=== PATIENT | male | born 1975 | race Caucasian/White ===

== ENCOUNTER → 2018-10-27 13:30 | Outpatient (CLI) | payer MEDICAID, SELFPAY ==
--- NOTE | 2018-10-27 13:32 | MR_ITS ---
PROCEDURE: MR KNEE LT WO CON CLINICAL INDICATION: Knee pain Fall with injury and pain, medial knee pain weakness and knee COMPARISON: XR KNEE LT 3V from 10/07/2018 TECHNIQUE: Routine multiplanar multi echo sequences are performed without gadolinium enhancement. FINDINGS: The cruciate ligaments, collateral ligaments, patellar tendon, and quadriceps tendon have an unremarkable appearance no meniscal tear. The patellar cartilage is well preserved. There is no evidence of patellar subluxation. There is slight increased T2 signal involving the medial patellofemoral ligament which may be due to sprain. A full-thickness tear is not felt to be present. There is bone marrow edema along the medial aspect of the medial femoral condyle and of the proximal tibia anteriorly and posteriorly. There is a nondisplaced fracture involving the posterior aspect of the medial tibial plateau which extends into the articular surface of the medial tibial plateau. The fracture is at the posterior margin of the medial tibial plateau. There is a questionable new microfracture of the anterior aspect of the proximal tibia medially more toward the central aspect of the proximal tibia. There is some edema also along the inferior aspect of the patella. There is a small knee joint effusion IMPRESSION: 1. Nondisplaced medial tibial plateau fracture involving the posterior aspect of the medial tibial plateau 2. Possible microfracture of the anterior aspect of the proximal tibia more central. There is bone bruise of the posterior aspect of the proximal tibia medially and laterally and of the anterior aspect of the proximal tibia. Bone bruise also involves the medial femoral condyle and the inferior aspect of the patella. 3. Sprain of the medial patellofemoral ligament versus partial tear. A complete tear is not felt to be present. Dictated by: Dominic Cardoso MD 10/29/2018 10:48 Electronically signed by Dominic Cardoso MD in [place] 10/29/2018 10:48
== END ==
PROVIDERS: Visit Provider Orthopaedic Surgery
DX: M25.562 Pain in left knee (principal)
CPT/HCPCS: 73721

== ENCOUNTER → 2020-10-22 13:29 | Outpatient (CLI) | payer MEDICAID, SELFPAY ==
[2020-10-22 13:43] LABS: Basophils # 0.1 K/mm3 (0-0.2); Basophils % 0.9 % (0.1-2.0); Eosinophils # 0.2 K/mm3 (0.0-0.4); Eosinophils % 3.1 % (0.1-12.0); Hematocrit 46.1 % (42.0-52.0); Hemoglobin 15.2 g/dL (14.1-18.0); Lymphocytes # 1.3 K/mm3 (0.7-4.5); Lymphocytes % 20.6 % (10-50); Mean Corpuscular Hemoglobin 34.4 pg (27.0-31.2); Mean Corpuscular Volume 104.3 fl (80-94); Mean Platelet Volume 7.7 fl (7.4-10.4); Monocytes # 0.4 K/mm3 (0.1-1.0); Monocytes % 6.1 % (1.7-9.3); Neutrophils # 4.4 K/mm3 (1.8-7.8); Neutrophils % 69.2 % (37.0-80.0); Platelet Count 319 K/mm3 (142-424); Red Blood Count 4.42 M/mm3 (4.60-6.20); Red Cell Distribution Width 12.2 % (11.5-17.5); White Blood Count 6.3 K/mm3 (4.8-10.8)
[2020-10-22 14:12] LABS: Hemoglobin A1C 5.9 % (4.0-6.0)
[2020-10-22 14:26] LABS: Alanine Aminotransferase 61 U/L (12-78); Albumin Level 4.2 g/dl (3.5-5.0); Albumin/Globulin Ratio 1.2 (1.1-1.8); Alkaline Phosphatase 109 U/L (38-126); Anion Gap 19.9 mEq/L (5-15); Aspartate Amino Transferase 65 U/L (17-59); Bilirubin,Total 0.6 mg/dl (0.2-1.3); Blood Urea Nitrogen 9 mg/dl (9-20); Calcium 9.6 mg/dl (8.4-10.2); Carbon Dioxide 23 mmol/L (22.0-30.0); Chloride 99 mmol/L (98-107); Cholesterol 180 mg/dl (140-200); Estimated Glomerular Filt Rate 72 ml/min (>60); GFR (African American) 87 ML/MIN (>60); Globulin 3.5 g/dL (1.3-3.2); Glucose 168 mg/dl (74-100); Potassium 4.9 mmoL/L (3.5-5.1); Sodium 137 mmol/L (136-145); Total Protein,Serum 7.7 g/dl (6.3-8.2); Triglycerides 58 mg/dl (30-150); VLDL Cholesterol 12 mg/dL (0-40)
[2020-10-22 14:36] LABS: Chol/HDL Ratio 1.6 (1-3.5); HDL Cholesterol 114 mg/dl (40-60)
[2020-10-22 14:37] LABS: Direct LDL Cholesterol 57.68 mg/dL (100-129)
[2020-10-22 14:57] LABS: Thyroid Stimulating Hormone 2.25 uIU/mL (0.465-4.68)
== END ==
PROVIDERS: Visit Provider Family Medicine
DX: E11.69 Type 2 diabetes mellitus with other specified complication (principal); E78.5 Hyperlipidemia, unspecified; E07.9 Disorder of thyroid, unspecified; E10.43 Type 1 diabetes mellitus with diabetic autonomic (poly)neuropathy; Z79.4 Long term (current) use of insulin
CPT/HCPCS: 80053; 80061; 83036; 84443; 85025

== ENCOUNTER → 2020-11-27 09:01 | Outpatient (CLI) | payer MEDICAID, SELFPAY | PROVIDERS: Visit Provider Surgery | DX: Z01.812 Encounter for preprocedural laboratory examination (principal); Z11.52 Encounter for screening for COVID-19; Z13.810 Encounter for screening for upper gastrointestinal disorder; R10.9 Unspecified abdominal pain | CPT/HCPCS: C9803; U0003; U0005 ==

== ENCOUNTER 2020-11-29 09:42 | Day surgery (SDC) | payer MEDICAID, SELFPAY ==
[2020-11-26 12:22] VITALS: BMI 35.4
[2020-11-29 10:03] VITALS: BP 111/94; PULSE 75; RESP 18; TEMP 36.6; O2SAT 99
--- NOTE | 2020-11-29 10:25 | HMH.ANESCL ---
[facility] Anesthesia Checklist - Patient Identification Patient Identification: Arm Band - Structural Data Admitted From: Home Planned Operative Procedure/s: EGD Consent for Planned Operative Procedure(s) Verified: Yes - NPO Status Verified Time NPO: 00:00 - Airway Assessment C-Spine Mobility Assessed: Yes TMJ Mobility Assessed: Yes Dentition: Good Dentition - Neurological Assessment Level of Consciousness: Awake Hx Seizures: No Numbness or tingling in extremities: No - Anesthesia Plan Anesthesia Risk discussed: Yes Anesthesia Plan: Verified ASA Class: III Anesthesia Type: MAC [facility] History I have reviewed the patient's past medical history: Yes Medical History: Reports:: Diabetes Mellitus Type 1, Diabetes Mellitus Type 2, Hypertension, Nephritis, Renal Disease (STage 2) Denies:: Cancer, Internal Pacemaker, MRSA, Seizures *Have you ever received a pneumonia vaccine?: No *Have you received a flu vaccine this season?: Yes Other Medical History: Reports: Thyroid Disease Anesthesia experience/problems:: None Other Surgeries: Yes: Bariatric Surgery, Other. No: Pacemaker Amputation: No Fractures: Yes (ANKLE) - *Social History Last grade of school completed: High school graduate Smoking Status: Never smoker Tobacco Type: smokeless tobacco # Packs/Day (cigarettes): 0 Alcohol Intake: current Alcohol Intake Frequency:: 0-2 drinks per day Substance Use Type: denies use *Occupational Status:: employed *Travel in the last 8 weeks: None Family Hx:: Diabetes, Coronary Artery Disease, Cancer
[2020-11-29 10:33] LABS: POC Glucose,Bedside 102 (70-110)
[2020-11-29 10:35] VITALS: O2SAT 100
--- NOTE | 2020-11-29 11:02 | HMH.SCOPE ---
- Procedure: Date: 11/29/20 Patient Date of :: 1975 Procedure Performed:: Esophagogastroduodenoscopy with biopsy Indications:: Melena Epigastric pain Performing Provider:: Christiano Cuevas MD Referring Provider:: . Sedation:: Monitored anesthesia care Procedure:: After informed consent was obtained the patient was taken to the endoscopy suite. Sedation ensued after the patient was transferred to the left lateral decubitus position. Pulse, blood pressure, and oxygen saturation were monitored throughout the procedure. The endoscope was advanced beyond the anastomosis (history of bariatric surgery). The gastroscope was carefully removed and the patient was transferred to recovery in stable condition. Please see findings and specimens below for detail. Findings:: Exceptionally small gastric remnant Inflammation at anastomosis Specimens:: Anastomotic biopsy Recommendations:: Follow-up pathology Consider UGI/SBFT if symptoms persist Continue current medical therapy May require reevaluation by bariatric surgeon if symptoms persist Complications:: No immediate Estimated blood obtained (mL): 1
[2020-11-29 11:05] VITALS: BP 117/75; PULSE 84; RESP 18; TEMP 36.7; O2SAT 96
[2020-11-29 11:15] VITALS: BP 113/70; PULSE 70; RESP 18; O2SAT 98
--- NOTE | 2020-11-29 11:30 | SUR.PHASEII ---
PT'S CONTINUOUS GLUCOSE MONITOR READING 77 UPON ARRIVAL TO POST OP. PT ABLE TO DRINK ORANGE JUICE AND BS WENT UP TO 105 AT TIME OF DISCHARGE. PT EXPERIENCED NO S/S HYPOGLYCEMIA.
[2020-11-29 11:35] VITALS: BP 114/68; PULSE 72; RESP 18; O2SAT 99
== END 2020-11-29 11:37 | disposition home or self-care (01) ==
LOC: OUTP 09:43
PROVIDERS: PCP Family Medicine; Visit Provider Surgery
PROC: 0DJ08ZZ Inspection of Upper Intestinal Tract, Via Natural or Artificial Opening Endoscopic (ICD-10-PCS; CPT 43235; principal; 2020-11-29 11:00)
DX: Z98.84 Bariatric surgery status; K29.60 Other gastritis without bleeding; I10 Essential (primary) hypertension; E11.22 Type 2 diabetes mellitus with diabetic chronic kidney disease; I12.9 Hypertensive chronic kidney disease with stage 1 through stage 4 chronic kidney disease, or unspecified chronic kidney disease; N18.2 Chronic kidney disease, stage 2 (mild); E07.9 Disorder of thyroid, unspecified; E66.9 Obesity, unspecified; Z68.35 Body mass index [BMI] 35.0-35.9, adult; E10.43 Type 1 diabetes mellitus with diabetic autonomic (poly)neuropathy; Z79.899 Other long term (current) drug therapy; Z79.4 Long term (current) use of insulin
CPT/HCPCS: 43239; 82962

== ENCOUNTER → 2021-03-29 12:12 | Outpatient (CLI) | payer MEDICAID, SELFPAY ==
[2021-03-29 12:19] LABS: Microscopic, Urine URINE MICROSCOPIC (MICROSCOPIC)
[2021-03-29 13:11] LABS: Hematocrit 40.5 % (42.0-52.0); Hemoglobin 13.3 g/dL (14.1-18.0); Mean Corpuscular HGB Conc 32.9 g/dL (31.8-35.4); Mean Corpuscular Hemoglobin 33.8 pg (27.0-31.2); Mean Corpuscular Volume 102.6 fl (80-94); Platelet Count 243 K/mm3 (142-424); Red Blood Count 3.95 M/mm3 (4.60-6.20); Red Cell Distribution Width 14.3 % (11.5-17.5); White Blood Count 5.9 K/mm3 (4.8-10.8)
[2021-03-29 13:18] LABS: Appearance,Urine CLEAR (Clear); Bilirubin,Urine Negative (Negative); Blood, Urine Negative (Negative); Color,Urine YELLOW (Yellow); Glucose,Urine (UA) Negative (Negative); Ketones,Urine Negative (Negative); Leukocyte Esterase,Urine Negative (Negative); Nitrate,Urine Negative (Negative); Protein,Urine Negative (Negative); Specific Gravity, Urine 1.015 (1.005-1.030)
[2021-03-29 13:23] LABS: Chloride 105 mmol/L (98-107); Sodium 135 mmol/L (136-145)
[2021-03-29 13:24] LABS: Potassium 5.5 mmoL/L (3.5-5.1)
[2021-03-29 13:26] LABS: Blood Urea Nitrogen 7 mg/dl (9-20); Estimated Glomerular Filt Rate 65 ml/min (>60); GFR (African American) 79 ML/MIN (>60)
[2021-03-29 13:27] LABS: Anion Gap 8.5 mEq/L (5-15); Calcium 8.2 mg/dl (8.4-10.2); Carbon Dioxide 27 mmol/L (22.0-30.0); Glucose 104 mg/dl (74-100)
[2021-03-29 14:02] LABS: Bacteria,Urine Trace /lpf; RBC,Urine Occasional #/hpf (0-3); WBC,Urine Occasional #/hpf (0-3)
[2021-03-29 14:05] LABS: Microalbumin/Creatinine Ratio 11.5
[2021-03-29 14:10] LABS: Creatinine,Urine Random 76 mg/dL (Not Estab.)
== END ==
PROVIDERS: PCP Family Medicine; Visit Provider Physician Assistant Medical
DX: N18.31 Chronic kidney disease, stage 3a (principal)
CPT/HCPCS: 36415; 80069; 81001; 82043; 82570; 84155; 85014; 85018; 85048; 85049

== ENCOUNTER 2022-01-20 10:09 | Observation (INO) | payer MEDICAID, SELFPAY ==
[2022-01-20] VITALS (7 sets, daily range): BP systolic 133–157; BP diastolic 80–87; PULSE 60–74; RESP 17–18; TEMP 36.7–37.1; O2SAT 97–99; BMI 35.4; BMI 35.3
--- NOTE | 2022-01-20 10:31 | PC.NURSE ---
DR. REYNOLDS AT BEDSIDE FOR EVALUATION
--- NOTE | 2022-01-20 10:36 | XR_ITS ---
FINAL REPORT TECHNIQUE: Single view chest CLINICAL HISTORY: concern for pneumonia FINDINGS: A single view of the chest was obtained. The heart and mediastinum are within normal limits. The lungs are clear. There is no pneumothorax. Osseous structures are unremarkable. IMPRESSION: No acute cardiopulmonary process. Reviewed, Interpreted and Dictated by Roge Cooper III, MD Transcribed by Yumiko Arroyo Authenticated and . [facility]
--- NOTE | 2022-01-20 10:38 | HMH.EDGENADL ---
Discharge Plan Disposition Chief Complaint: Weakness Discharge ED Provider: Jeison Ackerman General Adult HPI General Chief complaint: Weakness Stated complaint: weakness, trouble walking,dizzzy Time Seen by Provider: 01/20/22 10:20 Mode of Arrival: Ambulatory Source of Information: Patient Limitations: No Limitations Description of Symptoms (Recalled from ER Triage Doc. by RN): PT REPORTS WEAKNESS OF BILATERAL LEGS THAT STARTED THIS AM, LOW BLOOD PRESSURE AND NO ENERGY History of Present Illness HPI narrative: Patient is a 46-year-old male with a past medical history of hyperlipidemia, diabetes who presents with concern for weakness. He says that he has been having some issues with leg cramping the last few nights but today he woke up and he was feeling weak all over. He said he felt like his legs were heavy. He said he took his blood pressure and it was little bit lower than it normally was. He tried to go to breakfast to eat and drink to see if this would help him but he felt so weak he was not able to get there. He denies any new numbness or tingling into extremities. Denies any fever or chills. Denies any cough or congestion. Denies any abdominal pain. He says that he also has some back pain but says that this is chronic. Related Data Home Medications Medication Instructions Recorded Confirmed insulin glargine 100 unit/mL (3 20 unit SQ HS Diabetes 10/22/20 01/20/22 mL) subcutaneous pen (Basaglar KwikPen U-100 Insulin) insulin lispro 100 unit/mL 2 sliding scale dose SQ 10/22/20 01/20/22 subcutaneous pen (Iman DAVALOSASDIRECTD Diabetes U-100 Insulin lispro) chlorthalidone 25 mg tablet 25 mg PO DAILY High blood pressure 01/14/22 01/20/22 Previous Rx's Medication Instructions Recorded sildenafil 100 mg tablet 100 mg PO DAILY PRN sexual 03/29/21 activity #10 tabs fluticasone propionate 50 1 spray intranasal Q12H PRN nasal 05/10/21 mcg/actuation nasal congestion #16 grams spray,suspension trazodone 50 mg tablet 50 mg PO HS PRN Sleep #90 tabs 09/17/21 pravastatin 20 mg tablet 20 mg PO DAILY Cholesterol #30 tabs 10/30/21 furosemide 20 mg tablet (Lasix) 20 mg PO DAILY PRN edema #30 tabs 01/14/22 gabapentin 600 mg tablet 600 mg PO Q8H NERVE PAIN #90 tabs 01/14/22 Allergies Allergy/AdvReac Type Severity Reaction Status Date / Time No Known Allergies Allergy Verified 01/14/22 10:10 [facility] Disclaimer: The information contained in this section may have been updated after the patient was seen, as this information can be updated by other users. Medical History (Updated 01/20/22 @ 10:29 by Lee Ann Gordon RN) Diabetes Neuropathy Surgical History (Updated 01/20/22 @ 10:29 by Lee Ann Gordon RN) H/O gastric bypass History of ankle surgery Family History (Updated 01/20/22 @ 10:29 by Lee Ann Gordon RN) Other No significant family history Social History (Updated 01/20/22 @ 10:29 by Lee Ann Gordon RN) Smoking Status: Never smoker alcohol intake: current substance use type: denies use current occupational status: employed Travel in the last 8 weeks: None caffeine: No ROS Obtained: Yes All systems reviewed & no additional complaints except as documented A 14 point review of system was obtained and otherwise negative except per HPI Physical Exam General General appearance: alert and in no apparent distress Head Head exam: atraumatic, normocephalic and normal inspection Eye Eye exam: Present normal appearance, PERRL and EOMI ENT ENT exam: Present normal exam, normal oropharynx, mucous membranes moist, TM's normal bilaterally and normal external ear exam Neck Neck exam: Present normal inspection, full ROM and trachea midline; Absent meningismus or lymphadenopathy Chest Chest inspection: Present normal inspection and symmetric chest wall rise; Absent tenderness Respiratory Respiratory exam: Present normal lung sounds bilaterally; Absent respiratory
--- NOTE | 2022-01-20 10:48 | PC.NURSE ---
XR AT BEDSIDE
[2022-01-20 10:55] LABS: Coronavirus 19, PCR Not Detected (NotDetected); Influenza A, PCR Not Detected (NotDetected); Influenza B, PCR Not Detected (NotDetected)
[2022-01-20 11:01] LABS: Basophils % 0.7 % (0.1-2.0); Eosinophils # 0.1 K/mm3 (0.0-0.4); Eosinophils % 2.1 % (0.1-12.0); Hematocrit 39.4 % (42.0-52.0); Hemoglobin 13.9 g/dL (14.1-18.0); Lymphocytes # 0.9 K/mm3 (0.7-4.5); Mean Corpuscular HGB Conc 35.2 g/dL (31.8-35.4); Mean Corpuscular Hemoglobin 34.2 pg (27.0-31.2); Mean Corpuscular Volume 97.2 fl (80-94); Mean Platelet Volume 7.5 fl (7.4-10.4); Monocytes # 0.4 K/mm3 (0.1-1.0); Monocytes % 7.1 % (1.7-9.3); Neutrophils # 4.7 K/mm3 (1.8-7.8); Neutrophils % 76.2 % (37.0-80.0); Platelet Count 253 K/mm3 (142-424); Red Blood Count 4.06 M/mm3 (4.60-6.20); Red Cell Distribution Width 13.5 % (11.5-17.5); White Blood Count 6.2 K/mm3 (4.8-10.8)
[2022-01-20 11:03] LABS: Sodium 118 mmol/L (136-145)
[2022-01-20 11:04] LABS: Potassium 3.9 mmoL/L (3.5-5.1)
[2022-01-20 11:05] LABS: Microscopic, Urine URINE MICROSCOPIC (MICROSCOPIC)
[2022-01-20 11:06] LABS: Alanine Aminotransferase 63 U/L (12-78); Albumin Level 4.7 g/dl (3.5-5.0); Albumin/Globulin Ratio 1.3 (1.1-1.8); Alkaline Phosphatase 94 U/L (38-126); Anion Gap 13.9 mEq/L (5-15); Aspartate Amino Transferase 152 U/L (17-59); Bilirubin,Total 0.6 mg/dl (0.2-1.3); Blood Urea Nitrogen 15 mg/dl (9-20); Calcium 9.3 mg/dl (8.4-10.2); Carbon Dioxide 33 mmol/L (22.0-30.0); Creatinine Clearance Estimated 99 mL/min (50-200); Estimated Glomerular Filt Rate 54 ml/min (>60); GFR (African American) 65 ML/MIN (>60); Globulin 3.7 g/dL (1.3-3.2); Glucose 103 mg/dl (74-100); Total Protein,Serum 8.4 g/dl (6.3-8.2)
[2022-01-20 11:06] LABS: Appearance,Urine CLEAR (Clear); Bilirubin,Urine Negative (Negative); Blood, Urine Negative (Negative); Color,Urine YELLOW (Yellow); Glucose,Urine (UA) Negative (Negative); Ketones,Urine Negative (Negative); Leukocyte Esterase,Urine Negative (Negative); Nitrate,Urine Negative (Negative); PH,Urine 6.5 (5.0-8.5); Protein,Urine Negative (Negative)
[2022-01-20 11:07] LABS: Magnesium 1.6 mg/dl (1.6-2.3)
[2022-01-20 11:12] LABS: C-Reactive Protein 3.2 mg/L (0-4)
[2022-01-20 11:13] LABS: Chloride 75 mmol/L (98-107)
[2022-01-20 11:15] LABS: NT Pro Brain Natriuretic Pep. 79.7 pg/mL (0-125)
[2022-01-20 11:23] LABS: Bacteria,Urine Trace /lpf; Squamous Epithelial Cell,Urine Occasional #/hpf (0-5); WBC,Urine Occasional #/hpf (0-3)
--- NOTE | 2022-01-20 11:25 | PC.NURSE ---
Family at BS
[2022-01-20 11:56] LABS: Creatinine,Urine Random 23 mg/dL (Not Estab.)
--- NOTE | 2022-01-20 12:00 | PC.NURSE ---
DR. REYNOLDS SPEAKING WITH HOSPITALIST
--- NOTE | 2022-01-20 12:07 | PC.NURSE ---
CARE MANAGEMENT NOTIFIED OF ADMISSION
[2022-01-20 12:20] LABS: Ethyl Alcohol < 10 mg/dl (0-10)
--- NOTE | 2022-01-20 13:02 | PC.NURSE ---
Dr. Sahu (hospitalist) at
--- NOTE | 2022-01-20 13:44 | HMH.PHAINT1 ---
Pharmacy Intervention Comments: Medication reconciliation completed via chart review and external fill history. -Ava Keyes, PharmD Candidate 2022
--- NOTE | 2022-01-20 13:54 | EXP.HP ---
History of Present Illness *Admission Date: 01/20/22 *Reason for visit:: Chief complaint: Weakness *History of present illness: This is a 46-year-old male that presents to [facility] emergency department with concerns of weakness over the last 48 hours worse this morning. He is accompanied by his mother. His past medical history is significant for type 1 diabetes, hypertension, hyperlipidemia and BMI 35. He reports that he is chronically prescribed chlorthalidone for high blood pressure and went to see his family doctor approximately 1 week ago for increasing lower extremity edema. He was prescribed furosemide to use as needed. He started using his recently prescribed loop diuretic therapy and identified improvement in his lower extremity edema but also identified increasing weakness. He denies any recent nausea, vomiting or diarrhea. This morning with attempting to go to the bathroom he felt like I could not move. He denies acute loss of motor or sensory function, I just feel real weak. He denied associated dysarthria, facial asymmetry or confusion. He has identified decreased calculating ability. He reported no associated falls, acute dyspnea, retrosternal chest pain or palpitations. He denies unusual headaches, visual disturbances or trouble swallowing. In the ED and electrolyte panel identified a sodium 118 with chloride 75 and creatinine 1.4. He reported to the ED physician that he drinks a sixpack of beer daily with no associated liquor or wine consumption. [facility] Disclaimer: The information contained in this section may have been updated after the patient was seen, as this information can be updated by other users. Medical History (Updated 01/20/22 @ 14:15 by Vicente Callejas MD) BMI 35.0-35.9,adult Diabetic neuropathy Hyperlipidemia associated with type 2 diabetes mellitus Hypertension Type 1 diabetes mellitus Surgical History (Updated 01/20/22 @ 10:29 by Lee Ann Gordon RN) H/O gastric bypass History of ankle surgery Family History (Updated 01/20/22 @ 14:04 by Vicente Callejas MD) Mother Osteoarthritis Father Heart attack Social History (Updated 01/20/22 @ 14:07 by Vicente Callejas MD) Smoking Status: Never smoker alcohol intake: current counseling given: Yes counseling provided: provider counseling and reduce to 2 or less/day substance use type: denies use current occupational status: employed Travel in the last 8 weeks: None marital status: single number of children: 0 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 caffeine: No brenda/mormon: [employer] Review of Systems Review of Systems Review of systems:: pertinent systems reviewed and negative unless documented below ENT Ears, Nose, Mouth, and Throat: Denies dysphagia *Gastrointestinal Gastrointestinal: Denies diarrhea, Denies dysphagia, Denies nausea and Denies vomiting Meds Home Medications and Allergies Home Medications Medication Instructions Recorded Confirmed Type insulin glargine 100 unit/mL (3 20 unit SQ HS Diabetes 10/22/20 01/20/22 History mL) subcutaneous pen (Basaglar KwikPen U-100 Insulin) insulin lispro 100 unit/mL 2 sliding scale dose SQ 10/22/20 01/20/22 History subcutaneous pen (elkarel SoloSthuma USEASDIRECTD Diabetes U-100 Insulin lispro) sildenafil 100 mg tablet 100 mg PO DAILY PRN sexual 03/29/21 01/20/22 Rx activity #10 tabs fluticasone propionate 50 1 spray intranasal Q12H PRN nasal 05/10/21 01/20/22 Rx mcg/actuation nasal congestion #16 grams spray,suspension trazodone 50 mg tablet 50 mg PO HS PRN Sleep #90 tabs 09/17/21 01/20/22 Rx pravastatin 20 mg tablet 20 mg PO DAILY Cholesterol #30 tabs 10/30/21 01/20/22 Rx chlorthalidone 25 mg tablet 25 mg PO DAILY CKD 01/14/22 01/20/22 History furosemide 20 mg tablet (Lasix) 20 mg PO DAILY PRN edema #30 tabs 01/14/22 01/20/22 Rx gabapentin 600 mg tablet 600 mg PO Q8H NERVE PAIN #90 tabs 01/14/2201/09
--- NOTE | 2022-01-20 14:08 | PC.NURSE ---
REPORT GIVEN TO Lex YUN RN
--- NOTE | 2022-01-20 14:32 | PC.NURSE ---
patient to 2nd floor via wc with 2 techs.
--- NOTE | 2022-01-20 14:33 | PC.NURSE ---
came from ED by wheelchair
--- NOTE | 2022-01-20 15:27 | PC.NURSE ---
spoke with Dr. Callejas, gave ok to use dexcom for FSBS
[2022-01-20 15:39] LABS: Chloride 78 mmol/L (98-107); Sodium 118 mmol/L (136-145)
[2022-01-20 15:40] LABS: Potassium 3.7 mmoL/L (3.5-5.1)
[2022-01-20 15:42] LABS: Blood Urea Nitrogen 15 mg/dl (9-20); Creatinine Clearance Estimated 92 mL/min (50-200); Estimated Glomerular Filt Rate 50 ml/min (>60); GFR (African American) 60 ML/MIN (>60)
[2022-01-20 15:43] LABS: Anion Gap 11.7 mEq/L (5-15); Carbon Dioxide 32 mmol/L (22.0-30.0); Glucose 77 mg/dl (74-100)
[2022-01-20 16:13] LABS: Thyroid Stimulating Hormone 3.54 uIU/mL (0.465-4.68)
--- NOTE | 2022-01-20 17:36 | PC.NURSE ---
no acute changes since admission, remains on room air, NSR on telemetry, has been up to chair
[2022-01-20 22:46] LABS: Chloride 81 mmol/L (98-107); Potassium 3.7 mmoL/L (3.5-5.1); Sodium 120 mmol/L (136-145)
[2022-01-20 22:49] LABS: Blood Urea Nitrogen 15 mg/dl (9-20); Creatinine Clearance Estimated 92 mL/min (50-200); Estimated Glomerular Filt Rate 50 ml/min (>60); GFR (African American) 60 ML/MIN (>60)
[2022-01-20 22:50] LABS: Anion Gap 10.7 mEq/L (5-15); Calcium 8.5 mg/dl (8.4-10.2); Carbon Dioxide 32 mmol/L (22.0-30.0); Glucose 136 mg/dl (74-100)
[2022-01-21] VITALS (8 sets, daily range): BP systolic 136–163; BP diastolic 66–99; PULSE 60–72; RESP 14–18; TEMP 36.5–36.9; O2SAT 97–100
[2022-01-21 00:03] LABS: POC Glucose,Bedside 139 (70-110)
--- NOTE | 2022-01-21 04:36 | PC.NURSE ---
pt has had no complaints this shift he is a&OX4. edema noted to BLE. no changes since previous assessment.
[2022-01-21 06:41] LABS: Basophils % 1.1 % (0.1-2.0); Eosinophils # 0.1 K/mm3 (0.0-0.4); Eosinophils % 3.4 % (0.1-12.0); Hematocrit 35.9 % (42.0-52.0); Lymphocytes % 23.7 % (10-50); Mean Corpuscular HGB Conc 34.7 g/dL (31.8-35.4); Mean Corpuscular Hemoglobin 34.5 pg (27.0-31.2); Mean Corpuscular Volume 99.3 fl (80-94); Mean Platelet Volume 7.8 fl (7.4-10.4); Monocytes # 0.5 K/mm3 (0.1-1.0); Monocytes % 12.8 % (1.7-9.3); Neutrophils # 2.4 K/mm3 (1.8-7.8); Neutrophils % 59.1 % (37.0-80.0); Platelet Count 211 K/mm3 (142-424); Red Blood Count 3.62 M/mm3 (4.60-6.20); Red Cell Distribution Width 13.5 % (11.5-17.5); White Blood Count 4.1 K/mm3 (4.8-10.8)
[2022-01-21 06:52] LABS: Hemoglobin 12.5 g/dL (14.1-18.0)
--- NOTE | 2022-01-21 12:44 | EXP.ACUTE.PN ---
Subjective *Date: 01/21/22 *Time: 19:37 Interval history: Patient mentating normally this morning. Tolerating IV fluids. Labs show slow improvement in sodium. Having adequate urine output, tolerating p.o. fluids. No withdrawal symptoms from alcohol at this time. Denies chest pain, shortness of breath, nausea or vomiting. Would like to have his gabapentin and trazodone resumed for his neuropathy and sleeping. No contraindications at this time. Medical Exam Vital signs and Labs for Last 24 Hours: Vital Signs Temp Pulse Pulse Resp BP BP Pulse Ox 01/21/22 08:00 98.0 F 72 16 153/99 H 100 01/21/22 06:39 61 01/21/22 04:00 97.7 F 60 18 136/66 99 01/21/22 00:42 60 01/20/22 20:00 60 01/21/22 00:00 98.5 F 67 18 151/87 H 97 01/20/22 20:00 98.2 F 67 18 145/82 H 97 01/20/22 16:00 70 01/20/22 15:48 73 97 01/20/22 14:45 98.3 F 73 18 157/87 H 97 01/20/22 14:30 98.0 F 73 17 133/80 Intake and Output 01/20/22 01/21/22 01/21/22 23:59 07:59 15:59 Intake Total 838 / 838 1081 / 1441 360 / 1441 Output Total 900 / 900 800 / 800 Balance -62 / -62 281 / 641 360 / 641 Intake: Intake, Oral Amount 480 / 480 360 / 360 Intake, Total IV Amount 358 / 358 1081 / 1081 0.9 % Sodium Chloride 1,000 ml 308 / 308 1081 / 1081 @ 100 mls/hr IV .Q10H [facility] Rx#: [id number] Magnesium Sulfate in Water 2 gm 50 / 50 In 50 ml @ 50 mls/hr IV ONCE ONE Rx#:[id number] Output: Output, Urine Amount 900 / 900 800 / 800 Laboratory Results - last 24 hr 01/20/22 15:12: Sodium 118 L, Potassium 3.7, Chloride 78 L, Carbon Dioxide 32 H, Anion Gap 11.7, BUN 15, Creatinine 1.50 H, Estimated Creat Clear 92, Estimated GFR 50 L, Est GFR ( Amer) 60, Glucose 77 D, Calcium 9.0 01/20/22 15:12: TSH 3.54 01/20/22 21:33: POC Glucose 139 H 01/20/22 22:21: Sodium 120 L, Potassium 3.7, Chloride 81 L, Carbon Dioxide 32 H, Anion Gap 10.7, BUN 15, Creatinine 1.50 H, Estimated Creat Clear 92, Estimated GFR 50 L, Est GFR ( Amer) 60, Glucose 136 H D, Calcium 8.5 01/21/22 05:53: WBC 4.1 L D, RBC 3.62 L, Hgb 12.5 L D, Hct 35.9 L, MCV 99.3 H, MCH 34.5 H, MCHC 34.7, RDW 13.5, Plt Count 211, MPV 7.8, Neut % (Auto) 59.1, Lymph % (Auto) 23.7, [place] % (Auto) 12.8 H, Eos % (Auto) 3.4, Baso % (Auto) 1.1, Neut # (Auto) 2.4, Lymph # (Auto) 1.0, [place] # (Auto) 0.5, Eos # (Auto) 0.1, Baso # (Auto) 0.0 01/21/22 05:53: Magnesium 2.0 D I & O for Labs for Last 24 Hours: Intake & Output 01/18/22 01/19/22 01/20/22 01/21/22 23:59 23:59 23:59 23:59 Intake Total 838 / 838 1441 / 1441 Output Total 900 / 900 800 / 800 Balance -62 / -62 641 / 641 Weight 108.437 kg Constitutional: Present no acute distress and obese Head: Present atraumatic and normocephalic ENT: Present normal exam Neck: Present normal inspection Respiratory: Present CTA bilaterally and normal respiratory effort; Absent accessory muscle use, rhonchi, wheezes or crackles Cardiac: Present Reg Rate and Rhythm GI: Present normal bowel sounds; Absent tenderness Extremities: Present normal inspection and full ROM; Absent edema Skin: Present intact; Absent erythema Neuro: Present Cranial Nerve 2-12 Intact, Grossly Intact, alert, awake, oriented x 3 and moves all extremities Assessment and Plan *Assessment and plan (1) Acute hyponatremia: Status: Acute Category: Medical Code(s): E87.1 - Hypo-osmolality and hyponatremia (2) BRI (acute kidney injury): Status: Acute Category: Medical Code(s): N17.9 - Acute kidney failure, unspecified (3) Alcohol use disorder, mild, abuse: Status: Acute Category: Medical Code(s): F10.10 - Alcohol abuse, uncomplicated (4) Type 1 diabetes mellitus: Status: Acute Category: Medical Code(s): E10.9 - Type 1 diabetes mellitus without complications (5) Hypertension: Status: Acute [place]
[2022-01-21 12:58] LABS: Sodium, Urine 52 mmol/L (Not Estab.)
[2022-01-21 13:23] LABS: Chloride 89 mmol/L (98-107); Potassium 3.9 mmoL/L (3.5-5.1); Sodium 125 mmol/L (136-145)
[2022-01-21 13:26] LABS: Anion Gap 11.9 mEq/L (5-15); Blood Urea Nitrogen 13 mg/dl (9-20); Calcium 8.8 mg/dl (8.4-10.2); Carbon Dioxide 28 mmol/L (22.0-30.0); Creatinine Clearance Estimated 99 mL/min (50-200); Estimated Glomerular Filt Rate 54 ml/min (>60); GFR (African American) 65 ML/MIN (>60); Glucose 168 mg/dl (74-100)
--- NOTE | 2022-01-21 18:12 | PC.NURSE ---
pt has been up to chair t/o shift, has not complained of pain, has ambulated in room independently, remains on room air, HR 60-72
[2022-01-21 20:16] LABS: Chloride 89 mmol/L (98-107); Potassium 3.9 mmoL/L (3.5-5.1); Sodium 125 mmol/L (136-145)
[2022-01-21 20:19] LABS: Anion Gap 10.9 mEq/L (5-15); Blood Urea Nitrogen 12 mg/dl (9-20); Carbon Dioxide 29 mmol/L (22.0-30.0); Creatinine Clearance Estimated 92 mL/min (50-200); Estimated Glomerular Filt Rate 50 ml/min (>60); GFR (African American) 60 ML/MIN (>60); Glucose 189 mg/dl (74-100)
[2022-01-21 20:20] LABS: Calcium 8.8 mg/dl (8.4-10.2)
[2022-01-22 04:00] VITALS: BP 150/89; PULSE 61; RESP 16; TEMP 36.6; O2SAT 100
--- NOTE | 2022-01-22 04:27 | PC.NURSE ---
Pt has been A/O X 4, has been up in chair all shift. States it is more comfortable for him sleeping in the chair. Pt lungs are clear, resp even and non labored. IV 20G in Right AC is patent, NS running at 100ml / hr. last sodium level was 125, another lab draw this morning at 0600. Pt has been educated on medications and Plan of care. Encouraged pt to report any needs.
[2022-01-22 05:16] VITALS: BMI 34.2
[2022-01-22 05:45] LABS: Osmolality, Urine 181 mOsmol/kg (.)
[2022-01-22 07:02] LABS: Basophils # 0.1 K/mm3 (0-0.2); Basophils % 1.4 % (0.1-2.0); Eosinophils # 0.3 K/mm3 (0.0-0.4); Eosinophils % 7.5 % (0.1-12.0); Hematocrit 34.7 % (42.0-52.0); Hemoglobin 12.3 g/dL (14.1-18.0); Lymphocytes # 1.1 K/mm3 (0.7-4.5); Lymphocytes % 27.7 % (10-50); Mean Corpuscular HGB Conc 35.5 g/dL (31.8-35.4); Mean Corpuscular Hemoglobin 35.5 pg (27.0-31.2); Mean Corpuscular Volume 99.9 fl (80-94); Mean Platelet Volume 7.9 fl (7.4-10.4); Monocytes # 0.4 K/mm3 (0.1-1.0); Monocytes % 10.7 % (1.7-9.3); Neutrophils # 2.1 K/mm3 (1.8-7.8); Neutrophils % 52.8 % (37.0-80.0); Platelet Count 206 K/mm3 (142-424); Red Blood Count 3.48 M/mm3 (4.60-6.20); Red Cell Distribution Width 13.3 % (11.5-17.5)
[2022-01-22 07:06] LABS: Chloride 97 mmol/L (98-107); Potassium 4.3 mmoL/L (3.5-5.1); Sodium 131 mmol/L (136-145)
[2022-01-22 07:09] LABS: Alanine Aminotransferase 52 U/L (12-78); Albumin/Globulin Ratio 1.3 (1.1-1.8); Alkaline Phosphatase 85 U/L (38-126); Anion Gap 9.3 mEq/L (5-15); Aspartate Amino Transferase 95 U/L (17-59); Bilirubin,Total 0.5 mg/dl (0.2-1.3); Blood Urea Nitrogen 10 mg/dl (9-20); Carbon Dioxide 29 mmol/L (22.0-30.0); Creatinine Clearance Estimated 103 mL/min (50-200); Estimated Glomerular Filt Rate 59 ml/min (>60); GFR (African American) 71 ML/MIN (>60)
[2022-01-22 07:10] LABS: Calcium 9.3 mg/dl (8.4-10.2); Glucose 98 mg/dl (74-100)
[2022-01-22 08:00] VITALS: BP 138/85; PULSE 70; RESP 14; TEMP 36.9; O2SAT 100
--- NOTE | 2022-01-22 11:43 | EXP.DC.SUM ---
General Admission date:: 01/20/22 Discharge date: 01/22/22 HPI HPI HPI: This is a 46-year-old male that presents to [facility] emergency department with concerns of weakness over the last 48 hours worse this morning. He is accompanied by his mother. His past medical history is significant for type 1 diabetes, hypertension, hyperlipidemia and BMI 35. He reports that he is chronically prescribed chlorthalidone for high blood pressure and went to see his family doctor approximately 1 week ago for increasing lower extremity edema. He was prescribed furosemide to use as needed. He started using his recently prescribed loop diuretic therapy and identified improvement in his lower extremity edema but also identified increasing weakness. He denies any recent nausea, vomiting or diarrhea. This morning with attempting to go to the bathroom he felt like I could not move. He denies acute loss of motor or sensory function, I just feel real weak. He denied associated dysarthria, facial asymmetry or confusion. He has identified decreased calculating ability. He reported no associated falls, acute dyspnea, retrosternal chest pain or palpitations. He denies unusual headaches, visual disturbances or trouble swallowing. In the ED and electrolyte panel identified a sodium 118 with chloride 75 and creatinine 1.4. He reported to the ED physician that he drinks a sixpack of beer daily with no associated liquor or wine consumption. Hospital Course Hospital Course Hospital Course: 46-year-old male admitted for severe hyponatremia. Monitored with gradual repletion during admission. Showed good response to IV fluid repletion. Sodium corrected within appropriate range of less than 10 mEq a day. Sodium improved to greater than 130 by day of discharge. Counseled on ways to decrease risk for hyponatremia in the future including decreasing alcohol consumption or stopping beer consumption along with holding his diuretic. Discouraged sodium restricted diet at this time. Patient back to baseline function. Stable for discharge home. Problems addressed as follows: Acute severe hyponatremia ? Sodium of 118 on admission. Most likely related to his thiazide and loop diuretic combo in the setting of alcohol use disorder mild severity. Started on normal saline infusion with gradual repletion. Monitored for repletion at goal rate of 8 to 12 mEq daily (24-hour).?Labs every 8-12 hours to monitor for improvement during admission. Sodium 131 on day of discharge. No seizure activity during admission. TSH evaluated, normal thyroid function. Recommend alcohol cessation. However if continues to drink, would recommend not restricting his salt intake. Also would recommend avoiding diuretic at this time. Further evaluation in the outpatient setting. Needs repeat labs with BMP in 1 to 2 weeks. Aute kidney injury - Baseline creatinine 1.0, creatinine has remained between 1.3 and 1.5 during admission. Suspect this may be a new baseline for him. Electrolytes repleted as needed. Avoid diuretic on discharge. Alcohol use disorder mild severity ? Discussed cessation or decrease consumption. Patient considering decreasing how much he drinks. Does not want referral to outpatient resources at this time. Diabetes mellitus type 1 -hemoglobin A1c identifies excellent control at 5.9%, routine blood sugar monitoring, basal insulin therapy, sliding scale insulin therapy, carbohydrate controlled diet. Required no sliding scale insulin. Continue basal insulin as ordered per home regimen. Hypertension ? Blood pressure controlled during admission. Holding thiazide diuretic. Stable for discharge home. Resume regular diet without sodium restriction. Follow-up with PCP in the coming weeks Exam Data for Last 24 hours Vital signs and Labs for Last 24 Hours: Temp Pulse Resp BP Pulse Ox 98.4 F 70 14 138/85 100 01/22/22 08:00 01/22/22 08:00 01/22/22 08
--- NOTE | 2022-01-23 13:21 | CARE MANAGER ---
Attempted post-discharge phone interview, no answer.
--- NOTE | 2022-01-24 13:55 | CARE MANAGER ---
Contacted patient related to hospital discharge. He states he feels better and denies any questions or concerns. He is aware of follow up appointments. JUANITA Nielsen
== END 2022-01-22 12:05 | disposition home or self-care (01) | DRG 641 ==
LOC: ER 10:25 → 2ND 13:40
PROVIDERS: Nurse Practitioner Acute Care; Admitting Provider Family Medicine; Emergency Provider Student in an Organized Health Care Education/Training Program; PCP Family Medicine; Visit Provider Internal Medicine Adolescent Medicine
DX: E87.1 Hypo-osmolality and hyponatremia (principal); N17.9 Acute kidney failure, unspecified; F10.10 Alcohol abuse, uncomplicated; E78.5 Hyperlipidemia, unspecified; Z79.4 Long term (current) use of insulin; E10.40 Type 1 diabetes mellitus with diabetic neuropathy, unspecified; Y90.0 Blood alcohol level of less than 20 mg/100 ml; Z20.822 Contact with and (suspected) exposure to COVID-19
CPT/HCPCS: 36415; 71045; 80048; 80053; 81001; 82570; 82962; 83735; 83880; 83930; 83935; 84300; 84443; 85025; 86140; 99285; C9803; G0378; J2405; J3475; U0003; U0005

== ENCOUNTER → 2022-01-30 14:52 | Outpatient (CLI) | payer MEDICAID, SELFPAY ==
[2022-01-30 14:48] LABS: Chloride 97 mmol/L (98-107); Potassium 5.3 mmoL/L (3.5-5.1); Sodium 132 mmol/L (136-145)
[2022-01-30 14:51] LABS: Anion Gap 14.3 mEq/L (5-15); Blood Urea Nitrogen 7 mg/dl (9-20); Calcium 9.6 mg/dl (8.4-10.2); Carbon Dioxide 26 mmol/L (22.0-30.0); Estimated Glomerular Filt Rate 65 ml/min (>60); GFR (African American) 78 ML/MIN (>60); Glucose 96 mg/dl (74-100)
== END ==
PROVIDERS: PCP Family Medicine; Visit Provider Family Medicine
DX: E87.1 Hypo-osmolality and hyponatremia (principal)
CPT/HCPCS: 80048

== ENCOUNTER → 2022-02-17 11:40 | Outpatient (CLI) | payer MEDICAID, SELFPAY | PROVIDERS: PCP Family Medicine; Visit Provider Otolaryngology | DX: J33.9 Nasal polyp, unspecified (principal) | CPT/HCPCS: 87070 ==

== ENCOUNTER 2022-04-08 13:10 | Emergency (ER) | payer MEDICAID, SELFPAY ==
[2022-04-08 13:21] VITALS: BP 170/96; PULSE 73; RESP 15; TEMP 36.5; O2SAT 100
--- NOTE | 2022-04-08 13:22 | XR_ITS ---
FINAL REPORT CLINICAL HISTORY: trauma. left foot pain COMPARISON: 06/23/2018 FINDINGS: AP, oblique and lateral views of the left foot were obtained. There is deformity of the head of the 5th metatarsal consistent with old fracture. There is no acute fracture or dislocation. There is degenerative disease. Metallic hardware is seen in the distal tibia. There is nonspecific soft tissue edema. IMPRESSION: Old fracture without acute bony abnormality. Degenerative disease. Reviewed, Interpreted and Dictated by Sarah Gregory MD Transcribed by Chelsi Le Authenticated and [facility]
--- NOTE | 2022-04-08 13:23 | HMH.EDGENADL ---
Discharge Plan Disposition Patient Disposition: Home, Self-Care Condition: Good Prescriptions Prescriptions: New hydrocodone-acetaminophen 5-325 mg tablet 1 tab PO Q8H PRN (Reason: pain) Qty: 7 0RF No Action gabapentin 600 mg tablet 600 mg PO Q8H Qty: 90 5RF trazodone 50 mg tablet 50 mg PO HS aspirin [Adult Aspirin Regimen] 81 mg tablet,delayed release (DR/EC) 81 mg PO DAILY insulin lispro [Admelog SoloStar U-100 Insulin] 100 unit/mL insulin pen 2 sliding scale dose SQ USEASDIRECTD Label Comments: 1 unit every 5 grams of carbs Basaglar KwikPen U-100 Insulin 100 unit/mL (3 mL) insulin pen 20 unit SQ DAILY Label Comments: BASAGALAR sildenafil 100 mg tablet 100 mg PO DAILY PRN (Reason: sexual activity) Qty: 10 10RF Rx Instructions: te Glucagon Emergency Kit (human) 1 mg recon soln 1 mg IM ONCE Label Comments: INJECT 1 MG INTO THE MUSCLE ONCE IF NEEDED FOR LOW BLOOD SUGAR azelastine 205.5 mcg (0.15 %) spray,non-aerosol 1 spray intranasal BID Qty: 30 2RF Rx Instructions: administer into each nostril pravastatin 20 mg tablet 20 mg PO DAILY Qty: 30 2RF Referrals Follow up/Referrals: Micah Willoughby MD [Primary Care Provider] - See instructions Rola Herrera DPM [Staff Physician] - See instructions Activity Restrictions/Add. Instructions Additional Instructions/Restrictions: Rest ice elevate as needed for discomfort. Use your walking boot when ambulating and keep the weight towards the heel of the foot. Clinical Impressions Clinical Impression: Sprain of foot, left Discharge ED Provider: Oliver Latif General Adult HPI General Chief complaint: Extremity Injury, Lower Stated complaint: AO 04/06 @home LT ankle pain Time Seen by Provider: 04/08/22 13:19 History of Present Illness HPI narrative: Patient presents complaint left foot pain after he stepped into a [place] and felt a pop in the midfoot area. He states is painful to walk he denies additional injuries he denies ankle pain. Pain is described as moderate to severe Related Data Home Medications Medication Instructions Recorded Confirmed insulin lispro 100 unit/mL 2 sliding scale dose SQ 10/22/20 03/11/22 subcutaneous pen (Admelog SoloStar USEASDIRECTD Diabetes U-100 Insulin lispro) aspirin 81 mg tablet,delayed 81 mg PO DAILY 01/30/22 03/11/22 release (Adult Aspirin Regimen) glucagon 1 mg solution for 1 mg IM ONCE 02/17/22 03/11/22 injection (Glucagon Emergency Kit) insulin glargine 100 unit/mL (3 20 unit SQ DAILY Diabetes 03/11/22 03/11/22 mL) subcutaneous pen (Basaglar KwikPen U-100 Insulin) trazodone 50 mg tablet 50 mg PO HS Sleep 03/11/22 Previous Rx's Medication Instructions Recorded sildenafil 100 mg tablet 100 mg PO DAILY PRN sexual 03/29/21 activity #10 tabs gabapentin 600 mg tablet 600 mg PO Q8H NERVE PAIN #90 tabs 01/14/22 azelastine 205.5 mcg (0.15 %) 1 spray intranasal BID #30 mL 02/17/22 nasal spray pravastatin 20 mg tablet 20 mg PO DAILY Cholesterol #30 tabs 02/18/22 hydrocodone 5 mg-acetaminophen 325 1 tab PO Q8H PRN pain #7 tabs 04/08/22 mg tablet Allergies Allergy/AdvReac Type Severity Reaction Status Date / Time No Known Allergies Allergy Verified 03/11/22 08:53 [facility] Disclaimer: The information contained in this section may have been updated after the patient was seen, as this information can be updated by other users. Medical History BMI 35.0-35.9,adult Diabetic neuropathy Hyperlipidemia associated with type 2 diabetes mellitus Hypertension Type 1 diabetes mellitus Surgical History H/O gastric bypass History of ankle surgery Family History Mother Osteoarthritis Father Heart attack Social History (Reviewed 04/08/22 @ 13:24 by Cira
--- NOTE | 2022-04-08 13:50 | PC.NURSE ---
pt given juice
[2022-04-08 14:13] VITALS: BP 170/89; PULSE 79; O2SAT 99
[2022-04-08 14:36] VITALS: BP 154/71; PULSE 76; RESP 17; TEMP 36.8; O2SAT 97
== END 2022-04-08 14:37 | disposition home or self-care (01) ==
PROVIDERS: Emergency Provider Emergency Medicine; PCP Family Medicine
DX: S93.602A Unspecified sprain of left foot, initial encounter (principal); E10.40 Type 1 diabetes mellitus with diabetic neuropathy, unspecified; I10 Essential (primary) hypertension; E78.5 Hyperlipidemia, unspecified; X50.0XXA Overexertion from strenuous movement or load, initial encounter; Z98.84 Bariatric surgery status; Z87.891 Personal history of nicotine dependence; Z82.49 Family history of ischemic heart disease and other diseases of the circulatory system; Z82.61 Family history of arthritis
CPT/HCPCS: 73630; 99283; 99284

== ENCOUNTER → 2022-05-14 09:27 | Outpatient (CLI) | payer MEDICAID, SELFPAY ==
[2022-05-14 10:20] LABS: Basophils % 0.8 % (0.1-2.0); Eosinophils # 0.2 K/mm3 (0.0-0.4); Eosinophils % 3.4 % (0.1-12.0); Hematocrit 39.5 % (42.0-52.0); Hemoglobin 13.1 g/dL (14.1-18.0); Lymphocytes # 1.2 K/mm3 (0.7-4.5); Lymphocytes % 23.2 % (10-50); Mean Corpuscular HGB Conc 33.1 g/dL (31.8-35.4); Mean Corpuscular Hemoglobin 32.3 pg (27.0-31.2); Mean Corpuscular Volume 97.4 fl (80-94); Monocytes # 0.4 K/mm3 (0.1-1.0); Monocytes % 6.7 % (1.7-9.3); Neutrophils # 3.5 K/mm3 (1.8-7.8); Neutrophils % 65.8 % (37.0-80.0); Platelet Count 283 K/mm3 (142-424); Red Blood Count 4.06 M/mm3 (4.60-6.20); Red Cell Distribution Width 13.7 % (11.5-17.5); White Blood Count 5.3 K/mm3 (4.8-10.8)
[2022-05-14 10:34] LABS: Chloride 90 mmol/L (98-107); Potassium 5.4 mmoL/L (3.5-5.1); Sodium 124 mmol/L (136-145)
[2022-05-14 10:37] LABS: Alanine Aminotransferase 40 U/L (12-78); Albumin Level 4.4 g/dl (3.5-5.0); Albumin/Globulin Ratio 1.4 (1.1-1.8); Alkaline Phosphatase 79 U/L (38-126); Anion Gap 13.4 mEq/L (5-15); Aspartate Amino Transferase 83 U/L (17-59); Bilirubin,Total 0.5 mg/dl (0.2-1.3); Blood Urea Nitrogen 9 mg/dl (9-20); Calcium 9.2 mg/dl (8.4-10.2); Carbon Dioxide 26 mmol/L (22.0-30.0); Estimated Glomerular Filt Rate 71 ml/min (>60); GFR (African American) 86 ML/MIN (>60); Globulin 3.1 g/dL (1.3-3.2); Glucose 133 mg/dl (74-100); Total Protein,Serum 7.5 g/dl (6.3-8.2)
[2022-05-14 11:09] LABS: Thyroid Stimulating Hormone 3.97 uIU/mL (0.465-4.68)
[2022-05-14 19:34] LABS: Vitamin B12 242 pg/mL (239-931)
[2022-05-14 21:47] LABS: Hemoglobin A1C 6.8 % (4.0-6.0)
[2022-05-15 16:50] LABS: Alpha-1-Globulin 0.3 g/dL (0.0-0.4); Alpha-2-Globulin 0.7 g/dL (0.4-1.0); Gamma Globulin 1.6 g/dL (0.4-1.8); Protein, Total 7.5 g/dL (6.0-8.5)
== END ==
PROVIDERS: PCP Family Medicine; Visit Provider Nurse Practitioner Family
DX: E10.9 Type 1 diabetes mellitus without complications (principal); F10.10 Alcohol abuse, uncomplicated; I10 Essential (primary) hypertension; M79.601 Pain in right arm; M79.602 Pain in left arm; R20.0 Anesthesia of skin; R20.2 Paresthesia of skin; Z79.4 Long term (current) use of insulin
CPT/HCPCS: 36415; 80053; 82607; 82746; 83036; 84155; 84165; 84425; 84443; 85025; 86334

== ENCOUNTER 2022-05-23 19:17 | Emergency (ER) | payer MEDICAID, SELFPAY ==
[2022-05-23 19:27] VITALS: BP 146/81; PULSE 85; RESP 18; TEMP 36.6; O2SAT 98; BMI 35.4
--- NOTE | 2022-05-23 19:38 | PC.NURSE ---
Dr. Ware and Luz Kwan, RN at to perform eye exam
--- NOTE | 2022-05-23 19:46 | HMH.EDGENADL ---
Discharge Plan Disposition Patient Disposition: Home, Self-Care Condition: Fair Prescriptions Prescriptions: New erythromycin 5 mg/gram (0.5 %) ointment 1 applic ophthalmic (eye) TID Qty: 3.5 0RF No Action gabapentin 600 mg tablet 600 mg PO Q8H Qty: 90 5RF trazodone 50 mg tablet 50 mg PO HS aspirin [Adult Aspirin Regimen] 81 mg tablet,delayed release (DR/EC) 81 mg PO DAILY nifedipine 60 mg tablet extended release 24hr PO cholecalciferol (vitamin D3) 1,250 mcg (50,000 unit) capsule 1,250 mcg PO WEEKLY Label Comments: TAKE 1 CAPSULE BY MOUTH 1 TIME EVERY WEEK (DME) Dexcom G6 Sensor Device See Rx Instructions .ROUTE .MEDSUPPLY Qty: 1 Rx Instructions: As directed insulin lispro [Admelog SoloStar U-100 Insulin] 100 unit/mL insulin pen 2 sliding scale dose SQ USEASDIRECTD Label Comments: 1 unit every 5 grams of carbs Basaglar KwikPen U-100 Insulin 100 unit/mL (3 mL) insulin pen 20 unit SQ DAILY Label Comments: BASAGALAR sildenafil 100 mg tablet 100 mg PO DAILY PRN (Reason: sexual activity) Qty: 10 10RF Rx Instructions: te Glucagon Emergency Kit (human) 1 mg recon soln 1 mg IM ONCE Label Comments: INJECT 1 MG INTO THE MUSCLE ONCE IF NEEDED FOR LOW BLOOD SUGAR azelastine 205.5 mcg (0.15 %) spray,non-aerosol 1 spray intranasal BID Qty: 30 2RF Rx Instructions: administer into each nostril pravastatin 20 mg tablet 20 mg PO DAILY Qty: 30 2RF Referrals Follow up/Referrals: Micah Willoughby MD [Primary Care Provider] - See instructions Activity Restrictions/Add. Instructions Additional Instructions/Restrictions: At this time was felt you are safe to be discharged home. New or worsening symptoms please do not hesitate to return the emergency department. Please apply your erythromycin ointment as prescribed. Please call [facility] on Thursday at [phone] to schedule an appointment for continued evaluation. Clinical Impressions Clinical Impression: Abrasion, corneal Discharge ED Provider: Burke Ware General Adult HPI General Chief complaint: Eye Problems Stated complaint: AO 05/23@1600 FB in R Eye Time Seen by Provider: 05/23/22 19:40 Mode of Arrival: Ambulatory Source of Information: Patient Limitations: No Limitations Description of Symptoms (Recalled from ER Triage Doc. by RN): Pt arrives via private vehicle with c/o right eye pain. 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 States that since then his right eye has gotten more painful and he is having difficulty opening it. does report that he flushed his eye when it happened. History of Present Illness HPI narrative: Patient is a 46-year-old male with no pertinent past medical history who presents emergency department for evaluation of traumatic eye injury. Onset was acute, just prior to arrival when patient was trimming bushes and something flew up into his eye. Patient had immediate severe pain and visual blurriness and has been unable to open his eye since. No other acute complaints at this time. Patient does not have contacts or corrective vision. Related Data Home Medications Medication Instructions Recorded Confirmed insulin lispro 100 unit/mL 2 sliding scale dose SQ 10/22/20 05/19/22 subcutaneous pen (Admelog SolFemi USEASDIRECTD Diabetes U-100 Insulin lispro) aspirin 81 mg tablet,delayed 81 mg PO DAILY 01/30/22 05/19/22 release (Adult Aspirin Regimen) glucagon 1 mg solution for 1 mg IM ONCE 02/17/22 05/19/22 injection (Glucagon Emergency Kit) insulin glargine 100 unit/mL (3 20 unit SQ DAILY Diabetes 03/11/22 05/19/22 mL) subcutaneous pen (Basaglar KwikPen U-100 Insulin) trazodone 50 mg tablet 50 mg PO HS Sleep 03/11/22 05/19/22 blood-glucose sensor (Dexcom G6 #1 ea 05/19/22 05/19/22 Sensor device) cholecalciferol (vitamin
--- NOTE | 2022-05-23 19:53 | PC.NURSE ---
Dr. Ware speaking with Dr. Mercer at [facility]
[2022-05-23 19:59] VITALS: BP 140/80; PULSE 82; RESP 18; TEMP 36.6; O2SAT 99
== END 2022-05-23 20:07 | disposition home or self-care (01) ==
PROVIDERS: Emergency Provider Emergency Medicine; PCP Family Medicine
DX: S05.01XA Injury of conjunctiva and corneal abrasion without foreign body, right eye, initial encounter (principal); W22.8XXA Striking against or struck by other objects, initial encounter
CPT/HCPCS: 90715; 96372; 99283; 99284

== ENCOUNTER 2023-04-17 20:01 | Outpatient (CLI) | payer MEDICAID, SELFPAY ==
[2023-04-17 18:50] LABS: Alanine Aminotransferase 46 U/L (12-78); Albumin Level 4.8 g/dl (3.5-5.0); Albumin/Globulin Ratio 1.7 (1.1-1.8); Alkaline Phosphatase 70 U/L (38-126); Anion Gap 16.7 mEq/L (5-15); Aspartate Amino Transferase 84 U/L (17-59); Bilirubin,Total 0.5 mg/dl (0.2-1.3); Blood Urea Nitrogen 19 mg/dl (9-20); Calcium 9.5 mg/dl (8.4-10.2); Carbon Dioxide 22 mmol/L (22.0-30.0); Chloride 100 mmol/L (98-107); Cholesterol 204 mg/dl (140-200); Estimated Glomerular Filt Rate 54 ml/min (>60); GFR (African American) 65 ML/MIN (>60); Globulin 2.8 g/dL (1.3-3.2); Glucose 134 mg/dl (74-100); Potassium 4.7 mmoL/L (3.5-5.1); Sodium 134 mmol/L (136-145); Total Protein,Serum 7.6 g/dl (6.3-8.2); Triglycerides 34 mg/dl (30-150); VLDL Cholesterol 7 mg/dL (0-40)
[2023-04-17 19:00] LABS: Chol/HDL Ratio 1.4 (1-3.5); HDL Cholesterol 147 mg/dl (40-60)
[2023-04-17 19:01] LABS: Direct LDL Cholesterol 43.42 mg/dL (100-129)
[2023-04-19 08:30] LABS: Testosterone,Total 425 ng/dL (264-916)
== END 2023-04-17 23:59 ==
LOC: LAB.DROPOF 20:01
PROVIDERS: PCP Family Medicine; Visit Provider Family Medicine
DX: E10.9 Type 1 diabetes mellitus without complications (principal); I10 Essential (primary) hypertension; G62.9 Polyneuropathy, unspecified; Z79.899 Other long term (current) drug therapy
CPT/HCPCS: 80053; 80061; 84403

== ENCOUNTER 2024-01-22 08:07 | Emergency (ER) | payer MEDICAID, SELFPAY ==
[2024-01-22 08:09] VITALS: BP 142/84; PULSE 72; RESP 13; TEMP 36.7; O2SAT 99; BMI 36.9
[2024-01-22 08:12] VITALS: BP 142/84; PULSE 71; O2SAT 100
--- NOTE | 2024-01-22 08:14 | HMH.EDGENADL ---
Discharge Plan Disposition Patient Disposition: Home, Self-Care Condition: Good Prescriptions Prescriptions: No Action aspirin [Adult Aspirin Regimen] 81 mg tablet,delayed release (DR/EC) 81 mg PO DAILY nifedipine 60 mg tablet extended release 24hr PO cholecalciferol (vitamin D3) 1,250 mcg (50,000 unit) capsule 1,250 mcg PO WEEKLY Patient Comments: TAKE 1 CAPSULE BY MOUTH 1 TIME EVERY WEEK (DME) Dexcom G6 Sensor Device See Rx Instructions .ROUTE .MEDSUPPLY Qty: 1 Rx Instructions: As directed carvedilol 12.5 mg tablet 12.5 mg PO doxycycline hyclate 100 mg capsule 100 mg PO BID Qty: 60 3RF sildenafil 100 mg tablet 100 mg PO DAILY PRN (Reason: sexual activity) Qty: 10 10RF Rx Instructions: te insulin lispro [Admelog SoloStar U-100 Insulin] 100 unit/mL insulin pen 2 sliding scale dose SQ USEASDIRECTD Patient Comments: 1 unit every 5 grams of carbs Basaglar KwikPen U-100 Insulin 100 unit/mL (3 mL) insulin pen 20 unit SQ DAILY Patient Comments: BASAGALAR Glucagon Emergency Kit (human) 1 mg recon soln 1 mg IM ONCE Patient Comments: INJECT 1 MG INTO THE MUSCLE ONCE IF NEEDED FOR LOW BLOOD SUGAR azelastine 205.5 mcg (0.15 %) spray,non-aerosol 1 spray intranasal BID Qty: 30 2RF Rx Instructions: administer into each nostril trazodone 50 mg tablet See Rx Instructions .ROUTE .COMPLEX Qty: 30 3RF Dose Instruction: TAKE 1 TABLET BY MOUTH EVERY NIGHT AT BEDTIME FOR SLEEP Rx Instructions: TAKE 1 TABLET BY MOUTH EVERY NIGHT AT BEDTIME FOR SLEEP gabapentin 600 mg tablet 600 mg PO Q8H Qty: 90 3RF pravastatin 20 mg tablet See Rx Instructions .ROUTE .COMPLEX Qty: 90 3RF Dose Instruction: TAKE 1 TABLET BY MOUTH DAILY FOR CHOLESTEROL Rx Instructions: TAKE 1 TABLET BY MOUTH DAILY FOR CHOLESTEROL zolpidem [Ambien] 10 mg tablet 10 mg PO HS PRN (Reason: insomnia) Qty: 30 3RF Referrals Follow up/Referrals: Micah Willoughby MD [Primary Care Provider] - See instructions Activity Restrictions/Add. Instructions Additional Instructions/Restrictions: If you develop signs of infection, such as pus draining from the wound, fever, increased redness or swelling to the area, or if you become concerned for your health for any reason, return to the emergency department for evaluation. The sutures are absorbable and will dissolve over time. Follow-up with your primary care physician as needed. Keep the wound clean by using gentle soap and water. Do not scrub the wound. Use the bacitracin ointment on the wound 2-3 times a day to help prevent infection. Clinical Impressions Clinical Impression: Laceration of scalp Stand Alone Forms Stand Alone Forms: Work/School Release Instructions Patient Instructions: DI for Laceration Repair Print Language Print Language: [place] Citizen Discharge ED Provider: Micha Dale Adult HPI General Chief complaint: Wound/Laceration Stated complaint: AO-01/21/24- laceration to head Time Seen by Provider: 01/22/24 08:14 Mode of Arrival: Ambulatory Source of Information: Patient Limitations: No Limitations History of Present Illness HPI narrative: Julio Myrick is a 48-year-old male with a past medical history of diabetes mellitus who presents to the emergency department for complaint of laceration to his scalp. Patient states that approximately 12 hours ago at 8 PM, he had gotten up out of his chair to use the restroom and felt like his blood pressure got low, describing dizziness that lasted a few seconds. He tried to brace himself on furniture but missed, causing his head to fall forward and hit the edge of a cabinet. He denies any loss of consciousness. He does note that he drinks alcohol daily and it had 3 drinks over the course of the entire day. He notes that he has had episodes similar to this in the past that typically resolve after a few seconds if he sits back down or braces himself on furniture. He denies any chest pain, shortness of breath or heart palpitations. He believes he may have to have the laceration repaired, which is why he presented to the emergency department today. Patient states that his blood glucose at the time of this incident was over 200. Related Data Home Medications ?Medication ?Instructions ?Recorded ?Confirmed insulin lispro 100 unit/mL 2 sliding scale dose SQ 10/22/20 04/17/23 subcutaneous pen (Admelog SoloStar USEASDIRECTD Diabetes U-100 Insulin lispro) aspirin 81 mg tablet,delayed 81 mg PO DAILY 12/22/22 03/08/24 release (Adult Aspirin Regimen) glucagon 1 mg solution for 1 mg IM ONCE 02/17/22 04/17/23 injection (Glucagon Emergency Kit) insulin glargine 100 unit/mL (3 20 unit SQ DAILY Diabetes 03/11/22 04/17/23 mL) subcutaneous pen (Basaglar KwikPen U-100 Insulin) blood-glucose sensor (Dexcom G6 #1 ea 05/19/22 04/17/23 Sensor device) cholecalciferol (vitamin D3) 1,250 1,250 mcg PO WEEKLY 05/19/22 04/17/23 mcg (50,000 unit) capsule nifedipine 60 mg tablet,extended tab PO 05/19/22 04/17/23 release 24 hr carvedilol 12.5 mg tablet 12.5 mg PO 07/18/22 04/17/23 Previous Rx's ?Medication ?Instructions ?Recorded azelastine 205.5 mcg (0.15 %) 1 spray intranasal BID #30 mL 02/17/22 nasal spray doxycycline hyclate 100 mg capsule 100 mg PO BID #60 caps 07/18/22 trazodone 50 mg tablet See Rx Instructions .Route 11/28/22 .COMPLEX #30 tabs sildenafil 100 mg tablet 100 mg PO DAILY PRN sexual 04/17/23 activity #10 tabs gabapentin 600 mg tablet 600 mg PO Q8H NERVE PAIN #90 tabs 01/11/24 pravastatin 20 mg tablet See Rx Instructions .Route 01/11/24 .COMPLEX #90 tabs zolpidem 10 mg tablet (Ambien) 10 mg PO HS PRN insomnia #30 tabs 01/11/24 Allergies Allergy/AdvReac Type Severity Reaction Status Date / Time No Known Allergies Allergy Verified 04/17/23 09:35 [facility] Disclaimer: The information contained in this section may have been updated after the patient was seen, as this information can be updated by other users. Medical History (Updated 01/22/24 @ 08:30 by Micha Dale MD) BMI 35.0-35.9,adult Diabetic neuropathy Type 1 diabetes mellitus Hypertension Hyperlipidemia associated with type 2 diabetes mellitus Surgical History (Updated 07/20/22 @ 10:26 by Micha Willoughby MD) History of ankle surgery H/O gastric bypass Family History Mother Osteoarthritis Father Heart attack Social History Smoking Status: Never smoker alcohol intake: current alcohol intake frequency: 0-2 drinks per day counseling given: Yes substance use type: denies use current occupational status: employed Travel in the last 8 weeks: None housing: house marital status: single number of children: 0 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 No active bleeding) Eye Eye exam: Present normal appearance ENT ENT exam: Present normal external ear exam Neck Neck exam: Present full ROM Chest Chest inspection: Present symmetric chest wall rise Respiratory Respiratory exam: Present normal lung sounds bilaterally; Absent respiratory distress Cardiovascular Cardiovascular exam: Present regular rate and normal rhythm Abdominal Exam Abdominal exam: Present soft; Absent tenderness or guarding exam: Present deferred Extremities Exam Extremities exam: Present normal inspection Back Exam Back exam: Present normal inspection Neurological Exam Neurological exam: Present alert and oriented X3 Psychiatric Psychiatric exam: Present normal affect Skin Skin exam: Present warm and dry Medical Decision Making Medical Records Medical records reviewed: Yes I reviewed the patient's medical records. Screening: Per USPSTF and CDC recommendations, given the prevalence of disease in our region, it is our hospital?s policy to screen for HIV and viral Hepatitis for all patients aged 18 and over and those with ongoing risk factors. Eladio Inquiry Pt receiving controlled substance: No Vital Signs: 01/22/24 08:09 01/22/24 08:12 01/22/24 09:36 Temperature 98.0 F 98.2 F Temperature Source Oral Oral Pulse Rate 71 80 Pulse Rate [Left Radial] 72 Respiratory Rate 13 18 Blood Pressure 142/84 H 138/81 Blood Pressure [Right Arm] 142/84 H Blood Pressure Mean [Right Arm] 103 Blood Pressure Source Automatic Cuff 02 Sat by Pulse Oximetry 99 100 Oxygen Delivery Method Room Air Room Air Room Air Orders (Tests/Meds): ED MEDICATIONS Discontinued Medications Generic Name Dose Route Start Last Admin Trade Name Freq PRN Reason Stop Dose Admin Bacitracin 1 gm 01/22/24 09:30 01/22/24 09:32 Bacitracin Zinc Oint 30gm Tube TP 01/22/24 09:31 1 gm ONCE ONE Administration Cocaine HCl 1 ml 01/22/24 08:23 01/22/24 08:26 Cocaine 4% Topical Soln 4ml Bottle TP 01/22/24 08:24 1 ml ONCE ONE Administration Epinephrine HCl 1 mg 01/22/24 08:23 01/22/24 08:24 Epinephrine 1 Mg/Ml Ampul TP 01/22/24 08:24 1 mg ONCE ONE Administration Lidocaine HCl 1 ml 01/22/24 08:23 01/22/24 08:26 Lidocaine 2% Urojet 10ml TP 01/22/24 08:24 1 ml ONCE ONE Administration Medical Decision Narrative: Julio Myrick is a 48-year-old male with past medical history of diabetes mellitus who presents to the emergency department today after a presyncopal episode resulting in a laceration to his scalp after he hit his head on the corner of a dresser. No loss of consciousness. He is not on any blood thinning medication except for daily aspirin. He had no chest pain, shortness of breath or palpitations prior to this event believes that this was related to his blood pressure. Patient states that he is currently asymptomatic except for the laceration to his scalp. He reports that his tetanus shot is up-to-date. On arrival, patient is mildly hypertensive but hemodynamically stable. Cardiopulmonary exam is unremarkable for any murmurs, gallops or rubs. No wheezing, rales or rhonchi. He has a 4 cm laceration to his left anterior scalp/forehead. Bleeding controlled. No significant tenderness in this area. Discussed with the patient that given his presyncopal episodes, would recommend lab work as well as EKG to rule out any cardiac arrhythmia or electrolyte/metabolic derangements as a potential source of his presyncopal episodes, however he declined at this time and states that he thinks that this is related to his blood pressure and just wants his laceration evaluated. Differential diagnosis: Hypoglycemia, electrolyte derangement, cardiac arrhythmia, hypothyroidism, hypotension, scalp laceration, among others. Patient's laceration was repaired using 5-0 fast gut after being irrigated thoroughly. See procedure note for further details. Patient remained hemodynamically stable throughout his entire ED visit was appropriate discharge at this time with a tub of bacitracin ointment. Return precautions were given. All questions were answered. He demonstrated understanding and was in agreement this plan. He was then discharged from the emergency department. Procedures Laceration Laceration 1: Site: scalp Side (If applicable): left Size (cm): 4 Description: linear Depth: simple, single layer Local Anesthetic: other anesthetic (LET) Pre-repair: irrigated extensively Skin layer closed with: other (Fast gut) Size (cm): 5-0 Number of sutures: 7 Technique: simple, interrupted Critical Care Critical Care Time Critical Care Time: No
[2024-01-22] MEDS: EPINEPHrine 1 MG/ML AMPUL TP (08:24)
[2024-01-22] MEDS: COCAINE 4% TOPICAL SOLN 4ML BOTTLE 1 ML TP (08:26)
[2024-01-22] MEDS: LIDOCAINE 2% UROJET 10ML TP (08:26)
--- NOTE | 2024-01-22 09:24 | PC.NURSE ---
AT DOING HEAD LAC REPAIR
[2024-01-22] MEDS: BACITRACIN ZINC OINT 30GM TUBE TP (09:32)
[2024-01-22 09:36] VITALS: BP 138/81; PULSE 80; RESP 18; TEMP 36.8; O2SAT 98
== END 2024-01-22 09:38 | disposition home or self-care (01) ==
PROVIDERS: Emergency Provider Student in an Organized Health Care Education/Training Program; PCP Family Medicine
DX: S01.01XA Laceration without foreign body of scalp, initial encounter (principal); R42 Dizziness and giddiness; I95.9 Hypotension, unspecified; W18.39XA Other fall on same level, initial encounter; Y93.89 Activity, other specified; Y92.002 Bathroom of unspecified non-institutional (private) residence as the place of occurrence of the external cause
CPT/HCPCS: 99283; J0171

== ENCOUNTER 2024-03-02 12:12 | Outpatient (CLI) | payer MEDICAID, SELFPAY ==
[2024-03-02 18:03] LABS: Basophils # 0.1 K/mm3 (0-0.2); Basophils % 1.2 % (0.1-2.0); Eosinophils # 0.1 K/mm3 (0.0-0.4); Eosinophils % 2.1 % (0.1-12.0); Hematocrit 32.5 % (42.0-52.0); Hemoglobin 11.2 g/dL (14.1-18.0); Lymphocytes # 1.3 K/mm3 (0.7-4.5); Lymphocytes % 21.6 % (10-50); Mean Corpuscular HGB Conc 34.5 g/dL (31.8-35.4); Mean Corpuscular Hemoglobin 35.2 pg (27.0-31.2); Mean Corpuscular Volume 102.2 fl (80-94); Mean Platelet Volume 10.8 fl (7.4-10.4); Monocytes # 0.4 K/mm3 (0.1-1.0); Monocytes % 7.5 % (1.7-9.3); Neutrophils # 3.9 K/mm3 (1.8-7.8); Neutrophils % 67.3 % (37.0-80.0); Platelet Count 207 K/mm3 (142-424); Red Blood Count 3.18 M/mm3 (4.60-6.20); Red Cell Distribution Width 16.8 % (11.5-17.5); White Blood Count 5.8 K/mm3 (4.8-10.8)
[2024-03-02 19:31] LABS: Hemoglobin A1C 7.1 % (4.0-6.0)
[2024-03-02 20:01] LABS: Vitamin B12 277 pg/mL (239-931)
[2024-03-02 20:04] LABS: Folate 3.72 ng/mL
== END 2024-03-02 23:59 | disposition home or self-care (01) ==
LOC: LAB.DROPOF 03-03 10:22
PROVIDERS: PCP Family Medicine; Visit Provider Family Medicine
DX: Z00.00 Encounter for general adult medical examination without abnormal findings (principal); E53.8 Deficiency of other specified B group vitamins; G62.9 Polyneuropathy, unspecified; F10.10 Alcohol abuse, uncomplicated; E10.9 Type 1 diabetes mellitus without complications; I10 Essential (primary) hypertension; Z98.84 Bariatric surgery status
CPT/HCPCS: 82607; 82746; 83036; 85025

== ENCOUNTER 2024-03-11 05:21 | Emergency (ER) | payer MEDICAID, SELFPAY ==
--- NOTE | 2024-03-11 05:15 | ECG_ITS ---
APPROVED REPORT Exam: Resting ECG HR:71 bpm ECG Measurements Heart Rate 71 AXES PA 131 P 24 QRSd 90 QRS -1 QT 394 T -4 QTc 416 Conclusion SINUS RHYTHM WITH OCCASIONAL VENTRICULAR PREMATURE COMPLEXES LOW QRS VOLTAGE IN PRECORDIAL LEADS [QRS DEFLECTION < 1.0 mV IN CHEST LEADS] POSSIBLE ANTERIOR MYOCARDIAL INFARCTION , PROBABLY OLD [30 ms Q WAVE IN V3/V4, OR R < 0.2 mV IN V4] BORDERLINE ECG UNCONFIRMED REPORT Electronically signed by : YESENIA PEACE, 03/12/2024 00:39:39
[2024-03-11 05:22] VITALS: BP 110/74; PULSE 72; RESP 22; TEMP 36.7; O2SAT 98; BMI 36.1
--- NOTE | 2024-03-11 05:23 | XR_ITS ---
PROCEDURE INFORMATION: Exam: XR Chest Exam date and time: 03/11/2024 5:23 AM Age: 48 years old Clinical indication: Shortness of breath; Additional info: Worsening SOA x2 months TECHNIQUE: Imaging protocol: Radiologic exam of the chest. Views: 2 views. COMPARISON: CR XR CHEST PORTABLE 01/20/2022 10:56 AM FINDINGS: Lungs: Unremarkable. No consolidation. Pleural spaces: Unremarkable. No pleural effusion. No pneumothorax. Heart/Mediastinum: Unremarkable. No cardiomegaly. Bones/joints: Unremarkable. IMPRESSION: No acute findings.
--- NOTE | 2024-03-11 05:25 | ED_ITS ---
Discharge Plan Disposition Patient Disposition: Home, Self-Care Condition: Good Prescriptions Prescriptions: No Action aspirin [Adult Aspirin Regimen] 81 mg tablet,delayed release (DR/EC) 81 mg PO DAILY nifedipine 60 mg tablet extended release 24hr 60 tab PO DAILY cholecalciferol (vitamin D3) 1,250 mcg (50,000 unit) capsule 1,250 mcg PO WEEKLY Patient Comments: TAKE 1 CAPSULE BY MOUTH 1 TIME EVERY WEEK (DME) Dexcom G6 Sensor Device See Rx Instructions .ROUTE .MEDSUPPLY Qty: 1 Rx Instructions: As directed carvedilol 12.5 mg tablet 12.5 mg PO doxycycline hyclate 100 mg capsule 100 mg PO BID Qty: 60 3RF sildenafil 100 mg tablet 100 mg PO DAILY PRN (Reason: sexual activity) Qty: 10 10RF Rx Instructions: te insulin lispro [Admelog SoloStar U-100 Insulin] 100 unit/mL insulin pen 2 sliding scale dose SQ USEASDIRECTD Patient Comments: 1 unit every 5 grams of carbs Basaglar KwikPen U-100 Insulin 100 unit/mL (3 mL) insulin pen 20 unit SQ DAILY Patient Comments: BASAGALAR Glucagon Emergency Kit (human) 1 mg recon soln 1 mg IM ONCE Patient Comments: INJECT 1 MG INTO THE MUSCLE ONCE IF NEEDED FOR LOW BLOOD SUGAR amlodipine 5 mg tablet 5 mg PO DAILY gabapentin 600 mg tablet 600 mg PO Q8H Qty: 90 3RF pravastatin 20 mg tablet See Rx Instructions .ROUTE .COMPLEX Qty: 90 3RF Dose Instruction: TAKE 1 TABLET BY MOUTH DAILY FOR CHOLESTEROL Rx Instructions: TAKE 1 TABLET BY MOUTH DAILY FOR CHOLESTEROL zolpidem [Ambien] 10 mg tablet 10 mg PO HS PRN (Reason: insomnia) Qty: 30 3RF Vivitrol 380 mg suspension,extended rel recon 380 mg IM QMONTH Qty: 1 10RF Referrals Follow up/Referrals: Bret Luz MD [Staff Physician] - See instructions Provider,MD Kamron [Primary Care Provider] - See instructions Activity Restrictions/Add. Instructions Additional Instructions/Restrictions: At this time, no serious causes of your symptoms were found. Based on your significant risk factors, recommend following up with cardiology as well as your primary care provider for continued evaluation and management. Please return to ED if your symptoms worsen, change in location, change in severity, new symptoms develop or if you become concerned for your health. Clinical Impressions Clinical Impression: Shortness of breath, Hypertension, Type 1 diabetes mellitus Instructions Patient Instructions: DI for Atypical Chest Pain, DI for Shortness of Breath Print Language Print Language: Latvian Discharge ED Provider: Sanjuana Stephen General Adult HPI <Andrea Oliveira MD - Last Filed: 03/11/24 07:08> General Chief complaint: Shortness of Breath/Dyspnea Stated complaint: chest pain Time Seen by Provider: 03/11/24 05:23 History of Present Illness HPI narrative: 48-year-old male with history of type 1 diabetes presents for shortness of breath. Reports that been ongoing for last couple of months but it has been getting worse. He reports that this morning when he tried to get up to go to work he can barely walk across the room and so he decided to come in to be seen. He denies any significant chest pain, just chronic chest tightness. He denies any history of blood clots, denies any cardiac history etc. He reports that he is never been a smoker. He used to drink more significantly than he currently does. He reports he drank maybe 4-5 beers per day. He denies any fever at home. He reports intermittent adductive cough Related Data Home Medications ?Medication ?Instructions ?Recorded ?Confirmed insulin lispro 100 unit/mL 2 sliding scale dose SQ 10/22/20 03/11/24 subcutaneous pen ([facility] [place] [facility] USEASDIRECTD Diabetes U-100 Insulin lispro) aspirin 81 mg tablet,delayed 81 mg PO DAILY 01/30/22 03/11/24 release (Adult Aspirin Regimen) glucagon 1 mg solution for 1 mg IM ONCE 02/17/22 03/11/24 injection (Glucagon Emergency Kit) insulin glargine 100 unit/mL (3 20 unit SQ DAILY Diabetes 03/11/22 03/11/24 mL) subcutaneous pen (Basaglar KwikPen U-100 Insulin) blood-glucose sensor (One Diary G6 #1 ea 05/19/22 03/11/24 Sensor device) cholecalciferol (vitamin D3) 1,250 1,250 mcg PO WEEKLY 05/19/22 03/11/24 mcg (50,000 unit) capsule nifedipine 60 mg tablet,extended 60 tab PO DAILY 05/19/22 03/11/24 release 24 hr carvedilol 12.5 mg tablet 12.5 mg PO 07/18/22 04/17/23 amlodipine 5 mg tablet 5 mg PO DAILY 03/02/24 03/11/24 Previous Rx's ?Medication ?Instructions ?Recorded doxycycline hyclate 100 mg capsule 100 mg PO BID #60 caps 07/18/22 sildenafil 100 mg tablet 100 mg PO DAILY PRN sexual 04/17/23 activity #10 tabs gabapentin 600 mg tablet 600 mg PO Q8H NERVE PAIN #90 tabs 01/11/24 pravastatin 20 mg tablet See Rx Instructions .Route 01/11/24 .COMPLEX #90 tabs zolpidem 10 mg tablet (Ambien) 10 mg PO HS PRN insomnia #30 tabs 01/11/24 naltrexone microspheres 380 mg 380 mg IM QMONTH #1 ea 03/03/24 intramuscular suspension,extended release (Vivitrol) Allergies Allergy/AdvReac Type Severity Reaction Status Date / Time No Known Allergies Allergy Verified 03/02/24 11:09 [facility] <Andrea Oliveira MD - Last Filed: 03/11/24 07:08> [facility] Disclaimer: The information contained in this section may have been updated after the patient was seen, as this information can be updated by other users. 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 caffeine: No brenda/roman catholic: [employer] Other Medical History Have you received the Flu Vaccine for this season: No Have you received the Pneumonia Vaccine: No <Andrea Oliveira MD - Last Filed: 03/11/24 07:08> ROS Obtained: Yes All systems reviewed & no additional complaints except as documented Physical Exam <Andrea Oliveira MD - Last Filed: 03/11/24 07:08> General General appearance: alert and in no apparent distress Head Head exam: atraumatic and normocephalic Eye Eye exam: Present normal appearance, PERRL and EOMI ENT ENT exam: Present normal oropharynx and normal external ear exam Neck Neck exam: Present normal inspection and full ROM Chest Chest inspection: Present normal inspection and symmetric chest wall rise; Absent tenderness Respiratory Respiratory exam: Present normal lung sounds bilaterally; Absent respiratory distress Cardiovascular Cardiovascular exam: Present regular rate and normal rhythm Abdominal Exam Abdominal exam: Present soft; Absent distention, tenderness or guarding Extremities Exam Extremities exam: Present normal inspection; Absent edema or joint swelling Back Exam Back exam: Present normal inspection; Absent tenderness Neurological Exam Neurological exam: Present alert and oriented X3; Absent motor sensory deficit Psychiatric Psychiatric exam: Present normal affect and normal mood Skin Skin exam: Present warm, dry and normal color Lymphatic Lymphatic Findings: no adenopathy Medical Decision Making <Andrea Oliveira MD - Last Filed: 03/11/24 07:08> Medical Records Medical records reviewed: Yes I reviewed the patient's medical records. Screening: Per USPSTF and CDC recommendations, given the prevalence of disease in our region, it is our hospital?s policy to screen for HIV and viral Hepatitis for all patients aged 18 and over and those with ongoing risk factors. Eladio Inquiry Pt receiving controlled substance: No Eladio was queried for this patient: No Vital Signs: 03/11/24 05:22 03/11/24 07:01 Temperature 98.1 F Temperature Source Oral Pulse Rate 70 Pulse Rate [Right] 72 Respiratory Rate 22 Blood Pressure 176/150 H Blood Pressure [Right Arm] 110/74 Blood Pressure Mean 158 Blood Pressure Mean [Right Arm] 86 02 Sat by Pulse Oximetry 98 100 Oxygen Delivery Method Room Air Room Air Lab Data Lab results reviewed: Yes I reviewed the patient's lab results. Lab Results 03/11/24 05:23: WBC 5.1, RBC 2.86 L, Hgb 10.4 L, Hct 29.6 L, MCV 103.5 H, MCH 36.4 H, MCHC 35.1, RDW 17.3, Plt Count 105 L, MPV 11.1 H, Neut % (Auto) 31.9 L, Lymph % (Auto) 48.7, Piute % (Auto) 8.9, Eos % (Auto) 8.7, Baso % (Auto) 1.4, N eut # (Auto) 1.6 L, Lymph # (Auto) 2.5, Piute # (Auto) 0.5, Eos # (Auto) 0.4, Baso # (Auto) 0.1, D-Dimer 0.68 H, Sodium 137, Potassium 4.1, Chloride 105, Carbon Dioxide 25, Anion Gap 11.1, BUN 14, Creatinine 1.30 H, Estimated Creat Clear 107, Estimated GFR 58 L, Est GFR ( Amer) 71, Glucose 78, Calcium 8.3 L, Phosphorus 3.7, Magnesium 1.4 L, Total Bilirubin 0.7, AST 208 H, ALT 73, Alkaline Phosphatase 170 H, Troponin I < 0.01, NT-Pro-B Natriuret Pep 80.4, Total Protein 6.4, Albumin 3.6, Globulin 2.8, Albumin/Globulin Ratio 1.3, TSH 8.16 H, Thyroxine (T4) 4.7 L 03/11/24 07:34: Troponin I < 0.01 03/11/24 05:23 03/11/24 05:23 Orders (Tests/Meds): ED MEDICATIONS Generic Name Dose Route Start Last Admin Trade Name Freq PRN Reason Stop Dose Admin Sodium Chloride 10 ml 03/11/24 06:30 03/11/24 06:31 Sodium Chloride 0.9% 10ml Syr (Rad Only) IV 04/10/24 06:29 10 ml NEEDED PRN Administration Maintain IV Site Discontinued Medications Generic Name Dose Route Start Last Admin Trade Name Freq PRN Reason Stop Dose Admin Iopamidol 70 ml 03/11/24 06:30 03/11/24 06:31 Iopamidol-370 (76%);100ml Bottle IV 03/11/24 06:31 70 ml ONCE ONE Administration Sodium Chloride 50 ml 03/11/24 06:30 03/11/24 06:31 0.9 % Sodium Chloride 50 Ml Vial IV 03/11/24 06:31 50 ml ONCE ONE Administration ORDERS Category Date Time Status CT angio chest PE protocol Stat Cat Scan 03/11/24 06:02 Completed CXR 2 view (NOT portable) [XR chest 2V] Stat Exams 03/11/24 05:23 Completed BNP [NT Pro Brain Natriuretic Pep.] Stat Lab 03/11/24 05:23 Completed CBC w/Auto Diff [Complete Blood Count Auto Diff] Stat Lab 03/11/24 05:23 Completed CMP [Comprehensive Metabolic Panel] Stat Lab 03/11/24 05:23 Completed D-Dimer Stat Lab 03/11/24 05:23 Completed HIV Combo Stat Lab 03/11/24 05:23 Received Hepatitis C Ab Qual. W/ RFX Stat Lab 03/11/24 05:23 Received Magnesium Stat Lab 03/11/24 05:23 Completed Phosphorous Stat Lab 03/11/24 05:23 Completed T4 (Thyroxine) Stat Lab 03/11/24 05:23 Completed TSH [Thyroid Stimulating Hormone] Stat Lab 03/11/24 05:23 Completed Troponin I Q3H Lab 03/11/24 05:23 Completed Troponin I Q3H Lab 03/11/24 07:34 Completed ECG Data Tracing #1: I reviewed this ECG and interpreted as documented below: Sinus rhythm, rate of 71, occasional PVC noted, no significant ST or T wave changes. ECG initial impression date: 03/11/24 ECG initial impression time: 05:15 HEART Score History (anamnesis): Slightly suspicious ECG: Non-specific disturbance Age: 45-65 years Risk factors: 1-2 risk factors Troponin: </= normal limit HEART Score: 3 Medical Decision Narrative: 48-year-old male with history of diabetes presents for worsening shortness of breath of the last couple of months. History was obtained via interactive discussion with patient chart review. On arrival, patient is [afebrile, hemodynamically stable, satting appropriately, alert, oriented x4, GCS 15], moving all extremities spontaneously. Full physical exam performed and significant for clear lungs bilaterally, no significant edema Differential includes but is not limited to heart failure, renal failure, pneumonia, PE, malignancy Workup initiated including CBC CMP TSH T4 D-dimer troponin EKG chest x-ray. On re-evaluation, patient [remains afebrile, HD stable.] Laboratory workup independently interpreted by me and significant for mild anemia at 10.4, thrombocytopenia at 105, neutropenia at 1.6. D-dimer mildly elevated at 0.68, will obtain CT PE. Creatinine at baseline at 1.3. Minimal hypocalcemia and hypomagnesemia. AST and alk phos mildly elevated. Initial troponin negative.. Imaging independently interpreted by me and significant for no evidence of pneumonia, effusion, pulmonary edema, PE etc. See radiology read for full review of final results. Patient was placed in ED observation status for second troponin to determine need for admission. Care was handed off to oncoming physician at this time. <Sanjuana Stephen MD - Last Filed: 03/11/24 08:18> Vital Signs: 03/11/24 05:22 03/11/24 07:01 Temperature 98.1 F Temperature Source Oral Pulse Rate 70 Pulse Rate [Right] 72 Respiratory Rate 22 Blood Pressure 176/150 H Blood Pressure [Right Arm] 110/74 Blood Pressure Mean 158 Blood Pressure Mean [Right Arm] 86 02 Sat by Pulse Oximetry 98 100 Oxygen Delivery Method Room Air Room Air Lab Data Lab Results 03/11/24 05:23: WBC 5.1, RBC 2.86 L, Hgb 10.4 L, Hct 29.6 L, MCV 103.5 H, MCH 36.4 H, MCHC 35.1, RDW 17.3, Plt Count 105 L, MPV 11.1 H, Neut % (Auto) 31.9 L, Lymph % (Auto) 48.7, Piute % (Auto) 8.9, Eos % (Auto) 8.7, Baso % (Auto) 1.4, N eut # (Auto) 1.6 L, Lymph # (Auto) 2.5, Piute # (Auto) 0.5, Eos # (Auto) 0.4, Baso # (Auto) 0.1, D-Dimer 0.68 H, Sodium 137, Potassium 4.1, Chloride 105, Carbon Dioxide 25, Anion Gap 11.1, BUN 14, Creatinine 1.30 H, Estimated Creat Clear 107, Estimated GFR 58 L, Est GFR ( Amer) 71, Glucose 78, Calcium 8.3 L, Phosphorus 3.7, Magnesium 1.4 L, Total Bilirubin 0.7, AST 208 H, ALT 73, Alkaline Phosphatase 170 H, Troponin I < 0.01, NT-Pro-B Natriuret Pep 80.4, Total Protein 6.4, Albumin 3.6, Globulin 2.8, Albumin/Globulin Ratio 1.3, TSH 8.16 H, Thyroxine (T4) 4.7 L 03/11/24 07:34: Troponin I < 0.01 Orders (Tests/Meds): ED MEDICATIONS Generic Name Dose Route Start Last Admin Trade Name Freq PRN Reason Stop Dose Admin Sodium Chloride 10 ml 03/11/24 06:30 03/11/24 06:31 Sodium Chloride 0.9% 10ml Syr (Rad Only) IV 04/10/24 06:29 10 ml NEEDED PRN Administration Maintain IV Site Discontinued Medications Generic Name Dose Route Start Last Admin Trade Name Freq PRN Reason Stop Dose Admin Iopamidol 70 ml 03/11/24 06:30 03/11/24 06:31 Iopamidol-370 (76%);100ml Bottle IV 03/11/24 06:31 70 ml ONCE ONE Administration Sodium Chloride 50 ml 03/11/24 06:30 03/11/24 06:31 0.9 % Sodium Chloride 50 Ml Vial IV 03/11/24 06:31 50 ml ONCE ONE Administration ORDERS Category Date Time Status CT angio chest PE protocol Stat Cat Scan 03/11/24 06:02 Completed CXR 2 view (NOT portable) [XR chest 2V] Stat Exams 03/11/24 05:23 Completed BNP [NT Pro Brain Natriuretic Pep.] Stat Lab 03/11/24 05:23 Completed CBC w/Auto Diff [Complete Blood Count Auto Diff] Stat Lab 03/11/24 05:23 Completed CMP [Comprehensive Metabolic Panel] Stat Lab 03/11/24 05:23 Completed D-Dimer Stat Lab 03/11/24 05:23 Completed HIV Combo Stat Lab 03/11/24 05:23 Received Hepatitis C Ab Qual. W/ RFX Stat Lab 03/11/24 05:23 Received Magnesium Stat Lab 03/11/24 05:23 Completed Phosphorous Stat Lab 03/11/24 05:23 Completed T4 (Thyroxine) Stat Lab 03/11/24 05:23 Completed TSH [Thyroid Stimulating Hormone] Stat Lab 03/11/24 05:23 Completed Troponin I Q3H Lab 03/11/24 05:23 Completed Troponin I Q3H Lab 03/11/24 07:34 Completed HEART Score HEART Score: 3 Medical Decision Narrative: 48-year-old male with history of diabetes presents for worsening shortness of breath of the last couple of months. History was obtained via interactive discussion with patient chart review. On arrival, patient is [afebrile, hemodynamically stable, satting appropriately, alert, oriented x4, GCS 15], moving all extremities spontaneously. Full physical exam performed and significant for clear lungs bilaterally, no significant edema Differential includes but is not limited to heart failure, renal failure, pneumonia, PE, malignancy Workup initiated including CBC CMP TSH T4 D-dimer troponin EKG chest x-ray. On re-evaluation, patient [remains afebrile, HD stable.] Laboratory workup independently interpreted by me and significant for mild anemia at 10.4, thrombocytopenia at 105, neutropenia at 1.6. D-dimer mildly elevated at 0.68, will obtain CT PE. Creatinine at baseline at 1.3. Minimal hypocalcemia and hypomagnesemia. AST and alk phos mildly elevated. Initial troponin negative.. Imaging independently interpreted by me and significant for no evidence of pneumonia, effusion, pulmonary edema, PE etc. See radiology read for full review of final results. Patient was placed in ED observation status for second troponin to determine need for admission. Care was handed off to oncoming physician at this time. Zafar: On my assumption of care, patient was hemodynamically stable, sitting in the chair in the room in no acute distress. Patient expressed frustration with the length of stay. I informed the patient that we were waiting on his second troponin to determine safe disposition. Patient described that his symptoms this morning included a heavy left arm in comparison to right arm. I informed him that it was important to measure the difference between his first and second troponin and that it would likely be back within the hour. Patient was in agreement with staying for this blood test. Patient's repeat troponin was unchanged. Patient has no respiratory distress, prolonged inspiration or expiration, hypoxia or tachycardia at this time. Patient admits to drinking significant amounts of alcohol daily and states that he has had a significant decrease over the last 4 months. Patient states he actually has an appointment with his primary care provider this afternoon. I informed him that he should keep this appointment. I also informed the patient that he will be referred to cardiology for possible additional testing. Patient agreement with this plan. Patient discharged in stable condition. Sanjuana Stephen MD Procedures <Andrea Oliveira MD - Last Filed: 03/11/24 07:08> Risk/Benefits of Procedure(s) Were Explained: Yes Critical Care <Andrea Oliveira MD - Last Filed: 03/11/24 07:08> Critical Care Time Critical Care Time: No
[2024-03-11 05:35] LABS: Basophils # 0.1 K/mm3 (0-0.2); Basophils % 1.4 % (0.1-2.0); Eosinophils # 0.4 K/mm3 (0.0-0.4); Eosinophils % 8.7 % (0.1-12.0); Hematocrit 29.6 % (42.0-52.0); Hemoglobin 10.4 g/dL (14.1-18.0); Lymphocytes # 2.5 K/mm3 (0.7-4.5); Lymphocytes % 48.7 % (10-50); Mean Corpuscular HGB Conc 35.1 g/dL (31.8-35.4); Mean Corpuscular Hemoglobin 36.4 pg (27.0-31.2); Mean Corpuscular Volume 103.5 fl (80-94); Mean Platelet Volume 11.1 fl (7.4-10.4); Monocytes # 0.5 K/mm3 (0.1-1.0); Monocytes % 8.9 % (1.7-9.3); Neutrophils # 1.6 K/mm3 (1.8-7.8); Neutrophils % 31.9 % (37.0-80.0); Platelet Count 105 K/mm3 (142-424); Red Blood Count 2.86 M/mm3 (4.60-6.20); Red Cell Distribution Width 17.3 % (11.5-17.5); White Blood Count 5.1 K/mm3 (4.8-10.8)
[2024-03-11 05:48] LABS: Alanine Aminotransferase 73 U/L (12-78); Albumin Level 3.6 g/dl (3.5-5.0); Albumin/Globulin Ratio 1.3 (1.1-1.8); Alkaline Phosphatase 170 U/L (38-126); Aspartate Amino Transferase 208 U/L (17-59); Bilirubin,Total 0.7 mg/dl (0.2-1.3); Blood Urea Nitrogen 14 mg/dl (9-20); Calcium 8.3 mg/dl (8.4-10.2); Carbon Dioxide 25 mmol/L (22.0-30.0); Chloride 105 mmol/L (98-107); Creatinine Clearance Estimated 107 mL/min (50-200); Estimated Glomerular Filt Rate 58 ml/min (>60); GFR (African American) 71 ML/MIN (>60); Globulin 2.8 g/dL (1.3-3.2); Glucose 78 mg/dl (74-100); Magnesium 1.4 mg/dl (1.6-2.3); Sodium 137 mmol/L (136-145); Total Protein,Serum 6.4 g/dl (6.3-8.2)
[2024-03-11 05:52] LABS: D-Dimer 0.68 ug/mL (0.0-0.5)
[2024-03-11 05:53] LABS: Anion Gap 11.1 mEq/L (5-15); Potassium 4.1 mmoL/L (3.5-5.1)
[2024-03-11 06:01] LABS: Troponin I < 0.01 ng/ml (0.00-0.034)
--- NOTE | 2024-03-11 06:02 | CT_ITS ---
PROCEDURE INFORMATION: Exam: CTA Chest With Contrast Exam date and time: 03/11/2024 6:25 AM Age: 48 years old Clinical indication: Shortness of breath; Additional info: SOA, elevated dimer TECHNIQUE: Imaging protocol: Computed tomographic angiography of the chest with contrast. Exam focused on the arteries. 3D rendering (Not supervised by radiologist): MIP and/or 3D reconstructed images were created by the technologist. Radiation optimization: All CT scans at this facility use at least one of these dose optimization techniques: automated exposure control; mA and/or kV adjustment per patient size (includes targeted exams where dose is matched to clinical indication); or iterative reconstruction. Contrast material: ISOVUE; Contrast volume: 70 ml; Contrast route: INTRAVENOUS (IV); COMPARISON: CR XR CHEST 2V 03/11/2024 5:23 AM FINDINGS: Pulmonary arteries: Normal. No pulmonary emboli. Aorta: Unremarkable. No aortic aneurysm. No aortic dissection. Lungs: Subtle centrally predominant ground-glass opacities are seen in the upper and lower lobes bilaterally. Basilar atelectasis/scarring. Pleural spaces: Unremarkable. No pneumothorax. No pleural effusion. Heart: Unremarkable. No cardiomegaly. No pericardial effusion. Coronary arteries: No coronary calcified atherosclerotic disease. Lymph nodes: Calcified mediastinal and right hilar lymph nodes. Liver: Hepatic steatosis. Gallbladder and biliary ducts: Cholelithiasis. Prominence of the gallbladder. Spleen: Splenic granulomas. Stomach: Status post gastric bypass is, incompletely evaluated. Bones/joints: Old left anterior rib fractures. Degenerative changes of the visualized osseous structures. No acute or aggressive abnormality. Soft tissues: Unremarkable. IMPRESSION: 1. No pulmonary embolus. 2. Nonspecific lung findings highlighted above which can be seen in atypical infection, air trapping, small airway disease, correlate clinically. 3. Cholelithiasis with gallbladder prominence can be seen in cholecystitis. Correlate clinically. Recommend right upper quadrant ultrasound in the correct clinical setting.
[2024-03-11 06:16] LABS: Phosphorous 3.7 mg/dl (2.5-4.5)
[2024-03-11] MEDS: IOPAMIDOL-370 (76%);100ML BOTTLE 70 ML IV (06:31)
[2024-03-11] MEDS: SODIUM CHLORIDE 0.9% 10ML SYR (RAD ONLY) 10 ML IV (06:31)
[2024-03-11] MEDS: 0.9 % SODIUM CHLORIDE 50 ML VIAL IV (06:31)
[2024-03-11 06:35] LABS: T4 (Thyroxine) 4.7 ug/dl (5.53-11.0)
[2024-03-11 06:49] LABS: Thyroid Stimulating Hormone 8.16 uIU/mL (0.465-4.68)
[2024-03-11 07:01] VITALS: BP 176/150; PULSE 70; O2SAT 100
--- NOTE | 2024-03-11 07:02 | PC.NURSE ---
Received bedside report from RT RN. pt has no complaints at this time. call pérez in reach.
--- NOTE | 2024-03-11 07:31 | PC.NURSE ---
pt had some question about status care when i rounded on him to check, is at bedside now talking with the pt
--- NOTE | 2024-03-11 07:35 | PC.NURSE ---
Second Troponin was send to the lab.
[2024-03-11 07:43] LABS: NT Pro Brain Natriuretic Pep. 80.4 pg/mL (0-125)
--- NOTE | 2024-03-11 08:01 | PC.NURSE ---
I rounded on the pt and took him a warm blanket. no needs voiced. call pérez in reach.
--- NOTE | 2024-03-11 08:05 | PC.NURSE ---
pt ambulated to restroom with no assistance. pt placed back on monitor. no needs voiced at this time pt tolerated po challenge.
[2024-03-11 08:09] LABS: Troponin I < 0.01 ng/ml (0.00-0.034)
[2024-03-11 08:18] VITALS: BP 176/150; PULSE 70; RESP 20; TEMP 36.7; O2SAT 100
[2024-03-11 10:58] LABS: Hepatitis C Ab Qual. W/ RFX NEGATIVE (Negative)
[2024-03-11 13:16] LABS: HIV Combo NEGATIVE (Negative)
== END 2024-03-11 08:19 | disposition home or self-care (01) ==
PROVIDERS: Emergency Medicine; Emergency Provider Student in an Organized Health Care Education/Training Program
DX: R06.02 Shortness of breath (principal); E10.9 Type 1 diabetes mellitus without complications; I10 Essential (primary) hypertension; R07.89 Other chest pain; R05.9 Cough, unspecified
CPT/HCPCS: 71046; 71275; 80053; 83735; 83880; 84100; 84436; 84443; 84484; 85025; 85378; 86803; 87389; 93005; 99285; Q9967

== ENCOUNTER 2024-03-30 11:45 | Outpatient (CLI) | payer MEDICAID, SELFPAY ==
--- NOTE | 2024-03-30 | CA_ITS ---
APPROVED REPORT Exam: Exercise Treadmill Technologist: Harmony Gao Ht: 5 ft 9 in Wt: 252 lbs BSA: 2.28 m2 HR: 86 bpm BP: 108/81 mmHg Rhythm: NSR Stress Test Details Test: Exercise stress testing was performed using a Jorge Luis protocol. HR Resting HR: 86 bpm Max Heart Rate (APMHR): 170 bpm Max HR Achieved: 148 bpm Target HR (85% APMHR): 145 bpm % of APMHR: 87 Recovery HR: 99 bpm HR response to stress: Normal HR response to stress BP Resting BP: 108.0/81.0 mmHg Max BP: 162.0/90.0 mmHg Recovery BP: 127.0/78.0 mmHg BP response to stress: Normal blood pressure response to stress. ECG Resting ECG: Sinus rhythm Stress ECG: presence of artifact, no obvious significant ST changes Arrhythmia: PVCs Clinical Exercise duration: 6:40 min Exercise capacity: 9.2 METs Overall Exercise Capacity for Age: Average Stress ECG Conclusion Inject 5:40, Stop 6:40 Target achieved Symptoms: Mild shortness of air. Arrhythmias/Ectopy: Occasional PVCs ST-T Changes: heavy artifact noted. No obvious significant ST changes Conclusion: Average exercise capacity. Nondiagnostic ECG portion of the stress test due to significant artifact. Myoview images are reported separately. Electronically signed by : Nelsy Etienne MD 03/31/2024 12:52:10
--- NOTE | 2024-03-30 11:47 | NM_ITS ---
APPROVED REPORT Exam: Nuclear Stress Test Indication: htn, diabetes, fm hx, angina, sob Patient Location: Outpatient Stress Tech: Harmony Gao [place] Tech:Arlyn DingBLAIR RT (R)(N)(M) Ht: 5 ft 9 in Wt: 250 lbs HR: 86 bpm BP: 108/81 mmHg BSA: 2.27 m2 TID: 1.25 BMI: 36.9 History: htn, diabetes, fm hx, angina, sob Procedure: Patient exercised on Jorge Luis protocol 6:40 minutes and sec, resting heart rate 86 bpm, resting blood pressure 108/81 mmHg, with exercise maximum heart rate achived was 148 bpm which is 94 % of the maximum predicted heart rate and blood pressure was 162/90 mmHg. Test was stopped due to fatigue, sob. Patient denied any complaint of chest pain. Patient has exercise capacity, achieved 9.2 METs of workload on treadmill, the blood pressure response to exercise was . Cardiac Stress and Resting SPECT Images: Cardiac Stress and Resting SPECT images were obtained using technetium 99m Myoview 31.3 mCi stress and 10.57 mCi at rest. Resting and stress imaging in supine and prone positions demonstrate no evidence of fixed or reversible perfusion defects. There is increase in transient ischemic dilatation ratio (TID 1.25), suggestive of possible multivessel disease or balanced ischemia. Gated imaging demonstrates low-normal global and regional LV systolic function. LVEF is calculated at 52%. Conclusion: No evidence of fixed or reversible perfusion defects. There is increase in transient ischemic dilatation ratio (TID 1.25), suggestive of possible multivessel disease or balanced ischemia. Gated imaging demonstrates low-normal global and regional LV systolic function. LVEF is calculated at 52%. Electronically signed by : Nelsy Etienne MD 03/31/2024 12:45:48
[2024-03-30] MEDS: SODIUM CHLORIDE 0.9% 10ML SYR (RAD ONLY) 10 ML IV ×2 (14:05)
[2024-03-30] MEDS: ISOTOPE MYOVIEW (PER STUDY) 1 DOSE IV (14:05)
== END 2024-03-30 23:59 | disposition home or self-care (01) ==
LOC: RAD 11:45
PROVIDERS: PCP Family Medicine; Visit Provider Physician Assistant
DX: I20.89 Other forms of angina pectoris (principal); R06.00 Dyspnea, unspecified
CPT/HCPCS: 78452; 93017; 93018; 93306; A9502

== ENCOUNTER 2024-04-21 07:06 | Day surgery (SDC) | payer MEDICAID, SELFPAY ==
[2024-04-21] VITALS (12 sets, daily range): BP systolic 105–151; BP diastolic 63–82; PULSE 54–81; RESP 16–20; O2SAT 96–100; BMI 38.0
--- NOTE | 2024-04-21 07:18 | IR_ITS ---
APPROVED REPORT Patient Location: Outpatient Experimental Display Builder: BLAIR Covarrubias RT (R) PROCEDURES Left heart catheterization Left ventriculogram Selective coronary angiogram INDICATION Abnormal Myoview, Angina pectoris, Informed consent was obtained prior to the procedure. COMPLICATIONS NONE Estimated Blood Loss: LESS THAN 10 ML TECHNIQUE One percent lidocaine used to anesthetize the right anterior aspect of the wrist. The right radial artery was accessed via the Seldinger technique. A 6 Albanian sheath was placed in the right radial artery. 2.5 mg of Verapamil, 800 mcg of nitroglycerin, 1mg Lidocaine and 5000 U Heparin were given through the arterial sheath. The Albanian JL 3 catheter was also used to perform left heart catheterization, left ventriculogram and selective coronary angiogram. At the end of the procedure the sheath was removed good hemostasis was achieved using Traclet band, patient was transferred to the postop holding area in stable condition. ANGIOGRAPHIC RESULTS The left main artery Normal The left anterior descending artery Normal The circumflex artery Normal The right coronary artery Dominant normal The MCKOY ventriculogram reveals Slightly dilated reduced at 50% The left ventricular end-diastolic pressure 25 mmHg IMPRESSION Normal coronary arteries Reduced ejection fraction Elevated LVEDP PLAN 1. Medical management 2. Recommend sleep study 3. Consider cardiac MRI if appropriate Electronically signed by : Bret Luz MD 04/21/2024 10:16:37
[2024-04-21 08:12] LABS: Basophils # 0.1 K/mm3 (0-0.2); Basophils % 1.8 % (0.1-2.0); Eosinophils # 0.2 K/mm3 (0.0-0.4); Eosinophils % 4.4 % (0.1-12.0); Hematocrit 28.4 % (42.0-52.0); Hemoglobin 10.1 g/dL (14.1-18.0); Lymphocytes % 22.3 % (10-50); Mean Corpuscular HGB Conc 35.6 g/dL (31.8-35.4); Mean Corpuscular Hemoglobin 38.8 pg (27.0-31.2); Mean Corpuscular Volume 109.2 fl (80-94); Mean Platelet Volume 9.9 fl (7.4-10.4); Monocytes # 0.4 K/mm3 (0.1-1.0); Monocytes % 8.2 % (1.7-9.3); Neutrophils # 2.8 K/mm3 (1.8-7.8); Neutrophils % 62.9 % (37.0-80.0); Platelet Count 172 K/mm3 (142-424); Red Cell Distribution Width 15.5 % (11.5-17.5); White Blood Count 4.5 K/mm3 (4.8-10.8)
[2024-04-21 08:33] LABS: Chloride 105 mmol/L (98-107); Sodium 135 mmol/L (136-145)
[2024-04-21 08:34] LABS: Potassium 4.4 mmoL/L (3.5-5.1)
[2024-04-21 08:36] LABS: Blood Urea Nitrogen 13 mg/dl (9-20); Creatinine Clearance Estimated 133 mL/min (50-200); Estimated Glomerular Filt Rate 71 ml/min (>60); GFR (African American) 86 ML/MIN (>60)
[2024-04-21 08:37] LABS: Anion Gap 8.4 mEq/L (5-15); Carbon Dioxide 26 mmol/L (22.0-30.0); Glucose 90 mg/dl (74-100)
[2024-04-21] MEDS: HEPARIN 1,000 UNITS/500ML NS (CATH LAB) 3000 UNIT IV (09:46)
[2024-04-21] MEDS: diphenhydrAMINE 50MG/ML VIAL 50 MG IV (09:46)
[2024-04-21] MEDS: HEPARIN 1,000 UNITS/ML 10ML VIAL (CATH LAB) 10000 UNIT IV (09:54)
[2024-04-21] MEDS: LIDOCAINE 1% 10ML MDV 20 ML IJ (09:57)
[2024-04-21] MEDS: NITROGLYCERIN 800MCG/8ML SYR (CATH LAB) 800 MCG IA (09:58)
[2024-04-21] MEDS: VERAPAMIL 2.5MG/ML 2ML VIAL 2.5 MG IV (09:58)
[2024-04-21] MEDS: MIDAZOLAM HCL 1MG/ML 5ML VIAL 1 MG IV (09:58)
[2024-04-21] MEDS: FENTANYL 100MCG/2ML VIAL 50 MCG IV (09:59)
[2024-04-21] MEDS: 0.9 % SODIUM CHLORIDE 500 ML 25 ML IV (10:08)
[2024-04-21] MEDS: IOPAMIDOL-370 (76%);100ML BOTTLE 60 ML IV (10:50)
== END 2024-04-21 13:05 | disposition home or self-care (01) ==
PROVIDERS: PCP Family Medicine; Visit Provider Internal Medicine
DX: I20.89 Other forms of angina pectoris (principal); R94.39 Abnormal result of other cardiovascular function study; I10 Essential (primary) hypertension; Z82.49 Family history of ischemic heart disease and other diseases of the circulatory system; Z79.4 Long term (current) use of insulin; Z79.899 Other long term (current) drug therapy; E78.5 Hyperlipidemia, unspecified; R94.31 Abnormal electrocardiogram [ECG] [EKG]; E66.9 Obesity, unspecified; Z68.38 Body mass index [BMI] 38.0-38.9, adult
CPT/HCPCS: 80048; 85025; 93458; 99152; C1760; C1769; J1200; J1644; J3010; Q9967

== ENCOUNTER 2024-05-04 11:56 | Outpatient (CLI) | payer MEDICAID, SELFPAY ==
[2024-05-04 13:39] LABS: Blood Urea Nitrogen 19 mg/dl (9-20); Calcium 9.2 mg/dl (8.4-10.2); Carbon Dioxide 33 mmol/L (22.0-30.0); Chloride 97 mmol/L (98-107); Estimated Glomerular Filt Rate 64 ml/min (>60); GFR (African American) 78 ML/MIN (>60); Glucose 91 mg/dl (74-100); Sodium 138 mmol/L (136-145)
== END 2024-05-04 23:59 | disposition home or self-care (01) ==
LOC: LAB 11:57
PROVIDERS: PCP Family Medicine; Visit Provider Nurse Practitioner Family
DX: R06.02 Shortness of breath (principal); G56.00 Carpal tunnel syndrome, unspecified upper limb; I10 Essential (primary) hypertension
CPT/HCPCS: 36415; 80048

== ENCOUNTER 2024-05-12 11:44 | Outpatient (CLI) | payer MEDICAID, SELFPAY | END 2024-05-12 23:59 | disposition home or self-care (01) | LOC: RT 11:45 | PROVIDERS: PCP Family Medicine; Visit Provider Physician Assistant | DX: R00.0 Tachycardia, unspecified (principal) ==

== ENCOUNTER 2024-06-21 13:45 | Outpatient (CLI) | payer MEDICAID, SELFPAY ==
[2024-06-21 14:28] LABS: Basophils % 0.5 % (0.1-2.0); Eosinophils # 0.1 Kmm3 (0.0-0.4); Eosinophils % 1.7 % (0.1-12.0); Hematocrit 22.5 % (42.0-52.0); Immature Granulocytes # 0.02 10^3uL; Immature Granulocytes % 0.3 %; Lymphocytes # 1.1 K/mm3 (0.7-4.5); Lymphocytes % 18.1 % (10-50); Mean Corpuscular HGB Conc 35.6 g/dL (31.8-35.4); Mean Corpuscular Volume 113.6 fl (80-94); Mean Platelet Volume 11.8 fl (7.4-10.4); Monocytes # 0.4 K/mm3 (0.1-1.0); Neutrophils # 4.3 K/mm3 (1.8-7.8); Neutrophils % 73.4 % (37.0-80.0); Nucleated Red Blood Cells # 0.04 10^3/uL; Nucleated Red Blood Cells % 0.7 %; Platelet Count 76 K/mm3 (142-424); Red Blood Count 1.98 M/mm3 (4.60-6.20); Red Cell Distribution Width 17.7 % (11.5-17.5); Red Cell Distribution Width-SD 72.2 fL; White Blood Count 5.8 K/mm3 (4.8-10.8)
[2024-06-21 14:30] LABS: Mean Corpuscular Hemoglobin 40.4 pg (27.0-31.2)
[2024-06-21 14:46] LABS: Chloride 101 mmol/L (98-107)
[2024-06-21 14:47] LABS: Albumin Level 3.3 g/dl (3.5-5.0); Potassium 4.3 mmoL/L (3.5-5.1); Sodium 131 mmol/L (136-145)
[2024-06-21 14:49] LABS: Blood Urea Nitrogen 20 mg/dl (9-20); Estimated Glomerular Filt Rate 58 ml/min (>60); GFR (African American) 71 ML/MIN (>60)
[2024-06-21 14:50] LABS: Alanine Aminotransferase 34 U/L (12-78); Alkaline Phosphatase 147 U/L (38-126); Anion Gap 9.3 mEq/L (5-15); Aspartate Amino Transferase 108 U/L (17-59); Bilirubin,Direct 0.4 mg/dl (0.0-0.4); Bilirubin,Indirect 0.7 mg/dL (0.0-0.9); Bilirubin,Total 1.1 mg/dl (0.2-1.3); Bilirubin,Unconjugated 0.7 mg/dL (0.0-1.1); Calcium 7.7 mg/dl (8.4-10.2); Carbon Dioxide 25 mmol/L (22.0-30.0); Cholesterol 147 mg/dl (140-200); Glucose 189 mg/dl (74-100); Magnesium 1.3 mg/dl (1.6-2.3); Total Protein,Serum 6.1 g/dl (6.3-8.2); Triglycerides 182 mg/dl (30-150); VLDL Cholesterol 36 mg/dL (0-40)
[2024-06-21 14:51] LABS: Chol/HDL Ratio 1.5 (1-3.5); HDL Cholesterol 96 mg/dl (40-60)
[2024-06-21 15:01] LABS: Direct LDL Cholesterol 31.41 mg/dL (100-129)
[2024-06-21 15:07] LABS: Free T4 (Free Thyroxine) 0.55 ng/dl (0.78-2.19)
[2024-06-21 15:09] LABS: Hemoglobin A1C 6.2 % (4.0-6.0)
[2024-06-21 15:20] LABS: Thyroid Stimulating Hormone 4.36 uIU/mL (0.465-4.68)
== END 2024-06-21 23:59 | disposition home or self-care (01) ==
PROVIDERS: PCP Family Medicine; Visit Provider Internal Medicine
DX: R42 Dizziness and giddiness (principal); Z82.49 Family history of ischemic heart disease and other diseases of the circulatory system; R60.0 Localized edema; R06.02 Shortness of breath; E87.5 Hyperkalemia; E53.8 Deficiency of other specified B group vitamins; E10.9 Type 1 diabetes mellitus without complications; I10 Essential (primary) hypertension; Z79.4 Long term (current) use of insulin
CPT/HCPCS: 36415; 80048; 80061; 80076; 83036; 83735; 84439; 84443; 85025

== ENCOUNTER 2024-06-23 13:30 | Outpatient (CLI) | payer MEDICAID, SELFPAY ==
[2024-06-23 13:46] LABS: Adenovirus F 40/41, stool Not Detected (NotDetected); Astrovirus Not Detected (NotDetected); Campylobacter Not Detected (NotDetected); Cryptosporidium Not Detected (NotDetected); Cyclospora Cayetanesis Not Detected (NotDetected); Entamoeba histolytica Not Detected (NotDetected); Enteroaggregative E coli Not Detected (NotDetected); Enteropathogenic E coli Not Detected (NotDetected); Enterotoxigenic E coli Not Detected (NotDetected); Giardia lamblia Not Detected (NotDetected); Plesimonas Shigalloides, PCR Not Detected (NotDetected); Rotavirus A Not Detected (NotDetected); Salmonella, PCR Not Detected (NotDetected); Sapovirus Not Detected (NotDetected); Shiga-like toxin E coli Not Detected (NotDetected); Shigella Enterovasive E coli Not Detected (NotDetected); Vibrio Cholerae Not Detected (NotDetected); Vibrio, PCR Not Detected (NotDetected); Yersinia Entercolitica, PCR Not Detected (NotDetected)
[2024-06-23 14:09] LABS: Alanine Aminotransferase 38 U/L (12-78); Albumin Level 3.5 g/dl (3.5-5.0); Alkaline Phosphatase 117 U/L (38-126); Anion Gap 11.8 mEq/L (5-15); Aspartate Amino Transferase 127 U/L (17-59); Bilirubin,Direct 0.2 mg/dl (0.0-0.4); Bilirubin,Indirect 0.6 mg/dL (0.0-0.9); Bilirubin,Total 0.8 mg/dl (0.2-1.3); Bilirubin,Unconjugated 0.6 mg/dL (0.0-1.1); Blood Urea Nitrogen 19 mg/dl (9-20); Calcium 8.2 mg/dl (8.4-10.2); Carbon Dioxide 26 mmol/L (22.0-30.0); Chloride 94 mmol/L (98-107); Estimated Glomerular Filt Rate 79 ml/min (>60); GFR (African American) 96 ML/MIN (>60); Glucose 136 mg/dl (74-100); Potassium 3.8 mmoL/L (3.5-5.1); Sodium 128 mmol/L (136-145); Total Protein,Serum 6.3 g/dl (6.3-8.2)
[2024-06-23 14:13] LABS: Basophils % 0.7 % (0.1-2.0); Eosinophils # 0.1 Kmm3 (0.0-0.4); Eosinophils % 2.4 % (0.1-12.0); Hemoglobin 7.3 g/dL (14.1-18.0); Immature Granulocytes # 0.07 10^3uL; Immature Granulocytes % 1.7 %; Lymphocytes # 1.2 K/mm3 (0.7-4.5); Lymphocytes % 28.9 % (10-50); Mean Corpuscular HGB Conc 36.3 g/dL (31.8-35.4); Mean Corpuscular Volume 112.3 fl (80-94); Monocytes # 0.3 K/mm3 (0.1-1.0); Monocytes % 7.4 % (1.7-9.3); Neutrophils # 2.5 K/mm3 (1.8-7.8); Neutrophils % 58.9 % (37.0-80.0); Nucleated Red Blood Cells # 0.03 10^3/uL; Nucleated Red Blood Cells % 0.7 %; Platelet Count 65 K/mm3 (142-424); Red Blood Count 1.79 M/mm3 (4.60-6.20); Red Cell Distribution Width 17.9 % (11.5-17.5); Red Cell Distribution Width-SD 72.1 fL; White Blood Count 4.2 K/mm3 (4.8-10.8)
[2024-06-23 14:32] LABS: Hematocrit 20.1 % (42.0-52.0); Mean Corpuscular Hemoglobin 40.8 pg (27.0-31.2)
[2024-06-23 20:58] LABS: Norovirus Detected (NotDetected)
[2024-06-23 20:59] LABS: Clostridium Difficile A/B, PCR Detected (NotDetected)
== END 2024-06-23 23:59 | disposition home or self-care (01) ==
PROVIDERS: Nurse Practitioner; PCP Family Medicine; Visit Provider Internal Medicine
DX: E10.9 Type 1 diabetes mellitus without complications (principal); I10 Essential (primary) hypertension; E87.1 Hypo-osmolality and hyponatremia; E87.5 Hyperkalemia; D69.6 Thrombocytopenia, unspecified; R74.8 Abnormal levels of other serum enzymes; E53.8 Deficiency of other specified B group vitamins; R06.02 Shortness of breath; R42 Dizziness and giddiness; R60.0 Localized edema; Z82.49 Family history of ischemic heart disease and other diseases of the circulatory system
CPT/HCPCS: 36415; 80048; 80076; 85025; 87506

== ENCOUNTER 2024-06-29 11:11 | Outpatient (CLI) | payer MEDICAID, SELFPAY ==
[2024-06-29 11:49] LABS: Basophils # 0.1 K/mm3 (0-0.2); Basophils % 1.4 % (0.1-2.0); Eosinophils # 0.1 Kmm3 (0.0-0.4); Eosinophils % 2.5 % (0.1-12.0); Hematocrit 23.3 % (42.0-52.0); Hemoglobin 8.1 g/dL (14.1-18.0); Immature Granulocytes # 0.02 10^3uL; Immature Granulocytes % 0.5 %; Lymphocytes # 1.2 K/mm3 (0.7-4.5); Lymphocytes % 32.1 % (10-50); Mean Corpuscular HGB Conc 34.8 g/dL (31.8-35.4); Mean Corpuscular Volume 117.7 fl (80-94); Mean Platelet Volume 10.5 fl (7.4-10.4); Monocytes # 0.5 K/mm3 (0.1-1.0); Monocytes % 12.4 % (1.7-9.3); Neutrophils # 1.9 K/mm3 (1.8-7.8); Neutrophils % 51.1 % (37.0-80.0); Nucleated Red Blood Cells # 0.04 10^3/uL; Nucleated Red Blood Cells % 1.1 %; Platelet Count 156 K/mm3 (142-424); Red Blood Count 1.98 M/mm3 (4.60-6.20); Red Cell Distribution Width 20.3 % (11.5-17.5); Red Cell Distribution Width-SD 86.1 fL; White Blood Count 3.6 K/mm3 (4.8-10.8)
[2024-06-29 11:52] LABS: Mean Corpuscular Hemoglobin 40.9 pg (27.0-31.2)
[2024-06-29 12:19] LABS: Anion Gap 8.2 mEq/L (5-15); Blood Urea Nitrogen 14 mg/dl (9-20); Calcium 8.5 mg/dl (8.4-10.2); Carbon Dioxide 28 mmol/L (22.0-30.0); Chloride 106 mmol/L (98-107); Estimated Glomerular Filt Rate 71 ml/min (>60); GFR (African American) 86 ML/MIN (>60); Glucose 51 mg/dl (74-100); Potassium 5.2 mmoL/L (3.5-5.1); Sodium 137 mmol/L (136-145)
== END 2024-06-29 23:59 | disposition home or self-care (01) ==
LOC: LAB 11:12
PROVIDERS: PCP Family Medicine; Visit Provider Internal Medicine
DX: I10 Essential (primary) hypertension (principal)
CPT/HCPCS: 36415; 80048; 85025

== ENCOUNTER 2024-06-30 15:04 | Outpatient (CLI) | payer MEDICAID, SELFPAY ==
[2024-06-30 16:02] LABS: Iron 251 ug/dL (49-181)
[2024-06-30 16:05] LABS: Lactate Dehydrogenase 577 U/L (313-618)
[2024-06-30 16:12] LABS: Total Iron Binding Capacity 224 ug/dL (261-462)
[2024-06-30 16:34] LABS: Reticulocyte % (Auto) 6.6 % (0.9-3.2)
[2024-06-30 16:39] LABS: Ferritin 401 ng/ml (17.9-464)
[2024-06-30 16:55] LABS: Vitamin B12 314 pg/mL (239-931)
[2024-07-01 08:13] LABS: Haptoglobin 70 mg/dL (23-355); Homocyst(e)ine 185.9 umol/L (0.0-14.5)
[2024-07-04 00:08] LABS: Zinc 54 ug/dL (44-115)
[2024-07-07 11:15] LABS: Methylmalonic Acid 409 nmol/L (0-378)
== END 2024-06-30 23:59 | disposition home or self-care (01) ==
LOC: LAB 15:05
PROVIDERS: PCP Family Medicine; Visit Provider Internal Medicine Medical Oncology
DX: D64.9 Anemia, unspecified (principal); R74.8 Abnormal levels of other serum enzymes
CPT/HCPCS: 36415; 82525; 82607; 82728; 83010; 83090; 83540; 83550; 83615; 83921; 84630; 85044; 86880

== ENCOUNTER 2024-07-20 10:27 | Day surgery (SDC) | payer MEDICAID, SELFPAY ==
[2024-07-19 14:21] VITALS: BMI 36.9
[2024-07-20 11:12] VITALS: BP 140/78; PULSE 75; RESP 16; TEMP 36.2; O2SAT 99
[2024-07-20] MEDS: LACTATED RINGERS 1000ML 1,000 ML 50 ML IV (11:22)
[2024-07-20 11:24] LABS: POC Glucose,Bedside 115 (70-110)
--- NOTE | 2024-07-20 12:16 | EXP.HP ---
History of Present Illness *Admission Date: 07/20/24 *Reason for visit:: Melanotic stools/anemia and Hemoccult positive *History of present illness: Mr. Myrick is a 48-year-old gentleman who is here for diagnostic EGD and colonoscopy. He has been having black stools and is Hemoccult positive with recent marked anemia. The examination is deemed medically necessary for diagnostic EGD and colonoscopy. The patient has been seen, interviewed and examined prior to the procedure by both myself and the anesthesia provider. [facility] Disclaimer: The information contained in this section may have been updated after the patient was seen, as this information can be updated by other users. Medical History (Updated 07/20/24 @ 12:28 by Feliz Whitten II, MD) C. difficile diarrhea Abnormal liver enzymes Anemia with low platelet count Hyponatremia Weakness Hypotension Daytime somnolence Restless sleeper Elevated left ventricular end-diastolic pressure (LVEDP) Pulmonary hypertension Family history of early CAD Dyspnea Atypical angina Bilateral lower extremity edema BMI 35.0-35.9,adult Diabetic neuropathy Type 1 diabetes mellitus Hypertension Hyperlipidemia associated with type 2 diabetes mellitus Surgical History History of cardiac cath History of ankle surgery H/O gastric bypass Family History Mother Osteoarthritis Father Heart attack Other Family history of diabetes mellitus type II Social History Smoking Status: Never smoker alcohol intake: current alcohol intake frequency: 0-2 drinks per day counseling given: Yes substance use type: denies use current occupational status: employed Travel in the last 8 weeks?: None housing: house marital status: single number of children: 0 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 caffeine: No brenda/gnosticist: Adventism Have you lived/traveled outside US in past 30 days?: No Contact w/someone who lives/traveled outside US past 30 days?: No Exposure to someone with infectious disease in past 14 days?: No Do you have a fever (greater than 100.4 F or 38 C)?: No Have you tested positive for COVID-19?: No Exposed to someone with COVID-19 in past 14 days?: No Do you have a sore throat?: No Do you have a cough?: No Do you have any weakness?: No Are you experiencing any nausea/vomitting?: No Do you have any diarrhea?: Yes Are you experiencing any unusual bleeding?: No Do you have any muscle aches/pain?: No Do you have any abdominal pain?: No Are you experiencing loss of taste or smell?: No Other Medical History Have you received the Flu Vaccine for this season: No Have you received the Pneumonia Vaccine: No Review of Systems Review of Systems Review of systems (narrative): Negative *Cardiovascular Comments: Negative *Gastrointestinal Comments: Negative *Genitourinary Comments: Negative *Musculoskeletal Comments: Negative *Neurologic Comments: Negative Meds Home Medications and Allergies Home Medications ?Medication ?Instructions ?Recorded ?Confirmed ?Type insulin lispro 100 unit/mL 2 sliding scale dose SQ 10/22/20 07/20/24 History subcutaneous pen (Admelog SoloStar USEASDIRECTD Diabetes U-100 Insulin lispro) glucagon 1 mg solution for 1 mg IM ONCE 02/17/22 07/20/24 History injection (Glucagon Emergency Kit) insulin glargine 100 unit/mL (3 20 unit SQ DAILY Diabetes 03/11/22 07/20/24 History mL) subcutaneous pen (Basaglar KwikPen U-100 Insulin) blood-glucose sensor (Dexcom G6 #1 ea 05/19/22 07/20/24 History Sensor device) cholecalciferol (vitamin D3) 1,250 1,250 mcg PO WEEKLY 05/19/22 07/20/24 History mcg (50,000 unit) capsule pravastatin 20 mg tablet See Rx Instructions .Route 01/11/24 07/20/24 Rx .COMPLEX #90 tabs naltrexone microspheres 380 mg 380 mg IM QMONTH #1 ea 03/03/24 07/20/24 Rx intramuscular suspension,extended release (Vivitrol) nitroglycerin 0.4 mg sublingual 0.4 mg sublingual Q5-15M PRN chest 03/16/24 07/20/24 Rx tablet pain #30 tabs pen needle, diabetic 31 gauge x #1,200 ea 04/26/24 07/20/24 History 16 zolpidem 10 mg tablet (Ambien) 10 mg PO HS PRN insomnia #30 tabs 05/09/24 07/20/24 Rx gabapentin 600 mg tablet 600 mg PO TID #90 tabs 06/08/24 07/20/24 Rx blood-glucose transmitter (Dexcom #1 ea 06/21/24 07/20/24 History G6 Transmitter device) valsartan 80 mg tablet 80 mg PO DAILY #90 tabs 06/21/24 07/20/24 Rx torsemide 20 mg tablet 20 mg PO DAILY #90 tabs 06/30/24 07/20/24 Rx omeprazole 20 mg capsule,delayed 20 mg PO DAILY #30 caps 07/12/24 07/20/24 Rx release sodium,potassium,mag sulfates 17.5 See Rx Instructions PO .COMPLEX 07/12/24 07/20/24 Rx gram-3.13 gram-1.6 gram oral soln #354 mL (Suprep Bowel Prep Kit) carvedilol 3.125 mg tablet 3.125 mg PO DAILY 07/19/24 07/20/24 History New Prescriptions to Start Prescriptions: Allergies Allergy/AdvReac Type Severity Reaction Status Date / Time No Known Allergies Allergy Verified 07/19/24 13:37 Exam Data for Last 24 hours Vital signs and Labs for Last 24 Hours: Temp Pulse Resp BP Pulse Ox O2 Del Method 97.1 F L 75 16 140/78 99 Room Air 07/20/24 11:12 07/20/24 11:12 07/20/24 11:12 07/20/24 11:12 07/20/24 11:12 07/20/24 11:12 Laboratory Results - last 24 hr 07/20/24 11:17: POC Glucose 115 H I & O for Last 24 hours: Intake & Output 07/17/24 07/18/24 07/19/24 07/20/24 23:59 23:59 23:59 23:59 Weight 250 lb *Routine HEENT Exam Head: Present normocephalic Eye: Present EOMI and PERRL ENT: Present mucous membranes moist *Routine Neck Exam Neck: Present supple *Routine Respiratory Exam Respiratory: Present CTA bilaterally *Routine Cardiovascular Exam Cardiovascular: Present RRR *Routine Abdominal Exam Abdominal: Present soft and normoactive bowel sounds; Absent tenderness *Routine Rectal Exam Rectal:: deferred *Routine Genitalia Exam Genitalia:: deferred *Routine Extremities Exam Extremities: Absent cyanosis, clubbing or edema *Routine Skin Exam Skin: Present warm; Absent rash *Routine Neurological Exam Neurological: Present alert and oriented X3 Assessment and Plan *Assessment and plan (1) Anemia: Status: Acute Category: Medical Code(s): D64.9 - Anemia, unspecified (2) GI bleed: Status: Acute Category: Medical Code(s): K92.2 - Gastrointestinal hemorrhage, unspecified (3) Melena: Status: Acute Category: Medical Code(s): K92.1 - Melena (4) Pancytopenia: Status: Acute Category: Medical Code(s): D61.818 - Other pancytopenia (5) Positive occult stool blood test: Status: Acute Category: Medical Code(s): R19.5 - Other fecal abnormalities (6) Diarrhea: Status: Acute Category: Medical Code(s): R19.7 - Diarrhea, unspecified (7) History of Clostridioides difficile colitis: Status: Acute Category: Medical Code(s): Z86.19 - Personal history of other infectious and parasitic diseases Plan A/P: 1. Melena, anemia and Hemoccult positive stool is the preprocedural diagnosis. The patient also has had diarrhea for 3 months and recent history of norovirus and C. difficile with C. difficile treated with vancomycin. The patient will be anesthetized/sedated using MAC sedation. The patient has been seen and examined. Cardiac and lung assessment prior to the examination is stable. Proceed with planned EGD and colonoscopy.
--- NOTE | 2024-07-20 12:28 | HMH.PROCNOTE ---
[facility] Procedure Note Date: 07/20/24 Time: 12:32 Procedure Note:: Upper Endoscopy Procedure Report: Esophagogastrojejunoscopy with cold biopsies Endoscopost: Feliz Whitten II, MD Referring Physician: Dave Willoughby MD Date of Procedure: July 20, 2024 Equipment: Olympus GIF 190 standard upper endoscope Sedation: MAC sedation Indications: Mr. Myrick is a 48-year-old gentleman who is here for diagnostic panendoscopy. The patient has had diarrhea that began 3 months ago. He was tested positive for C. difficile and norovirus. He was treated with vancomycin. The patient also has had more profound anemia and on 06/21/2024 his hemoglobin hematocrit were 8.0 and 22.5 with macrocytic indices (MCV 113.6). He also had pancytopenia with initial platelet count of 76,000 and white blood cell count rony of 3.6. Okay the patient's iron studies were actually elevated with iron saturation of 112% and serum iron of 251. His B12 level was 314 he had high levels of homocystine and methylmalonic acid. The patient does report black stools and this occurred before taking some oral iron. He also reports no Pepto-Bismol use. He reports no abdominal pain or weight loss. He gets rare heartburn. He has had 1 prior upper endoscopy. He reports no dysphagia. He has had a prior Geovanna-en-Y gastric bypass. Procedure: Prior to the procedure, a history and physical exam was performed, and patient's medications and allergies were reviewed. The risks, benefits and alternatives of the sedation and procedure were discussed with the patient. All questions were answered and informed consent was obtained. The patient was brought to the procedure room. Patient identification and proposed procedure were verified by the physician and the nurse. The patient was placed in a left lateral decubitus position and the scope was passed under direct vision. Throughout the procedure, the patient's blood pressure, pulse, and oxygen saturations were monitored continuously. The upper GI endoscopy was accomplished without difficulty. The patient tolerated the procedure well. Findings: The scope was passed directly into the upper esophagus and advanced to the afferent and efferent limbs of jejunum. Cold biopsies were taken from the jejunum for disaccharidase assay. The scope was withdrawn through a normal stomal anastomosis into the gastric pouch. There was normal Geovanna-en-Y gastric bypass anatomy. The gastric pouch was small but there was some mild chronic gastritis and cold biopsies were taken from the gastric pouch. There was a very small sliding 1 to 2 cm hiatal hernia the scope was then withdrawn into the esophagus. There was no evidence of reflux esophagitis and the remainder of the esophageal mucosa was normal. Impression: 1. Normal Geovanna-en-Y gastric bypass anatomy 2. Mild chronic gastritis of gastric pouch Plan: I will follow-up the biopsies and disaccharidase assay. The patient's anemia and pancytopenia is not related to iron deficiency and with the macrocytic indices could be nutrient abnormality secondary to Geovanna-en-Y gastric bypass and I will obtain folate levels. I will proceed with diagnostic colonoscopy.
--- NOTE | 2024-07-20 12:38 | P.PCN_ITS ---
[facility] Procedure Note Date: 07/20/24 Time: 12:53 Procedure Note:: Colonoscopy Procedure Report: Colonoscopy with cold snare polypectomy Endoscopist: Feliz Whitten II, MD Referring physician: Dave Willoughby MD Date of Procedure: July 20, 2024 Equipment: Olympus 190 variable stiffness pediatric colonoscope Sedation: MAC sedation Indication: Mr. Myrick is a 48-year-old gentleman who is here for diagnostic panendoscopy. The patient has had diarrhea that began 3 months ago. He was tested positive for C. difficile and norovirus. He was treated with vancomycin. The patient also has had more profound anemia and on 06/21/2024 his hemoglobin hematocrit were 8.0 and 22.5 with macrocytic indices (MCV 113.6). He also had pancytopenia with initial platelet count of 76,000 and white blood cell count rony of 3.6. Okay the patient's iron studies were actually elevated with iron saturation of 112% and serum iron of 251. His B12 level was 314 he had high levels of homocystine and methylmalonic acid. The patient does report black stools and this occurred before taking some oral iron. He also reports no Pepto-Bismol use. He reports no abdominal pain or weight loss. He gets rare heartburn. He has had 1 prior upper endoscopy. He reports no dysphagia. He has had a prior Geovanna-en-Y gastric bypass. The patient reports no rectal bleeding, bloating or gassiness. The patient reports that his maternal grandmother had colon cancer. This is his first colonoscopy. Procedure: Prior to the procedure, a history and physical exam was performed, and patient's medications and allergies were reviewed. The risks, benefits and alternatives of the sedation and procedure were discussed with the patient. All questions were answered and informed consent was obtained. The patient was brought to the procedure room. Patient identification and proposed procedure were verified by the physician and the nurse. The patient was placed in a left lateral decubitus position and the scope was passed under direct vision. Throughout the procedure, the patient's blood pressure, pulse, and oxygen saturations were monitored continuously. The colonoscopy was accomplished without difficulty. The patient tolerated the procedure well. Findings: On digital rectal examination there was normal rectal tone. There were no external hemorrhoids. The colonoscope was introduced through the anal canal to the rectum and advanced to the cecum. The ileocecal valve and appendiceal orifice were identified. The scope was advanced a short distance into the ileum which appeared grossly normal. The scope was then withdrawn into the colon. There were 4 polyps (transverse x 1 (3 mm), descending x 1 (4 mm) and sigmoid x 2 (4 and 5 mm)). These were all removed via cold snare polypectomy. The remaining cecum, ascending, transverse, descending, sigmoid and rectum were grossly normal. There were no other mucosal abnormalities identified. Upon retroflexion within the rectum there were grade 1-2 internal hemorrhoids. The preparation was excellent throughout with [place] Preparation Score of 9. The c ecal time was 12 minutes. Impression: 1. Diminutive colonic polyps x 4 Plan: I will follow-up the polyp histology. There was no source of any GI blood loss. I do feel that his macrocytic anemia is either nutrient deficiency (i.e. folate) or bone marrow suppression especially with his pancytopenia. I will check folate levels and if normal, refer the patient to hematology.
[2024-07-20 12:57] VITALS: BP 104/74; PULSE 79; RESP 18; TEMP 37; O2SAT 100
[2024-07-20 13:07] VITALS: BP 123/70; PULSE 67; RESP 18; O2SAT 100
[2024-07-20 13:17] VITALS: BP 134/72; PULSE 68; RESP 18; O2SAT 100
[2024-07-20 13:27] VITALS: BP 132/76; PULSE 68; RESP 18; O2SAT 100
--- NOTE | 2024-07-20 13:33 | EXP.ANES.CKL ---
[facility] Disclaimer: The information contained in this section may have been updated after the patient was seen, as this information can be updated by other users. Medical History (Updated 07/20/24 @ 12:28 by Feliz Whitten II, MD) C. difficile diarrhea Abnormal liver enzymes Anemia with low platelet count Hyponatremia Weakness Hypotension Daytime somnolence Restless sleeper Elevated left ventricular end-diastolic pressure (LVEDP) Pulmonary hypertension Family history of early CAD Dyspnea Atypical angina Bilateral lower extremity edema BMI 35.0-35.9,adult Diabetic neuropathy Type 1 diabetes mellitus Hypertension Hyperlipidemia associated with type 2 diabetes mellitus Surgical History History of cardiac cath History of ankle surgery H/O gastric bypass Family History Mother Osteoarthritis Father Heart attack Other Family history of diabetes mellitus type II Social History Smoking Status: Never smoker alcohol intake: current alcohol intake frequency: 0-2 drinks per day counseling given: Yes substance use type: denies use current occupational status: employed Travel in the last 8 weeks?: None housing: house marital status: single number of children: 0 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 caffeine: No brenda/roman catholic: Anabaptist Have you lived/traveled outside US in past 30 days?: No Contact w/someone who lives/traveled outside US past 30 days?: No Exposure to someone with infectious disease in past 14 days?: No Do you have a fever (greater than 100.4 F or 38 C)?: No Have you tested positive for COVID-19?: No Exposed to someone with COVID-19 in past 14 days?: No Do you have a sore throat?: No Do you have a cough?: No Do you have any weakness?: No Are you experiencing any nausea/vomitting?: No Do you have any diarrhea?: Yes Are you experiencing any unusual bleeding?: No Do you have any muscle aches/pain?: No Do you have any abdominal pain?: No Are you experiencing loss of taste or smell?: No [facility] Anesthesia Checklist Patient Identification Patient Identification: Verbal (Name & ) Structural Data Admitted From: Home Planned Operative Procedure/s: colonoscopy Consent for Planned Operative Procedure(s) Verified: Yes Airway Assessment Mallampati Score:: Class II C-Spine Mobility Assessed: Yes TMJ Mobility Assessed: Yes Dentition: Poor Dentition Neurological Assessment Level of Consciousness: Awake, Alert and Appropriate Anesthesia Plan Anesthesia Risk discussed: Yes Anesthesia Plan: Verified ASA Class: II Anesthesia Type: MAC
[2024-07-20 13:47] VITALS: BP 148/82; PULSE 69; RESP 18; TEMP 37; O2SAT 100
[2024-07-20 15:42] LABS: Folate 2.29 ng/mL
[2024-07-25 15:35] LABS: Disclaimer Notes (.); Interpretation Notes (.); Lactase 5.69 (>/= 14.0); Maltase 339.35 (>/= 110.0); Palatinase 23.02 (>/= 8.5); Reference Notes (.); Sucrase 84.31 (>/= 25.0)
== END 2024-07-20 13:47 | disposition home or self-care (01) ==
PROVIDERS: PCP Family Medicine; Visit Provider Internal Medicine Gastroenterology
PROC: 0DJ08ZZ Inspection of Upper Intestinal Tract, Via Natural or Artificial Opening Endoscopic (ICD-10-PCS; CPT 45378; principal; 2024-07-20 12:30)
DX: K29.51 Unspecified chronic gastritis with bleeding (principal); K44.9 Diaphragmatic hernia without obstruction or gangrene; K64.1 Second degree hemorrhoids; K31.89 Other diseases of stomach and duodenum; D12.4 Benign neoplasm of descending colon; D12.5 Benign neoplasm of sigmoid colon; D12.3 Benign neoplasm of transverse colon; E10.40 Type 1 diabetes mellitus with diabetic neuropathy, unspecified; E78.5 Hyperlipidemia, unspecified; I10 Essential (primary) hypertension; D61.818 Other pancytopenia; D53.9 Nutritional anemia, unspecified; Z98.84 Bariatric surgery status; Z79.4 Long term (current) use of insulin; Z79.899 Other long term (current) drug therapy; Z86.19 Personal history of other infectious and parasitic diseases; Z80.0 Family history of malignant neoplasm of digestive organs
CPT/HCPCS: 43239; 45385; 36415; 82657; 82746; 82962; J2003; J2704; J7120

== ENCOUNTER 2024-08-01 13:44 | Outpatient (CLI) | payer MEDICAID, SELFPAY ==
--- OUTSIDE RECORDS SUMMARY | 2024-08-01 13:54 | XMS_ITS | Encounter Summary ---
Author Organization [facility] Address [address] [place] [address] Care Team Providers Care Jigman Name Role Phone Micah Willoughby MD Primary Care Provider [phone] Encounter Details Date Type Department Care Team ([facility] st Contact Info) Description 05/25/2024 Telephone [facility] Nephrology, Bone & Mineral Metabolism [address], [address] [place] [address] Susanne Urbina, PharmD [address] [place] [address] Social History Tobacco Use Types Packs/Day Years Used Date Smoking Tobacco: Never Smokeless Tobacco: Current Chew Alcohol Use Standard Drinks/Week Comments Yes 10 (1 standard drink = 0.6 oz pu re alcohol) occassionally PHQ-2 Answer Date Recorded Patient Health Questionnaire-2 Score 0 02/01/2024 PHQ-2A Answer Date Recorded Patient Health Questionnaire-2 Score 0 10/27/2022 Sex and Gender Information Value Date Recorded Sex Assigned at Not on file Legal Sex Male 7:30 PM EDT Gender Identity Not on file Sexual Orientation Not on file documented as of this encounter Miscellaneous Notes * Telephone Encounter - Susanne Urbina, PharmD - 07/27/2024 11:51 AM EDT Spoke with Julio Myrick via phone to see if he would be willing to obtain repeat [facility]FP [place] [facility]. He states he may have to reschedule given his work schedule but waiting to hear back from boss. If unable to get off from work on Thursday for appointment, he is willing to obtain labs locally. Patient to let global technical writer know. Susanne Urbina PharmD, BCACP Clinical Pharmacist Nephrology Clinic * Telephone Encounter - Susanne Urbina PharmD - 07/08/2024 12:46 PM EDT Julio Myrick rescheduled Endo appointment yesterday for 07/20, left voicemail advising we would reschedule labs for 07/20 as well. Susanne Urbina PharmD, MARLENCP Clinical Pharmacist Nephrology Clinic * Progress Notes - Susanne Urbina PharmD - 05/25/2024 1:32 PM EDT Spoke with Julio Myrick via phone to review lab results from 05/22/[address] Medel. Creatinine elevated above typical baseline range 1.3-1.6 at 1.95, suspect change is due to hypoperfusion in the setting of hypotension. Pt was advised to reduce valsartan to 160mg daily at office visit on 05/23, he confirms making change as directed. No further changes indicated at this time. Reviewed sodium, potassium were WNL. No protein or infection in the urine. Blood glucose elevated, patient states it is typically well controlled at home but he had woken up in the middle of the night starving the night before. He got up to eat a sandwich but did not administer any insulin with meal. This is not common for him. He has follow-up with endocrinology on 07/07. Will repeat RFP at that t carmen to assess for improvement in renal function. He has cardiology follow-up on 06/10. Susanne Urbina PharmD, MARLENCP Clinical Pharmacist Nephrology Clinic documented in this encounter Plan of Treatment Upcoming Encounters Date Type Department Care Team (Late st Contact Info) Description 09/26/2024 8:40 AM EDT Office Visit [facility] Nephrology, Bone & Mineral Metabolism [address], [address] [place] [address] Evelyne Medel MD [address] [place] [address] 11/01/2024 12:20 PM EDT Office Visit [facility] Endocrinology [address] [place] [address] Zohra Valenzuela, CLIENT LEADER [address] [place] [address] Scheduled Orders Name Type Priority Associated Diagnoses Orde r Schedule Renal Function Panel, Plasma Lab Routine Stage 3a chronic kidney disease (CMS/HCC) Expected: 07/07/2024 (Approximate), Expires: 11/24/2025 documented as of this encounter Visit Diagnoses Diagnosis Stage 3a chronic kidney disease (CMS/HCC)- Primary documented in this encounter Additional Health Concerns Assessment Noted Time A fall risk assessment has been complete d for the patient 05/23/2024 7:57 AM EDT A Body Mass Index follow-up plan has been documented for the patient 06/02/2024 6:09 PM EDT documented as of this encounter Care Teams Jigman Relationship Specialty Start Date End Date Micah Willoughby MD PCP - General 02/14/21 documented as of this encounter
--- OUTSIDE RECORDS SUMMARY | 2024-08-01 13:54 | XMS_ITS | Encounter Summary ---
Author Organization [facility] Address [address] [place] [address] Care Team Providers Care Gear Straightener Name Role Phone Micah Willoughby MD Primary Care Provider [phone] Unavailable [phone] Reason for Visit * Reason Comments Med Refill Encounter Details Date Type Department Care Team ([facility] Contact Info) Description 10/09/2022 Refill [facility] Nephrology, Bone & Mineral Metabolism [address], [address] [place] [address] Evelyne Medel MD [address] [place] [address] Primary hypertension Social History Tobacco Use Types Packs/Day Years Used Date Smoking Tobacco: Never Smokeless Tobacco: Current Snuff Alcohol Use Standard Drinks/Week Comments Yes 6 (1 standard drink = 0.6 oz pur e alcohol) occassionally PHQ-2 Answer Date Recorded Patient Health Questionnaire-2 Score 0 11/04/2021 Sex and Gender Information Value Date Recorded Sex Assigned at Not on file Legal Sex Male 7:30 PM EDT Gender Identity Not on file Sexual Orientation Not on file documented as of this encounter Miscellaneous Notes * Telephone Encounter - Melisa Ponce LPN - 10/09/2022 3:39 PM EDT Refilled today 10/09/22. Follow up on 10/27/22. Request 90 day supply at follow up with provider. documented in this encounter Plan of Treatment Upcoming Encounters Date Type Department Care Team (Late st Contact Info) Description 09/26/2024 8:40 AM EDT Office Visit [facility] Nephrology, Bone & Mineral Metabolism [address] [facility], [address] [place] [address] Evelyne Medel MD [address] [facility] [address] [place] [address] 11/01/2024 12:20 PM EDT Office Visit [facility] Endocrinology [address] [place] [address] Zohra Valenzuela, FILL TECHNICIAN [address] [facility] [address] [place] [address] documented as of this encounter Visit Diagnoses Diagnosis Primary hypertension Unspecified essential hypertension documented in this encounter Additional Health Concerns Assessment Noted Time A fall risk assessment has been complete d for the patient 06/02/2022 8:59 AM EDT A Body Mass Index follow-up plan has been documented for the patient 07/31/2022 9:32 AM EDT documented as of this encounter Care Teams Gear Straightener Relationship Specialty Start Date End Date Micah Willoughby MD PCP - General 02/14/[address] [facility] [address] [place] [address] Type Copy Examiner Diabetes Services 12/04/23 03/03/24 documented as of this encounter
--- OUTSIDE RECORDS SUMMARY | 2024-08-01 13:54 | XMS_ITS | Clinical Summary ---
Author Organization [facility] Address [address] [place] [address] Care Team Providers Care Spinning Lathe Operator Name Role Phone Micah Willoughby MD Primary Care Provider [phone] Allergies Active Allergy Reactions Criticality Noted Date Comments Chlorthalidone Other - please docum ent in the comment field Low 05/13/2022 hyponatremia Medications gabapentin (Neurontin) 600 MG tablet Take 1 tablet (600 mg) by mouth 3 (three) times a day. One tablet twice a day 7 Active pravastatin (Pravachol) 20 MG tablet Take 1 tablet (20 mg) by mouth 1 (one) time each day. 7 Active traZODone (Desyrel) 50 MG tablet Take 1 tablet (50 mg) by mouth if needed. 8 Active sildenafil (Viagra) 100 MG tablet TAKE 1 TABLET BY MOUTH DAILY NEEDED FOR SEXUAL ACTIVITY 2 Active Azelastine HCl 0.15 % solution Administer 1 spray into each nostril 2 (two) times a day. 3 Active Blood Glucose Monitoring Suppl (FreeStyle Lite) w/Device kit USE TO CHECK BLOOD SUGAR THREE TIMES DAILY DIRECTED 3 Active doxycycline (Vibramycin) 100 MG capsule Take 1 capsule (100 mg) by mouth 1 (one) time each day. 3 Active FreeStyle Lancets USE THREE TIMES DAILY 3 Active glucose blood (FREESTYLE LITE) test stripIndications: Type 1 diabetes mellitus with diabetic neuropathy USE FOR BLOOD GLUCOSE TESTING TWO TIMES DAILY OR TO CALIBRATE CGM 50 strip 5 4 Active zolpidem (Ambien) 10 MG tablet TAKE 1 TABLET BY MOUTH EVERY NIGHT AT BEDTIME NEEDED FOR INSOMNIA 4 Active sertraline (Zoloft) 25 MG tablet Active Continuous Glucose Sensor (Dexcom G6 Sensor) miscIndications:T ype 1 diabetes mellitus with diabetic neuropathy CHANGE EVERY 10 DAYS 9 each 3 4 Active Continuous Glucose Transmitter (Dexcom G6 transmitter) misc Use as instructed every 90 days 1 each 3 4 Active glucagon (Baqsimi Two Pack) 3 MG/DOSE powder Nasal Powder Administer 3 mg into a single nostril for hypoglycemia; if no response, may repeat in 15 minutes using a new intranasal device 1 each 1 4 Active carvedilol (Coreg) 3.125 MG tablet Take 1 tablet (3.125 mg) by mouth 2 (two) times a day with meals. 180 tablet 1 5 Active cholecalciferol (Vitamin D-3) 25 MCG (1000 UT) tabletIndications :Vitamin D deficiency Take 1 tablet (1,000 Units) by mouth 1 (one) time each day. 90 tablet 2 5 Active nitroglycerin (Nitrostat) 0.4 MG SL tablet 5 Active naltrexone (Vivitrol) 380 MG reconstituted suspension injection 4.2 mL (380 mg). 5 Active insulin aspart (NovoLOG) 100 UNIT/ML injection penIndications:Ty pe 1 diabetes mellitus with diabetic neuropathy Inject 1 unit/8 gms and 1 unit/50 points >150, Max Daily 50 units 15 mL 5 5 Active insulin glargine (Lantus SoloStar, Basaglar) 100 UNIT/ML injection penIndications:Ty pe 1 diabetes mellitus with diabetic neuropathy Inject 17 Units under the skin 1 (one) time each day in the morning. 15 mL 4 5 03/24/19 26 Active insulin pen needle (B-D ULTRAFINE III SHORT PEN) 31G X 8 mm misc Use to inject 1-4 times daily as directed 120 each 11 5 Active acetone, urine, test strip 1 strip if needed for high blood sugar. 25 strip 3 5 09/21/19 25 Active torsemide (Demadex) 100 MG tablet Take 0.5 tablets (50 mg) by mouth in the morning. Active valsartan (Diovan) 160 MG tablet Take 1 tablet by mouth daily. 90 tablet 1 11/20/19 25 Active Active Problems Problem Noted Date Diagnosed Date Hypoglycemia 05/05/2022 Stage 3 chronic kidney disease 05/05/2022 Primary hypertension 05/05/2022 Obesity (BMI 30-39.9) 05/05/2022 Neuropathy 09/25/2021 Obesity (BMI 35.0-39.9 without comorbidity) 03/13 Type 1 diabetes mellitus without complication Hypertension 08/06/2020 Hyperlipidemia 08/06/2020 Class 1 obesity due to exces s calories with serious comorbidity and body mass index (BMI) of 34.0 to 34.9 in adult 08/06/2020 Nephropathy 08/06/2020 Stage 3a chronic kidney disease 08/06/2020 Heart palpitations 04/15/2019 Chronic kidney disease, stage 3 04/15/2019 Hyperkalemia 11/16/2018 Essential hypertension, benign 11/16/2018 Encounter for diabetic foot exam 03/11/2018 Type 1 diabetes mellitus with diabetic neuropath y 09/14/2016 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 Endocrinology [address] [place] [address] Zohra Valenzuela APRN Prior-authorization/i nsurance Verification 05/25/2024 Telephone [facility] Nephrology, Bone & Mineral Metabolism [address], [address] [place] [address] Susanne Urbina, PharmD 05/23/2024 8:00 AM EDT Office Visit [facility] Nephrology, Bone & Mineral Metabolism [address], [address] [place] [address] Evelyne Medel MD Stage 3a chronic kidney disease (CMS/HCC) 05/23/2024 Travel from Last 3 Months Family History Medical History Relation Name Comments Diabetes Father Victor Manuel Myrick Heart attack Father Victor Manuel Myrick Kidney disease Father Victor Manuel Myrick Kidney Stones Mother Santana Myrick Obesity Mother Santana Myrick Rheum arthritis Sister Relation Name Status Comments Father Victor Manuel Myrick Mother Santana Myrick Sister Social History Tobacco Use Types Packs/Day Years Used Date Smoking Tobacco: Never Smokeless Tobacco: Current Chew Tobacco Cessation:Ready to Q uit: Not Asked; Counseling Given: Not Answered Alcohol Use Standard Drinks/Week Comments Yes 10 [...] on file Sexual Orientation Not on file Last Filed Vital Signs Vital Sign Reading Time Taken Comments Blood Pressure 125/84 03/24/2024 10:17 AM EST Pulse 76 03/24/2024 10:17 AM EST Temperature 36.7 C (98.1 F) 05/25/2023 8:35 AM EDT Respiratory Rate 18 05/25/2023 8:35 AM EDT Oxygen Saturation 99% 05/25/2023 8:35 AM EDT Inhaled Oxygen Concentration - - Weight 108 kg (238 lb) 05/23/2024 7:54 AM EDT Height 175.3 cm (5' 9 ) 05/23/2024 7:54 AM EDT Body Mass Index 35.15 05/23/2024 7:54 AM EDT Plan of Treatment Upcoming Encounters Date Type Department Care Team (Late st Contact Info) Description 09/26/2024 8:40 AM EDT Office Visit [facility] Nephrology, Bone & Mineral Metabolism [address] [facility], [address] [place] [address] Evelyne Medel MD [address] [facility] [address] [place] [address] 11/01/2024 12:20 PM EDT Office Visit [facility] Endocrinology [address] [place] [address] Zohra Valenzuela Reyna, SIMPLEX OPERATOR [address] [place] [address] Health Maintenance Due Date Last Done Comments [facility]-HIV Screening 1973 [facility]-Hepatitis C Screening 1973 [facility]-Infant/Child/Adol SDOH Screenings 1973 Diabetes: Dental Exam 12/24/1983 [facility]- SDOH Screenings 12/24/1991 [facility]-Adult SDOH Screenings 12/24/1991 [facility]-Hepatitis B Vaccines (1 of 3 - 19+ 3-dose series) 1992 CT Colonography 2018 Colonoscopy 2018 FIT-DNA 2018 FIT 2018 FOBT 2018 Sigmoidoscopy 2018 [facility]-Colorectal Cancer Screening 2018 [facility]-Pneumococcal Vaccine: 50+ Years (2 of 2 - PCV) 01/06/2020 01/05/2019 [id number] Vaccine ( season) 2023 12/04/2021, 06/05/2021, 12/12/2020, Additional history exists [facility]-Zoster Vaccines (1 of 2) 12/24/2023 [facility]-Diabetes: Hemoglobin A1C 09/21/2024, 09/16/2023, 06/08/2023, Additional history exists [facility]-Influenza Vaccine (Season Ended) 2024 11/28/2020, 11/25/2019 [facility]-Depression Screening 01/31/2025 02/01/2024 [facility]-DTaP,Tdap,and Td Vaccines (2 - Td or Tdap) 05/23/2032 05/23/2022 [facility]-Obesity Intervention Completed 025, 07/07/2024, 05/23/2024, Additional history exists HPV Vaccines Aged Out No longer eligi ble based on patient's age to complete this topic [facility]-HIB Vaccines Aged Out No longer e ligible based on patient's age to complete this topic [facility]-Hepatitis A Vaccines Aged Out No longer eligible based on patient's age to complete this topic [facility]-IPV Vaccines Aged Out No longer e ligible based on patient's age to complete this topic [facility]-Rotavirus Vaccines Aged Out No lo nger eligible based on patient's age to complete this topic Procedures Procedure Name Priority Date/Time Associated Diagnosis Comments POCT GLYCOSYLATED HEMOGLOBIN (HGB A1C) Routine 03/24/2024 11:23 AM EST Type 1 diabetes mellitus with diabetic neuropathy (CMS/HCC) from Last 3 Months or Most Recently Relevant to Health Maintenance Results * POCT glycosylated hemoglobin (Hb A1C) (03/24/2024 11:23 AM EST) POCT Hemoglobin A1C 6.8 <5.7% Non-Diabe tic % [facility] Kit Lot Number [id number] [facility] Kit Expiration Date 01/08/2026 Intact Vascular LAB Blood Venous blood specimen / Unknown 03/24/2024 11:23 AM EST Zohra Valenzuela SIMPLEX OPERATOR POINT OF CARE TEST ENTER/ED IT ORDERABLES Final Result [facility] [address] [place] [address] from Last 3 Months or Most Recently Relevant to Health Maintenance Insurance [employer] [place] Care Teams Spinning Lathe Operator Relationship Specialty Start Date End Date Micah Willoughby MD [facility] - General 02/14/21
--- OUTSIDE RECORDS SUMMARY | 2024-08-01 13:54 | XMS_ITS | Clinical Summary ---
Author Organization [facility] Address [address] [place] [address] Phone Care Team Providers Care Panel Coverer Name Role Phone Unavailable Primary Care Provider Unavailabl e Allergies No known active allergies Medications insulin glargine (LANTUS, BASAGLAR) 100 unit/mL (3 mL) SubQ Insulin Pen Subcutaneous (Inject under the skin) 20 Units every morning. Active insulin lispro (HUMALOG) 100 unit/mL SubQ Solution 4 Units as needed with meals for High Blood Sugar. Active pravastatin (PRAVACHOL) 20 mg Oral Tablet Take 20 mg by mouth daily. Active aspirin 81 mg Oral Tablet, Chewable Take 81 mg by mouth daily. Active gabapentin (NEURONTIN) 600 mg Oral Tablet Take 600 mg by mouth 3 times daily. Active azelastine (ASTELIN) 137 mcg (0.1 %) Nasl Aerosol, Peshtigo 274 mcg in each nostril 4 times daily as needed. Use in each nostril as directed Active Active Problems Problem Noted Date Diagnosed Date Left foot pain 04/11/2022 Social History Tobacco Use Types Packs/Day Years Used Date Smoking Tobacco: Never Smokeless Tobacco: Current Chew Tobacco Cessation:Ready to Q uit: Not Asked; Counseling Given: Not Answered Sex and Gender Information Value Date Recorded Sex Assigned at Not on file Legal Sex Male 9:26 AM EST Gender Identity Not on file Sexual Orientation Not on file Obstetrics History Last Filed Vital Signs Vital Sign Reading Time Taken Comments Blood Pressure - - Pulse - - Temperature - - Respiratory Rate - - Oxygen Saturation - - Inhaled Oxygen Concentration - - Weight 108.9 kg (240 lb) 04/11/2022 9:36 AM EST Height 175.3 cm (5' 9 ) 04/11/2022 9:36 AM EST Body Mass Index 35.44 04/11/2022 9:36 AM EST Plan of Treatment Health Maintenance Due Date Last Done Comments Annual Wellness Exam 1976 DTaP/TDaP/Td (1 - Tdap) 1992 Hepatitis B Vaccine (1 of 3 - 19+ 3-dose series) 1992 Cologuard 2018 Colon Cancer Screening 2018 Colonoscopy 2018 FIT 2018 Sigmoidoscopy 2018 Virtual Colonography 2018 COVID-19 Vaccine ( season) 2023 12/04/2021, 06/05/2021, 12/12/2020, Additional history exists Pneumococcal Vaccine 50+ (2 of 2 - PCV) 12/24/2023 01/05/2019 Zoster (1 of 2) 12/24/2023 Influenza Vaccine (Season Ended) 2024 11/28/2020, 11/25/2019 Meningococcal B Vaccine Aged Out No l onger eligible based on patient's age to complete this topic Insurance
--- OUTSIDE RECORDS SUMMARY | 2024-08-01 13:54 | XMS_ITS | Encounter Summary ---
Author Organization [facility] Address [address] [place] [address] Care Team Providers Care Switchboard Troubleshooter Name Role Phone Micah Willoughby MD Primary Care Provider [phone] Reason for Visit * Reason Onset Date Comments Prior-authorization/insurance Verification 06/09 Encounter Details Date Type Department Care Team (Late st Contact Info) Description 06/09/2024 Telephone [facility] Endocrinology [address] [place] [address] Zohra Valero, HEALTHCARE ADMINISTRATION INTERN [address] [facility] [address] [place] [address] Prior-authorization/in surance Verification Social History Tobacco Use Types Packs/Day Years [...] encounter Miscellaneous Notes * Telephone Encounter - Ashley Calderón N - 06/09/2024 8:44 AM EDT Images from the original note were not included. Prior authorization requested for Baqsimi Two Pack 3MG/Dose Powder. Ordered by Zohra Valero documented in this encounter Plan of Treatment Upcoming Encounters Date Type Department Care Team (Late st Contact Info) Description 09/26/2024 8:40 AM EDT Office Visit [facility] Nephrology, Bone & Mineral Metabolism [address] [facility], [address] [place] [address] Evelyne Medel MD [address] [place] [address] 11/01/2024 12:20 PM EDT Office Visit [facility] Endocrinology [address] [place] [address] Zohra Valero, HEALTHCARE ADMINISTRATION INTERN [address] [facility] [address] [place] [address] documented as of this encounter Visit Diagnoses Not on filedocumented in this encounter Additional Health Concerns Assessment Noted Time A fall risk assessment has been complete d for the patient 05/23/2024 7:57 AM EDT A Body Mass Index follow-up plan has been documented for the patient 06/02/2024 6:09 PM EDT documented as of this encounter Care Teams Switchboard Troubleshooter Relationship Specialty Start Date End Date Micah Willoughby MD PCP - General 02/14/21 documented as of this encounter
[2024-08-01 14:33] VITALS: BP 141/96; PULSE 81; RESP 16; TEMP 36.7; O2SAT 99
[2024-08-01] MEDS: VITAMIN B-12 1,000 MCG 1ML VIAL 1000 MCG IM (14:33)
[2024-08-01 15:03] LABS: Basophils # 0.1 K/mm3 (0-0.2); Eosinophils # 0.1 Kmm3 (0.0-0.4); Eosinophils % 1.6 % (0.1-12.0); HDL Cholesterol 133 mg/dl (40-60); Hematocrit 30.2 % (42.0-52.0); Hemoglobin 9.9 g/dL (14.1-18.0); Immature Granulocytes # 0.01 10^3uL; Immature Granulocytes % 0.2 %; Lymphocytes # 1.1 K/mm3 (0.7-4.5); Lymphocytes % 20.7 % (10-50); Mean Corpuscular HGB Conc 32.8 g/dL (31.8-35.4); Mean Corpuscular Hemoglobin 38.1 pg (27.0-31.2); Mean Corpuscular Volume 116.2 fl (80-94); Monocytes # 0.7 K/mm3 (0.1-1.0); Monocytes % 12.8 % (1.7-9.3); Neutrophils # 3.2 K/mm3 (1.8-7.8); Neutrophils % 63.7 % (37.0-80.0); Nucleated Red Blood Cells # 0 10^3/uL; Nucleated Red Blood Cells % 0 %; Platelet Count 241 K/mm3 (142-424); Red Cell Distribution Width-SD 59.4 fL; White Blood Count 5.1 K/mm3 (4.8-10.8)
[2024-08-01 15:05] LABS: Direct LDL Cholesterol 45.35 mg/dL (100-129)
[2024-08-01 15:12] LABS: Free T4 (Free Thyroxine) 0.61 ng/dl (0.78-2.19)
[2024-08-01 15:26] LABS: Thyroid Stimulating Hormone 2.11 uIU/mL (0.465-4.68)
[2024-08-01 15:51] LABS: Albumin Level 3.7 g/dl (3.5-5.0)
[2024-08-01 15:52] LABS: Chloride 103 mmol/L (98-107); Potassium 4.9 mmoL/L (3.5-5.1); Sodium 140 mmol/L (136-145)
[2024-08-01 15:54] LABS: Alanine Aminotransferase 81 U/L (12-78); Anion Gap 15.9 mEq/L (5-15); Aspartate Amino Transferase 176 U/L (17-59); Bilirubin,Unconjugated 0.6 mg/dL (0.0-1.1); Blood Urea Nitrogen 9 mg/dl (9-20); Carbon Dioxide 26 mmol/L (22.0-30.0); Estimated Glomerular Filt Rate 89 ml/min (>60); GFR (African American) 108 ML/MIN (>60)
[2024-08-01 15:55] LABS: Alkaline Phosphatase 189 U/L (38-126); Bilirubin,Direct 0.4 mg/dl (0.0-0.4); Bilirubin,Indirect 0.6 mg/dL (0.0-0.9); Calcium 9.1 mg/dl (8.4-10.2); Chol/HDL Ratio 1.5 (1-3.5); Cholesterol 194 mg/dl (140-200); Glucose 70 mg/dl (74-100); Magnesium 1.3 mg/dl (1.6-2.3); Total Protein,Serum 6.8 g/dl (6.3-8.2); Triglycerides 111 mg/dl (30-150); VLDL Cholesterol 22 mg/dL (0-40)
[2024-08-01 16:08] LABS: Hemoglobin A1C 6.2 % (4.0-6.0)
== END 2024-08-01 14:54 | disposition home or self-care (01) ==
PROVIDERS: PCP Family Medicine; Visit Provider Internal Medicine
DX: E53.8 Deficiency of other specified B group vitamins (principal); A04.72 Enterocolitis due to Clostridium difficile, not specified as recurrent; D61.818 Other pancytopenia
CPT/HCPCS: 36415; 80048; 80061; 80076; 83036; 83735; 84439; 84443; 85025; 96372; J3420

== ENCOUNTER 2024-08-03 09:36 | Outpatient (CLI) | payer MEDICAID, SELFPAY ==
--- NOTE | 2024-08-03 09:30 | CT_ITS ---
FINAL REPORT TECHNIQUE: Axial imaging of the abdomen was obtained after the intravenous administration of contrast. This study was performed with techniques to keep radiation doses as low as reasonably achievable (ALARA). Individualized dose reduction techniques using automated exposure control or adjustment of mA and/or kV according to the patient's size were employed. CLINICAL HISTORY: SPLENOMEGALY pt states he's losing blood somewhere FINDINGS: The lung bases are clear. The liver is fatty infiltrated. Spleen is borderline enlarged. There is cholelithiasis. Remaining solid abdominal organs are without acute abnormality. Patient is status post gastric bypass. Visualized bowel is unremarkable. However, a significant portion of the bowel is not included in the [id number] due to pelvis not being included on this exam. There is no adenopathy or free fluid. IMPRESSION: Borderline splenomegaly. Cholelithiasis. Visualized bowel without obstruction or wall thickening. Reviewed, Interpreted and Dictated by Dwayne Sullivan MD Transcribed by Yumiko Arroyo Authenticated and [facility]
--- OUTSIDE RECORDS SUMMARY | 2024-08-03 09:40 | XMS_ITS | Encounter Summary ---
Author Organization [facility] Address [address] [place] [address] Care Team Providers Care Marine Services Technician Name Role Phone Micah Willoughby MD Primary Care Provider [phone] Reason for Visit * Reason Onset Date Comments Prior-authorization/insurance Verification 06/09 Encounter Details Date Type Department Care Team (Late st Contact Info) Description 06/09/2024 Telephone [facility] Endocrinology [address] [place] [address] Zohra Valero, BRAND SPECIALIST [address] [facility] [address] [place] [address] Prior-authorization/in surance Verification Social History [...] Description 09/26/2024 8:40 AM EDT Office Visit [facility] Nephrology, Bone & Mineral Metabolism [address] [facility], [address] [place] [address] Evelyne Medel MD [address] [place] [address] 11/01/2024 12:20 PM EDT Office Visit [facility]ocrin[facility] [address] [place] [address] Zohra Valero, BRAND SPECIALIST [address] [facility] [address] [place] [address] documented as of this encounter Visit Diagnoses Not on filedocumented in this encounter Additional Health Concerns Assessment Noted Time A fall risk assessment has been complete d for the patient 05/23/2024 7:57 AM EDT A Body Mass Index follow-up plan has been documented for the patient 06/02/2024 6:09 PM EDT documented as of this encounter Care Teams Marine Services Technician Relationship Specialty Start Date End Date Micah Willoughby MD PCP - General 02/14/21 documented as of this encounter
--- OUTSIDE RECORDS SUMMARY | 2024-08-03 09:40 | XMS_ITS | Data Portability ---
Author Organization [facility] Address [address] [place] [address] Assessment No assessment recorded. Plan of Treatment Reminders Order Date Submit Date Provider Last Modified By Organization Details Last Modified Time Details Appointments None record ed. Lab None record ed. Referral None record ed. Procedures None record ed. Surgeries None record ed. Imaging None record ed. Medication Orders None record ed. Patient TargetsNo targets recorded. Patient Instructions Encounter Date Encounter Id Patient Instructions Last Modified By Organization Details Last Modified Time 07/08/2023 [id number] All questions answered and pt/guardian satisfied with treatment plan. Call with changes RTC or ED if symptoms change or worsen Keep next interval checkup Cont. chronic meds as prescribed Chronic conditions are stable Discussed natural and expected course of this diagnosis and need to alert the office if symptoms do not follow expected course or if any worsens rafaela Not available 07/13/2023 09:20:00 Reason for Referral None Reported. Problems Name Problem SNOMED Code Status Onset Date Resolution Date Notes Provider Name and Address Organization Details Recorded Time Laceration of left forearm [id number] 9104 Active 2023 Reji Ann PA-C [address], [place], [address], [facility] 09:19:35 Problem Notes None recorded. Procedures Surgical History Date Name Laterality Status Provider Name and Address Organization Details Recorded Time Laceration Repair with Sutures/Fanny completed Reji Ann PA-C [address], [place], [address], [facility] 07/13/2023 09:20:54 Imaging Results None recorded. Procedure Notes None recorded. Medical Equipment None Reported. Allergies No known drug allergies Medications Name Sig Start Date Stop Date Status Note LastModified by Organization Details LastModified Time nifedipine ER 30 mg tablet,exten ded release 24 hr active Not Available Not Available Not Available Novolin 70/30 U-100 Insulin 100 unit/mL subcutaneous suspension active Not Available Not Available N ot Available carvedilol 6.25 mg tablet active Not Available Not Available Not Available gabapentin 600 mg tablet TAKE 1 TABLET BY MOUTH EVERY 8 HOURS FOR NERVE PAIN active Not Available Not Available N ot Available doxycycline hyclate 100 mg capsule TAKE 1 CAPSULE BY MOUTH TWICE DAILY active Not Available Not Available No t Available carvedilol 12.5 mg tablet active Not Available Not Available Not Available trazodone 50 mg tablet TAKE 1 TABLET BY MOUTH EVERY NIGHT AT BEDTIME FOR SLEEP active Not Available Not Available No t Available azithromycin 250 mg tablet active Not Available Not Available Not Available Glucagon Emergency Kit 1 mg solution for injection INJECT 1 MG IN THE MUSCLE ONE TIME IF NEEDED FOR LOW BLOOD SUGAR active Not Available Not Available No t Available valsartan 80 mg tablet active Not Available Not Available No t Available amlodipine 5 mg tablet active Not Available Not Available No t Available SPS (with sorbitol) 15 gram-20 gram/60 mL oral suspension active Not Available Not Available N ot Available sildenafil 100 mg tablet TAKE 1 TABLET BY MOUTH DAILY NEEDED FOR SEXUAL ACTIVITY TEVA BRAND PLEASE active Not Available Not Available No t Available benzonatate 100 mg capsule active Not Available Not Available Not Available doxycycline monohydrate 100 mg capsule active Not Available Not Available Not Available sertraline 25 mg tablet active Not Available Not Available Not Available pravastatin 20 mg tablet TAKE 1 TABLET BY MOUTH DAILY FOR CHOLESTEROL active Not Available Not Available Not Available furosemide 20 mg tablet active Not Available Not Available Not Available zolpidem 10 mg tablet TAKE 1 TABLET BY MOUTH EVERY NIGHT AT BEDTIME NEEDED FOR INSOMNIA active Not Available Not Available No t Available lisinopril 2.5 mg tablet active Not Available Not Available Not Available insulin aspart (U-100) 100 unit/mL (3 mL) subcutaneous pen active Not Available Not Available Not Available BD Ultra-Fine Mini Pen Needle 31 gauge x 3/16 USE 4X A DAY DIRECTED active Not Available Not Available No t Available BD Ultra-Fine Short Pen Needle 31 gauge x 5/16 USE 4X A DAY DIRECTED active Not Available Not Available No t Available hydrochlorot hiazide 12.5 mg tablet active Not Available Not Available No t Available FreeStyle Lite Strips USE DIRECTED FOR BLOOD GLUCOSE TESTS TWO TIMES DAILY active Not Available Not Available Not Available insulin glargine (U-100) 100 unit/mL (3 mL) subcutaneous pen INJECT 19 UNITS UNDER THE SKIN ONE TIME EACH DAY IN THE MORNING. active Not Available Not Available No t Available Admelog U-100 Insulin lispro 100 unit/mL subcutaneous solution active Not Available Not Available Not Available Admelog SoloStar U-100 Insulin lispro 100 unit/mL subcutaneous pen active Not Available Not Available Not Available Dexcom G6 Sensor device CHANGE EVERY 10 DAYS active Not Available Not Available No t Available Dexcom G6 Transmitter device USE INSTRUCTED EVERY 90 DAYS active Not Available Not Available No t Available Flucelvax Quad (PF) 60 mcg (15 mcg x 4)/0.5 mL IM syringe active Not Available Not Available Not Available Vitals Date Recorded Heart rate Oxygen saturation Oxygen saturation in Arterial blood by Pulse oximetry Respiratory rate Systolic blood pressure Diastolic blood pressure Provider Name and Address Organization Details Last Updated DateTime 4 72 /min 97 % 97 % 18 /min 146 mm[Hg] 86 mm[Hg] Gary Boothe [place] - [facility] 12:39:32 Social History None recorded. Functional Status None recorded. Mental Status None recorded. Family History Nothing Reported. Medical History No medical history recorded. Past Encounters Encounter ID Performer Location Encounter Start Date Encounter Closed Date Diagnosis/Indication Diagnosis SNOMED-CT Code Diagnosis ICD10 Code Diagnosis Note [id number] Reji Ann PA-C [facility] [place] [address] [place] [address] 07/08/2023 11:47:28 07/08/2023 12:41:57 Laceration of left forearm [id number] S51.812A 4 suture; Patient s wound was assessed. Wound was closed as per procedure note. Tetanus up to date. Discussed proper wound care and signs of infection. Follow up as below. Health Concerns Section Related Observation LastModified by Organization Detai ls LastModified Time None Recorded Concern Status LastModified by Organization Details LastModified Time None Recorded Advance Directives Directive None Recorded Payers Insurance Date Sequence Insurance Name Policy Number Policy Sotomayor Covered Member ID Sotomayor Member ID Guarantor Name 07/15/2023 MEDICAID-[facility] WRAP BILLING (MEDICAID) Julio Myrick [id number] Julio Myrick 07/18/2023 1 [facility]MEDICAID [facility]PLAC[facility] - HMO) Julio Myrick [id number] Julio Myrick 07/08/2023 1 *SELF PAY* Se felipa Myrick Notes Date Note Type Note Provider Name and Address Organization Details Recorded Time 07/08/2023 text/html Here for sutures on left forearm. Cut by sheet metal, relatively clean. Was lifting object when arm caught exposed sheet metal. Bleeding well controlled with pressure. reports had tetanus within last 3 years. Pt denies chest pain, SOA, difficulty eating or drinking, changes in bathroom habits, syncope/presyncop e, or any other concerns. Reji Ann PA-C [address], [place], [address], [facility] - [facility] 07/13/2023 09:21:07
--- OUTSIDE RECORDS SUMMARY | 2024-08-03 09:40 | XMS_ITS | Clinical Summary ---
Author Organization [facility] Address [address] [place] [address] Phone Care Team Providers Care Dry Ice Maker Name Role Phone Unavailable Primary Care Provider [...] (ASTELIN) 137 mcg (0.1 %) Nasl Aerosol, [place] 274 mcg in each nostril 4 times [...]
--- OUTSIDE RECORDS SUMMARY | 2024-08-03 09:40 | XMS_ITS | Clinical Summary ---
Author Organization [facility] Address [address] [place] [address] Care Team Providers Care Staking Engineer Name Role Phone Micah Willoughby MD Primary Care Provider [phone] Allergies Active Allergy Reactions Criticality Noted Date [...] Type Department Care Team Description 06/09/2024 Telephone [facility] Endocrinology [address] [place] [address] Zohra Valenzuela APRN Prior-authorization/i nsurance Verification 05/25/2024 Telephone [facility] Nephrology, Bone & Mineral Metabolism [address], [address] [place] [address] Susanne Urbina, PharmD 05/23/2024 8:00 AM EDT Office Visit [facility] Nephrology, Bone & Mineral Metabolism [address], [address] [place] [address] Evelyne Medel MD Stage 3a [...] 09/26/2024 8:40 AM EDT Office Visit [facility] Nephrology, Bone & Mineral Metabolism [address] [facility], [address] [place] [address] Evelyne Medel MD [address] [facility] [address] [place] [address] 11/01/2024 12:20 PM EDT Office Visit [facility] Endocrinology [address] [place] [address] Zohra Valenzuela Reyna, DENTAL INSTRUCTOR [address] [place] [address] Health Maintenance Due Date Last [...] (2 of 2 - PCV) 01/06/2020 01/05/2019 [id number] Vaccine ( season) 2023 12/04/2021, 06/05/2021, 12/12/2020, [...] tic % HEALTHCARE [facility] Kit Lot Number [id number] [facility] Kit Expiration Date 01/08/2026 [facility] Blood Venous blood specimen / Unknown 03/24/2024 11:23 AM EST Zohra Valenzuela DENTAL INSTRUCTOR POINT OF CARE TEST ENTER/ED IT ORDERABLES Final Result [facility] [address] [place] [id number] from Last 3 Months or Most Recently Relevant to Health Maintenance Insurance [employer]ORT MEDICAID [place] Care Teams Staking Engineer Relationship Specialty Start Date End Date Micah Willoughby MD [facility] - General 02/14/21
--- OUTSIDE RECORDS SUMMARY | 2024-08-03 09:40 | XMS_ITS | Encounter Summary ---
Author Organization [facility] Address [address] [place] [address] Care Team Providers Care Music Teacher Name Role Phone Micah Willoughby MD Primary Care Provider [phone] Unavailable [phone] Reason for Visit * Reason Comments Med Refill Encounter Details Date Type Department Care Team ([facility] Contact Info) Description 10/09/2022 Refill [facility] Nephrology, Bone & Mineral Metabolism [address], [address] [place] [address] Evelyne Medel MD [address] [place] [address] Primary hypertension Social History Tobacco [...] Description 09/26/2024 8:40 AM EDT Office Visit [facility] Nephrology, Bone & Mineral Metabolism [address] [facility], [address] [place] [address] Evelyne Medel MD [address] [facility] [address] [place] [address] 11/01/2024 12:20 PM EDT Office Visit [facility] Endocrinology [address] [place] [address] Zohra Valenzuela, OBSERVER HELPER [address] [facility] [address] [place] [address] documented as of this encounter Visit Diagnoses Diagnosis Primary hypertension Unspecified essential hypertension documented in this encounter Additional Health Concerns Assessment Noted Time A fall risk assessment has been complete d for the patient 06/02/2022 8:59 AM EDT A Body Mass Index follow-up plan has been documented for the patient 07/31/2022 9:32 AM EDT documented as of this encounter Care Teams Music Teacher Relationship Specialty Start Date End Date Micah Willoughby MD PCP - General 02/14/[address] [facility] [address] [place] [address] Veneer Lathe Operator Diabetes Services 12/04/23 03/03/24 documented as of this encounter
--- OUTSIDE RECORDS SUMMARY | 2024-08-03 09:40 | XMS_ITS | Encounter Summary ---
Author Organization [facility] Address [address] [place] [address] Care Team Providers Care Quahogger Name Role Phone Micah Willoughby MD Primary Care Provider [phone] Encounter Details Date Type Department Care Team ([facility] st Contact Info) Description 05/25/2024 Telephone [facility] Nephrology, Bone & Mineral Metabolism [address] [facility], [address] [place] [address] Susanne Urbina, PharmD [address] [place] [address] Social History Tobacco Use Types [...] to obtain labs locally. Patient to let consumer loan underwriter know. Susanne Uribna PharmD, BCACP Clinical Pharmacist Nephrology Clinic * [...] Description 09/26/2024 8:40 AM EDT Office Visit [facility] Nephrology, Bone & Mineral Metabolism [address] [facility], [address] [place] [address] Evelyne Medel MD [address] [facility] [address] [place] [address] 11/01/2024 12:20 PM EDT Office Visit [facility] Endocrinology [address] [place] [address] Zohra Valenzuela, LIBRARIAN HEAD [address] [facility] [address] [place] [address] Scheduled Orders Name Type Priority [...] documented as of this encounter Care Teams Quahogger Relationship Specialty Start Date End Date Micah Willoughby MD PCP - General 02/14/21 documented as of this encounter
[2024-08-03 09:41] LABS: Adenovirus F 40/41, stool Not Detected (NotDetected); Astrovirus Not Detected (NotDetected); Campylobacter Not Detected (NotDetected); Cryptosporidium Not Detected (NotDetected); Cyclospora Cayetanesis Not Detected (NotDetected); Entamoeba histolytica Not Detected (NotDetected); Enteroaggregative E coli Not Detected (NotDetected); Enteropathogenic E coli Not Detected (NotDetected); Enterotoxigenic E coli Not Detected (NotDetected); Giardia lamblia Not Detected (NotDetected); Norovirus Not Detected (NotDetected); Plesimonas Shigalloides, PCR Not Detected (NotDetected); Rotavirus A Not Detected (NotDetected); Salmonella, PCR Not Detected (NotDetected); Sapovirus Not Detected (NotDetected); Shiga-like toxin E coli Not Detected (NotDetected); Shigella Enterovasive E coli Not Detected (NotDetected); Vibrio Cholerae Not Detected (NotDetected); Vibrio, PCR Not Detected (NotDetected); Yersinia Entercolitica, PCR Not Detected (NotDetected)
[2024-08-03] MEDS: 0.9 % SODIUM CHLORIDE 50 ML VIAL IV (09:56)
[2024-08-03] MEDS: IOPAMIDOL-370 (76%);100ML BOTTLE 75 ML IV (09:57)
[2024-08-03] MEDS: SODIUM CHLORIDE 0.9% 10ML SYR (RAD ONLY) 10 ML IV (09:57)
[2024-08-03 10:10] VITALS: BP 119/66; PULSE 85; RESP 18; TEMP 36.8; O2SAT 98
[2024-08-03] MEDS: VITAMIN B-12 1,000 MCG 1ML VIAL 1000 MCG IM (10:10)
[2024-08-03 14:05] LABS: Clostridium Difficile A/B, PCR Detected (NotDetected)
[2024-08-04 17:38] LABS: H. pylori Stool Ag, EIA Negative (Negative)
[2024-08-05 08:13] LABS: Calprotectin, Fecal 295 ug/g (0-120)
== END 2024-08-03 10:24 | disposition home or self-care (01) ==
LOC: RAD 09:37 → INF 09:56
PROVIDERS: Internal Medicine; PCP Family Medicine; Visit Provider Internal Medicine Medical Oncology
DX: K92.2 Gastrointestinal hemorrhage, unspecified (principal); D64.9 Anemia, unspecified; R16.1 Splenomegaly, not elsewhere classified; R74.8 Abnormal levels of other serum enzymes; A04.72 Enterocolitis due to Clostridium difficile, not specified as recurrent; E53.8 Deficiency of other specified B group vitamins
CPT/HCPCS: 74160; 83993; 87338; 87506; 87507; 96372; J3420; Q9967

== ENCOUNTER 2024-08-16 10:33 | Outpatient (CLI) | payer MEDICAID, SELFPAY ==
--- OUTSIDE RECORDS SUMMARY | 2024-08-16 10:37 | XMS_ITS | Encounter Summary ---
Author Organization [facility] Address [address] [place] [address] Care Team Providers Care Gas Combustion Engineer Name Role Phone Micah Willoughby MD Primary Care Provider Krystal Boyd RD Unavailable [phone] Reason for Visit * Reason Comments Med Refill Encounter Details Date Type Department Care Team ([facility] Contact Info) Description 10/09/2022 Refill [facility] Nephrology, Bone & Mineral Metabolism [address], [address] [place] [address] Evelyne Medel MD [address] [place] [address] Primary hypertension Social History Tobacco [...] Description 09/26/2024 8:40 AM EDT Office Visit [facility] Nephrology, Bone & Mineral Metabolism [address] [facility], [address] [place] [address] Evelyne Medel MD [address] [facility] [address] [place] [address] 11/01/2024 12:20 PM EDT Office Visit [facility] Endocrinology [address] [place] [address] Zohra Valenzuela, STOPBOARD ASSEMBLER [address] [facility] [address] [place] [address] documented as of this encounter Visit Diagnoses Diagnosis Primary hypertension Unspecified essential hypertension documented in this encounter Additional Health Concerns Assessment Noted Time A fall risk assessment has been complete d for the patient 06/02/2022 8:59 AM EDT A Body Mass Index follow-up plan has been documented for the patient 07/31/2022 9:32 AM EDT documented as of this encounter Care Teams Gas Combustion Engineer Relationship Specialty Start Date End Date Micah Willoughby MD PCP - General 02/14/[address] [facility] [address] [place] [address] Wood Tank Erector Diabetes Services 12/04/23 03/03/24 documented as of this encounter
--- OUTSIDE RECORDS SUMMARY | 2024-08-16 10:37 | XMS_ITS | Encounter Summary ---
Author Organization [facility] Address [address] [place] [address] Care Team Providers Care Funeral Director Name Role Phone Micah Willoughby MD Primary Care Provider [phone] Encounter Details Date Type Department Care Team ([facility] st Contact Info) Description 05/25/2024 Telephone [facility] Nephrology, Bone & Mineral Metabolism [address] [facility], [address] [place] [address] Susanne Urbina, PharmD [address] [place] [address] Social History Tobacco Use Types [...] to obtain labs locally. Patient to let life insurance underwriter know. Susanne Urbina PharmD, BCACP Clinical Pharmacist [...] Description 09/26/2024 8:40 AM EDT Office Visit [facility] Nephrology, Bone & Mineral Metabolism [address] [facility], [address] [place] [address] Evelyne Medel MD [address] [facility] [address] [place] [address] 11/01/2024 12:20 PM EDT Office Visit [facility] Endocrinology [address] [place] [address] Zohra Valenzuela, GRANT COORDINATOR [address] [facility] [address] [place] [address] Scheduled Orders Name Type Priority [...] documented as of this encounter Care Teams Funeral Director Relationship Specialty Start Date End Date Micah Willoughby MD PCP - General 02/14/21 documented as of this encounter
--- OUTSIDE RECORDS SUMMARY | 2024-08-16 10:37 | XMS_ITS | Clinical Summary ---
Author Organization [facility] Address [address] [place] [address] Phone Care Team Providers Care Vp Of Global Marketing Name Role Phone Unavailable Primary Care Provider [...] (ASTELIN) 137 mcg (0.1 %) Nasl Aerosol, [place] 274 mcg in each nostril 4 times [...] Zoster (1 of 2) 12/24/2023 Influenza Vaccine (#1) 2024 11/28/2020, 2019 Meningococcal B Vaccine Aged Out No l onger eligible based on patient's age to complete this topic Insurance
--- OUTSIDE RECORDS SUMMARY | 2024-08-16 10:38 | XMS_ITS | Clinical Summary ---
Author Organization [facility] Address [address] [place] [address] Care Team Providers Care Lacquer Sprayer Name Role Phone Micah Willoughby MD Primary Care Provider [phone] Allergies Active Allergy Reactions Criticality Noted Date Comments Chlorthalidone Other - please docum ent in the comment field Low 05/13/2022 hyponatremia Medications gabapentin (Neurontin) 600 MG tablet Take 1 tablet (600 mg) by mouth 3 (three) times a day. One tablet twice a day 07/17/19 17 Active pravastatin (Pravachol) 20 MG tablet Take 1 tablet (20 mg) by mouth 1 (one) time each day. 03/26/19 17 Active sildenafil (Viagra) 100 MG tablet TAKE 1 TABLET BY MOUTH DAILY NEEDED FOR SEXUAL ACTIVITY 06/27/19 22 Active Blood Glucose Monitoring Suppl (FreeStyle Lite) w/Device kit USE TO CHECK BLOOD SUGAR THREE TIMES DAILY DIRECTED 06/04/19 23 Active doxycycline (Vibramycin) 100 MG capsule Take 1 capsule (100 mg) by mouth 1 (one) time each day. 07/19/19 23 Active FreeStyle Lancets USE THREE TIMES DAILY 06/05/19 23 Active glucose blood (FREESTYLE LITE) test stripIndications :Type 1 diabetes mellitus with diabetic neuropathy USE FOR BLOOD GLUCOSE TESTING TWO TIMES DAILY OR TO CALIBRATE CGM 50 strip 5 05/18/19 24 Active zolpidem (Ambien) 10 MG tablet TAKE 1 TABLET BY MOUTH EVERY NIGHT AT BEDTIME NEEDED FOR INSOMNIA 05/20/19 24 Active Continuous Glucose Sensor (Dexcom G6 Sensor) miscIndications: Type 1 diabetes mellitus with diabetic neuropathy CHANGE EVERY 10 DAYS 9 each 3 09/16/19 24 Active Continuous Glucose Transmitter (Dexcom G6 transmitter) misc Use as instructed every 90 days 1 each 3 09/16/19 24 Active glucagon (Baqsimi Two Pack) 3 MG/DOSE powder Nasal Powder Administer 3 mg into a single nostril for hypoglycemia; if no response, may repeat in 15 minutes using a new intranasal device 1 each 1 12/04/19 24 Active cholecalciferol (Vitamin D-3) 25 MCG (1000 UT) tabletIndication s:Vitamin D deficiency Take 1 tablet (1,000 Units) by mouth 1 (one) time each day. 90 tablet 2 04/28/19 25 Active nitroglycerin (Nitrostat) 0.4 MG SL tablet 03/16/19 25 Active naltrexone (Vivitrol) 380 MG reconstituted suspension injection 4.2 mL (380 mg). 03/03/19 25 Active insulin aspart (NovoLOG) 100 UNIT/ML injection penIndications:T ype 1 diabetes mellitus with diabetic neuropathy Inject 1 unit/8 gms and 1 unit/50 points >150, Max Daily 50 units 15 mL 5 03/24/19 25 Active insulin glargine (Lantus SoloStar, Basaglar) 100 UNIT/ML injection penIndications:T ype 1 diabetes mellitus with diabetic neuropathy Inject 17 Units under the skin 1 (one) time each day in the morning. 15 mL 4 03/24/19 25 2025 Active insulin pen needle (B-D ULTRAFINE III SHORT PEN) 31G X 8 mm misc Use to inject 1-4 times daily as directed 120 each 11 03/24/19 25 Active acetone, urine, test strip 1 strip if needed for high blood sugar. 25 strip 3 03/24/19 25 2024 Active carvedilol (Coreg) 3.125 MG tablet TAKE 1 TABLET BY MOUTH TWICE A DAY WITH A MEAL 180 tablet 3 08/09/19 25 Active valsartan (Diovan) 80 MG tablet Take 1 tablet by mouth daily. 06/22/19 25 Active torsemide (Demadex) 20 MG tablet Take 1 tablet by mouth daily. 06/22/19 25 Active traZODone (Desyrel) 50 MG tablet Take 1 tablet (50 mg) by mouth if needed. 10/31/19 18 2024 Discontinued Azelastine HCl 0.15 % solution Administer 1 spray into each nostril 2 (two) times a day. 02/17/19 23 2024 Discontinued(P er Patient Report) sertraline (Zoloft) 25 MG tablet 2024 Discontinued(P er Patient Report) carvedilol (Coreg) 3.125 MG tablet Take 1 tablet (3.125 mg) by mouth 2 (two) times a day with meals. 180 tablet 1 04/19/19 25 2024 Discontinued torsemide (Demadex) 100 MG tablet Take 0.5 tablets (50 mg) by mouth in the morning. 04/28/19 25 2024 Discontinued(P er Patient Report) valsartan (Diovan) 160 MG tablet Take 1 tablet by mouth daily. 90 tablet 1 05/24/19 25 2024 Discontinued(D ose adjustment) Active Problems Problem Noted Date Diagnosed Date [...] Encounters Date Type Department Care Team Description 08/06/2024 [facility] Nephrology, Bone & Mineral Metabolism [address] [facility] [facility] [address], [address] [place] [address] Evelyne Medel MD 06/09/2024 Telephone [facility] Endocrinology [address] [place] [address] Zohra Valenzuela APRN Prior-authorization/i nsurance Verification 05/25/2024 Telephone [facility] Nephrology, Bone & Mineral Metabolism [address] , [address] [place] [address] Susanne Urbina, PharmD 05/23/2024 8:00 AM EDT Office Visit [facility] Nephrology, Bone & Mineral Metabolism [address] , [address] [place] [address] Evelyne Medel MD Stage 3a [...] Description 09/26/2024 8:40 AM EDT Office Visit [facility] Nephrology, Bone & Mineral Metabolism [address] [facility], [address] [place] [address] Evelyne Medel MD [address] [place] [address] 11/01/2024 12:20 PM EDT Office Visit [facility] Endocrinology [address] [place] [address] Zohra Valenzuela, DIRECTOR OF EDUCATION [address] [place] [address] Health Maintenance Due Date Last [...] (2 of 2 - PCV) 01/06/2020 01/05/2019 [id number] Vaccine (2023- season) 2023 12/04/2021, 06/05/2021, 12/12/2020, Additional history exists [facility]-Zoster Vaccines (1 of 2) 12/24/2023 [facility]-Diabetes: Hemoglobin A1C 09/21/2024, 09/16/2023, 06/08/2023, Additional history exists [facility]-Influenza Vaccine (#1) 2024 11/28/2020, [facility]-Depression Screening 01/31/2025 02/01/2024 [facility]-DTaP,Tdap,and Td Vaccines (2 - Td or Tdap) 05/23/2032 05/23/2022 [facility]-Obesity Intervention Completed 025, 03/24/2024, 03/24/2024, Additional history exists HPV Vaccines Aged Out [...] Hemoglobin A1C 6.8 <5.7% Non-Diabe tic % [facility] Kit Lot Number [id number] [facility] Kit Expiration Date 01/08/2026 [facility] Blood Venous blood specimen / Unknown 03/24/2024 11:23 AM EST Zohra Valenzuela DIRECTOR OF EDUCATION POINT OF CARE TEST ENTER/ED IT ORDERABLES Final Result [facility] [address] [place] [phone] from Last 3 Months or Most Recently Relevant to Health Maintenance Insurance [employer] [place] Care Teams Lacquer Sprayer Relationship Specialty Start Date End Date Micah Willoughby MD PCP - General 02/14/21
--- OUTSIDE RECORDS SUMMARY | 2024-08-16 10:38 | XMS_ITS | Encounter Summary ---
Author Organization [facility] Address [address] [place] [address] Care Team Providers Care Industrial Maintenance Millwright Name Role Phone Micah Willoughby MD Primary Care Provider [phone] Reason for Visit * Reason Comments Med Refill Encounter Details Date Type Department Care Team ([facility] st Contact Info) Description 08/06/[address] [facility] Nephrology, Bone & Mineral Metabolism [address] [facility], [address] [place] [address] Evelyne Medel MD [address] [place] [address] Social History Tobacco Use Types [...] encounter Miscellaneous Notes * Telephone Encounter - Jannet Jacobson - 08/08/2024 4:12 PM EDT Refill approved per telephone readbck Dr. Medel, Coreg 3.125 mg bid, 90 day supply with 3 refills, sent to [facility] documented in this encounter Plan of Treatment Upcoming Encounters Date Type Department Care Team (Late st Contact Info) Description 09/26/2024 8:40 AM EDT Office Visit [facility] Nephrology, Bone & Mineral Metabolism [address] [facility], [address] [place] [address] Evelyne Medel MD [address] [facility] [address] [place] [address] 11/01/2024 12:20 PM EDT Office Visit [facility] Endocrinology [address] [place] [address] Zohra Valenzuela, STRAIN TECHNICIAN [address] [facility] [address] [place] [address] documented as of this encounter Visit Diagnoses Not on filedocumented in this encounter Additional Health Concerns Assessment Noted Time A fall risk assessment has been complete d for the patient 05/23/2024 7:57 AM EDT A Body Mass Index follow-up plan has been documented for the patient 06/02/2024 6:09 PM EDT documented as of this encounter Care Teams Industrial Maintenance Millwright Relationship Specialty Start Date End Date Micah Willoughby MD PCP - General 02/14/21 documented as of this encounter
--- OUTSIDE RECORDS SUMMARY | 2024-08-16 10:38 | XMS_ITS | Data Portability ---
Author Organization [facility] Address [address] [place] [address] Assessment No assessment recorded. Plan of Treatment [...] By Organization Details Last Modified Time 07/08/2023 [id number] All questions answered and pt/guardian satisfied with [...] Details Recorded Time Laceration of left forearm [id number] 9104 Active 2023 Reji Ann PA-C [address], [place], [address], [facility] 09:19:35 Problem Notes None recorded. Procedures Surgical History Date Name Laterality Status Provider Name and Address Organization Details Recorded Time Laceration Repair with Sutures/[place] completed Reji Ann PA-C [address], [place], [address], [facility] 07/13/2023 09:20:54 Imaging Results None [...] blood by Pulse oximetry Respiratory rate Systolic And Diastolic Provider Name and Address Organization Details Last Updated DateTime 72 /min 97 % 97 % 18 /min 146/86 mm[Hg] Gary Boothe ID - [facility] 12:39:32 Social History None recorded. Functional Status None recorded. Mental Status None recorded. Family History Nothing Reported. Medical History No medical history recorded. Past Encounters Encounter ID Performer Location Encounter Start Date Encounter Closed Date Diagnosis/Indication Diagnosis SNOMED-CT Code Diagnosis ICD10 Code Diagnosis Note [id number] Reji Ann PA-C [facility] [address] [place] [address] 07/08/2023 11:47:28 07/08/2023 12:41:57 Laceration of left forearm [id number] S51.812A 4 suture; Patient s wound was [...] ID Sotomayor Member ID Guarantor Name 07/15/2023 MEDICAID-ID - [facility] WRAP BILLING (MEDICAID) Julio Myrick [id number] Julio Myrick 07/18/2023 1 PASSPORT BY [employer] (MEDICAID REPLACEMENT - HMO) Julio Ramez [id number] Julio Ramez 07/08/2023 1 *SELF PAY* Se felipa Myrick [...] concerns. Reji Ann PA-C [address], [place], [address], [place] - [facility] 07/13/2023 09:21:07
[2024-08-16 10:40] VITALS: BP 114/78; PULSE 71; RESP 18; TEMP 36.8; O2SAT 100
[2024-08-16] MEDS: VITAMIN B-12 1,000 MCG 1ML VIAL 1000 MCG (10:40)
== END 2024-08-16 10:55 | disposition home or self-care (01) ==
LOC: INF 10:34
PROVIDERS: PCP Family Medicine; Visit Provider Internal Medicine Medical Oncology
DX: D61.818 Other pancytopenia (principal)
CPT/HCPCS: 96372; J3420

== ENCOUNTER 2024-08-17 09:53 | Outpatient (CLI) | payer MEDICAID, SELFPAY ==
[2024-08-17] MEDS: VITAMIN B-12 1,000 MCG 1ML VIAL 1000 MCG IM (09:59)
[2024-08-17 10:00] VITALS: BP 122/87; PULSE 90; RESP 18; O2SAT 99
--- OUTSIDE RECORDS SUMMARY | 2024-08-17 10:05 | XMS_ITS | Encounter Summary ---
Author Organization [facility] Address [address] [place] [address] Care Team Providers Care Electronic Service Technician Name Role Phone Micah Willoughby MD Primary Care Provider [phone] Encounter Details Date Type Department Care Team ([facility] st Contact Info) Description 05/25/2024 Telephone [facility] Nephrology, Bone & Mineral Metabolism [address], [address] [place] [address] Susanne Urbina, PharmD [address] [place] [address] Social History Tobacco Use Types [...] to obtain labs locally. Patient to let technical proposal writer know. Susanne Urbina PharmD, BCACP Clinical [...] Description 09/26/2024 8:40 AM EDT Office Visit [facility] Nephrology, Bone & Mineral Metabolism [address], [address] [place] [address] Evelyne Medel MD [address] [facility] [address] [facility] [address] [place] [address] 11/01/2024 12:20 PM EDT Office Visit [facility] Endocrinology [address] [place] [address] Zohra Valenzuela, PLANT CLERK [address] [facility] [address] [place] [address] Scheduled Orders Name Type Priority [...] documented as of this encounter Care Teams Electronic Service Technician Relationship Specialty Start Date End Date Micah Willoughby MD PCP - General 02/14/21 documented as of this encounter
--- OUTSIDE RECORDS SUMMARY | 2024-08-17 10:05 | XMS_ITS | Encounter Summary ---
Author Organization [facility] Address [address] [place] [address] Care Team Providers Care Adolescent Coordinator Name Role Phone Micah Willoughby MD Primary Care Provider [phone] Reason for Visit * Reason Comments Med Refill Encounter Details Date Type Department Care Team ([facility] st Contact Info) Description 08/06/2024 Refill Professional [facility] Nephrology, Bone & Mineral Metabolism [address] [facility], [address] [place] [address] Evelyne Medel MD [address] [place] [address] Social History Tobacco Use Types [...] AM EDT Office Visit [facility] Nephrology, Bone & Mineral Metabolism [address], [address] [place] [address] Evelyne Medel MD [address] [facility] [address] [place] [address] 11/01/2024 12:20 PM EDT Office Visit [facility] Endocrinology [address] [place] [address] Zohra Valenzuela, STRIKE OPERATIONS OFFICER [address] [facility] [address] [place] [address] documented as of this encounter Visit Diagnoses Not on filedocumented in this encounter Additional Health Concerns Assessment Noted Time A fall risk assessment has been complete d for the patient 05/23/2024 7:57 AM EDT A Body Mass Index follow-up plan has been documented for the patient 06/02/2024 6:09 PM EDT documented as of this encounter Care Teams Adolescent Coordinator Relationship Specialty Start Date End Date Micah Willoughby MD PCP - General 02/14/21 documented as of this encounter
--- OUTSIDE RECORDS SUMMARY | 2024-08-17 10:05 | XMS_ITS | Encounter Summary ---
Author Organization [facility] Address [address] [place] [address] Care Team Providers Care Roll Bucker Name Role Phone Micah Willoughby MD Primary Care Provider [phone] Unavailable [phone] Reason for Visit * Reason Comments Med Refill Encounter Details Date Type Department Care Team ([facility] Contact Info) Description 10/09/2022 Refill Professional [facility] Nephrology, Bone & Mineral Metabolism [address], [address] [place] [address] Evelyne Medel MD [address] [place] [address] Primary hypertension Social History Tobacco [...] [facility], [address] [place] [address] Evelyne Medel MD [address] [facility] [address] [place] [address] 11/01/2024 12:20 PM EDT Office Visit [facility] Endocrinology [address] [place] [address] Zohra Valenzuela, CREDIT OFFICE MANAGER [address] [facility] [address] [place] [address] documented as of this encounter Visit Diagnoses Diagnosis Primary hypertension Unspecified essential hypertension documented in this encounter Additional Health Concerns Assessment Noted Time A fall risk assessment has been complete d for the patient 06/02/2022 8:59 AM EDT A Body Mass Index follow-up plan has been documented for the patient 07/31/2022 9:32 AM EDT documented as of this encounter Care Teams Roll Bucker Relationship Specialty Start Date End Date Micah Willoughby MD PCP - General 02/14/[address] [facility] [address] [place] [address] Ceramic Maker Demonstrator Diabetes Services 12/04/23 03/03/24 documented as of this encounter
--- OUTSIDE RECORDS SUMMARY | 2024-08-17 10:05 | XMS_ITS | Clinical Summary ---
Author Organization [facility] Address [address] [place] [address] Care Team Providers Care Upholstery Bundler Name Role Phone Micah Willoughby MD Primary Care Provider [phone] Allergies Active Allergy Reactions Criticality Noted Date [...] Date Type Department Care Team Description 08/06/2024 [facility] Nephrology, Bone & Mineral Metabolism [address] [facility] [address], [address] [place] [address] Evelyne Medel MD 06/09/2024 Telephone [facility] Endocrinology [address] [place] [address] Zohra Valenzuela APRN Prior-authorization/i nsurance Verification 05/25/2024 Telephone [facility] Nephrology, Bone & Mineral Metabolism [address] [place] [address] Susanne Urbina, PharmD 05/23/2024 8:00 AM EDT Office Visit [facility] Nephrology, Bone & Mineral Metabolism [address] , [address] [place] [address] Evelyne Medel MD Stage 3a [...] AM EDT Office Visit [facility] Nephrology, Bone & Mineral Metabolism [address] [facility] [address], [address] [place] [address] Evelyne Medel MD [address] [place] [address] 11/01/2024 12:20 PM EDT Office Visit [facility] Endocrinology [address] [place] [address] Zohra Valenzuela, MEDICAL RESEARCHER [address] [place] [address] Health Maintenance Due Date Last [...] (2 of 2 - PCV) 01/06/2020 01/05/2019 [id number] Vaccine (2023- season) 2023 12/04/2021, 06/05/2021, 12/12/2020, [...] % [facility] Kit Lot Number [id number] [facility] Kit Expiration Date 01/08/2026 [facility] Blood Venous blood specimen / Unknown 03/24/2024 11:23 AM EST Zohra Valenzuela MEDICAL RESEARCHER POINT OF CARE TEST ENTER/ED IT ORDERABLES Final Result [facility] [address] [place] [phone] from Last 3 Months or Most Recently Relevant to Health Maintenance Insurance [employer] [place] [place] Care Teams Upholstery Bundler Relationship Specialty Start Date End Date Micah Willoughby MD PCP - General 02/14/21
--- OUTSIDE RECORDS SUMMARY | 2024-08-17 10:05 | XMS_ITS | Clinical Summary ---
Author Organization [facility] Address [address] [place] [address] Phone Care Team Providers Care Mens Locker Room Attendant Name Role Phone Unavailable Primary Care Provider [...] (ASTELIN) 137 mcg (0.1 %) Nasl Aerosol, Cook 274 mcg in each nostril 4 times [...]
== END 2024-08-17 10:04 | disposition home or self-care (01) ==
LOC: INF 09:53
PROVIDERS: PCP Family Medicine; Visit Provider Internal Medicine Medical Oncology
DX: D61.818 Other pancytopenia (principal)
CPT/HCPCS: 96372; J3420

== ENCOUNTER 2024-08-19 11:41 | Outpatient (CLI) | payer MEDICAID, SELFPAY ==
--- OUTSIDE RECORDS SUMMARY | 2024-08-19 11:43 | XMS_ITS | Clinical Summary ---
Author Organization [facility] Address [address] [place] [address] Phone Care Team Providers Care Drop Machine Operator Name Role Phone Unavailable Primary Care Provider [...] (ASTELIN) 137 mcg (0.1 %) Nasl Aerosol, [place] 274 mcg in each nostril 4 times [...]
--- OUTSIDE RECORDS SUMMARY | 2024-08-19 11:43 | XMS_ITS | Encounter Summary ---
Author Organization [facility] Address [address] [place] [address] Care Team Providers Care Principal Technical Writer Name Role Phone Micah Willoughby MD Primary Care Provider [phone] Encounter Details Date Type Department Care Team ([facility] st Contact Info) Description 05/25/2024 Telephone [facility] Nephrology, Bone & Mineral Metabolism [address] [facility], [address] [place] [address] Susanne Urbina, PharmD [address] [place] [address] Social History Tobacco Use Types [...] to obtain labs locally. Patient to let chart writer know. Susanne Urbina PharmD, BCACP Clinical [...] Care Team (Late st Contact Info) Description 09/07/2024 9:45 AM EDT Office Visit [facility] [address] [place] [address] Ammy Siegel MD [address] [facility] [address] [place] [address] 09/26/2024 8:40 AM EDT Office Visit [facility] Nephrology, Bone & Mineral Metabolism [address] [facility], [address] [place] [address] Evelyne Medel MD [address] [facility] [address] [place] [address] 11/01/2024 12:20 PM EDT Office Visit [facility] Endocrinology [address] [place] [address] Zohra Valenzuela, WIRELESS COMMUNICATIONS ENGINEER [address] [facility] [address] [place] [address] Scheduled Orders Name Type Priority [...] documented as of this encounter Care Teams Principal Technical Writer Relationship Specialty Start Date End Date Micah Willoughby MD PCP - General 02/14/21 documented as of this encounter
--- OUTSIDE RECORDS SUMMARY | 2024-08-19 11:43 | XMS_ITS | Clinical Summary ---
Author Organization [facility] Address [address] [place] [address] Care Team Providers Care Boat Hoist Operator Helper Name Role Phone Micah Willoughby MD Primary Care Provider [phone] Allergies Active Allergy Reactions Criticality Noted Date [...] Date Type Department Care Team Description 08/06/2024 [facility] Nephrology, Bone & Mineral Metabolism [address] [facility], [address] [place] [address] Evelyne Medel MD 06/09/2024 Telephone [facility] Endocrinology [address] [place] [address] Zohra Valenzuela APRN Prior-authorization/i nsurance Verification 05/25/2024 Telephone [facility] Nephrology, Bone & Mineral Metabolism [address] [place] [address] Susanne Urbina, PharmD 05/23/2024 8:00 AM EDT Office Visit [facility] Nephrology, Bone & Mineral Metabolism [address] [place] [address] Evelyne Medel MD Stage 3a [...] Description 09/07/2024 9:45 AM EDT Office Visit [facility] [address] [facility] [place] [address] Ammy Siegel MD [address] [facility] [address] [place] [address] 09/26/2024 8:40 AM EDT Office Visit [facility] Nephrology, Bone & Mineral Metabolism [address] [facility], [address] [place] [address] Evelyne Medel MD [address] [facility] [address] [place] [address] 11/01/2024 12:20 PM EDT [facility] [address] [place] [address] Zohra Valenzuela, WRAP YARN SORTER [address] [facility] [address] [place] [address] Health Maintenance Due Date Last Done Comments [facility]-HIV Screening 1973 [facility]-Hepatitis C Screening 1973 [facility]-/Child/Adol SDOH Screenings 1973 Diabetes: Dental Exam 12/24/1983 [facility]- SDOH Screenings 12/24/1991 [facility]-Adult SDOH Screenings 12/24/1991 [facility]-Hepatitis B Vaccines (1 of 3 - 19+ 3-dose series) 1992 CT Colonography 2018 Colonoscopy 2018 FIT-DNA 2018 FIT 2018 FOBT 2018 Sigmoidoscopy 2018 [facility]-Colorectal Cancer Screening 2018 [facility]-Pneumococcal Vaccine: 50+ Years (2 of 2 - PCV) 01/06/2020 01/05/2019 [id number] Vaccine ( season) 2023 12/04/2021, 06/05/2021, 12/12/2020, [...] A1C 6.8 <5.7% Non-Diabe tic % [facility] Kit Lot Number [id number] [facility] Kit Expiration Date 01/08/2026 [facility] Blood Venous blood specimen / Unknown 03/24/2024 11:23 AM EST Zohra Valenzuela WRAP YARN SORTER POINT OF CARE TEST ENTER/ED IT ORDERABLES Final Result [facility] [address] [place] [address] from Last 3 Months or Most Recently Relevant to Health Maintenance Insurance [facility] MEDICAID [place] Care Teams Boat Hoist Operator Helper Relationship Specialty Start Date End Date Micah Willoughby MD PCP - General 02/14/21
--- OUTSIDE RECORDS SUMMARY | 2024-08-19 11:43 | XMS_ITS | Encounter Summary ---
Author Organization [facility] Address [address] [place] [address] Care Team Providers Care Career Development Specialist Name Role Phone Micah Willoughby MD Primary Care Provider [phone] Unavailable [phone] Reason for Visit * Reason Comments Med Refill Encounter Details Date Type Department Care Team ([facility] Contact Info) Description 10/09/2022 Refill Professional [facility] Nephrology, Bone & Mineral Metabolism [address], [address] [place] [address] Evelyne Medel MD [address] [place] [address] Primary hypertension Social History Tobacco [...] Description 09/07/2024 9:45 AM EDT Office Visit [facility] [address] [place] [address] Ammy Siegel MD [address] [facility] [address] [place] [address] 09/26/2024 8:40 AM EDT Office Visit [facility] Nephrology, Bone & Mineral Metabolism [address] [facility] [address], [address] [place] [address] Evelyne Medel MD [address] [place] [address] 11/01/2024 12:20 PM EDT Office Visit [facility] Endocrinology [address] [place] [address] Zohra Valenzuela, CERTIFIED VETERINARY TECHNICIAN 2[address] [facility] 125 [place] [address] documented as of this encounter Visit Diagnoses Diagnosis Primary hypertension Unspecified essential hypertension documented in this encounter Additional Health Concerns Assessment Noted Time A fall risk assessment has been complete d for the patient 06/02/2022 8:59 AM EDT A Body Mass Index follow-up plan has been documented for the patient 07/31/2022 9:32 AM EDT documented as of this encounter Care Teams Career Development Specialist Relationship Specialty Start Date End Date Micah Willoughby MD PCP - General 02/14/[address] [facility] 125 [place] [address] Deputy Sheriff Lieutenant Diabetes Services 12/04/23 03/03/24 documented as of this encounter
--- OUTSIDE RECORDS SUMMARY | 2024-08-19 11:43 | XMS_ITS | Encounter Summary ---
Author Organization [facility] Address [address] [place] [address] Care Team Providers Care Superintendent Transportation Name Role Phone Micah Willoughby MD Primary Care Provider [phone] Reason for Visit * Reason Comments Med Refill Encounter Details Date Type Department Care Team ([facility] st Contact Info) Description 08/06/2024 Refill Professional [facility] Nephrology, Bone & Mineral Metabolism [address] [facility], [address] [place] [address] Evelyne Medel MD [address] [place] [address] Social History Tobacco Use Types [...] Description 09/07/2024 9:45 AM EDT Office Visit [facility] [address] [facility] [place] [address] Ammy Siegel MD [address] [facility] [address] [place] [address] 09/26/2024 8:40 AM EDT Office Visit [facility] Nephrology, Bone & Mineral Metabolism [address] [facility], [address] [place] [address] Evelyne Medel MD [address] [facility] [address] [place] [address] 11/01/2024 12:20 PM EDT Office Visit [facility] Endocrinology [address] [place] [address] Zohra Valenzuela, CLINICAL DATA ANALYST 2[address] [facility] 125 [place] [address] documented as of this encounter Visit Diagnoses Not on filedocumented in this encounter Additional Health Concerns Assessment Noted Time A fall risk assessment has been complete d for the patient 05/23/2024 7:57 AM EDT A Body Mass Index follow-up plan has been documented for the patient 06/02/2024 6:09 PM EDT documented as of this encounter Care Teams Superintendent Transportation Relationship Specialty Start Date End Date Micah Willoughby MD PCP - General 02/14/21 documented as of this encounter
[2024-08-19 11:45] VITALS: BP 145/93; PULSE 83; RESP 20; TEMP 36.8; O2SAT 98
[2024-08-19] MEDS: VITAMIN B-12 1,000 MCG 1ML VIAL 1000 MCG IM (11:45)
== END 2024-08-19 12:00 | disposition home or self-care (01) ==
LOC: INF 11:42
PROVIDERS: PCP Family Medicine; Visit Provider Internal Medicine Medical Oncology
DX: D61.818 Other pancytopenia (principal)
CPT/HCPCS: 96372; J3420

== ENCOUNTER 2024-08-23 08:10 | Outpatient (CLI) | payer MEDICAID, SELFPAY ==
--- OUTSIDE RECORDS SUMMARY | 2024-08-23 08:16 | XMS_ITS | Encounter Summary ---
Author Organization [facility] Address [address] [place] [address] Care Team Providers Care Vocational Guidance Counselor Name Role Phone Micah Willoughby MD Primary Care Provider [phone] Unavailable [phone] Reason for Visit * Reason Comments Med Refill Encounter Details Date Type Department Care Team ([facility] Contact Info) Description 10/09/2022 Refill Professional [facility] Nephrology, Bone & Mineral Metabolism [address], [address] [place] [address] Evelyne Medel MD [address] [place] [address] Primary hypertension Social History Tobacco [...] Description 09/07/2024 9:45 AM EDT Office Visit [facility] [address] [facility] [place] [address] Ammy Siegel MD [address] [facility] [address] [place] [address] 09/26/2024 8:40 AM EDT Office Visit [facility] [place] Nephrology, Bone & Mineral Metabolism [address] [facility], [address] [place] [address] Evelyne Medel MD [address] [place] [address] 11/01/2024 12:20 PM EDT Office Visit [facility] Endocrinology [address] [place] [address] Zohra Valenzuela, COMMUNITY ARTS WORKER 2[address] [facility] 125 [place] [address] documented as of this encounter Visit Diagnoses Diagnosis Primary hypertension Unspecified essential hypertension documented in this encounter Additional Health Concerns Assessment Noted Time A fall risk assessment has been complete d for the patient 06/02/2022 8:59 AM EDT A Body Mass Index follow-up plan has been documented for the patient 07/31/2022 9:32 AM EDT documented as of this encounter Care Teams Vocational Guidance Counselor Relationship Specialty Start Date End Date Micah Willoughby MD PCP - General 02/14/[address] 219 [facility] 125 [place] [address] [employer] Diabetes Services 12/04/23 03/03/24 documented as of this encounter
--- OUTSIDE RECORDS SUMMARY | 2024-08-23 08:16 | XMS_ITS | Clinical Summary ---
Author Organization [facility] Address [address] [place] [address] Care Team Providers Care Automation Control Technician Name Role Phone Micah Willoughby MD Primary Care Provider [phone] Allergies Active Allergy Reactions Criticality Noted Date [...] Date Type Department Care Team Description 08/06/2024 [facility] Nephrology, Bone & Mineral Metabolism [address] [facility], [address] [place] [address] Evelyne Medel MD 06/09/[address] [facility] Endocrinology [address] [place] [address] Zohra Valenzuela APRN Prior-authorization/ins urance Verification 05/25/2024 Telephone [facility] Nephrology, Bone & Mineral Metabolism [address] [facility], [address] [place] [address] Susanne Urbina, PharmD from Last 3 Months Family History Medical [...] Upcoming Encounters Date Type Department Care Team ([facility] st Contact Info) Description 09/07/2024 9:45 AM EDT Office Visit [facility] [address] [facility] [place] [address] Ammy Siegel MD [address] [facility] [address] [place] [address] 09/26/2024 8:40 AM EDT Office Visit [facility] Nephrology, Bone & Mineral Metabolism [address] [facility], [address] [place] [address] Evelyne Medel MD [address] [place] [address] 11/01/2024 12:20 PM EDT Office Visit [facility] Endocrinology [address] [place] [address] Zohra Valenzuela, DIRECTOR OF AGRICULTURE 2[address] [facility] [address] [place] [address] Health Maintenance Due Date Last [...] (2 of 2 - PCV) 01/06/2020 01/05/2019 [id number] Vaccine (2023- season) 2023 12/04/2021, 06/05/2021, 12/12/2020, [...] A1C 6.8 <5.7% Non-Diabe tic % [facility] Kit Lot Number [id number] [facility] Kit Expiration Date 01/08/2026 [facility] Blood Venous blood specimen / Unknown 03/24/2024 11:23 AM EST Zohra Valenzuela DIRECTOR OF AGRICULTURE POINT OF CARE TEST ENTER/ED IT ORDERABLES Final Result [facility] [address] [place] [phone] from Last 3 Months or Most Recently Relevant to Health Maintenance [place] [address] [place] [address] MEDICA[place] Care Teams Automation Control Technician Relationship Specialty Start Date End Date Micah Willoughby MD PCP - General 02/14/21
--- OUTSIDE RECORDS SUMMARY | 2024-08-23 08:16 | XMS_ITS | Data Portability ---
Author Organization [facility] Address [address] [place] [address] Assessment No assessment recorded. Plan of Treatment [...] By Organization Details Last Modified Time 07/08/2023 [id number] All questions answered and pt/guardian satisfied with [...] Details Recorded Time Laceration of left forearm [id number] 9104 Active 2023 Reji Ann PA-C [address], [place], [address], [place] 09:19:35 Problem Notes None recorded. Procedures Surgical History Date Name Laterality Status Provider Name and Address Organization Details Recorded Time Laceration Repair with Sutures/Fanny completed Reji Ann PA-C [address], [place], [address], [facility] 07/13/2023 09:20:54 Imaging Results None [...] % 18 /min 146/86 mm[Hg] Gary Boothe [place] - [facility] 12:39:32 Social History None recorded. Functional Status None recorded. Mental Status None recorded. Family History Nothing Reported. Medical History No medical history recorded. Past Encounters Encounter ID Performer Location Encounter Start Date Encounter Closed Date Diagnosis/Indication Diagnosis SNOMED-CT Code Diagnosis ICD10 Code Diagnosis Note [id number] Reji Ann PA-C [facility] [address] [place] [address] 07/08/2023 11:47:28 07/08/2023 12:41:57 Laceration of left forearm [id number] S51.812A 4 suture; Patient s wound was [...] ID Sotomayor Member ID Guarantor Name 07/15/2023 [place] [facility] WRAP BILLING (MEDICAID) Julio Myrick [id number] Julio Myrick 07/18/2023 1 PASSPORT BY [employer] (MEDICAID REPLACEMENT - HMO) Julio Ramez [id number] Julio Ramez 07/08/2023 1 *SELF PAY* Se [...] concerns. Reji Ann PA-C [address], [place], [address], [place] - [facility] 07/13/2023 09:21:07
--- OUTSIDE RECORDS SUMMARY | 2024-08-23 08:16 | XMS_ITS | Encounter Summary ---
Author Organization [facility] Address [address] [place] [address] Care Team Providers Care Pattern Setter Name Role Phone Micah Willoughby MD Primary Care Provider [phone] Encounter Details Date Type Department Care Team ([facility] st Contact Info) Description 05/25/2024 Telephone [facility] Nephrology, Bone & Mineral Metabolism [address] [facility] [address], [address] [place] [address] Susanne Urbina, PharmD [address] [place] [address] Social History Tobacco Use Types [...] to obtain labs locally. Patient to let assembly instructions writer know. Susanne Urbina PharmD, BCACP Clinical [...] Description 09/07/2024 9:45 AM EDT Office Visit [facility] [address] [place] [address] Ammy Siegel MD [address] [facility] [address] [place] [address] 09/26/2024 8:40 AM EDT [facility] [place] Nephrology, Bone & Mineral Metabolism [address] [facility] [address] [place] [address] Evelyne Medel MD [address] [facility] [address] [place] [address] 11/01/2024 12:20 PM EDT Office Visit [facility] Endocrinology [address] [place] [address] Zohra Valenzuela, ELECTRIC SHOVEL OPERATOR 2[address] [facility] 125 [place] [address] Scheduled Orders Name Type Priority [...] documented as of this encounter Care Teams Pattern Setter Relationship Specialty Start Date End Date Micah Willoughby MD PCP - General 02/14/21 documented as of this encounter
--- OUTSIDE RECORDS SUMMARY | 2024-08-23 08:16 | XMS_ITS | Clinical Summary ---
Author Organization [facility] Address [address] [place] [address] Phone Care Team Providers Care Avionics Electronics Technician Name Role Phone Unavailable Primary Care Provider [...] (ASTELIN) 137 mcg (0.1 %) Nasl Aerosol, [place] 274 mcg in each nostril 4 times [...]
--- OUTSIDE RECORDS SUMMARY | 2024-08-23 08:16 | XMS_ITS | Encounter Summary ---
Author Organization [facility] Address [address] [place] [address] Care Team Providers Care Child Care Sitter Name Role Phone Micah Willoughby MD Primary Care Provider [phone] Reason for Visit * Reason Comments Med Refill Encounter Details Date Type Department Care Team ([facility] st Contact Info) Description 08/06/2024 Refill Professional [facility] Nephrology, Bone & Mineral Metabolism [address] [facility], [address] [place] [address] Evelyne Medel MD [address] [place] [address] Social History Tobacco Use Types [...] Description 09/07/2024 9:45 AM EDT Office Visit [facility] [address] [facility] [place] [address] Ammy Siegel MD [address] [facility] [address] [place] [address] 09/26/2024 8:40 AM EDT Office Visit [facility] [place] Nephrology, Bone & Mineral Metabolism [address] [facility], [address] [place] [address] Evelyne Medel MD [address] [facility] [address] [place] [address] 11/01/2024 12:20 PM EDT Office Visit [facility] Endocrinology [address] [place] [address] Zohra Valenzuela, PROPERTY INSPECTOR 2195 [facility] 125 [place] [address] documented as of this encounter Visit Diagnoses Not on filedocumented in this encounter Additional Health Concerns Assessment Noted Time A fall risk assessment has been complete d for the patient 05/23/2024 7:57 AM EDT A Body Mass Index follow-up plan has been documented for the patient 06/02/2024 6:09 PM EDT documented as of this encounter Care Teams Child Care Sitter Relationship Specialty Start Date End Date Micah Willoughby MD PCP - General 02/14/21 documented as of this encounter
[2024-08-23] MEDS: VITAMIN B-12 1,000 MCG 1ML VIAL 1000 MCG IM (08:21)
[2024-08-23 08:24] VITALS: BP 134/78; PULSE 84; RESP 16; TEMP 36.7; O2SAT 98
== END 2024-08-23 08:30 | disposition home or self-care (01) ==
LOC: INF 08:12
PROVIDERS: PCP Family Medicine; Visit Provider Internal Medicine Medical Oncology
DX: D61.818 Other pancytopenia (principal)
CPT/HCPCS: 96372; J3420

== ENCOUNTER 2024-08-31 11:18 | Outpatient (CLI) | payer MEDICAID, SELFPAY ==
[2024-08-31 11:21] LABS: Adenovirus F 40/41, stool Not Detected (NotDetected); Cyclospora Cayetanesis Not Detected (NotDetected); Plesimonas Shigalloides, PCR Not Detected (NotDetected); Salmonella, PCR Not Detected (NotDetected); Shiga-like toxin E coli Not Detected (NotDetected); Shigella Enterovasive E coli Not Detected (NotDetected); Vibrio, PCR Not Detected (NotDetected); Yersinia Entercolitica, PCR Not Detected (NotDetected)
--- OUTSIDE RECORDS SUMMARY | 2024-08-31 11:33 | XMS_ITS | Encounter Summary ---
Author Organization [facility] Address [address] [place] [address] Care Team Providers Care Csr Retail Name Role Phone Micah Willoughby MD Primary Care Provider [phone] Encounter Details Date Type Department Care Team ([facility] st Contact Info) Description 05/25/2024 Telephone [facility] Nephrology, Bone & Mineral Metabolism [address] [facility], [address] [place] [address] Susanne Urbina, PharmD [address] [place] [address] Social History Tobacco Use Types [...] to obtain labs locally. Patient to let check writer know. Susanne Urbina PharmD, BCACP Clinical [...] Hospital Advanced Eye Care [address] [place] [address] Ammy Siegel MD [address] [facility] [address] [place] [address] 09/26/2024 8:40 AM EDT Office Visit [facility] Nephrology, Bone & Mineral Metabolism [address] [facility], [address] [place] [address] Evelyne Medel MD [address] [facility] [address] [place] [address] 11/01/2024 12:20 PM EDT Office Visit [facility] Endocrinology [address] [place] [address] Zohra Valenzuela, TRACK PATROL 2[address] [facility] 125 [place] [address] Scheduled Orders Name Type Priority [...] documented as of this encounter Care Teams Csr Retail Relationship Specialty Start Date End Date Micah Willoughby MD PCP - General 02/14/21 documented as of this encounter
--- OUTSIDE RECORDS SUMMARY | 2024-08-31 11:33 | XMS_ITS | Encounter Summary ---
Author Organization [facility] Address [address] [place] [address] Care Team Providers Care Time Cycle Operator Name Role Phone Micah Willoughby MD Primary Care Provider [phone] Unavailable [phone] Reason for Visit * Reason Comments Med Refill Encounter Details Date Type Department Care Team ([facility] Contact Info) Description 10/09/2022 Refill [facility] Nephrology, Bone & Mineral Metabolism [address] [place] [address] Evelyne Medel MD [address] [place] [address] Primary hypertension Social History Tobacco [...] Description 09/07/2024 9:45 AM EDT Office Visit [facility] Care [address] [facility] [place] [address] Ammy Siegel MD [address] [facility] [address] [place] [address] 09/26/2024 8:40 AM EDT Office Visit [facility] Nephrology, Bone & Mineral Metabolism [address] [facility], [address] [place] [address] Evelyne Medel MD [address] [place] [address] 11/01/2024 12:20 PM EDT Office Visit [facility] Endocrinology [address] [place] [address] Zohra Valenzuela, HAND TACKER 2[address] [facility] 125 [place] [address] documented as of this encounter Visit Diagnoses Diagnosis Primary hypertension Unspecified essential hypertension documented in this encounter Additional Health Concerns Assessment Noted Time A fall risk assessment has been complete d for the patient 06/02/2022 8:59 AM EDT A Body Mass Index follow-up plan has been documented for the patient 07/31/2022 9:32 AM EDT documented as of this encounter Care Teams Time Cycle Operator Relationship Specialty Start Date End Date Micah Willoughby MD PCP - General 02/14/[address] 219 [facility] 125 [place] [address] [employer] Man Diabetes Services 12/04/23 03/03/24 documented as of this encounter
--- OUTSIDE RECORDS SUMMARY | 2024-08-31 11:33 | XMS_ITS | Encounter Summary ---
Author Organization [facility] Address [address] [place] [address] Care Team Providers Care Chief Customer Officer Name Role Phone Micah Willoughby MD Primary Care Provider [phone] Reason for Visit * Reason Comments Med Refill Encounter Details Date Type Department Care Team ([facility] st Contact Info) Description 08/06/2024 Refill Professional [facility] Nephrology, Bone & Mineral Metabolism [address] [facility], [address] [place] [address] Evelyne Medel MD [address] [place] [address] Social History Tobacco Use Types [...] Description 09/07/2024 9:45 AM EDT Office Visit [facility] [address] [facility] [place] [address] Ammy Siegel MD [address] [facility] [address] [place] [address] 09/26/2024 8:40 AM EDT Office Visit [facility] Nephrology, Bone & Mineral Metabolism [address] [facility], [address] [place] [address] Evelyne Medel MD [address] [facility] [address] [place] [address] 11/01/2024 12:20 PM EDT Office Visit [facility] Endocrinology [address] [place] [address] Zohra Valenzuela, PROJECT DEVELOPMENT ENGINEER 2[address] [facility] 125 [place] [address] documented as of this encounter Visit Diagnoses Not on filedocumented in this encounter Additional Health Concerns Assessment Noted Time A fall risk assessment has been complete d for the patient 05/23/2024 7:57 AM EDT A Body Mass Index follow-up plan has been documented for the patient 06/02/2024 6:09 PM EDT documented as of this encounter Care Teams Chief Customer Officer Relationship Specialty Start Date End Date Micah Willoughby MD PCP - General 02/14/21 documented as of this encounter
--- OUTSIDE RECORDS SUMMARY | 2024-08-31 11:33 | XMS_ITS | Data Portability ---
Author Organization [facility] Address [address] [place] [address] Assessment No assessment recorded. Plan of Treatment [...] By Organization Details Last Modified Time 07/08/2023 [id number] All questions answered and pt/guardian satisfied with [...] Details Recorded Time Laceration of left forearm [id number] 9104 Active 2023 Reji Ann PA-C [address], [place], [address], [facility] 09:19:35 Problem Notes None recorded. Procedures Surgical History Date Name Laterality Status Provider Name and Address Organization Details Recorded Time Laceration Repair with Sutures/Fanny completed Reji Ann PA-C [address], [place], [address], [facility] 07/13/2023 09:20:54 Imaging Results None recorded. [...] Arterial blood by Pulse oximetry Respiratory rate Pain severity - 0-10 verbal numeric rating [Score] - Reported Systolic And Diastolic Provider Name and Address Organization Details Last Updated DateTime 72 /min 97 % 97 % 18 /min 0 146/86 mm[Hg] Gary EARL - [facility] 12:39:32 Social History None recorded. Functional Status None recorded. Mental Status None recorded. Family History Nothing Reported. Medical History No medical history recorded. Past Encounters Encounter ID Performer Location Encounter Start Date Encounter Closed Date Diagnosis/Indication Diagnosis SNOMED-CT Code Diagnosis ICD10 Code Diagnosis Note [id number] Reji Ann PA-C [facility] [address] [place] [address] [address] 07/08/2023 11:47:28 07/08/2023 12:41:57 Laceration of left forearm [id number] S51.812A 4 suture; Patient s wound was [...] ID Sotomayor Member ID Guarantor Name 07/15/2023 [facility]ICAID[facility] WRAP BILLING (MEDICAID) Julio Myrick [id number] Julio Myrick 07/18/2023 1 PASSPORT BY [employer] (MEDICAID REPLACEMENT - HMO) Julioberenice Myrick [id number] Julio Myrick 07/08/2023 1 *SELF PAY* Se [...] or any other concerns. Reji Ann PA-C [facility] [address], [place], [address], [facility] - [facility] 07/13/2023 09:21:07
--- OUTSIDE RECORDS SUMMARY | 2024-08-31 11:33 | XMS_ITS | Clinical Summary ---
Author Organization [facility] Address [address] [place] [address] Care Team Providers Care Congressional Assistant Name Role Phone Micah Willoughby MD Primary Care Provider [phone] Allergies Active Allergy Reactions Criticality Noted Date [...] Date Type Department Care Team Description 08/06/2024 [facility] Nephrology, Bone & Mineral Metabolism [address], [address] [place] [address] Evelyne Medel MD 06/09/2024 [facility]phone [facility] [address] [place] [address] Zohra Valenzuela APRN Prior-authorization/ins urance Verification from Last 3 Months Family History Medical History Relation Name Comments Diabetes Father Victor Manuel Myrick Heart attack Father Victor aMnuel Myrick Kidney disease Father Victor Manuel Myrick [...] Description 09/07/2024 9:45 AM EDT Office Visit [facility] [address] [place] [address] Ammy Siegel MD [address] [place] [address] 09/26/2024 8:40 AM EDT Office Visit [facility] Nephrology, Bone & Mineral Metabolism [address], [address] [place] [address] Evelyne Medel MD [address] [facility] [address] [place] [address] 11/01/2024 12:20 PM EDT Office Visit [facility] Endocrinology [address] [place] [address] Zohra Valenzuela, STEEL ROLLER [address] [facility] [address] [place] [address] Health Maintenance Due Date Last [...] (2 of 2 - PCV) 01/06/2020 01/05/2019 [id number] Vaccine (2023- season) 2023 12/04/2021, 06/05/2021, 12/12/2020, [...] % [facility] Kit Lot Number [id number] [facility] Kit Expiration Date 01/08/2026 [facility] Blood Venous blood specimen / Unknown 03/24/2024 11:23 AM EST us Zohra Valenzuela STEEL ROLLER POINT OF CARE TEST ENTER/ED IT ORDERABLES Final Result [facility] [address] [place] [address] from Last 3 Months or Most Recently Relevant to Health Maintenance Insurance [place] Care Teams Congressional Assistant Relationship Specialty Start Date End Date Micah Willoughby MD PCP - General 02/14/21
--- OUTSIDE RECORDS SUMMARY | 2024-08-31 11:33 | XMS_ITS | Clinical Summary ---
Author Organization [facility] Address [address] [place] [address] Phone Care Team Providers Care Criminal Justice Program Director Name Role Phone Unavailable Primary Care Provider [...] (ASTELIN) 137 mcg (0.1 %) Nasl Aerosol, [place] 274 mcg in each nostril 4 times [...]
[2024-08-31 18:32] LABS: Clostridium Difficile A/B, PCR Detected (NotDetected)
[2024-09-02 08:14] LABS: Calprotectin, Fecal 289 ug/g (0-120)
== END 2024-08-31 23:59 | disposition home or self-care (01) ==
LOC: LAB 11:19
PROVIDERS: PCP Family Medicine; Visit Provider Internal Medicine Gastroenterology
DX: K52.9 Noninfective gastroenteritis and colitis, unspecified (principal); Z86.19 Personal history of other infectious and parasitic diseases
CPT/HCPCS: 83993; 87493; 87506

== ENCOUNTER 2024-08-31 12:30 | Outpatient (CLI) | payer MEDICAID, SELFPAY ==
--- OUTSIDE RECORDS SUMMARY | 2024-08-31 12:34 | XMS_ITS | Clinical Summary ---
Author Organization [facility] Address [address] [place] [address] Phone Care Team Providers Care News Photographer Name Role Phone Unavailable Primary Care Provider [...] (ASTELIN) 137 mcg (0.1 %) Nasl Aerosol, [place] 274 mcg in each nostril 4 times [...]
--- OUTSIDE RECORDS SUMMARY | 2024-08-31 12:34 | XMS_ITS | Encounter Summary ---
Author Organization [facility] Address [address] [place] [address] Care Team Providers Care Medical Anthropologist Name Role Phone Micah Willoughby MD Primary Care Provider [phone] Unavailable [phone] Reason for Visit * Reason Comments Med Refill Encounter Details Date Type Department Care Team ([facility] Contact Info) Description 10/09/2022 Refill [facility] Nephrology, Bone & Mineral Metabolism [address], [address] [place] [address] Evelyne Medel MD [address] [place] [address] Primary hypertension Social History Tobacco [...] Description 09/07/2024 9:45 AM EDT Office Visit [facility] Care [address] [facility] [place] [address] Ammy Siegel MD [address] [facility] [address] [place] [address] 09/26/2024 8:40 AM EDT Office Visit [facility] Nephrology, Bone & Mineral Metabolism [address] [facility], [address] [place] [address] Evelyne Medel MD [address] [place] [address] 11/01/2024 12:20 PM EDT Office Visit [facility] Endocrinology [address] [place] [address] Zohra Valenzuela, FRONT OFFICE DIRECTOR [address] [facility] [address] [place] [address] documented as of this encounter Visit Diagnoses Diagnosis Primary hypertension Unspecified essential hypertension documented in this encounter Additional Health Concerns Assessment Noted Time A fall risk assessment has been complete d for the patient 06/02/2022 8:59 AM EDT A Body Mass Index follow-up plan has been documented for the patient 07/31/2022 9:32 AM EDT documented as of this encounter Care Teams Medical Anthropologist Relationship Specialty Start Date End Date Micah Willoughby MD PCP - General 02/14/[address] [facility] [address] [place] [address] Vessel Traffic Officer Diabetes Services 12/04/23 03/03/24 documented as of this encounter
--- OUTSIDE RECORDS SUMMARY | 2024-08-31 12:34 | XMS_ITS | Encounter Summary ---
Author Organization [facility] Address [address] [place] [address] Care Team Providers Care Stock Handler Floorperson Name Role Phone Micah Willoughby MD Primary Care Provider [phone] Reason for Visit * Reason Comments Med Refill Encounter Details Date Type Department Care Team ([facility] st Contact Info) Description 08/06/2024 Refill Professional [facility] Nephrology, Bone & Mineral Metabolism [address] [facility], [address] [place] [address] Evelyne Medel MD [address] [place] [address] Social History Tobacco Use Types [...] 09/07/2024 9:45 AM EDT Office Visit [facility] Advanced Eye Care [address] [facility] [place] [address] Ammy Siegel MD [address] [facility] [address] [place] [address] 09/26/2024 8:40 AM EDT Office Visit [facility] Nephrology, Bone & Mineral Metabolism [address] [facility], [address] [place] [address] Evelyne Medel MD [address] [facility] [address] [place] [address] 11/01/2024 12:20 PM EDT Office Visit [facility] Endocrinology [address] [place] [address] Zohra Valenzuela, HUMAN SERVICE SPECIALIST [address] [facility] [address] [place] [address] documented as of this encounter Visit Diagnoses Not on filedocumented in this encounter Additional Health Concerns Assessment Noted Time A fall risk assessment has been complete d for the patient 05/23/2024 7:57 AM EDT A Body Mass Index follow-up plan has been documented for the patient 06/02/2024 6:09 PM EDT documented as of this encounter Care Teams Stock Handler Floorperson Relationship Specialty Start Date End Date Micah Willoughby MD PCP - General 02/14/21 documented as of this encounter
--- OUTSIDE RECORDS SUMMARY | 2024-08-31 12:34 | XMS_ITS | Clinical Summary ---
Author Organization [facility] Address [address] [place] [address] Care Team Providers Care Retirement Plan Specialist Name Role Phone Micah Willoughby MD Primary Care Provider [phone] Allergies Active Allergy Reactions Criticality Noted Date [...] Date Type Department Care Team Description 08/06/2024 [facility] Nephrology, Bone & Mineral Metabolism [address] [facility], [address] [place] [address] Evelyne Medel MD 06/09/2024 [facility]phone [facility] [address] [place] [address] Zohra Valenzuela APRN Prior-authorization/ins urance [...] Description 09/07/2024 9:45 AM EDT Office Visit [facility] Advanced Eye Care [address] [place] [address] Ammy Siegel MD [address] [place] [address] 09/26/2024 8:40 AM EDT Office Visit [facility] Nephrology, Bone & Mineral Metabolism [address] [facility], [address] [place] [address] Evelyne Medel MD [address] [facility] [address] [place] [address] 11/01/2024 12:20 PM EDT Office Visit [facility] Endocrinology [address] [place] [address] Zohra Valenzuela, PLAYER DEVELOPMENT MANAGER [address] [facility] [address] [place] [address] Health Maintenance Due Date Last [...] (2 of 2 - PCV) 01/06/2020 01/05/2019 [id number] Vaccine (2023- season) 2023 12/04/2021, 06/05/2021, 12/12/2020, [...] % [facility] Kit Lot Number [id number] [facility] Kit Expiration Date 01/08/2026 [facility] Blood Venous blood specimen / Unknown 03/24/2024 11:23 AM EST us Zohra Valenzuela PLAYER DEVELOPMENT MANAGER POINT OF CARE TEST ENTER/ED IT ORDERABLES Final Result [facility] [address] [place] [address] from Last 3 Months or Most Recently Relevant to Health Maintenance Insurance [place] Care Teams Retirement Plan Specialist Relationship Specialty Start Date End Date Micah Willoughby MD PCP - General 02/14/21
--- OUTSIDE RECORDS SUMMARY | 2024-08-31 12:34 | XMS_ITS | Encounter Summary ---
Author Organization [facility] Address [address] [place] [address] Care Team Providers Care Mortgage Processing Clerk Name Role Phone Micah Willoughby MD Primary Care Provider [phone] Encounter Details Date Type Department Care Team ([facility] st Contact Info) Description 05/25/2024 Telephone [facility] Nephrology, Bone & Mineral Metabolism [address] [facility] [address] [facility] [address], [address] [place] [address] Susanne Urbina, PharmD [address] [place] [address] Social History Tobacco Use Types [...] to obtain labs locally. Patient to let remote mortgage underwriter know. Susanne Urbina PharmD, BCACP Clinical [...] Description 09/07/2024 9:45 AM EDT Office Visit [facility] Advanced Eye Care [address] [place] [address] Ammy Siegel MD [address] [facility] [address] [place] [address] 09/26/2024 8:40 AM EDT Office Visit [facility] Nephrology, Bone & Mineral Metabolism [address] [facility] [address], [address] [place] [address] Evelyne Medel MD [address] [facility] [address] [place] [address] 11/01/2024 12:20 PM EDT Office Visit [facility] Endocrinology [address] [place] [address] Zohra Valenzuela, SOLAR SALES CONSULTANT [address] [facility] [address] [place] [address] Scheduled Orders Name Type Priority [...] documented as of this encounter Care Teams Mortgage Processing Clerk Relationship Specialty Start Date End Date Micah Willoughby MD PCP - General 02/14/21 documented as of this encounter
[2024-08-31 12:37] VITALS: BMI 35.1
[2024-08-31 12:50] VITALS: BP 125/85; PULSE 63; RESP 16; TEMP 36.1; O2SAT 99
[2024-08-31] MEDS: VITAMIN B-12 1,000 MCG 1ML VIAL 1000 MCG IM (12:50)
[2024-08-31 12:55] LABS: Hematocrit 32.6 % (42.0-52.0); Hemoglobin 11.3 g/dL (14.1-18.0); Immature Granulocytes % 0.2 %; Mean Corpuscular HGB Conc 34.7 g/dL (31.8-35.4); Mean Corpuscular Hemoglobin 37.3 pg (27.0-31.2); Mean Corpuscular Volume 107.6 fl (80-94); Nucleated Red Blood Cells % 0 %; Platelet Count 133 K/mm3 (142-424); Red Blood Count 3.03 M/mm3 (4.60-6.20); Red Cell Distribution Width-SD 48.4 fL; White Blood Count 4.1 K/mm3 (4.8-10.8)
[2024-08-31 12:59] LABS: Chloride 105 mmol/L (98-107)
[2024-08-31 13:00] LABS: Albumin Level 3.1 g/dl (3.5-5.0); Potassium 3.9 mmoL/L (3.5-5.1); Sodium 137 mmol/L (136-145)
[2024-08-31 13:02] LABS: Blood Urea Nitrogen 8 mg/dl (9-20); Creatinine Clearance Estimated 193 mL/min (50-200); Creatinine,Serum 0.70 mg/dl (0.66-1.25); Estimated Glomerular Filt Rate 119 ml/min (>60); GFR (African American) 144 ML/MIN (>60)
[2024-08-31 13:03] LABS: Alanine Aminotransferase 28 U/L (12-78); Albumin/Globulin Ratio 1.0 (1.1-1.8); Alkaline Phosphatase 174 U/L (38-126); Anion Gap 7.9 mEq/L (5-15); Aspartate Amino Transferase 94 U/L (17-59); Bilirubin,Total 0.9 mg/dl (0.2-1.3); Calcium 8.2 mg/dl (8.4-10.2); Carbon Dioxide 28 mmol/L (22.0-30.0); Globulin 3.2 g/dL (1.3-3.2); Glucose 56 mg/dl (74-100); Total Protein,Serum 6.3 g/dl (6.3-8.2)
[2024-08-31 14:16] LABS: Vitamin B12 916767 pg/mL (239-931)
[2024-08-31 23:47] LABS: Folate 11.00 ng/mL
== END 2024-08-31 13:00 | disposition home or self-care (01) ==
LOC: INF 12:31
PROVIDERS: PCP Family Medicine; Visit Provider Internal Medicine Medical Oncology
DX: D50.9 Iron deficiency anemia, unspecified (principal)
CPT/HCPCS: 36415; 80053; 82607; 82746; 85025; 96372; J3420

== ENCOUNTER 2024-10-02 11:53 | Emergency (ER) | payer MEDICAID, SELFPAY ==
[2024-10-02 11:59] VITALS: BP 111/85; PULSE 83; O2SAT 100
[2024-10-02 12:00] VITALS: BP 119/84; PULSE 82; O2SAT 100
--- OUTSIDE RECORDS SUMMARY | 2024-10-02 12:01 | XMS_ITS | Encounter Summary ---
Author Organization [facility] Address [address] [place] [address] Care Team Providers Care Real Estate Closer Name Role Phone Micah Willoughby MD Primary Care Provider [phone] Encounter Details Date Type Department Care Team (Latest Contact Info) Description 09/26/2024 Travel Social History Tobacco Use Types Packs/Day Years [...] on file documented as of this encounter Plan of Treatment Upcoming Encounters Date Type Department Care Team (Late st Contact Info) Description 11/01/2024 12:20 PM EDT Office Visit [facility] Endocrinology [address] [place] [address] Zohra Valenzuela, PRESCRIPTION CLERK [address] [facility] [address] [place] [address] 11/14/2024 10:00 AM EDT Office Visit [facility] Nephrology, Bone & Mineral Metabolism [address] [facility], [address] [place] [address] Evelyne Medel MD [address] [place] [address] 11/15/2024 10:15 AM EDT Office Visit [facility] Eye Care [address] [place] [address] Ammy Siegel MD [address] [place] [address] documented as of this encounter Visit Diagnoses Not on filedocumented in this encounter Additional Health Concerns Assessment Noted Time A fall risk assessment has been complete d for the patient 09/26/2024 8:53 AM EDT A Body Mass Index follow-up plan has been documented for the patient 06/02/2024 6:09 PM EDT documented as of this encounter Care Teams Real Estate Closer Relationship Specialty Start Date End Date Micah Willoughby MD PCP - General 02/14/21 documented as of this encounter
--- OUTSIDE RECORDS SUMMARY | 2024-10-02 12:01 | XMS_ITS | Clinical Summary ---
Author Organization [facility] Address [address] [place] [address] Phone Care Team Providers Care Gambreler Name Role Phone Unavailable Primary Care Provider [...] (ASTELIN) 137 mcg (0.1 %) Nasl Aerosol, [place] 274 mcg in each nostril 4 times [...]
--- OUTSIDE RECORDS SUMMARY | 2024-10-02 12:01 | XMS_ITS | Clinical Summary ---
Author Organization [facility] Address [address] [place] [address] Care Team Providers Care Cigar Tobacco Rehandler Name Role Phone Micah Willoughby MD Primary Care Provider [phone] Allergies Active Allergy Reactions Criticality Noted Date [...] DAYS 9 each 3 09/16/19 24 Active glucagon (Baqsimi [...] the morning. 15 mL 4 03/24/19 25 026 Active insulin pen needle (B-D ULTRAFINE III SHORT PEN) 31G X 8 mm [facility] Use to inject 1-4 times daily as directed 120 each 11 03/24/19 25 Active carvedilol (Coreg) 3.125 MG tablet TAKE 1 TABLET BY MOUTH TWICE A DAY WITH A MEAL 180 tablet 3 08/09/19 25 Active valsartan (Diovan) 80 MG tablet Take 1 tablet by mouth daily. 06/22/19 25 Active torsemide (Demadex) 20 MG tablet Take 1 tablet by mouth daily. 06/22/19 25 Active Continuous Glucose Transmitter (Dexcom G6 transmitter) [facility] USE DIRECTED TO MONITOR BLOOD GLUCOSE. CHANGE EVERY 90 DAYS 1 each 09/16/19 25 Active folic acid (Folvite) 1 MG tablet 07/26/19 25 Active Vowst capsule 09/16/19 25 Active Farxiga 10 MG tablet 09/02/19 25 Active cyanocobalamin (Vitamin B-12) 1000 MCG/ML injection 09/02/19 25 Active gabapentin (Neurontin) 400 MG capsule 04/14/19 25 Active Continuous Glucose Transmitter (Dexcom G6 transmitter) misc Use as instructed every 90 days 1 each 3 09/16/19 24 025 Discontinued acetone, urine, test strip 1 strip if needed for high blood sugar. 25 strip 3 03/24/19 25 025 Active Problems Problem Noted Date Diagnosed Date [...] Encounters Date Type Department Care Team Description 09/28/2024 [facility] Nephrology, Bone & Mineral Metabolism [address] [facility], [address] [place] [address] Susanne Urbina, PharmD 09/26/2024 [facility] Nephrology, Bone & Mineral Metabolism [address], [address] [place] [address] Marley Moreira, GAS FURNACE INSTALLER 09/26/2024 Travel 09/15/2024 Refill [facility] Endocrinology [address] [place] [address] Zohra Valenzuela, TELEPHONE ADVICE NURSE 09/12/2024 [facility] Nephrology, Bone & Mineral Metabolism [address], [address] [place] [address] Susanne Urbina, PharmD 08/06/2024 [facility] Nephrology, Bone & Mineral Metabolism [address] [facility], [address] [place] [address] Evelyne Medel MD from Last 3 Months Family History Medical [...] EDT Inhaled Oxygen Concentration - - Weight 111 kg (245 lb) 09/26/2024 8:46 AM EDT Height 175.3 cm (5' 9 ) 09/26/2024 8:46 AM EDT Body Mass Index 36.18 09/26/2024 8:46 AM EDT Plan of Treatment Upcoming Encounters Date Type Department Care Team (Late st Contact Info) Description 11/01/2024 12:20 PM EDT Office Visit [facility] Endocrinology [facility] [place] [address] Zohra Valenzuela, TELEPHONE ADVICE NURSE [address] [place] [address] 11/14/2024 10:00 AM EDT Office Visit [facility] Nephrology, Bone & Mineral Metabolism [address] [facility], [address] [place] [address] Evelyne Medel MD [address] [place] [address] 11/15/2024 10:15 AM EDT Office Visit [facility] Eye Care [address] [facility] [place] [address] Ammy Siegel MD [address] [place] [address] Health Maintenance Due Date Last Done Comments [...] (2 of 2 - PCV) 01/06/2020 01/05/2019 [id number] Vaccine (2023- season) 2023 12/04/2021, 06/05/2021, 12/12/2020, [...] A1C 6.8 <5.7% Non-Diabe tic % [facility] Kit Lot Number [id number] [facility] Kit Expiration Date 01/08/2026 [facility] Blood Venous blood specimen / Unknown 03/24/2024 11:23 AM EST us Zohra Valenzuela TELEPHONE ADVICE NURSE POINT OF CARE TEST ENTER/ED IT ORDERABLES Final Result [facility] [address] [place] [address] from Last 3 Months or Most Recently Relevant to Health Maintenance Insurance [employer] [place]ID [place] Care Teams Cigar Tobacco Rehandler Relationship Specialty Start Date End Date Micah Willoughby MD PCP - General 02/14/21
--- OUTSIDE RECORDS SUMMARY | 2024-10-02 12:01 | XMS_ITS | Encounter Summary ---
Author Organization [facility] Address [address] [place] [address] Care Team Providers Care Runner Man Name Role Phone Micah Willoughby MD Primary Care Provider [phone] Reason for Visit * Reason Comments Med Refill Encounter Details Date Type Department Care Team (Late Contact Info) Description 09/15/2024 Refill [facility] Endocrinology [address] [place] [address] Zohra Valenzuela PROFESSOR CRIMINAL JUSTICE [address] [address] Social History Tobacco Use Types Packs/Day Years [...] Encounters Date Type Department Care Team (Late Contact Info) Description 11/01/2024 12:20 PM EDT Office Visit [facility] Endocrinology [address] [place] [address] Zohra Valenzuela, PROFESSOR CRIMINAL JUSTICE [address] [address] 11/14/2024 10:00 AM EDT Office Visit [facility] [place] Nephrology, Bone & Mineral Metabolism [address] [facility], [address] [place] [address] Evelyne Medel MD [address] [facility] [address] [place] [address] 11/15/2024 10:15 AM EDT Office Visit [facility] Eye Care [address] [place] [address] Ammy Siegel MD [address] [facility] [address] [place] [address] documented as of this encounter Visit Diagnoses Not on filedocumented in this encounter Additional Health Concerns Assessment Noted Time A fall risk assessment has been complete d for the patient 05/23/2024 7:57 AM EDT A Body Mass Index follow-up plan has been documented for the patient 06/02/2024 6:09 PM EDT documented as of this encounter Care Teams Runner Man Relationship Specialty Start Date End Date Micah Willoughby MD PCP - General 02/14/21 documented as of this encounter
--- OUTSIDE RECORDS SUMMARY | 2024-10-02 12:01 | XMS_ITS | Encounter Summary ---
Author Organization [facility] Address [address] [place] [address] Care Team Providers Care Welfare Investigator Name Role Phone Micah Willoughby MD Primary Care Provider [phone] Reason for Visit * Reason Comments Med Refill Encounter Details Date Type Department Care Team ([facility] st Contact Info) Description 08/06/2024 Refill [facility] Nephrology, Bone & Mineral Metabolism [address] [facility], [address] [place] [address] Evelyne Medel MD [address] [place] [address] Social History Tobacco Use Types [...] Description 11/01/2024 12:20 PM EDT Office Visit [facility] Endocrinology [address] [place] [address] Zohra Valenzuela, FIRST MATE [address] [facility] [address] [place] [address] 11/14/2024 10:00 AM EDT Office Visit [facility] Nephrology, Bone & Mineral Metabolism [address] [facility], [address] [place] [address] Evelyne Medel MD [address] [place] [address] 11/15/2024 10:15 AM EDT Office Visit [facility] Eye Care [address] [facility] [place] [address] Ammy Siegel MD [address] [facility] [address] [place] [address] documented as of this encounter Visit Diagnoses Not on filedocumented in this encounter Additional Health Concerns Assessment Noted Time A fall risk assessment has been complete d for the patient 05/23/2024 7:57 AM EDT A Body Mass Index follow-up plan has been documented for the patient 06/02/2024 6:09 PM EDT documented as of this encounter Care Teams Welfare Investigator Relationship Specialty Start Date End Date Micah Willoughby MD PCP - General 02/14/21 documented as of this encounter
--- OUTSIDE RECORDS SUMMARY | 2024-10-02 12:01 | XMS_ITS | Encounter Summary ---
Author Organization [facility] Address [address] [place] [address] Care Team Providers Care Manager Estate Name Role Phone Micah Willoughby MD Primary Care Provider [phone] Encounter Details Date Type Department Care Team (Late Contact Info) Description 09/26/2024 Telephone [facility] Nephrology, Bone & Mineral Metabolism [address] [facility], [address] [place] [address] Marley Moreira, POWER TRANSFORMER ASSEMBLER GS - 7 MAIN MEDICAL-SURGICAL Social History Tobacco Use Types Packs/Day Years [...] encounter Miscellaneous Notes * Telephone Encounter - Marley Moreira - 09/26/2024 9:08 AM EDT 09/26/24 called pt and told pt dr arrieta can't do his telehealth unless he can see him too keep trying to log in.gave him [phone] technical support number documented in this encounter Plan of Treatment Upcoming Encounters Date Type Department Care Team (Late Contact Info) Description 11/01/2024 12:20 PM EDT [facility] [address] [place] [address] Zohra Valenzuela, ECONOMICS TEACHER [address] [place] [address] 11/14/2024 10:00 AM EDT Office Visit [facility] Nephrology, Bone & Mineral Metabolism [address] [facility], [address] [place] [address] Evelyne Medel MD [address] [facility] [address] [place] [address] 11/15/2024 10:15 AM EDT Office Visit [facility] Eye Care [address] [place] [address] Ammy Siegel MD [address] [facility] [address] [place] [address] documented as of this encounter Visit Diagnoses Not on filedocumented in this encounter Additional Health Concerns Assessment Noted Time A fall risk assessment has been complete d for the patient 09/26/2024 8:53 AM EDT A Body Mass Index follow-up plan has been documented for the patient 06/02/2024 6:09 PM EDT documented as of this encounter Care Teams Manager Estate Relationship Specialty Start Date End Date Micah Willoughby MD PCP - General 02/14/21 documented as of this encounter
--- OUTSIDE RECORDS SUMMARY | 2024-10-02 12:01 | XMS_ITS | Encounter Summary ---
Author Organization [facility] Address [address] [place] [address] Care Team Providers Care Wader Boot Top Assembler Name Role Phone Micah Willoughby MD Primary Care Provider [phone] Encounter Details Date Type Department Care Team ([facility] st Contact Info) Description 09/12/2024 Telephone [facility] Nephrology, Bone & Mineral Metabolism [address], [address] [place] [address] Susanne Urbina, PharmD [address] [place] [address] Social History Tobacco Use Types [...] Telephone Encounter - Susanne Urbina, PharmD - 09/12/2024 4:15 PM EDT Received call from Julio Myrick to confirm upcoming appointment with Dr. Desai, discussed appointment details on 09/26 at 8:40 AM. He plans to have labs drawn on Thursday or Thursday of next week (09/19 -09/20) in prep for visit, requests orders be faxed to [facility] [phone]. documented in this encounter Plan of Treatment Upcoming Encounters Date Type Department Care Team (Late st Contact Info) Description 11/01/2024 12:20 PM EDT [facility] [address] [place] [address] Zohra Valenzuela, CANNON CREWMEMBER [address] [facility] [address] [place] [address] 11/14/2024 10:00 AM EDT Office Visit [facility] Nephrology, Bone & Mineral Metabolism [address], [address] [place] [address] Evelyne Medel MD [address] [place] [address] 11/15/2024 10:15 AM EDT Office Visit [facility] Care [address] [facility] [place] [address] Ammy Siegel MD [address] [facility] [address] [place] [address] documented as of this encounter Visit Diagnoses Not on filedocumented in this encounter Additional Health Concerns Assessment Noted Time A fall risk assessment has been complete d for the patient 05/23/2024 7:57 AM EDT A Body Mass Index follow-up plan has been documented for the patient 06/02/2024 6:09 PM EDT documented as of this encounter Care Teams Wader Boot Top Assembler Relationship Specialty Start Date End Date Micah Willoughby MD PCP - General 02/14/21 documented as of this encounter
--- OUTSIDE RECORDS SUMMARY | 2024-10-02 12:01 | XMS_ITS | Encounter Summary ---
Author Organization [facility] Address [address] [place] [address] Care Team Providers Care Land Use Planner Name Role Phone Micah Willoughby MD Primary Care Provider [phone] Encounter Details Date Type Department Care Team ([facility] st Contact Info) Description 09/28/2024 Telephone [facility] Nephrology, Bone & Mineral Metabolism [address] [facility], [address] [place] [address] Susanne Urbina, PharmD [address] [place] [address] Social History Tobacco Use Types [...] Telephone Encounter - Susanne Urbina, PharmD - 09/28/2024 8:[address] Langley reviewed lab results with Julioberenice Donald Ramez yesterday, Cr stable at 1.13, sodium and potassium in the normal range. Serum Albumin was suspiciously lower at 2.4 but UPCR 0.3 and no signs of edema. He is off torsemide right now. Vitamin D slightly low at 29. Also discussed results with Dr. Medel, no changes indicated at this time. Will repeat labs in ~6 weeks prior to rescheduled visit on 11/14/24, orders entered. Linh TravisD, BCACP Clinical Pharmacist Nephrology Clinic documented in this encounter Plan of Treatment Upcoming Encounters Date Type Department Care Team (Late st Contact Info) Description 11/01/2024 12:20 PM EDT Office Visit [facility] Endocrinology [address] [place] [address] Zohra Valenzuela, MANAGER VALIDATION [address] [facility] [address] [place] [address] 11/14/2024 10:00 AM EDT Office Visit [facility] Nephrology, Bone & Mineral Metabolism [address] [facility], [address] [place] [address] Evelyne Medel MD [address] [facility] [address] [place] [address] 11/15/2024 10:15 AM EDT Office Visit [facility] [address] [place] [address] Ammy Siegel MD [address] [facility] [address] [place] [address] Scheduled Orders Name Type Priority Associated Diagnoses Orde r Schedule PTH Intact Total Lab Routine Stage 3a chronic kidney disease ([facility]) Expected: 11/07/2024 (Approximate), Expires: 04/01/2026 Vitamin D 25 Hydroxy Lab Routine Stage 3a chronic kidney disease ([facility]) Expected: 11/07/2024 (Approximate), Expires: 04/01/2026 Creatinine, Random, Urine Lab Routine Stage 3a chronic kidney disease ([facility]) Expected: 11/07/2024 (Approximate), Expires: 04/01/2026 Protein, Random, Urine with Creatinine Lab Routine Stage 3a chronic kidney disease ([facility]) Expected: 11/07/2024 (Approximate), Expires: 04/01/2026 Urinalysis with reflex microscopic (Culture NOT Included) Lab Routine Stage 3a chronic kidney disease ([facility]) Expected: 11/07/2024 (Approximate), Expires: 04/01/2026 CBC W/O Differential Lab Routine Stage 3a chronic kidney disease ([facility]) Expected: 11/07/2024 (Approximate), Expires: 04/01/2026 Renal Function Panel, Plasma Lab Routine Stage 3a chronic kidney disease ([facility]) Expected: 11/07/2024 (Approximate), Expires: 04/01/2026 documented as of this encounter Visit Diagnoses Diagnosis Stage 3a chronic kidney disease ([facility])- Primary documented in this encounter Additional Health Concerns Assessment Noted Time A fall risk assessment has been complete d for the patient 09/26/2024 8:53 AM EDT A Body Mass Index follow-up plan has been documented for the patient 06/02/2024 6:09 PM EDT documented as of this encounter Care Teams Land Use Planner Relationship Specialty Start Date End Date Micah Willoughby MD PCP - General 02/14/21 documented as of this encounter
--- OUTSIDE RECORDS SUMMARY | 2024-10-02 12:01 | XMS_ITS | Encounter Summary ---
Author Organization [facility] Address [address] [place] [address] Care Team Providers Care Agency Sales Development Associate Name Role Phone Micah Willoughby MD Primary Care Provider [phone] Unavailable [phone] Reason for Visit * Reason Comments Med Refill Encounter Details Date Type Department Care Team ([facility] Contact Info) Description 10/09/2022 Refill [facility] Nephrology, Bone & Mineral Metabolism [address], [address] [place] [address] Evelyne Medel MD [address] [place] [address] Primary hypertension Social History Tobacco [...] Description 11/01/2024 12:20 PM EDT [facility] [address] [place] [address] Zohra Valenzuela, MANAGER DIGITAL [address] [facility] [address] [place] [address] 11/14/2024 10:00 AM EDT Office Visit [facility] Nephrology, Bone & Mineral Metabolism [address], [address] [place] [address] Evelyne Medel MD [address] [place] [address] 11/15/2024 10:15 AM EDT Office Visit [facility] Eye Care [address] [facility] [place] [address] Ammy Siegel MD [address] [facility] [address] [place] [address] documented as of this encounter Visit Diagnoses Diagnosis Primary hypertension Unspecified essential hypertension documented in this encounter Additional Health Concerns Assessment Noted Time A fall risk assessment has been complete d for the patient 06/02/2022 8:59 AM EDT A Body Mass Index follow-up plan has been documented for the patient 07/31/2022 9:32 AM EDT documented as of this encounter Care Teams Agency Sales Development Associate Relationship Specialty Start Date End Date Micah Willoughby MD PCP - General 02/14/[address] [facility] [address] [place] [address] Insole And Outsole Splitter [facility] 12/04/23 03/03/24 documented as of this encounter
[2024-10-02 12:02] VITALS: BP 111/85; PULSE 83; RESP 18; TEMP 36.7; O2SAT 100; BMI 36.9
--- NOTE | 2024-10-02 12:08 | HMH.EDGENADL ---
Discharge Plan Disposition Patient Disposition: Home, Self-Care Prescriptions Prescriptions: New cephalexin 500 mg capsule 500 mg PO BID 7 Days Qty: 14 0RF doxycycline hyclate 100 mg capsule 100 mg PO BID 5 Days Qty: 10 0RF No Action cholecalciferol (vitamin D3) 1,250 mcg (50,000 unit) capsule 1,250 mcg PO WEEKLY Patient Comments: TAKE 1 CAPSULE BY MOUTH 1 TIME EVERY WEEK (DME) Dexcom G6 Sensor Device See Rx Instructions .ROUTE .MEDSUPPLY Qty: 1 Rx Instructions: As directed nitroglycerin 0.4 mg tablet, sublingual 0.4 mg sublingual Q5-15M PRN (Reason: chest pain) Qty: 30 0RF Rx Instructions: do not exceed 3 doses per episode (DME) pen needle, diabetic 31 gauge x 5/16 needle See Rx Instructions .ROUTE .MEDSUPPLY Qty: 1200 Rx Instructions: As directed insulin lispro [Admelog SoloStar U-100 Insulin] 100 unit/mL insulin pen 2 sliding scale dose SQ USEASDIRECTD Patient Comments: 1 unit every 5 grams of carbs Basaglar KwikPen U-100 Insulin 100 unit/mL (3 mL) insulin pen 20 unit SQ DAILY Patient Comments: BASAGALAR Glucagon Emergency Kit (human) 1 mg recon soln 1 mg IM ONCE Patient Comments: INJECT 1 MG INTO THE MUSCLE ONCE IF NEEDED FOR LOW BLOOD SUGAR (DME) Dexcom G6 Transmitter Device See Rx Instructions .ROUTE .MEDSUPPLY Qty: 1 Rx Instructions: As directed valsartan 80 mg tablet 80 mg PO DAILY Qty: 90 3RF cyanocobalamin (vitamin B-12) 1,000 mcg/mL kit 1,000 mcg SQ QMONTH Qty: 3 3RF dapagliflozin propanediol [Farxiga] 10 mg tablet 10 mg PO DAILY Qty: 30 2RF torsemide 20 mg tablet 20 mg PO DAILY PRN (Reason: Fluid) Saccharomyces boulardii [Daily Probiotic (S. boulardii)] 250 mg capsule 250 mg PO BID pravastatin 20 mg tablet See Rx Instructions .ROUTE .COMPLEX Qty: 90 3RF Dose Instruction: TAKE 1 TABLET BY MOUTH DAILY FOR CHOLESTEROL Rx Instructions: TAKE 1 TABLET BY MOUTH DAILY FOR CHOLESTEROL Vivitrol 380 mg suspension,extended rel recon 380 mg IM QMONTH Qty: 1 10RF omeprazole 20 mg capsule,delayed release(/EC) 20 mg PO DAILY Qty: 30 2RF folic acid 1 mg tablet 1 mg PO DAILY Qty: 30 12RF Rx Instructions: Please take 1 tablet p.o. daily gabapentin 600 mg tablet 600 mg PO TID Qty: 90 1RF Dificid 200 mg tablet 200 mg PO BID 10 Days Qty: 20 0RF Rx Instructions: Please take 1 tablet p.o. twice daily x 10 days Vowst Capsule 4 cap PO DAILY 3 Days Qty: 12 0RF Rx Instructions: Please administer 4 capsules by mouth daily on an empty stomach (on day 1, but should not have food for 8 hours) on day 2 and 3 (2 hours before first meal) and the first dosing should be within 8 to 12 hours after having the bottle of magnesium citrate administered zolpidem [Ambien] 10 mg tablet 10 mg PO HS PRN (Reason: insomnia) Qty: 30 3RF carvedilol 3.125 mg tablet 3.125 mg PO DAILY Rx Instructions: must administer with a meal/food Referrals Follow up/Referrals: Micah Willoughby MD [Primary Care Provider, Family Practice] - See instructions Activity Restrictions/Add. Instructions Additional Instructions/Restrictions: Take medication as directed. Please follow-up with your PCP on Thursday or Thursday. If not improving please follow-up with PCP or return to ED. Clinical Impressions Clinical Impression: Cellulitis Instructions Patient Instructions: Cellulitis Print Language Print Language: Macedonian Discharge ED Provider: Florecita Gates General Adult HPI <Marisela Borja (ED), MILLER HELPER DISTILLERY - Last Filed: 10/02/24 12:22> General Chief complaint: Skin/Abscess/Foreign Body Stated complaint: foreign abcess on back Time Seen by Provider: 10/02/24 11:55 Mode of Arrival: Ambulatory Source of Information: Patient Description of Symptoms (Recalled from ER Triage Doc. by RN): Patient presents to ED for abscess at the right dorsogluteal. Patient received an IM injection of vivitrol over a month ago at this site. History of Present Illness HPI narrative: 48-year-old male presents to the ED for right dorsal gluteal abscess/redness, swelling and pain for 4 weeks. He had an IM injection of Valtrex? And that site 4 weeks ago and on this past Thursday he started noticing that it started getting more painful and more red. He says it hurts to sit on or touch. He has had no fevers, chills, nausea or vomiting. He says he is just concerned about this getting worse. He was told by 2 RNs to have this checked out. He went to his PCP Dr. Willoughby and he set up an ultrasound for Thursday. Related Data Home Medications ?Medication ?Instructions ?Recorded ?Confirmed insulin lispro 100 unit/mL 2 sliding scale dose SQ 10/22/20 09/28/24 subcutaneous pen (Admelog SoloSthuma USEASDIRECTD Diabetes U-100 Insulin lispro) glucagon 1 mg solution for 1 mg IM ONCE 02/17/22 09/28/24 injection (Glucagon Emergency Kit) insulin glargine 100 unit/mL (3 20 unit SQ DAILY Diabetes 03/11/22 09/28/24 mL) subcutaneous pen (Basaglar KwikPen U-100 Insulin) blood-glucose sensor (Dexcom G6 #1 ea 05/19/22 09/28/24 Sensor device) cholecalciferol (vitamin D3) 1,250 1,250 mcg PO WEEKLY 05/19/22 09/28/24 mcg (50,000 unit) capsule pen needle, diabetic 31 gauge x #1,200 ea 04/26/24 09/28/2406/24 blood-glucose transmitter (Dexcom #1 ea 06/21/24 09/28/24 G6 Transmitter device) carvedilol 3.125 mg tablet 3.125 mg PO DAILY 07/19/24 09/28/24 Saccharomyces boulardii 250 mg 250 mg PO BID 08/23/24 09/28/24 capsule (Daily Probiotic (S. boulardii)) torsemide 20 mg tablet 20 mg PO DAILY PRN Fluid 08/23/24 09/28/24 Previous Rx's ?Medication ?Instructions ?Recorded pravastatin 20 mg tablet See Rx Instructions .Route 01/11/24 .COMPLEX #90 tabs naltrexone microspheres 380 mg 380 mg IM QMONTH #1 ea 03/03/24 intramuscular suspension,extended release (Vivitrol) nitroglycerin 0.4 mg sublingual 0.4 mg sublingual Q5-15M PRN chest 03/16/24 tablet pain #30 tabs valsartan 80 mg tablet 80 mg PO DAILY #90 tabs 06/21/24 omeprazole 20 mg capsule,delayed 20 mg PO DAILY #30 caps 07/12/24 release folic acid 1 mg tablet 1 mg PO DAILY #30 tabs 07/25/24 gabapentin 600 mg tablet 600 mg PO TID #90 tabs 08/08/24 Farxiga 10 mg tablet 10 mg PO DAILY #30 tabs 08/31/24 (dapagliflozin propanediol) cyanocobalamin (vitamin B-12) 1,000 mcg SQ QMONTH #3 ea 08/31/24 1,000 mcg/mL injection kit Dificid 200 mg tablet (fidaxomicin) 200 mg PO BID 10 days #20 tabs 09/01/24 Vowst (fecal microbio 4 cap PO DAILY 3 days #12 caps 09/01/24 spore,live-brpk) zolpidem 10 mg tablet (Ambien) 10 mg PO HS PRN insomnia #30 tabs 09/07/24 cephalexin 500 mg capsule 500 mg PO BID 7 days #14 caps 10/02/24 doxycycline hyclate 100 mg capsule 100 mg PO BID 5 days #10 caps 10/02/24 Allergies Allergy/AdvReac Type Severity Reaction Status Date / Time No Known Allergies Allergy Verified 09/28/24 12:41 [facility] <Marisela Borja (ED), MILLER HELPER DISTILLERY - Last Filed: 10/02/24 12:22> [facility] Disclaimer: The information contained in this section may have been updated after the patient was seen, as this information can be updated by other users. 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 difficile diarrhea Abnormal liver enzymes Anemia with low platelet count Hyponatremia Weakness Hypotension Daytime somnolence Restless sleeper Elevated left ventricular end-diastolic pressure (LVEDP) Pulmonary hypertension Family history of early CAD Dyspnea Atypical angina Bilateral lower extremity edema BMI 35.0-35.9,adult Diabetic neuropathy Type 1 diabetes mellitus Hypertension Hyperlipidemia associated with type 2 diabetes mellitus Surgical History History of cardiac cath History of ankle surgery H/O gastric bypass Family History Mother Osteoarthritis Father Heart attack Other Family history of diabetes mellitus type II Social History Smoking Status: Never smoker alcohol intake: current alcohol intake frequency: a few times a week counseling given: Yes substance use type: denies use current occupational status: employed Travel in the last 8 weeks?: None housing: house marital status: single number of children: 0 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 caffeine: No brenda/jewish: Christian Have you lived/traveled outside US in past 30 days?: No Contact w/someone who lives/traveled outside US past 30 days?: No Exposure to someone with infectious disease in past 14 days?: No Do you have a fever (greater than 100.4 F or 38 C)?: No Have you tested positive for COVID-19?: No Exposed to someone with COVID-19 in past 14 days?: No Do you have a sore throat?: No Do you have a cough?: No Do you have any weakness?: No Do you have any diarrhea?: No Are you experiencing any unusual bleeding?: No Do you have any muscle aches/pain?: No Do you have any abdominal pain?: No Are you experiencing loss of taste or smell?: No Other Medical History Have you received the Flu Vaccine for this season: No Have you received the Pneumonia Vaccine: No <Marisela Borja (ED), MILLER HELPER DISTILLERY - Last Filed: 10/02/24 12:22> ROS Obtained: Yes Systems reviewed as appropriate & no additional complaints except as documented Constitutional Constitutional: Reports as per HPI Physical Exam <Marisela Borja (ED), MILLER HELPER DISTILLERY - Last Filed: 10/02/24 12:22> General General appearance: alert Head Head exam: normocephalic Eye Eye exam: Present PERRL and EOMI ENT ENT exam: Present normal oropharynx and mucous membranes moist Neck Neck exam: Present full ROM and trachea midline Respiratory Respiratory exam: Present normal lung sounds bilaterally Cardiovascular Cardiovascular exam: Present regular rate, normal rhythm, normal heart sounds, +S1 and +S2 Extremities Exam Extremities exam: Present tenderness (Right dorsal gluteal with erythema, induration approximately 2 inches around the area of injection) and normal capillary refill Neurological Exam Neurological exam: Present alert and oriented X3 Skin Skin exam: Present warm, dry and erythema (Right torso gluteal with erythema at injection site with approximately 2 inches of induration around the injection site, painful) Medical Decision Making <Marisela Borja (ED), MILLER HELPER DISTILLERY - Last Filed: 10/02/24 12:22> Medical Records Screening: Per USPSTF and CDC recommendations, given the prevalence of disease in our region, it is our hospital?s policy to screen for HIV and viral Hepatitis for all patients aged 18 and over and those with ongoing risk factors. Eladio Inquiry Pt receiving controlled substance: No Eladio was queried for this patient: No Vital Signs: 10/02/24 11:59 10/02/24 12:00 10/02/24 12:02 Temperature 98.0 F Temperature Source Oral Pulse Rate 83 82 Pulse Rate [Right] 83 Respiratory Rate 18 Blood Pressure 111/85 119/84 Blood Pressure [Right Arm] 111/85 Blood Pressure Mean [Right Arm] 93 Blood Pressure Source Blood Pressure Position 02 Sat by Pulse Oximetry 100 100 100 Oxygen Delivery Method Room Air 10/02/24 12:02 10/02/24 12:35 Temperature 98.0 F 98.0 F Temperature Source Oral Pulse Rate 83 87 Pulse Rate [Right] Respiratory Rate 18 18 Blood Pressure 111/85 119/84 Blood Pressure [Right Arm] Blood Pressure Mean [Right Arm] Blood Pressure Source Automatic Cuff Blood Pressure Position Sitting 02 Sat by Pulse Oximetry 100 Oxygen Delivery Method Room Air Orders (Tests/Meds): ORDERS Category Date Time Status POCUS Point of Care (ER Only) Stat Exams 10/02/24 12:04 Completed Medical Decision Narrative: patient is a 48-year-old male presenting to the emergency department for evaluation of injection site reaction, infection. Patient is hemodynamically stable and nontoxic-appearing upon arrival, afebrile. Differential diagnosis includes abscess versus injection site reaction, cellulitis, among others. Workup will be conducted specific imaging including POCUS by ED doc. The POCUS indicated cellulitis at the site so patient will be given Keflex and doxycycline for treatment of cellulitis. He does not have an abscess. Will give patient Keflex and doxycycline to treat cellulitis. Patient will be discharged with meds and he will follow-up with his PCP. <Florecita Gates MD - Last Filed: 10/02/24 16:12> Vital Signs: 10/02/24 11:59 10/02/24 12:00 10/02/24 12:02 Temperature 98.0 F Temperature Source Oral Pulse Rate 83 82 Pulse Rate [Right] 83 Respiratory Rate 18 Blood Pressure 111/85 119/84 Blood Pressure [Right Arm] 111/85 Blood Pressure Mean [Right Arm] 93 Blood Pressure Source Blood Pressure Position 02 Sat by Pulse Oximetry 100 100 100 Oxygen Delivery Method Room Air 10/02/24 12:02 10/02/24 12:35 Temperature 98.0 F 98.0 F Temperature Source Oral Pulse Rate 83 87 Pulse Rate [Right] Respiratory Rate 18 18 Blood Pressure 111/85 119/84 Blood Pressure [Right Arm] Blood Pressure Mean [Right Arm] Blood Pressure Source Automatic Cuff Blood Pressure Position Sitting 02 Sat by Pulse Oximetry 100 Oxygen Delivery Method Room Air Orders (Tests/Meds): ORDERS Category Date Time Status POCUS Point of Care (ER Only) Stat Exams 10/02/24 12:04 Completed Medical Decision Narrative: patient is a 48-year-old male presenting to the emergency department for evaluation of injection site reaction, infection. Patient is hemodynamically stable and nontoxic-appearing upon arrival, afebrile. Differential diagnosis includes abscess versus injection site reaction, cellulitis, among others. Workup will be conducted specific imaging including POCUS by ED doc. The POCUS indicated cellulitis at the site so patient will be given Keflex and doxycycline for treatment of cellulitis. He does not have an abscess. Will give patient Keflex and doxycycline to treat cellulitis. Patient will be discharged with meds and he will follow-up with his PCP. I was consulted by the KENJI, and we discussed the complexity of problems being addressed. I approved the treatment and management plan for this patient's care in the emergency department, thus performing a substantial portion of the medical decision making. Florecita Gates MD Procedures <Florecita Gates MD - Last Filed: 10/02/24 16:12> Limited Ultrasound Indication:: swelling Views:: Indication: Soft tissue redness and swelling Identified structures: Dermis and muscle of right buttock Location: Right buttock Findings: Cellulitis without abscess Impression: Cellulitis Images were saved to the permanent archive. The study was technically adequate. Soft tissue CPT codes Neck: 14677-13 Upper extremity: 41340-55 Axilla: 36388-68 Chest wall: 51541-11 Breast: 29619-06 (complete), 24155-53-[RT/LT] (limited) Upper back: 98831-23 Abdominal wall: 52067-16 Pelvic wall: 90323-06 Lower extremity: 23215-30 Other soft tissue: 93905-25 This study was performed by me, and I personally interpreted all images/videos. Based on my clinical judgment, these images were did and did not necessitate further imaging. Critical Care <Florecita Gates MD - Last Filed: 10/02/24 16:12> Critical Care Time Critical Care Time: No
[2024-10-02 12:35] VITALS: BP 119/84; PULSE 87; RESP 18; TEMP 36.7; O2SAT 99
== END 2024-10-02 12:41 | disposition home or self-care (01) ==
PROVIDERS: Emergency Provider Student in an Organized Health Care Education/Training Program; PCP Family Medicine
DX: L03.317 Cellulitis of buttock (principal)
CPT/HCPCS: 10060; 99283

== ENCOUNTER 2024-10-12 11:09 | Outpatient (CLI) | payer MEDICAID, SELFPAY ==
--- OUTSIDE RECORDS SUMMARY | 2024-10-12 11:34 | XMS_ITS | Encounter Summary ---
Author Organization [facility] Address [address] [place] [address] Care Team Providers Care Date Pitter Name Role Phone Micah Willoughby MD Primary Care Provider [phone] Unavailable [phone] Reason for Visit * Reason Comments Med Refill Encounter Details Date Type Department Care Team ([facility] Contact Info) Description 10/09/2022 Refill Professional [facility] Nephrology, Bone & Mineral Metabolism [address], [address] [place] [address] Evelyne Medel MD [address] [place] [address] Primary hypertension Social History Tobacco [...] Description 11/01/2024 12:20 PM EDT [facility] [address] [place] [address] Zohra Valenzuela, SOLUTION DESIGN ENGINEER [address] [facility] [address] [place] [address] 11/14/2024 10:00 AM EDT Office Visit [facility] Nephrology, Bone & Mineral Metabolism [address] [facility], [address] [place] [address] Evelyne Medel MD [address] [place] [address] 11/15/2024 10:15 AM EDT Office Visit [facility] Eye Care [address] [facility] [place] [address] Ammy Siegel MD [address] [facility] [address] [place] [address] documented as of this encounter Visit Diagnoses Diagnosis Primary hypertension Unspecified essential hypertension documented in this encounter Additional Health Concerns Assessment Noted Time A fall risk assessment has been complete d for the patient 06/02/2022 8:59 AM EDT A Body Mass Index follow-up plan has been documented for the patient 07/31/2022 9:32 AM EDT documented as of this encounter Care Teams Date Pitter Relationship Specialty Start Date End Date Micah Willoughby MD PCP - General 02/14/[address] [facility] [address] [place] [address] Deputy General Counsel Diabetes Services 12/04/23 03/03/24 documented as of this encounter
--- OUTSIDE RECORDS SUMMARY | 2024-10-12 11:34 | XMS_ITS | Encounter Summary ---
Author Organization [facility] Address [address] [place] [address] Care Team Providers Care On Site Nurse Name Role Phone Micah Willoughby MD Primary Care Provider [phone] Encounter Details Date Type Department Care Team ([facility] st Contact Info) Description 09/28/2024 Telephone [facility] Nephrology, Bone & Mineral Metabolism [address] [facility], [address] [place] [address] Susanne Urbina, PharmD [address] [place] [address] Social History Tobacco Use Types [...] Description 11/01/2024 12:20 PM EDT Office Visit [facility] Endocrinology [address] [place] [address] Zohra Valenzuela, PODOPEDIATRICIAN [address] [facility] [address] [place] [address] 11/14/2024 10:00 AM EDT Office Visit [facility] Nephrology, Bone & Mineral Metabolism [address] [facility], [address] [place] [address] Evelyne Medel MD [address] [facility] [address] [place] [address] 11/15/2024 10:15 AM EDT Office Visit [facility] Eye Care [address] [place] [address] Ammy Siegel MD [address] [facility] [address] [place] [address] Scheduled Orders Name Type Priority Associated Diagnoses Orde r Schedule PTH Intact Total Lab Routine Stage 3a chronic kidney disease ([facility]) Expected: 11/07/2024 (Approximate), Expires: 04/01/2026 Vitamin D 25 Hydroxy Lab Routine Stage 3a chronic kidney disease ([facility]) Expected: 11/07/2024 (Approximate), Expires: 04/01/2026 Creatinine, Random, Urine Lab Routine Stage 3a chronic kidney disease ([facility]) Expected: 11/07/2024 (Approximate), Expires: 04/01/2026 Protein, Random, Urine with Creatinine Lab Routine Stage 3a chronic kidney disease ([facility]) Expected: 11/07/2024 (Approximate), Expires: 04/01/2026 Urinalysis with reflex microscopic (Culture NOT Included) Lab Routine Stage 3a chronic kidney disease ([facility]) Expected: 11/07/2024 (Approximate), Expires: 04/01/2026 CBC W/O Differential Lab Routine Stage 3a chronic kidney disease ([facility]) Expected: 11/07/2024 (Approximate), Expires: 04/01/2026 Renal Function Panel, Plasma Lab Routine Stage 3a chronic kidney disease ([facility]) Expected: 11/07/2024 (Approximate), Expires: 04/01/2026 documented as of this encounter Visit Diagnoses Diagnosis Stage 3a chronic kidney disease ([facility])- Primary documented in this encounter Additional Health Concerns Assessment Noted Time A fall risk assessment has been complete d for the patient 09/26/2024 8:53 AM EDT A Body Mass Index follow-up plan has been documented for the patient 06/02/2024 6:09 PM EDT documented as of this encounter Care Teams On Site Nurse Relationship Specialty Start Date End Date Micah Willoughby MD PCP - General 02/14/21 documented as of this encounter
--- OUTSIDE RECORDS SUMMARY | 2024-10-12 11:34 | XMS_ITS | Encounter Summary ---
Author Organization [facility] Address [address] [place] [address] Care Team Providers Care Services Account Manager Name Role Phone Micah Willoughby MD Primary Care Provider [phone] Encounter Details Date Type Department Care Team (Late Contact Info) Description 09/26/2024 Telephone [facility] Nephrology, Bone & Mineral Metabolism [address] [facility], [address] [place] [address] Marley Moreira, CHIEF PROJECTIONIST GS - 7 MAIN MEDICAL-SURGICAL Social History [...] too keep trying to log in.gave him [phone] technical support number documented in this encounter Plan of Treatment Upcoming Encounters Date Type Department Care Team (Late Contact Info) Description 11/01/2024 12:20 PM EDT [facility] [address] [place] [address] Zohra Valenzuela, INTERNAL MEDICINE PHYSICIAN [address] [place] [address] 11/14/2024 10:00 AM EDT Office Visit [facility] Nephrology, Bone & Mineral Metabolism [address] [facility], [address] [place] [address] Evelyne Medel MD [address] [facility] [address] [place] [address] 11/15/2024 10:15 AM EDT Office Visit [facility] Eye Care [address] [facility] [place] [address] Ammy Siegel MD [address] [facility] [address] [place] [address] documented as of this encounter Visit Diagnoses Not on filedocumented in this encounter Additional Health Concerns Assessment Noted Time A fall risk assessment has been complete d for the patient 09/26/2024 8:53 AM EDT A Body Mass Index follow-up plan has been documented for the patient 06/02/2024 6:09 PM EDT documented as of this encounter Care Teams Services Account Manager Relationship Specialty Start Date End Date Micah Willoughby MD PCP - General 02/14/21 documented as of this encounter
--- OUTSIDE RECORDS SUMMARY | 2024-10-12 11:34 | XMS_ITS | Encounter Summary ---
Author Organization [facility] Address [address] [place] [address] Care Team Providers Care Bilingual Case Manager Name Role Phone Micah Willoughby MD Primary Care Provider [phone] Encounter Details Date Type Department Care Team ([facility] st Contact Info) Description 09/12/2024 Telephone [facility] Nephrology, Bone & Mineral Metabolism [address] [facility], [address] [place] [address] Susanne Urbina, PharmD [address] [place] [address] Social History Tobacco Use Types [...] for visit, requests orders be faxed to [facility] [phone]. documented in this encounter Plan of Treatment Upcoming Encounters Date Type Department Care Team (Late st Contact Info) Description 11/01/2024 12:20 PM EDT [facility] End[facility] [address] [place] [address] Zohra Valenzuela, GENERAL OPERATIONS MANAGER [address] [facility] [address] [place] [address] 11/14/2024 10:00 AM EDT Office Visit [facility] Nephrology, Bone & Mineral Metabolism [address] [facility], [address] [place] [address] Evelyne Medel MD [address] [place] [address] 11/15/2024 10:15 AM EDT Office Visit [facility] Eye Care [address] [facility] [address] Ammy Siegel MD [address] [facility] [address] [place] [address] documented as of this encounter Visit Diagnoses Not on filedocumented in this encounter Additional Health Concerns Assessment Noted Time A fall risk assessment has been complete d for the patient 05/23/2024 7:57 AM EDT A Body Mass Index follow-up plan has been documented for the patient 06/02/2024 6:09 PM EDT documented as of this encounter Care Teams Bilingual Case Manager Relationship Specialty Start Date End Date Micah Willoughby MD PCP - General 02/14/21 documented as of this encounter
--- OUTSIDE RECORDS SUMMARY | 2024-10-12 11:34 | XMS_ITS | Clinical Summary ---
Author Organization [facility] Address [address] [place] [address] Phone Care Team Providers Care Emergency Preparedness Manager Name Role Phone Unavailable Primary Care Provider [...] (ASTELIN) 137 mcg (0.1 %) Nasl Aerosol, [place] 274 mcg in each nostril 4 times [...] FIT 2018 Sigmoidoscopy 2018 Virtual Colonography 2018 Pneumococcal Vaccine 50+ (2 of 2 - PCV) 12/24/2023 01/05/2019 Zoster (1 of 2) 12/24/2023 COVID-19 Vaccine ( season) 2024 12/04/2021, 06/05/2021, 12/12/2020, Additional history exists Influenza Vaccine (#1) 2024 11/28/2020, 2019 Meningococcal B Vaccine Aged Out No l onger eligible based on patient's age to complete this topic Insurance
--- OUTSIDE RECORDS SUMMARY | 2024-10-12 11:34 | XMS_ITS | Encounter Summary ---
Author Organization [facility] Address [address] [place] [address] Care Team Providers Care Auto Tech Name Role Phone Micah Willoughby MD Primary Care Provider [phone] Encounter Details Date Type Department Care Team [...] Description 11/01/2024 12:20 PM EDT Office Visit [facility] Endocrinology [address] [place] [address] Zohra Valenzuela, TURF FARM WORKER [address] [facility] [address] [place] [address] 11/14/2024 10:00 AM EDT Office Visit [facility] Nephrology, Bone & Mineral Metabolism [address] [facility], [address] [place] [address] Evelyne Medel MD [address] [place] [address] 11/15/2024 10:15 AM EDT Office Visit [facility] Eye Care [address] [place] [address] Ammy Siegel MD [address] [place] [address] documented as of this encounter Visit Diagnoses Not on filedocumented in this encounter Additional Health Concerns Assessment Noted Time A fall risk assessment has been complete d for the patient 09/26/2024 8:53 AM EDT A Body Mass Index follow-up plan has been documented for the patient 06/02/2024 6:09 PM EDT documented as of this encounter Care Teams Auto Tech Relationship Specialty Start Date End Date Micah Willoughby MD PCP - General 02/14/21 documented as of this encounter
--- OUTSIDE RECORDS SUMMARY | 2024-10-12 11:34 | XMS_ITS | Encounter Summary ---
Author Organization [facility] Address [address] [place] [address] Care Team Providers Care Clubhouse Attendant Name Role Phone Micah Willoughby MD Primary Care Provider [phone] Reason for Visit * Reason Comments Med Refill Encounter Details Date Type Department Care Team (Late Contact Info) Description 09/15/2024 Refill [facility] Endocrinology [address] [place] [address] Zohra Valenzuela SERVICE RIG OPERATOR [address] [address] Social History Tobacco Use Types [...] Description 11/01/2024 12:20 PM EDT Office Visit [facility] Endocrinology [address] [place] [address] Zohra Valenzuela, SERVICE RIG OPERATOR [address] [address] 11/14/2024 10:00 AM EDT Office Visit [facility] Nephrology, Bone & Mineral Metabolism [address] [facility], [address] [place] [address] Evelyne Medel MD [address] [facility] [address] [place] [address] 11/15/2024 10:15 AM EDT Office Visit [facility] Eye Care [address] [place] [address] Ammy Siegel MD [address] [facility] [address] [place] [address] documented as of this encounter Visit Diagnoses Not on filedocumented in this encounter Additional Health Concerns Assessment Noted Time A fall risk assessment has been complete d for the patient 05/23/2024 7:57 AM EDT A Body Mass Index follow-up plan has been documented for the patient 06/02/2024 6:09 PM EDT documented as of this encounter Care Teams Clubhouse Attendant Relationship Specialty Start Date End Date Micah Willoughby MD PCP - General 02/14/21 documented as of this encounter
--- OUTSIDE RECORDS SUMMARY | 2024-10-12 11:34 | XMS_ITS | Clinical Summary ---
Author Organization [facility] Address [address] [place] [address] Care Team Providers Care Tempering Machine Operator Name Role Phone Micah Willoughby MD Primary Care Provider [phone] Allergies Active Allergy Reactions Criticality Noted Date [...] III SHORT PEN) 31G X 8 mm [facility] Use to inject 1-4 times daily as [...] Active Continuous Glucose Transmitter (Dexcom G6 transmitter) [facility] USE DIRECTED TO MONITOR BLOOD GLUCOSE. CHANGE [...] Date Type Department Care Team Description 09/28/2024 [facility] Nephrology, Bone & Mineral Metabolism [address] [facility], [address] [place] [address] Susanne Urbina, PharmD 09/26/2024 [facility] Nephrology, Bone & Mineral Metabolism [address], [address] [place] [address] Marley Moreira, WATERMASTER 09/26/2024 Travel 09/15/2024 [facility] Endocrinology [address] [place] [address] Zohra Valenzuela, DOWN FILLER 09/12/2024 [facility] Nephrology, Bone & Mineral Metabolism [address], [address] [place] [address] Susanne Urbina, PharmD 08/06/2024 [facility] Nephrology, Bone & Mineral Metabolism [address] [facility], [address] [place] [address] Evelyne Medel MD from Last [...] Description 11/01/2024 12:20 PM EDT [facility] [place] [address] Zohra Valenzuela, DOWN FILLER [address] [place] [address] 11/14/2024 10:00 AM EDT Office Visit [facility] Nephrology, Bone & Mineral Metabolism [address] [facility], [address] [place] [address] Evelyne Medel MD [address] [place] [address] 11/15/2024 10:15 AM EDT Office Visit [facility] Eye Care [address] [facility] [place] [address] Ammy Siegel MD [address] [place] [address] Health Maintenance Due Date Last [...] (2 of 2 - PCV) 01/06/2020 01/05/2019 [id number] Vaccine (2023- season) 2023 12/04/2021, 06/05/2021, 12/12/2020, [...] A1C 6.8 <5.7% Non-Diabe tic % [facility] Kit Lot Number [id number] [facility] Kit Expiration Date 01/08/2026 [facility] Blood Venous blood specimen / Unknown 03/24/2024 11:23 AM EST us Zohra Valenzuela DOWN FILLER POINT OF CARE TEST ENTER/ED IT ORDERABLES Final Result [facility] [address] [place] [address] from Last 3 Months or Most Recently Relevant to Health Maintenance Insurance [employer] [place] Care Teams Tempering Machine Operator Relationship Specialty Start Date End Date Micah Willoughby MD PCP - General 02/14/21
[2024-10-12 11:35] LABS: Hematocrit 32.0 % (42.0-52.0); Hemoglobin 11.5 g/dL (14.1-18.0); Immature Granulocytes % 0.7 %; Mean Corpuscular HGB Conc 35.9 g/dL (31.8-35.4); Mean Corpuscular Hemoglobin 35.7 pg (27.0-31.2); Mean Corpuscular Volume 99.4 fl (80-94); Nucleated Red Blood Cells % 0 %; Platelet Count 179 K/mm3 (142-424); Red Blood Count 3.22 M/mm3 (4.60-6.20); Red Cell Distribution Width-SD 46.5 fL; White Blood Count 4.2 K/mm3 (4.8-10.8)
[2024-10-12 12:29] LABS: Chloride 94 mmol/L (98-107)
[2024-10-12 12:30] LABS: Albumin Level 2.9 g/dl (3.5-5.0); Potassium 4.2 mmoL/L (3.5-5.1); Sodium 123 mmol/L (136-145)
[2024-10-12 12:32] LABS: Blood Urea Nitrogen 5 mg/dl (9-20); Creatinine,Serum 0.90 mg/dl (0.66-1.25); Estimated Glomerular Filt Rate 89 ml/min (>60); GFR (African American) 108 ML/MIN (>60)
[2024-10-12 12:33] LABS: Alanine Aminotransferase 119 U/L (12-78); Albumin/Globulin Ratio 0.9 (1.1-1.8); Alkaline Phosphatase 381 U/L (38-126); Anion Gap 11.2 mEq/L (5-15); Aspartate Amino Transferase 392 U/L (17-59); Bilirubin,Total 1.5 mg/dl (0.2-1.3); Calcium 7.2 mg/dl (8.4-10.2); Carbon Dioxide 22 mmol/L (22.0-30.0); Globulin 3.1 g/dL (1.3-3.2); Glucose 139 mg/dl (74-100); Total Protein,Serum 6.0 g/dl (6.3-8.2)
[2024-10-12 13:33] LABS: Vitamin B12 > 1000 pg/mL (239-931)
[2024-10-12 13:55] LABS: Folate > 20.00 ng/mL
== END 2024-10-12 23:59 | disposition home or self-care (01) ==
PROVIDERS: PCP Family Medicine; Visit Provider Internal Medicine Medical Oncology
DX: D61.818 Other pancytopenia (principal)
CPT/HCPCS: 36415; 80053; 82607; 82746; 85025

== ENCOUNTER 2024-10-18 10:26 | Outpatient (CLI) | payer MEDICAID, SELFPAY ==
[2024-10-18 10:25] VITALS: BMI 36.4
--- OUTSIDE RECORDS SUMMARY | 2024-10-18 10:39 | XMS_ITS | Encounter Summary ---
Author Organization [facility] Address [address] [place] [address] Care Team Providers Care Derrick Operator Name Role Phone Micah Willoughby MD Primary Care Provider [phone] Unavailable Reason for Visit * Reason Comments Med Refill Encounter Details Date Type Department Care Team ([facility] Contact Info) Description 10/09/2022 Refill [facility] Nephrology, Bone & Mineral Metabolism [address] [place] [address] Evelyne Medel MD [address] [place] [address] Primary hypertension Social History Tobacco [...] Description 11/01/2024 12:20 PM EDT [facility] [address] [place] [address] Zohra Valenzuela, CREATIVE MANAGER [address] [facility] [address] [place] [address] 11/14/2024 10:00 AM EDT Office Visit [facility] Nephrology, Bone & Mineral Metabolism [address] [facility], [address] [place] [address] Evelyne Medel MD [address] [place] [address] 11/15/2024 10:15 AM EDT Office Visit [facility] Eye Care [address] [facility] [place] [address] Ammy Siegel MD [address] [facility] [address] [place] [address] documented as of this encounter Visit Diagnoses Diagnosis Primary hypertension Unspecified essential hypertension documented in this encounter Additional Health Concerns Assessment Noted Time A fall risk assessment has been complete d for the patient 06/02/2022 8:59 AM EDT A Body Mass Index follow-up plan has been documented for the patient 07/31/2022 9:32 AM EDT documented as of this encounter Care Teams Derrick Operator Relationship Specialty Start Date End Date Micah Willoughby MD PCP - General 02/14/[address] [facility] [address] [place] [address] Stock Parts Fabricator Diabetes Services 12/04/23 03/03/24 documented as of this encounter
--- OUTSIDE RECORDS SUMMARY | 2024-10-18 10:39 | XMS_ITS | Clinical Summary ---
Author Organization [facility] Address [address] [place] [address] Care Team Providers Care Oncology Coordinator Name Role Phone Micah Willoughby MD Primary Care Provider [phone] Allergies Active Allergy Reactions Criticality Noted Date [...] 1 (one) time each day. 7 Active sildenafil (Viagra) 100 MG tablet TAKE 1 TABLET BY MOUTH DAILY NEEDED FOR SEXUAL ACTIVITY 2 Active Blood Glucose Monitoring Suppl (FreeStyle Lite) [...] AT BEDTIME NEEDED FOR INSOMNIA 4 Active Continuous Glucose Sensor (Dexcom G6 Sensor) miscIndications:T ype 1 diabetes mellitus with diabetic neuropathy CHANGE EVERY 10 DAYS 9 each 3 4 Active glucagon (Baqsimi Two Pack) 3 MG/DOSE powder Nasal Powder Administer 3 mg into a single nostril for hypoglycemia; if no response, may repeat in 15 minutes using a new intranasal device 1 each 1 4 Active cholecalciferol (Vitamin D-3) 25 MCG (1000 [...] in the morning. 15 mL 4 5 026 Active insulin pen needle (B-D ULTRAFINE III SHORT PEN) 31G X 8 mm [facility] Use to inject 1-4 times daily as directed 120 each 11 5 Active carvedilol (Coreg) 3.125 MG tablet TAKE 1 TABLET BY MOUTH TWICE A DAY WITH A MEAL 180 tablet 3 5 Active valsartan (Diovan) 80 MG tablet Take 1 tablet by mouth daily. 5 Active torsemide (Demadex) 20 MG tablet Take 1 tablet by mouth daily. 5 Active Continuous Glucose Transmitter (Dexcom G6 transmitter) misc USE DIRECTED TO MONITOR BLOOD GLUCOSE. CHANGE EVERY 90 DAYS 1 each 5 Active folic acid (Folvite) 1 MG tablet 5 Active Vowst capsule 5 Active Farxiga 10 MG tablet 5 Active cyanocobalamin (Vitamin B-12) 1000 MCG/ML injection 5 Active gabapentin (Neurontin) 400 MG capsule 5 Active acetone, urine, test strip 1 strip if needed for high blood sugar. 25 strip 3 5 025 Active Problems Problem Noted Date Diagnosed [...] Date Type Department Care Team Description 09/28/2024 [facility] Nephrology, Bone & Mineral Metabolism [address] [facility], [address] [place] [address] Susanne Urbina, PharmD 09/26/2024 [facility] Nephrology, Bone & Mineral Metabolism [address], [address] [place] [address] Marley Moreira, GASKET NOTCHER 09/26/2024 Travel 09/15/2024 Refill [facility] Endocrinology [address] [place] [address] Zohra Valenzuela APRN 09/12/2024 [facility] Nephrology, Bone & Mineral Metabolism [address] [place] [address] Susanne Urbina, PharmD 08/06/2024 [facility] Nephrology, Bone & Mineral Metabolism [address] [facility], [address] [place] [address] Evelyne Medel MD from Last 3 Months Family History Medical History Relation Name Comments Diabetes Father Victor Manuel Myrick Heart attack Father Victor Manuel Myrick Kidney disease Father Victor Manuel Myrick Kidney Stones Mother Santana Myrick Obesity Mother Santana Myrick Rheum arthritis Sister Relation Name Status Comments Father Victor Manuel Myrick Mother Snatana Myrick Sister Social History Tobacco Use Types [...] PM EDT Office Visit [facility] [address] [place] [address] Zohra Valenzuela, JUNIOR NETWORK ADMINISTRATOR [address] [place] [address] 11/14/2024 10:00 AM EDT Office Visit [facility] Nephrology, Bone & Mineral Metabolism [address] [facility], [address] [place] [address] Evelyne Medel MD [address] [facility] [address] [place] [address] 11/15/2024 10:15 AM EDT Office Visit [facility] Eye Care [address] [facility] [place] [address] Ammy Siegel MD [address] [facility] [address] [place] [address] Health Maintenance Due Date Last [...] (2 of 2 - PCV) 01/06/2020 01/05/2019 [facility]-Zoster Vaccines (1 of 2) 12/24/2023 [facility]-Diabetes: Hemoglobin A1C 09/21/2024, 09/16/2023, 06/08/2023, Additional history exists [id number] Vaccine ( - 2024- season) 2024 12/04/2021, 06/05/2021, 12/12/2020, Additional history exists [facility]-Influenza Vaccine (#1) 2024 [...] tic % [facility] Kit Lot Number [id number] [facility] Kit Expiration Date 01/08/2026 [facility] Blood Venous blood specimen / Unknown 03/24/2024 11:23 AM EST Zohra Valenzuela JUNIOR NETWORK ADMINISTRATOR POINT OF CARE TEST ENTER/ED IT ORDERABLES Final Result [facility] [address] [place] [address] from Last 3 Months or Most Recently Relevant to Health Maintenance Insurance [employer] [place] Care Teams Oncology Coordinator Relationship Specialty Start Date End Date Micah Willoughby MD PCP - General 02/14/21
--- OUTSIDE RECORDS SUMMARY | 2024-10-18 10:39 | XMS_ITS | Clinical Summary ---
Author Organization [facility] Address [address] [place] [address] Phone Care Team Providers Care Monotype Caster Name Role Phone Unavailable Primary Care Provider [...] (ASTELIN) 137 mcg (0.1 %) Nasl Aerosol, [place] 274 mcg in each nostril 4 times [...]
--- OUTSIDE RECORDS SUMMARY | 2024-10-18 10:40 | XMS_ITS | Encounter Summary ---
Author Organization Healthcare Address [address] [place] [address] Care Team Providers Care Supervisor Beet End Name Role Phone Micah Willoughby MD Primary Care Provider [phone] Encounter Details Date Type Department Care Team (Late Contact Info) Description 09/26/2024 Telephone [facility] Nephrology, Bone & Mineral Metabolism [address], [address] [place] [address] Marley Moreira, ADOBE FLEX DEVELOPER GS - 7 MAIN MEDICAL-SURGICAL Social History [...] too keep trying to log in.gave him [phone] technical support number documented in this encounter Plan of Treatment Upcoming Encounters Date Type Department Care Team (Late Contact Info) Description 11/01/2024 12:20 PM EDT [facility] [address] [place] [address] Zohra Valenzuela, CELL OPERATOR [address] [place] [address] 11/14/2024 10:00 AM EDT Office Visit [facility] Nephrology, Bone & Mineral Metabolism [address], [address] [place] [address] Evelyne Medel MD [address] [place] [address] 11/15/2024 10:15 AM EDT Office Visit [facility] [address] [facility] [place] [address] Ammy Siegel MD [address] [facility] [address] [place] [address] documented as of this encounter Visit Diagnoses Not on filedocumented in this encounter Additional Health Concerns Assessment Noted Time A fall risk assessment has been complete d for the patient 09/26/2024 8:53 AM EDT A Body Mass Index follow-up plan has been documented for the patient 06/02/2024 6:09 PM EDT documented as of this encounter Care Teams Supervisor Beet End Relationship Specialty Start Date End Date Micah Willoughby MD PCP - General 02/14/21 documented as of this encounter
--- OUTSIDE RECORDS SUMMARY | 2024-10-18 10:40 | XMS_ITS | Encounter Summary ---
Author Organization [facility] Address [address] [place] [address] Care Team Providers Care Marine Radio Installer And Servicer Name Role Phone Micah Willoughby MD Primary Care Provider [phone] Encounter Details Date Type Department Care Team ([facility] st Contact Info) Description 09/28/2024 Telephone [facility] Nephrology, Bone & Mineral Metabolism [address], [address] [place] [address] Susanne Urbina, PharmD [address] [place] [address] Social History Tobacco Use Types [...] Description 11/01/2024 12:20 PM EDT Office Visit [facility] Endocrinology [address] [place] [address] Zohra Valenzuela, BOARDER HAND [address] [facility] [address] [place] [address] 11/14/2024 10:00 AM EDT Office Visit [facility] Nephrology, Bone & Mineral Metabolism [address], [address] [place] [address] Evelyne Medel MD [address] [facility] [address] [place] [address] 11/15/2024 10:15 AM EDT Office Visit [facility] [address] [place] [address] Ammy Siegel MD [address] [facility] [address] [place] [address] Scheduled Orders Name Type Priority Associated Diagnoses Orde r Schedule PTH Intact Total Lab Routine Stage 3a chronic kidney disease ([facility]) Expected: 11/07/2024 (Approximate), Expires: 04/01/2026 Vitamin D 25 Hydroxy Lab Routine Stage 3a chronic kidney disease ([facility]) Expected: 11/07/2024 (Approximate), Expires: 04/01/2026 Creatinine, Random, Urine Lab Routine Stage 3a chronic kidney disease ([facility]) Expected: 11/07/2024 (Approximate), Expires: 04/01/2026 Protein, Random, Urine with Creatinine Lab Routine Stage 3a chronic kidney disease ([facility]) Expected: 11/07/2024 (Approximate), Expires: 04/01/2026 Urinalysis with reflex microscopic (Culture NOT Included) Lab Routine Stage 3a chronic kidney disease ([facility]) Expected: 11/07/2024 (Approximate), Expires: 04/01/2026 CBC W/O Differential Lab Routine Stage 3a chronic kidney disease ([facility]) Expected: 11/07/2024 (Approximate), Expires: 04/01/2026 Renal Function Panel, Plasma Lab Routine Stage 3a chronic kidney disease ([facility]) Expected: 11/07/2024 (Approximate), Expires: 04/01/2026 documented as of this encounter Visit Diagnoses Diagnosis Stage 3a chronic kidney disease ([facility])- Primary documented in this encounter Additional Health Concerns Assessment Noted Time A fall risk assessment has been complete d for the patient 09/26/2024 8:53 AM EDT A Body Mass Index follow-up plan has been documented for the patient 06/02/2024 6:09 PM EDT documented as of this encounter Care Teams Marine Radio Installer And Servicer Relationship Specialty Start Date End Date Micah Willoughby MD PCP - General 02/14/21 documented as of this encounter
--- OUTSIDE RECORDS SUMMARY | 2024-10-18 10:40 | XMS_ITS | Encounter Summary ---
Author Organization Healthcare Address [address] [place] [address] Care Team Providers Care New Grad Rn Name Role Phone Micah Willoughby MD Primary Care Provider [phone] Encounter Details Date Type Department Care Team [...] Description 11/01/2024 12:20 PM EDT Office Visit [facility] Endocrinology [address] [place] [address] Zohra Valenzuela, ANTHROPOLOGY DEPARTMENT CHAIR [address] [facility] [address] [place] [address] 11/14/2024 10:00 AM EDT Office Visit [facility] Nephrology, Bone & Mineral Metabolism [address] [facility] [address], [address] [place] [address] Evelyne Medel MD [address] [place] [address] 11/15/2024 10:15 AM EDT Office Visit [facility] Eye Care [address] [place] [address] Ammy Siegel MD [address] [place] [address] documented as of this encounter Visit Diagnoses Not on filedocumented in this encounter Additional Health Concerns Assessment Noted Time A fall risk assessment has been complete d for the patient 09/26/2024 8:53 AM EDT A Body Mass Index follow-up plan has been documented for the patient 06/02/2024 6:09 PM EDT documented as of this encounter Care Teams New Grad Rn Relationship Specialty Start Date End Date Micah Willoughby MD PCP - General 02/14/21 documented as of this encounter
--- OUTSIDE RECORDS SUMMARY | 2024-10-18 10:40 | XMS_ITS | Encounter Summary ---
Author Organization [facility] Address [address] [place] [address] Care Team Providers Care Elevator Repairer Helper Name Role Phone Micah Willoughby MD Primary Care Provider [phone] Reason for Visit * Reason Comments Med Refill Encounter Details Date Type Department Care Team (Late Contact Info) Description 09/15/2024 Refill [facility] Endocrinology [address] [place] [address] Zohra Valenzuela POLYETHYLENE COMBINER [address] [address] Social History Tobacco Use Types [...] Description 11/01/2024 12:20 PM EDT Office Visit [facility] Endocrinology [address] [place] [address] Zohra Valenzuela, POLYETHYLENE COMBINER [address] [address] 11/14/2024 10:00 AM EDT [facility] & [facility]eral Metabolism [address], [address] [place] [address] Evelyne Medel MD [address] [facility] [address] [place] [address] 11/15/2024 10:15 AM EDT Office Visit [facility] Eye Care [address] [place] [address] Ammy Siegel MD 110 [facility] [address] [place] [address] documented as of this encounter Visit Diagnoses Not on filedocumented in this encounter Additional Health Concerns Assessment Noted Time A fall risk assessment has been complete d for the patient 05/23/2024 7:57 AM EDT A Body Mass Index follow-up plan has been documented for the patient 06/02/2024 6:09 PM EDT documented as of this encounter Care Teams Elevator Repairer Helper Relationship Specialty Start Date End Date Micah Willoughby MD PCP - General 02/14/21 documented as of this encounter
--- OUTSIDE RECORDS SUMMARY | 2024-10-18 10:40 | XMS_ITS | Encounter Summary ---
Author Organization [facility] Address [address] [place] [address] Care Team Providers Care Journeyman Welder Name Role Phone Micah Willoughby MD Primary Care Provider [phone] Encounter Details Date Type Department Care Team ([facility] st Contact Info) Description 09/12/2024 Telephone [facility] Nephrology, Bone & Mineral Metabolism [address], [address] [place] [address] Susanne Urbina, PharmD [address] [place] [address] Social History Tobacco Use Types [...] for visit, requests orders be faxed to [facility] [phone]. documented in this encounter Plan of Treatment Upcoming Encounters Date Type Department Care Team (Late st Contact Info) Description 11/01/2024 12:20 PM EDT [facility] End[facility]ology [address] [place] [address] Zohra Valenzuela, ELECT EQUIP MAINT ENG [address] [facility] [address] [place] [address] 11/14/2024 10:00 AM EDT Office Visit [facility] Nephrology, Bone & Mineral Metabolism [address], [address] [place] [address] Evelyne Medel MD [address] [place] [address] 11/15/2024 10:15 AM EDT Office Visit [facility] Eye Care [address] [place] [address] Ammy Siegel MD [address] [facility] [address] [place] [address] documented as of this encounter Visit Diagnoses Not on filedocumented in this encounter Additional Health Concerns Assessment Noted Time A fall risk assessment has been complete d for the patient 05/23/2024 7:57 AM EDT A Body Mass Index follow-up plan has been documented for the patient 06/02/2024 6:09 PM EDT documented as of this encounter Care Teams Journeyman Welder Relationship Specialty Start Date End Date Micah Willoughby MD PCP - General 02/14/21 documented as of this encounter
[2024-10-18 11:06] LABS: Anion Gap 12.6 mEq/L (5-15); Blood Urea Nitrogen 12 mg/dl (9-20); Calcium 8.5 mg/dl (8.4-10.2); Carbon Dioxide 24 mmol/L (22.0-30.0); Chloride 105 mmol/L (98-107); Creatinine Clearance Estimated 175 mL/min (50-200); Creatinine,Serum 0.80 mg/dl (0.66-1.25); Estimated Glomerular Filt Rate 102 ml/min (>60); GFR (African American) 124 ML/MIN (>60); Glucose 227 mg/dl (74-100); Potassium 4.6 mmoL/L (3.5-5.1); Sodium 137 mmol/L (136-145)
== END 2024-10-18 23:59 | disposition home or self-care (01) ==
LOC: PREOP 10:27
PROVIDERS: Nurse Anesthetist, Certified Registered; PCP Family Medicine; Visit Provider Surgery
DX: Z01.812 Encounter for preprocedural laboratory examination (principal)
CPT/HCPCS: 80048

== ENCOUNTER 2024-10-19 06:02 | Day surgery (SDC) | payer MEDICAID, SELFPAY ==
[2024-10-18 13:21] VITALS: BMI 36.4
[2024-10-19] VITALS (10 sets, daily range): BP systolic 127–163; BP diastolic 70–90; PULSE 66–98; RESP 12–18; TEMP 36.2–36.4; O2SAT 93–100
[2024-10-19 06:35] LABS: POC Glucose,Bedside 159 gm/dL (70-110)
--- NOTE | 2024-10-19 07:01 | EXP.ANES.CKL ---
[facility] Disclaimer: The information contained in this section may have been updated after the patient was seen, as this information can be updated by other users. 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 difficile diarrhea Abnormal liver enzymes Anemia with low platelet count Hyponatremia Weakness Hypotension Daytime somnolence Restless sleeper Elevated left ventricular end-diastolic pressure (LVEDP) Pulmonary hypertension Family history of early CAD Dyspnea Atypical angina Bilateral lower extremity edema BMI 35.0-35.9,adult Diabetic neuropathy Type 1 diabetes mellitus Hypertension Hyperlipidemia associated with type 2 diabetes mellitus Surgical History History of colonoscopy History of cardiac cath History of ankle surgery H/O gastric bypass Family History Mother Osteoarthritis Father Heart attack Other Family history of diabetes mellitus type II Social History Smoking Status: Never smoker alcohol intake: never counseling given: Yes substance use type: denies use current occupational status: employed Travel in the last 8 weeks?: None housing: house marital status: single number of children: 0 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 caffeine: No brenda/denominational: Orthodox Have you lived/traveled outside US in past 30 days?: No Contact w/someone who lives/traveled outside US past 30 days?: No Exposure to someone with infectious disease in past 14 days?: No Do you have a fever (greater than 100.4 F or 38 C)?: No Have you tested positive for COVID-19?: No Exposed to someone with COVID-19 in past 14 days?: No Do you have a sore throat?: No Do you have a cough?: No Do you have any weakness?: No Do you have any diarrhea?: No Are you experiencing any unusual bleeding?: No Do you have any muscle aches/pain?: No Do you have any abdominal pain?: No Are you experiencing loss of taste or smell?: No [facility] Anesthesia Checklist Patient Identification Patient Identification: Arm Band and Verbal (Name & ) Structural Data Admitted From: Home Planned Operative Procedure/s: I&D of gluteal abscess Consent for Planned Operative Procedure(s) Verified: Yes Verified Documents: Surgical Consent NPO Status Verified Time NPO: 00:00 Chart Verification Results Verified: ECG Additional verifications Anesthesia Reactions: No Hx Blood Transfusions: No Blood Transfusion Reaction: No Airway Assessment Mallampati Score:: Class II C-Spine Mobility Assessed: Yes TMJ Mobility Assessed: Yes Dentition: Dentures-good fit Neurological Assessment Level of Consciousness: Awake, Alert and Appropriate Hx Seizures: No Numbness or tingling in extremities: No Anesthesia Plan Anesthesia Risk discussed: Yes Anesthesia Plan: Verified ASA Class: II Anesthesia Type: General
[2024-10-19] MEDS: LACTATED RINGERS 1000ML 1,000 ML 25 ML IV (07:09)
[2024-10-19] MEDS: LIDOCAINE 1% 20ML MDV 20 ML (07:38)
[2024-10-19] MEDS: CLINDAMYCIN PHOSPHATE/D5W 900 MG/50 ML PIGGYBACK 100 MG IV (07:50)
--- NOTE | 2024-10-19 08:07 | EXP.OP.NOTE ---
Date of procedure: 10/19/24 Pre-op Diagnosis:: Soft tissue abscess right gluteal area Post-op Diagnosis:: Same Procedure performed:: Incision and drainage complex right gluteal abscess with debridement of skin and subcutaneous tissues Surgeon:: Roge Sims MD AGRICULTURAL EXTENSION OFFICER:: Pedro Pepper Anesthesia: local and LMA Estimated blood loss (mL): 20 Operative findings:: There was some overlying skin and superficial subcutaneous necrosis. There was a moderately large subcutaneous abscess cavity down to the gluteal muscle. After debridement wound measured 6 cm x 4-1/2 cm with a depth of 3 cm. There was lateral undermining of 3-1/2 cm and superior undermining of 3 cm. Operative note:: Consent was obtained patient was taken to the operating room. He was given preoperative intravenous antibiotics. In the operating room he was placed in a supine position. General anesthesia was induced via LMA. He was positioned in left lateral position. The area was prepped and draped in the standard surgical fashion. There was some punctate areas of pus oozing from the wound with some evidence of superficial tissue necrosis. There was a proximately 6 cm area of fluctuance. A limited incision was made centrally with electrocautery. There is a large amount of pus which exuded from the wound. This was sent for culture. Once the majority of the purulence was evacuated the tissue necrosis was debrided with electrocautery circumferentially to relatively healthy tissues although there was surrounding erythema and induration beyond the area of debridement. Wound was thoroughly probed digitally to break any loculations. Please see above measurements for details of the wound cavity. Wound was then irrigated with approximately 2 L of pulsatile saline irrigation using the [employer] InterPulse device. Hemostasis was achieved with electrocautery. Local anesthetic was infiltrated. Wound was packed with dry Kerlix. Clean dry sterile dressing was applied. Condition: stable Disposition: PACU Complications:: None immediately apparent
--- NOTE | 2024-10-19 08:11 | P.PNANES_ITS ---
[facility] Anesthesia Record Part I Anesthesia Record I Intake, IV Amount: 1,000 Hydration: Adequate Estimated blood loss (mL): 50 Urine output (mL): 0 Blood Pressure: 157/90 SaO2: 96 Pulse Rate: 98 Airway Patency: Patent Respiratory Rate: 12 Temperature: 97.5 F Patient is:: Awake and Stable Stable to PACU at:: 08:05
--- NOTE | 2024-10-19 10:32 | EXP.ANES.I ---
[facility] Anesthesia Record Part I Anesthesia Record I Intake, IV Amount: 1,400 Hydration: Adequate Estimated blood loss (mL): 0 Urine output (mL): 0 Blood Pressure: 127/70 SaO2: 93 Pulse Rate: 83 Airway Patency: Patent Respiratory Rate: 12 Temperature: 97.1 F Patient is:: Awake and Stable Stable to PACU at:: 10:30
--- NOTE | 2024-10-20 07:43 | P.PNANES_ITS ---
[facility] Anesthesia Record Part II Anesthesia Record Part II Discharge Time: 08:35 Destination: [facility] PACU nurse assessment reviewed?: Yes Patient Condition:: Good Anesthesia Complications:: None Swallowing reflex intact?: Yes Airway Patency: Patent Cyanosis?: No Blood Pressure: 137/87 SaO2: 99 Respiratory Rate: 18 Pulse Rate: 69 Temperature: 97.2 F Mental Status: Alert & Oriented Pain level:: 0 Nausea and/or vomitting:: None Intake, IV Amount: 1,000 Hydration: Adequate
[2024-10-20 07:44] VITALS: BP 137/87; PULSE 69; RESP 18; TEMP 36.2; O2SAT 99
== END 2024-10-19 09:04 | disposition home or self-care (01) ==
PROVIDERS: PCP Family Medicine; Visit Provider Surgery
PROC: (CPT 10061; principal; 2024-10-19 07:30)
DX: L02.31 Cutaneous abscess of buttock (principal); E10.51 Type 1 diabetes mellitus with diabetic peripheral angiopathy without gangrene; I96 Gangrene, not elsewhere classified; Z98.84 Bariatric surgery status; I27.20 Pulmonary hypertension, unspecified; D61.818 Other pancytopenia; Z79.899 Other long term (current) drug therapy; Z79.4 Long term (current) use of insulin; Z79.84 Long term (current) use of oral hypoglycemic drugs; I11.0 Hypertensive heart disease with heart failure; I50.32 Chronic diastolic (congestive) heart failure; Z82.49 Family history of ischemic heart disease and other diseases of the circulatory system; E10.40 Type 1 diabetes mellitus with diabetic neuropathy, unspecified; E78.5 Hyperlipidemia, unspecified
CPT/HCPCS: 10061; 11042; 82962; 87205; 96374; J0736; J1100; J2003; J2250; J2405; J2704; J2795; J3010; J7120

== ENCOUNTER 2024-10-20 14:26 | Outpatient (CLI) | payer MEDICAID, SELFPAY ==
--- OUTSIDE RECORDS SUMMARY | 2024-10-20 14:54 | XMS_ITS | Encounter Summary ---
Author Organization [facility] Address [address] [place] [address] Care Team Providers Care Investor Relations Manager Name Role Phone Micah Willoughby MD Primary Care Provider [phone] Encounter Details Date Type Department Care Team ([facility] st Contact Info) Description 09/28/2024 Telephone [facility] Nephrology, Bone & Mineral Metabolism [address], [address] [place] [address] Susanne Urbina, PharmD [address] [place] [address] Social History Tobacco Use Types [...] Description 11/01/2024 12:20 PM EDT Office Visit [facility] Endocrinology [address] [place] [address] Zohra Valenzuela, DIRECTOR HR COMMUNICATIONS [address] [facility] [address] [place] [address] 11/14/2024 10:00 AM EDT Office Visit [facility] Nephrology, Bone & Mineral Metabolism [address] [facility], [address] [place] [address] Evelyne Medel MD [address] [facility] [address] [place] [address] 11/15/2024 10:15 AM EDT Office Visit [facility] Advanced Eye Care [address] [place] [address] Ammy Siegel MD [address] [facility] [address] [place] [address] Scheduled Orders Name Type Priority Associated Diagnoses Orde r Schedule PTH Intact Total Lab Routine Stage 3a chronic kidney disease ([facility]) Expected: 11/07/2024 (Approximate), Expires: 04/01/2026 Vitamin D 25 Hydroxy Lab Routine Stage 3a chronic kidney disease ([facility]) Expected: 11/07/2024 (Approximate), Expires: 04/01/2026 Creatinine, Random, Urine Lab Routine Stage 3a chronic kidney disease ([facility]) Expected: 11/07/2024 (Approximate), Expires: 04/01/2026 Protein, Random, Urine with Creatinine Lab Routine Stage 3a chronic kidney disease ([facility]) Expected: 11/07/2024 (Approximate), Expires: 04/01/2026 Urinalysis with reflex microscopic (Culture NOT Included) Lab Routine Stage 3a chronic kidney disease ([facility]) Expected: 11/07/2024 (Approximate), Expires: 04/01/2026 CBC W/O Differential Lab Routine Stage 3a chronic kidney disease ([facility]) Expected: 11/07/2024 (Approximate), Expires: 04/01/2026 Renal Function Panel, Plasma Lab Routine Stage 3a chronic kidney disease ([facility]) Expected: 11/07/2024 (Approximate), Expires: 04/01/2026 documented as of this encounter Visit Diagnoses Diagnosis Stage 3a chronic kidney disease ([facility])- Primary documented in this encounter Additional Health Concerns Assessment Noted Time A fall risk assessment has been complete d for the patient 09/26/2024 8:53 AM EDT A Body Mass Index follow-up plan has been documented for the patient 06/02/2024 6:09 PM EDT documented as of this encounter Care Teams Investor Relations Manager Relationship Specialty Start Date End Date Micah Willoughby MD PCP - General 02/14/21 documented as of this encounter
--- OUTSIDE RECORDS SUMMARY | 2024-10-20 14:54 | XMS_ITS | Clinical Summary ---
Author Organization [facility] Address [address] [place] [address] Care Team Providers Care Lock Tender Name Role Phone Micah Willoughby MD Primary Care Provider [phone] Allergies Active Allergy Reactions Criticality Noted Date [...] PEN) 31G X 8 mm [facility] Use to inject 1-4 times daily as [...] Date Type Department Care Team Description 09/28/2024 [facility] Nephrology, Bone & Mineral Metabolism [address], [address] [place] [address] Susanne Urbina, PharmD 09/26/2024 [facility] Nephrology, Bone & Mineral Metabolism [address], [address] [place] [address] Marley Moreira, NEGATIVE TURNER APPRENTICE 09/26/2024 Travel 09/15/2024 Refill [facility] Endocrinology [address] [place] [address] Zohra Valenzuela APRN 09/12/2024 [facility] Nephrology, Bone & Mineral Metabolism [address], [address] [place] [address] Susanne Urbina, PharmD 08/06/2024 [facility] Nephrology, Bone & Mineral Metabolism [address] [facility], [address] [place] [address] Evelyne Medel MD from Last 3 Months Family History Medical History Relation Name Comments Diabetes Father Vicotr Manuel Myrick Heart attack Father Victor Manuel [...] Visit [facility] [address] [place] [address] Zohra Valenzuela, FISH TRAPPER [address] [place] [address] 11/14/2024 10:00 AM EDT Office Visit [facility] Nephrology, Bone & Mineral Metabolism [address] [facility], [address] [place] [address] Evelyne Medel MD [address] [facility] [address] [place] [address] 11/15/2024 10:15 AM EDT Office Visit [facility] Eye Care [address] [facility] [place] [address] Ammy Siegel MD [address] [facility] [address] [place] [address] Health Maintenance Due Date Last [...] A1C 09/21/2024, 09/16/2023, 06/08/2023, Additional history exists [id number] Vaccine ( - 2024- season) 2024 12/04/2021, [...] tic % [facility] Kit Lot Number [id number] [facility] Kit Expiration Date 01/08/2026 [employer] [facility] Blood Venous blood specimen / Unknown 03/24/2024 11:23 AM EST Zohra Valenzuela FISH TRAPPER POINT OF CARE TEST ENTER/ED IT ORDERABLES Final Result [facility] [address] [place] [address] from Last 3 Months or Most Recently Relevant to Health Maintenance Insurance [employer] [place] Care Teams Lock Tender Relationship Specialty Start Date End Date Micah Willoughby MD PCP - General 02/14/21
--- OUTSIDE RECORDS SUMMARY | 2024-10-20 14:54 | XMS_ITS | Encounter Summary ---
Author Organization Healthcare Address [address] [place] [address] Care Team Providers Care Funeral Professional Name Role Phone Micah Willoughby MD Primary Care Provider [phone] Encounter Details Date Type Department Care Team [...] Description 11/01/2024 12:20 PM EDT Office Visit [facility] Endocrinology [address] [place] [address] Zohra Valenzuela, PET WALKER [address] [facility] [address] [place] [address] 11/14/2024 10:00 AM EDT Office Visit [facility] Nephrology, Bone & Mineral Metabolism [address] [facility], [address] [place] [address] Evelyne Medel MD [address] [place] [address] 11/15/2024 10:15 AM EDT Office Visit [facility] Eye Care [address] [place] [address] Ammy Siegel MD [address] [place] [address] documented as of this encounter Visit Diagnoses Not on filedocumented in this encounter Additional Health Concerns Assessment Noted Time A fall risk assessment has been complete d for the patient 09/26/2024 8:53 AM EDT A Body Mass Index follow-up plan has been documented for the patient 06/02/2024 6:09 PM EDT documented as of this encounter Care Teams Funeral Professional Relationship Specialty Start Date End Date Micah Willoughby MD PCP - General 02/14/21 documented as of this encounter
--- OUTSIDE RECORDS SUMMARY | 2024-10-20 14:54 | XMS_ITS | Encounter Summary ---
Author Organization [facility] Address [address] [place] [address] Care Team Providers Care Histopathologist Name Role Phone Micah Willoughby MD Primary Care Provider [phone] Reason for Visit * Reason Comments Med Refill Encounter Details Date Type Department Care Team (Late Contact Info) Description 09/15/2024 Refill [facility] Endocrinology [address] [place] [address] Zohra Valenzuela DIFFUSER OPERATOR [address] [address] Social History Tobacco Use Types [...] Description 11/01/2024 12:20 PM EDT Office Visit [facility] Endocrinology [address] [place] [address] Zohra Valenzuela, DIFFUSER OPERATOR [address] [address] 11/14/2024 10:00 AM EDT Office Visit [facility] Nephrology, Bone & Mineral Metabolism [address] [facility], [address] [place] [address] Evelyne Medel MD [address] [facility] [address] [place] [address] 11/15/2024 10:15 AM EDT Office Visit [facility] Eye Care [address] [place] [address] Ammy Siegel MD [address] [facility] [address] [place] [address] documented as of this encounter Visit Diagnoses Not on filedocumented in this encounter Additional Health Concerns Assessment Noted Time A fall risk assessment has been complete d for the patient 05/23/2024 7:57 AM EDT A Body Mass Index follow-up plan has been documented for the patient 06/02/2024 6:09 PM EDT documented as of this encounter Care Teams Histopathologist Relationship Specialty Start Date End Date Micah Willoughby MD PCP - General 02/14/21 documented as of this encounter
--- OUTSIDE RECORDS SUMMARY | 2024-10-20 14:54 | XMS_ITS | Encounter Summary ---
Author Organization Healthcare Address [address] [place] [address] Care Team Providers Care Picture Frames Inspector Name Role Phone Micah Willoughby MD Primary Care Provider [phone] Encounter Details Date Type Department Care Team (Late Contact Info) Description 09/26/2024 Telephone [facility] Nephrology, Bone & Mineral Metabolism [address] [facility], [address] [place] [address] Marley Moreira, MICROSOFT SOLUTIONS ARCHITECT GS - 7 MAIN MEDICAL-SURGICAL Social History [...] too keep trying to log in.gave him [phone] technical support number documented in this encounter Plan of Treatment Upcoming Encounters Date Type Department Care Team (Late Contact Info) Description 11/01/2024 12:20 PM EDT [facility] [address] [place] [address] Zohra Valenzuela, TELEPHONER [address] [place] [address] 11/14/2024 10:00 AM EDT Office Visit [facility] Nephrology, Bone & Mineral Metabolism [address] [facility], [address] [place] [address] Evelyne Medel MD [address] [facility] [address] [place] [address] 11/15/2024 10:15 AM EDT Office Visit [facility] Eye Care [address] [facility] [place] [address] Ammy Siegel MD [address] [facility] [address] [place] [address] documented as of this encounter Visit Diagnoses Not on filedocumented in this encounter Additional Health Concerns Assessment Noted Time A fall risk assessment has been complete d for the patient 09/26/2024 8:53 AM EDT A Body Mass Index follow-up plan has been documented for the patient 06/02/2024 6:09 PM EDT documented as of this encounter Care Teams Picture Frames Inspector Relationship Specialty Start Date End Date Micah Willoughby MD PCP - General 02/14/21 documented as of this encounter
--- OUTSIDE RECORDS SUMMARY | 2024-10-20 14:54 | XMS_ITS | Encounter Summary ---
Author Organization [facility] Address [address] [place] [address] Care Team Providers Care Ophthalmic Medical Technician Name Role Phone Micah Willoughby MD Primary Care Provider [phone] Encounter Details Date Type Department Care Team ([facility] st Contact Info) Description 09/12/2024 Telephone [facility] Nephrology, Bone & Mineral Metabolism [address] [facility], [address] [place] [address] Susanne Urbina, PharmD [address] [place] [address] Social History Tobacco Use Types [...] for visit, requests orders be faxed to [facility] [phone]. documented in this encounter Plan of Treatment Upcoming Encounters Date Type Department Care Team (Late st Contact Info) Description 11/01/2024 12:20 PM EDT [facility] End[facility]ology [address] [place] [address] Zohra Valenzuela, STUD SETTER [address] [facility] [address] [place] [address] 11/14/2024 10:00 AM EDT Office Visit [facility] Nephrology, Bone & Mineral Metabolism [address] [facility], [address] [place] [address] Evelyne Medel MD [address] [place] [address] 11/15/2024 10:15 AM EDT Office Visit [facility] [address] [facility] [place] [address] Ammy Siegel MD [address] [facility] [address] [place] [address] documented as of this encounter Visit Diagnoses Not on filedocumented in this encounter Additional Health Concerns Assessment Noted Time A fall risk assessment has been complete d for the patient 05/23/2024 7:57 AM EDT A Body Mass Index follow-up plan has been documented for the patient 06/02/2024 6:09 PM EDT documented as of this encounter Care Teams Ophthalmic Medical Technician Relationship Specialty Start Date End Date Micah Willoughby MD PCP - General 02/14/21 documented as of this encounter
--- OUTSIDE RECORDS SUMMARY | 2024-10-20 14:54 | XMS_ITS | Encounter Summary ---
Author Organization [facility] Address [address] [place] [address] Care Team Providers Care Buffing Turner And Counter Name Role Phone Micah Willoughby MD Primary Care Provider Krystal Boyd RD Unavailable [phone] Reason for Visit * Reason Comments Med Refill Encounter Details Date Type Department Care Team ([facility] Contact Info) Description 10/09/2022 Refill [facility] Nephrology, Bone & Mineral Metabolism [address], [address] [place] [address] Evelyne Medel MD [address] [place] [address] Primary hypertension Social History Tobacco [...] Description 11/01/2024 12:20 PM EDT [facility] [address] [place] [address] Zohra Valenzuela, MEDART OPERATOR [address] [facility] [address] [place] [address] 11/14/2024 10:00 AM EDT Office Visit [facility] Nephrology, Bone & Mineral Metabolism [address] [facility], [address] [place] [address] Evelyne Medel MD [address] [place] [address] 11/15/2024 10:15 AM EDT Office Visit [facility] Eye Care [address] [place] [address] Ammy Siegel MD [address] [facility] [address] [place] [address] documented as of this encounter Visit Diagnoses Diagnosis Primary hypertension Unspecified essential hypertension documented in this encounter Additional Health Concerns Assessment Noted Time A fall risk assessment has been complete d for the patient 06/02/2022 8:59 AM EDT A Body Mass Index follow-up plan has been documented for the patient 07/31/2022 9:32 AM EDT documented as of this encounter Care Teams Buffing Turner And Counter Relationship Specialty Start Date End Date Micah Willoughby MD PCP - General 02/14/[address] [facility] [address] [place] [address] Home Health Registered Nurse Diabetes Services 12/04/23 03/03/24 documented as of this encounter
--- OUTSIDE RECORDS SUMMARY | 2024-10-20 14:54 | XMS_ITS | Clinical Summary ---
Author Organization [facility] Address [address] [place] [address] Phone Care Team Providers Care Office Machine Servicer Name Role Phone Unavailable Primary Care Provider [...] (ASTELIN) 137 mcg (0.1 %) Nasl Aerosol, [place] 274 mcg in each nostril 4 times [...]
== END 2024-10-20 16:24 | disposition home or self-care (01) ==
PROVIDERS: PCP Family Medicine; Visit Provider Surgery
DX: Z48.01 Encounter for change or removal of surgical wound dressing (principal)
CPT/HCPCS: G0463

== ENCOUNTER 2024-10-21 09:27 | Outpatient (CLI) | payer MEDICAID, SELFPAY ==
--- OUTSIDE RECORDS SUMMARY | 2024-10-21 09:31 | XMS_ITS | Encounter Summary ---
Author Organization Healthcare Address [address] [place] [address] Care Team Providers Care Tactical Debriefer Name Role Phone Micah Willoughby MD Primary Care Provider [phone] Encounter Details Date Type Department Care Team [...] Description 11/01/2024 12:20 PM EDT Office Visit [facility] Endocrinology [address] [place] [address] Zohra Valenzuela, WOMEN'S ACTIVITIES ADVISER [address] [facility] [address] [place] [address] 11/14/2024 10:00 AM EDT Office Visit [facility] Nephrology, Bone & Mineral Metabolism [address] [facility], [address] [place] [address] Evelyne Medel MD [address] [place] [address] 11/15/2024 10:15 AM EDT Office Visit [facility] Eye Care [address] [place] [address] Ammy Siegel MD [address] [place] [address] documented as of this encounter Visit Diagnoses Not on filedocumented in this encounter Additional Health Concerns Assessment Noted Time A fall risk assessment has been complete d for the patient 09/26/2024 8:53 AM EDT A Body Mass Index follow-up plan has been documented for the patient 06/02/2024 6:09 PM EDT documented as of this encounter Care Teams Tactical Debriefer Relationship Specialty Start Date End Date Micah Willoughby MD PCP - General 02/14/21 documented as of this encounter
--- OUTSIDE RECORDS SUMMARY | 2024-10-21 09:31 | XMS_ITS | Clinical Summary ---
Author Organization [facility] Address [address] [place] [address] Phone Care Team Providers Care Project Systems Engineer Name Role Phone Unavailable Primary Care Provider [...] (ASTELIN) 137 mcg (0.1 %) Nasl Aerosol, [place] 274 mcg in each nostril 4 times [...]
--- OUTSIDE RECORDS SUMMARY | 2024-10-21 09:31 | XMS_ITS | Clinical Summary ---
Author Organization [facility] Address [address] [place] [address] Care Team Providers Care Accelerator Operator Name Role Phone Micah Willoughby MD Primary Care Provider [phone] Allergies Active Allergy Reactions Criticality Noted Date [...] III SHORT PEN) 31G X 8 mm [facility] Use to inject 1-4 times daily as [...] Date Type Department Care Team Description 09/28/2024 [facility] Nephrology, Bone & Mineral Metabolism [address] [facility], [address] [place] [address] Susanne Urbina, PharmD 09/26/2024 [facility] Nephrology, Bone & Mineral Metabolism [address], [address] [place] [address] Marley Moreira, ORDINARY SEAMAN 09/26/2024 Travel 09/15/2024 Refill [facility] Endocrinology [address] [place] [address] Zohra Valenzuela APRN 09/12/2024 [facility] Nephrology, Bone & Mineral Metabolism [address], [address] [place] [address] Susanne Urbina, PharmD 08/06/2024 [facility] Nephrology, Bone & Mineral Metabolism [address] [facility], [address] [place] [address] Evelyne Medel MD from Last [...] Visit [facility]ocrin[facility] [address] [place] [address] Zohra Valenzuela, OPERATIONS SUPPORT COORDINATOR [address] [place] [address] 11/14/2024 10:00 AM EDT Office Visit [facility] Nephrology, Bone & Mineral Metabolism [address] [facility], [address] [place] [address] Evelyne Medel MD [address] [facility] [address] [place] [address] 11/15/2024 10:15 AM EDT Office Visit [facility] Eye Care [address] [facility] [place] [address] Ammy Siegel MD [address] [facility] [address] [place] [address] Health Maintenance Due Date Last [...] A1C 09/21/2024, 09/16/2023, 06/08/2023, Additional history exists [id number] Vaccine ( - 2024- season) 2024 12/04/2021, [...] tic % HEALTHCARE LAB Kit Lot Number [id number] [facility] Kit Expiration Date 01/08/2026 [facility] Blood Venous blood specimen / Unknown 03/24/2024 11:23 AM EST Zohra Valenzuela OPERATIONS SUPPORT COORDINATOR POINT OF CARE TEST ENTER/ED IT ORDERABLES Final Result [facility] [address] [place] [address] from Last 3 Months or Most Recently Relevant to Health Maintenance Insurance [employer] [place] Care Teams Accelerator Operator Relationship Specialty Start Date End Date Micah Willoughby MD PCP - General 02/14/21
--- OUTSIDE RECORDS SUMMARY | 2024-10-21 09:31 | XMS_ITS | Encounter Summary ---
Author Organization [facility] Address [address] [place] [address] Care Team Providers Care Tour Consultant Name Role Phone Micah Willoughby MD Primary Care Provider [phone] Unavailable [phone] Reason for Visit * Reason Comments Med Refill Encounter Details Date Type Department Care Team ([facility] Contact Info) Description 10/09/2022 Refill [facility] Nephrology, Bone & Mineral Metabolism [address], [address] [place] [address] Evelyne Medel MD [address] [place] [address] Primary hypertension Social History Tobacco [...] 11/01/2024 12:20 PM EDT [facility] [address] [place] [address] Zohra Valenzuela, ACTUARY CLERK [address] [facility] [address] [place] [address] 11/14/2024 10:00 AM EDT Office Visit [facility] Nephrology, Bone & Mineral Metabolism [address] [facility], [address] [place] [address] Evelyne Medel MD [address] [place] [address] 11/15/2024 10:15 AM EDT Office Visit [facility] Eye Care [address] [facility] [place] [address] Ammy Siegel MD [address] [facility] [address] [place] [address] documented as of this encounter Visit Diagnoses Diagnosis Primary hypertension Unspecified essential hypertension documented in this encounter Additional Health Concerns Assessment Noted Time A fall risk assessment has been complete d for the patient 06/02/2022 8:59 AM EDT A Body Mass Index follow-up plan has been documented for the patient 07/31/2022 9:32 AM EDT documented as of this encounter Care Teams Tour Consultant Relationship Specialty Start Date End Date Micah Willoughby MD PCP - General 02/14/[address] [facility] [address] [place] [address] Job Trainer Diabetes Services 12/04/23 03/03/24 documented as of this encounter
--- OUTSIDE RECORDS SUMMARY | 2024-10-21 09:31 | XMS_ITS | Encounter Summary ---
Author Organization [facility] Address [address] [place] [address] Care Team Providers Care Medical Administrator Name Role Phone Micah Willoughby MD Primary Care Provider [phone] Encounter Details Date Type Department Care Team ([facility] st Contact Info) Description 09/28/2024 Telephone [facility] Nephrology, Bone & Mineral Metabolism [address] [facility], [address] [place] [address] Susanne Urbina, PharmD [address] [place] [address] Social History Tobacco Use Types [...] Description 11/01/2024 12:20 PM EDT Office Visit [facility] Endocrinology [address] [place] [address] Zohra Valenzuela, PIZZA HUT ASSISTANT [address] [facility] [address] [place] [address] 11/14/2024 10:00 AM EDT Office Visit [facility] Nephrology, Bone & Mineral Metabolism [address] [facility], [address] [place] [address] Evelyne Medel MD [address] [facility] [address] [place] [address] 11/15/2024 10:15 AM EDT Office Visit [facility] [address] [place] [address] Ammy Siegel MD 110 [facility] [address] [place] [address] Scheduled Orders Name Type Priority Associated Diagnoses Orde r Schedule PTH Intact Total Lab Routine Stage 3a chronic kidney disease ([facility]) Expected: 11/07/2024 (Approximate), Expires: 04/01/2026 Vitamin D 25 Hydroxy Lab Routine Stage 3a chronic kidney disease ([facility]) Expected: 11/07/2024 (Approximate), Expires: 04/01/2026 Creatinine, Random, Urine Lab Routine Stage 3a chronic kidney disease ([facility]) Expected: 11/07/2024 (Approximate), Expires: 04/01/2026 Protein, Random, Urine with Creatinine Lab Routine Stage 3a chronic kidney disease ([facility]) Expected: 11/07/2024 (Approximate), Expires: 04/01/2026 Urinalysis with reflex microscopic (Culture NOT Included) Lab Routine Stage 3a chronic kidney disease ([facility]) Expected: 11/07/2024 (Approximate), Expires: 04/01/2026 CBC W/O Differential Lab Routine Stage 3a chronic kidney disease ([facility]) Expected: 11/07/2024 (Approximate), Expires: 04/01/2026 Renal Function Panel, Plasma Lab Routine Stage 3a chronic kidney disease ([facility]) Expected: 11/07/2024 (Approximate), Expires: 04/01/2026 documented as of this encounter Visit Diagnoses Diagnosis Stage 3a chronic kidney disease ([facility])- Primary documented in this encounter Additional Health Concerns Assessment Noted Time A fall risk assessment has been complete d for the patient 09/26/2024 8:53 AM EDT A Body Mass Index follow-up plan has been documented for the patient 06/02/2024 6:09 PM EDT documented as of this encounter Care Teams Medical Administrator Relationship Specialty Start Date End Date Micah Willoughby MD PCP - General 02/14/21 documented as of this encounter
--- OUTSIDE RECORDS SUMMARY | 2024-10-21 09:31 | XMS_ITS | Encounter Summary ---
Author Organization [facility] Address [address] [place] [address] Care Team Providers Care Photographer Helper Name Role Phone Micah Willoughby MD Primary Care Provider Encounter Details Date Type Department Care Team ([facility] st Contact Info) Description 09/12/2024 Telephone [facility] Nephrology, Bone & Mineral Metabolism [address] [facility], [address] [place] [address] Susanne Urbina, PharmD [address] [place] [address] Social History Tobacco Use Types [...] for visit, requests orders be faxed to [facility] [phone]. documented in this encounter Plan of Treatment Upcoming Encounters Date Type Department Care Team (Late st Contact Info) Description 11/01/2024 12:20 PM EDT [facility] End[facility]ology [address] [place] [address] Zohra Valenzuela, SUPERVISOR [employer]ORATORY [address] [facility] [address] [place] [address] 11/14/2024 10:00 AM EDT Office Visit [facility] Nephrology, Bone & Mineral Metabolism [address] [facility], [address] [place] [address] Evelyne Medel MD [address] [place] [address] 11/15/2024 10:15 AM EDT Office Visit [facility] Eye Care [address] [facility] [place] [address] Ammy Siegel MD [address] [facility] [address] [place] [address] documented as of this encounter Visit Diagnoses Not on filedocumented in this encounter Additional Health Concerns Assessment Noted Time A fall risk assessment has been complete d for the patient 05/23/2024 7:57 AM EDT A Body Mass Index follow-up plan has been documented for the patient 06/02/2024 6:09 PM EDT documented as of this encounter Care Teams Photographer Helper Relationship Specialty Start Date End Date Micah Willoughby MD PCP - General 02/14/21 documented as of this encounter
--- OUTSIDE RECORDS SUMMARY | 2024-10-21 09:31 | XMS_ITS | Encounter Summary ---
Author Organization Healthcare Address [address] [place] [address] Care Team Providers Care Test Administrator Name Role Phone Micah Willoughby MD Primary Care Provider [phone] Encounter Details Date Type Department Care Team (Late Contact Info) Description 09/26/2024 Telephone [facility] Nephrology, Bone & Mineral Metabolism [address] [facility], [address] [place] [address] Marley Moreira, ENGINEERING INSPECTION ASSISTANT GS - 7 MAIN MEDICAL-SURGICAL Social History [...] too keep trying to log in.gave him [phone] technical support number documented in this encounter Plan of Treatment Upcoming Encounters Date Type Department Care Team (Late Contact Info) Description 11/01/2024 12:20 PM EDT [facility] [address] [place] [address] Zohra Valenzuela, MEAT AND SEAFOOD CLERK [address] [place] [address] 11/14/2024 10:00 AM EDT Office Visit [facility] Nephrology, Bone & Mineral Metabolism [address] [facility], [address] [place] [address] Evelyne Medel MD [address] [facility] [address] [place] [address] 11/15/2024 10:15 AM EDT Office Visit [facility] Eye Care [address] [facility] [place] [address] Ammy Siegel MD [address] [facility] [address] [place] [address] documented as of this encounter Visit Diagnoses Not on filedocumented in this encounter Additional Health Concerns Assessment Noted Time A fall risk assessment has been complete d for the patient 09/26/2024 8:53 AM EDT A Body Mass Index follow-up plan has been documented for the patient 06/02/2024 6:09 PM EDT documented as of this encounter Care Teams Test Administrator Relationship Specialty Start Date End Date Micah Willoughby MD PCP - General 02/14/21 documented as of this encounter
--- OUTSIDE RECORDS SUMMARY | 2024-10-21 09:31 | XMS_ITS | Encounter Summary ---
Author Organization [facility] Address [address] [place] [address] Care Team Providers Care Box Hinge And Lock Attacher Name Role Phone Micah Willoughby MD Primary Care Provider [phone] Reason for Visit * Reason Comments Med Refill Encounter Details Date Type Department Care Team (Late Contact Info) Description 09/15/2024 Refill [facility] Endocrinology [address] [place] [address] Zohra Valenzuela HAND LENS POLISHER [address] [address] Social History Tobacco Use Types [...] Description 11/01/2024 12:20 PM EDT Office Visit [facility] Endocrinology [address] [place] [address] Zohra Valenzuela, HAND LENS POLISHER [address] [address] 11/14/2024 10:00 AM EDT Office Visit [facility] [place] Nephrology, Bone & Mineral Metabolism [address] [facility], [address] [place] [address] Evelyne Medel MD [address] [facility] [address] [place] [address] 11/15/2024 10:15 AM EDT Office Visit [facility] Care [address] [place] [address] Ammy Siegel MD 110 [facility] [address] [place] [address] documented as of this encounter Visit Diagnoses Not on filedocumented in this encounter Additional Health Concerns Assessment Noted Time A fall risk assessment has been complete d for the patient 05/23/2024 7:57 AM EDT A Body Mass Index follow-up plan has been documented for the patient 06/02/2024 6:09 PM EDT documented as of this encounter Care Teams Box Hinge And Lock Attacher Relationship Specialty Start Date End Date Micah Willoughby MD PCP - General 02/14/21 documented as of this encounter
== END 2024-10-21 09:55 | disposition home or self-care (01) ==
LOC: INF 09:29
PROVIDERS: PCP Family Medicine; Visit Provider Surgery
DX: Z48.01 Encounter for change or removal of surgical wound dressing (principal)
CPT/HCPCS: 99211; G0463

== ENCOUNTER 2024-10-22 09:41 | Outpatient (CLI) | payer MEDICAID, SELFPAY ==
--- OUTSIDE RECORDS SUMMARY | 2024-10-22 09:48 | XMS_ITS | Encounter Summary ---
Author Organization [facility] Address [address] [place] [address] Care Team Providers Care Tie Up Worker Name Role Phone Micah Willoughby MD Primary Care Provider [phone] Encounter Details Date Type Department Care Team ([facility] st Contact Info) Description 09/12/2024 Telephone [facility] Nephrology, Bone & Mineral Metabolism [address] [facility], [address] [place] [address] Susanne Urbina, PharmD [address] [place] [address] Social History Tobacco Use Types [...] for visit, requests orders be faxed to [facility] [phone]. documented in this encounter Plan of Treatment Upcoming Encounters Date Type Department Care Team (Late st Contact Info) Description 11/01/2024 12:20 PM EDT [facility] End[facility]ology [address] [place] [address] Zohra Valenzuela, PORCELAIN ENAMEL LABORER 2[address] [facility] [address] [place] [address] 11/14/2024 10:00 AM EDT Office Visit [facility] [place] Nephrology, Bone & Mineral Metabolism [address] [facility], [address] [place] [address] Evelyne Medel MD [address] [place] [address] 11/15/2024 10:15 AM EDT Office Visit [facility] [address] [place] [address] Ammy Siegel MD [address] [facility] [address] [place] [address] documented as of this encounter Visit Diagnoses Not on filedocumented in this encounter Additional Health Concerns Assessment Noted Time A fall risk assessment has been complete d for the patient 05/23/2024 7:57 AM EDT A Body Mass Index follow-up plan has been documented for the patient 06/02/2024 6:09 PM EDT documented as of this encounter Care Teams Tie Up Worker Relationship Specialty Start Date End Date Micah Willoughby MD PCP - General 02/14/21 documented as of this encounter
--- OUTSIDE RECORDS SUMMARY | 2024-10-22 09:48 | XMS_ITS | Encounter Summary ---
Author Organization [facility] Address [address] [place] [address] Care Team Providers Care Grill Associate Name Role Phone Micah Willoughby MD Primary Care Provider [phone] Encounter Details Date Type Department Care Team (Late Contact Info) Description 09/26/2024 Telephone [facility] Nephrology, Bone & Mineral Metabolism [address] [facility], [address] [place] [address] Marley Moreira, ROTARY DRIER OPERATOR GS - 7 MAIN MEDICAL-SURGICAL Social History [...] too keep trying to log in.gave him [phone] technical support number documented in this encounter Plan of Treatment Upcoming Encounters Date Type Department Care Team (Late Contact Info) Description 11/01/2024 12:20 PM EDT [facility] [address] [place] [address] Zohra Valenzuela, ARCHITECT INTERNSHIP [address] [place] [address] 11/14/2024 10:00 AM EDT Office Visit [facility] Nephrology, Bone & Mineral Metabolism [address] [facility], [address] [place] [address] Evelyne Medel MD [address] [facility] [address] [place] [address] 11/15/2024 10:15 AM EDT Office Visit [facility] Eye Care [address] [facility] [place] [address] Ammy Siegel MD [address] [facility] [address] [place] [address] documented as of this encounter Visit Diagnoses Not on filedocumented in this encounter Additional Health Concerns Assessment Noted Time A fall risk assessment has been complete d for the patient 09/26/2024 8:53 AM EDT A Body Mass Index follow-up plan has been documented for the patient 06/02/2024 6:09 PM EDT documented as of this encounter Care Teams Grill Associate Relationship Specialty Start Date End Date Micah Willoughby MD PCP - General 02/14/21 documented as of this encounter
--- OUTSIDE RECORDS SUMMARY | 2024-10-22 09:48 | XMS_ITS | Clinical Summary ---
Author Organization [facility] Address [address] [place] [address] Phone Care Team Providers Care Package Dye Stand Loader Name Role Phone Unavailable Primary Care Provider [...] (ASTELIN) 137 mcg (0.1 %) Nasl Aerosol, [place] 274 mcg in each nostril 4 times [...]
--- OUTSIDE RECORDS SUMMARY | 2024-10-22 09:48 | XMS_ITS | Encounter Summary ---
Author Organization [facility] Address [address] [place] [address] Care Team Providers Care Waste Collection Driver Name Role Phone Micah Willoughby MD Primary Care Provider [phone] Encounter Details Date Type Department Care Team [...] 12:20 PM EDT Office [facility] Endocrinology [address] [place] [address] Zohra Valenzuela, MEDICAL CONSULTANT [address] [facility] [address] [place] [address] 11/14/2024 10:00 AM EDT Office Visit [facility] Nephrology, Bone & Mineral Metabolism [address] [facility], [address] [place] [address] Evelyne Medel MD [address] [place] [address] 11/15/2024 10:15 AM EDT Office Visit [facility] Eye Care [address] [place] [address] Ammy Siegel MD [address] [place] [address] documented as of this encounter Visit Diagnoses Not on filedocumented in this encounter Additional Health Concerns Assessment Noted Time A fall risk assessment has been complete d for the patient 09/26/2024 8:53 AM EDT A Body Mass Index follow-up plan has been documented for the patient 06/02/2024 6:09 PM EDT documented as of this encounter Care Teams Waste Collection Driver Relationship Specialty Start Date End Date Micah Willoughby MD PCP - General 02/14/21 documented as of this encounter
--- OUTSIDE RECORDS SUMMARY | 2024-10-22 09:48 | XMS_ITS | Encounter Summary ---
Author Organization [facility] Address [address] [place] [address] Care Team Providers Care Milker Machine Name Role Phone Micah Willoughby MD Primary Care Provider [phone] Encounter Details Date Type Department Care Team ([facility] st Contact Info) Description 09/28/2024 Telephone [facility] Nephrology, Bone & Mineral Metabolism [address] [facility], [address] [place] [address] Susanne Urbina, PharmD [address] [place] [address] Social History Tobacco Use Types [...] Description 11/01/2024 12:20 PM EDT Office Visit [facility] Endocrinology [address] [place] [address] Zohra Valenzuela, HARD ROCK MINER BLASTING [address] [facility] [address] [place] [address] 11/14/2024 10:00 AM EDT Office Visit [facility] Nephrology, Bone & Mineral Metabolism [address] [facility], [address] [place] [address] Evelyne Medel MD [address] [facility] [address] [place] [address] 11/15/2024 10:15 AM EDT Office Visit [facility] [address] [place] [address] Ammy Siegel MD 110 [facility] [address] [place] [address] Scheduled Orders Name Type Priority Associated Diagnoses Orde r Schedule PTH Intact Total Lab Routine Stage 3a chronic kidney disease ([facility]) Expected: 11/07/2024 (Approximate), Expires: 04/01/2026 Vitamin D 25 Hydroxy Lab Routine Stage 3a chronic kidney disease ([facility]) Expected: 11/07/2024 (Approximate), Expires: 04/01/2026 Creatinine, Random, Urine Lab Routine Stage 3a chronic kidney disease ([facility]) Expected: 11/07/2024 (Approximate), Expires: 04/01/2026 Protein, Random, Urine with Creatinine Lab Routine Stage 3a chronic kidney disease ([facility]/H[facility]) Expected: 11/07/2024 (Approximate), Expires: 04/01/2026 Urinalysis with reflex microscopic (Culture NOT Included) Lab Routine Stage 3a chronic kidney disease ([facility]/HCC) Expected: 11/07/2024 (Approximate), Expires: 04/01/2026 CBC W/O Differential Lab Routine Stage 3a chronic kidney disease ([facility]) Expected: 11/07/2024 (Approximate), Expires: 04/01/2026 Renal Function Panel, Plasma Lab Routine Stage 3a chronic kidney disease ([facility]) Expected: 11/07/2024 (Approximate), Expires: 04/01/2026 documented as of this encounter Visit Diagnoses Diagnosis Stage 3a chronic kidney disease ([facility]/HCC)- Primary documented in this encounter Additional Health Concerns Assessment Noted Time A fall risk assessment has been complete d for the patient 09/26/2024 8:53 AM EDT A Body Mass Index follow-up plan has been documented for the patient 06/02/2024 6:09 PM EDT documented as of this encounter Care Teams Milker Machine Relationship Specialty Start Date End Date Micah Willoughby MD PCP - General 02/14/21 documented as of this encounter
--- OUTSIDE RECORDS SUMMARY | 2024-10-22 09:48 | XMS_ITS | Encounter Summary ---
Author Organization [facility] Address [address] [place] [address] Care Team Providers Care Manager Consumer Name Role Phone Micah Willoughby MD Primary Care Provider [phone] Reason for Visit * Reason Comments Med Refill Encounter Details Date Type Department Care Team (Late Contact Info) Description 09/15/2024 Refill [facility] Endocrinology [address] [place] [address] Zohra Valenzuela INFRASTRUCTURE ANALYST [address] [address] Social History Tobacco Use Types [...] Office Visit [facility] Endocrinology [address] [place] [address] Zohra Valenzuela, INFRASTRUCTURE ANALYST [address] [address] 11/14/2024 10:00 AM EDT Office Visit [facility] [place] Nephrology, Bone & Mineral Metabolism [address] [facility], [address] [place] [address] Evelyne Medel MD [address] [facility] [address] [place] [address] 11/15/2024 10:15 AM EDT Office Visit [facility] Eye Care [address] [place] [address] Ammy Siegel MD 110 [facility] [address] [place] [address] documented as of this encounter Visit Diagnoses Not on filedocumented in this encounter Additional Health Concerns Assessment Noted Time A fall risk assessment has been complete d for the patient 05/23/2024 7:57 AM EDT A Body Mass Index follow-up plan has been documented for the patient 06/02/2024 6:09 PM EDT documented as of this encounter Care Teams Manager Consumer Relationship Specialty Start Date End Date Micah Willoughby MD PCP - General 02/14/21 documented as of this encounter
--- OUTSIDE RECORDS SUMMARY | 2024-10-22 09:48 | XMS_ITS | Clinical Summary ---
Author Organization [facility] Address [address] [place] [address] Care Team Providers Care Steel Detailer Name Role Phone Micah Willoughby MD Primary Care Provider [phone] Allergies Active Allergy Reactions Criticality Noted Date [...] III SHORT PEN) 31G X 8 mm [facility] Use to inject 1-4 times daily as [...] Date Type Department Care Team Description 09/28/2024 [facility] Nephrology, Bone & Mineral Metabolism [address] [facility], [address] [place] [address] Susanne Urbian, PharmD 09/26/2024 [facility] Nephrology, Bone & Mineral Metabolism [address], [address] [place] [address] Marley Moreira, GEAR ROOM KEEPER 09/26/2024 Travel 09/15/2024 Refill [facility] Endocrinology [address] [place] [address] Zohra Valenzuela APRN 09/12/2024 [facility] Nephrology, Bone & Mineral Metabolism [address], [address] [place] [address] Susanne Urbina, PharmD 08/06/2024 [facility] Nephrology, Bone & Mineral Metabolism [address] [facility], [address] [place] [address] Evelyne Medel MD from Last [...] Visit [facility] [address] [place] [address] Zohra Valenzuela, HAND MEXICAN FOOD MAKER [address] [place] [address] 11/14/2024 10:00 AM EDT Office Visit [facility] Nephrology, Bone & Mineral Metabolism [address] [facility], [address] [place] [address] Evelyne Medel MD [address] [facility] [address] [place] [address] 11/15/2024 10:15 AM EDT Office Visit [facility] Care [address] [facility] [place] [address] Ammy Siegel MD [address] [facility] [address] [place] [address] Health Maintenance Due Date Last [...] A1C 09/21/2024, 09/16/2023, 06/08/2023, Additional history exists [id number] Vaccine ( - 2024- season) 2024 12/04/2021, [...] tic % HEALTHCARE LAB Kit Lot Number [id number] [facility] Kit Expiration Date 01/08/2026 [employer] [facility] Blood Venous blood specimen / Unknown 03/24/2024 11:23 AM EST Zohra Valenzuela HAND MEXICAN FOOD MAKER POINT OF CARE TEST ENTER/ED IT ORDERABLES Final Result [facility] [address] [place] [address] from Last 3 Months or Most Recently Relevant to Health Maintenance Insurance [employer] [place] Care Teams Steel Detailer Relationship Specialty Start Date End Date Micah Willoughby MD PCP - General 02/14/21
--- OUTSIDE RECORDS SUMMARY | 2024-10-22 09:48 | XMS_ITS | Encounter Summary ---
Author Organization [facility] Address [address] [place] [address] Care Team Providers Care Open Shank Coverer Name Role Phone Micah Willoughby MD Primary Care Provider [phone] Unavailable [phone] Reason for Visit * Reason Comments Med Refill Encounter Details Date Type Department Care Team ([facility] Contact Info) Description 10/09/2022 Refill [facility] Nephrology, Bone & Mineral Metabolism [address], [address] [place] [address] Evelyne Medel MD [address] [place] [address] Primary hypertension Social History Tobacco [...] Description 11/01/2024 12:20 PM EDT [facility] [address] [place] [address] Zohra Valenzuela, ANIMAL TECHNICIAN [address] [facility] [address] [place] [address] 11/14/2024 10:00 AM EDT Office Visit [facility] Nephrology, Bone & Mineral Metabolism [address] [facility], [address] [place] [address] Evelyne Medel MD [address] [place] [address] 11/15/2024 10:15 AM EDT Office Visit [facility] Eye Care [address] [facility] [place] [address] Ammy Siegel MD [address] [facility] [address] [place] [address] documented as of this encounter Visit Diagnoses Diagnosis Primary hypertension Unspecified essential hypertension documented in this encounter Additional Health Concerns Assessment Noted Time A fall risk assessment has been complete d for the patient 06/02/2022 8:59 AM EDT A Body Mass Index follow-up plan has been documented for the patient 07/31/2022 9:32 AM EDT documented as of this encounter Care Teams Open Shank Coverer Relationship Specialty Start Date End Date Micah Willoughby MD PCP - General 02/14/[address] [facility] [address] [place] [address] Vocational Training Instructor Diabetes Services 12/04/23 03/03/24 documented as of this encounter
== END 2024-10-22 10:32 | disposition home or self-care (01) ==
LOC: INF 09:46
PROVIDERS: PCP Family Medicine
DX: Z48.01 Encounter for change or removal of surgical wound dressing (principal)
CPT/HCPCS: 99211; G0463

== ENCOUNTER 2024-10-24 13:38 | Outpatient (CLI) | payer MEDICAID, SELFPAY ==
--- OUTSIDE RECORDS SUMMARY | 2024-10-24 13:42 | XMS_ITS | Clinical Summary ---
Author Organization [facility] Address [address] [place] [address] Phone Care Team Providers Care Bunk House Worker Name Role Phone Unavailable Primary Care Provider [...] (ASTELIN) 137 mcg (0.1 %) Nasl Aerosol, [place] 274 mcg in each nostril 4 times [...]
== END 2024-10-24 13:50 | disposition home or self-care (01) ==
LOC: INF 13:39
PROVIDERS: PCP Family Medicine; Visit Provider Surgery
DX: D64.9 Anemia, unspecified (principal); D61.818 Other pancytopenia
CPT/HCPCS: 99211; G0463

== ENCOUNTER 2024-10-25 09:17 | Outpatient (CLI) | payer MEDICAID, SELFPAY ==
--- OUTSIDE RECORDS SUMMARY | 2024-10-25 09:54 | XMS_ITS | Clinical Summary ---
Author Organization [facility] Address [address] [place] [address] Phone Care Team Providers Care Stock Chaser Name Role Phone Unavailable Primary Care Provider [...] (ASTELIN) 137 mcg (0.1 %) Nasl Aerosol, [place] 274 mcg in each nostril 4 times [...]
--- OUTSIDE RECORDS SUMMARY | 2024-10-25 09:54 | XMS_ITS | Encounter Summary ---
Author Organization [facility] Address [address] [place] [address] Care Team Providers Care Engineering Supplies Sales Name Role Phone Micah Willoughby MD Primary Care Provider [phone] Encounter Details Date Type Department Care Team [...] Description 11/01/2024 12:20 PM EDT Office Visit [facility] Endocrinology [address] [place] [address] Zohra Valenzuela, GARMENT MANUFACTURING SUPERVISOR [address] [facility] [address] [place] [address] 11/14/2024 10:00 AM EDT Office Visit [facility] Nephrology, Bone & Mineral Metabolism [address] [facility], [address] [place] [address] Evelyne Medel MD [address] [place] [address] 11/15/2024 10:15 AM EDT Office Visit [facility] Eye Care [address] [place] [address] Ammy Siegel MD [address] [place] [address] documented as of this encounter Visit Diagnoses Not on filedocumented in this encounter Additional Health Concerns Assessment Noted Time A fall risk assessment has been complete d for the patient 09/26/2024 8:53 AM EDT A Body Mass Index follow-up plan has been documented for the patient 06/02/2024 6:09 PM EDT documented as of this encounter Care Teams Engineering Supplies Sales Relationship Specialty Start Date End Date Micah Willoughby MD PCP - General 02/14/21 documented as of this encounter
--- OUTSIDE RECORDS SUMMARY | 2024-10-25 09:54 | XMS_ITS | Encounter Summary ---
Author Organization [facility] Address [address] [place] [address] Care Team Providers Care Anvilsmith Name Role Phone Micah Willoughby MD Primary Care Provider [phone] Encounter Details Date Type Department Care Team (Late Contact Info) Description 09/26/2024 Telephone [facility] Nephrology, Bone & Mineral Metabolism [address] [facility], [address] [place] [address] Marley Moreira, TERRAZZO SUPERVISOR GS - 7 MAIN MEDICAL-SURGICAL Social History [...] too keep trying to log in.gave him [phone] technical support number documented in this encounter Plan of Treatment Upcoming Encounters Date Type Department Care Team (Late Contact Info) Description 11/01/2024 12:20 PM EDT [facility] [address] [place] [address] Zohra Valenzuela, RESTAURANT ASSISTANT [address] [place] [address] 11/14/2024 10:00 AM EDT Office Visit [facility] Nephrology, Bone & Mineral Metabolism [address] [facility], [address] [place] [address] Evelyne Medel MD [address] [facility] [address] [place] [address] 11/15/2024 10:15 AM EDT Office Visit [facility] Eye Care [address] [facility] [place] [address] Ammy Siegel MD [address] [facility] [address] [place] [address] documented as of this encounter Visit Diagnoses Not on filedocumented in this encounter Additional Health Concerns Assessment Noted Time A fall risk assessment has been complete d for the patient 09/26/2024 8:53 AM EDT A Body Mass Index follow-up plan has been documented for the patient 06/02/2024 6:09 PM EDT documented as of this encounter Care Teams Anvilsmith Relationship Specialty Start Date End Date Micah Willoughby MD PCP - General 02/14/21 documented as of this encounter
--- OUTSIDE RECORDS SUMMARY | 2024-10-25 09:54 | XMS_ITS | Encounter Summary ---
Author Organization [facility] Address [address] [place] [address] Care Team Providers Care Engraver Letter Name Role Phone Micah Willoughby MD Primary Care Provider [phone] Reason for Visit * Reason Comments Med Refill Encounter Details Date Type Department Care Team (Late Contact Info) Description 09/15/2024 Refill [facility] Endocrinology [address] [place] [address] Zohra Valenzuela ORDER DESK CLERK [address] [address] Social History Tobacco Use Types [...] Description 11/01/2024 12:20 PM EDT Office Visit [facility] Endocrinology [address] [place] [address] Zohra Valenzuela, ORDER DESK CLERK [address] [address] 11/14/2024 10:00 AM EDT Office [facility] Nephrology, Bone & Mineral Metabolism [address] [facility], [address] [place] [address] Evelyne Medel MD [address] [facility] [address] [place] [address] 11/15/2024 10:15 AM EDT Office Visit [facility] Eye Care [address] [place] [address] Ammy Siegel MD 110 [facility] [address] [place] [address] documented as of this encounter Visit Diagnoses Not on filedocumented in this encounter Additional Health Concerns Assessment Noted Time A fall risk assessment has been complete d for the patient 05/23/2024 7:57 AM EDT A Body Mass Index follow-up plan has been documented for the patient 06/02/2024 6:09 PM EDT documented as of this encounter Care Teams Engraver Letter Relationship Specialty Start Date End Date Micah Willoughby MD PCP - General 02/14/21 documented as of this encounter
--- OUTSIDE RECORDS SUMMARY | 2024-10-25 09:54 | XMS_ITS | Clinical Summary ---
Author Organization [facility] Address [address] [place] [address] Care Team Providers Care Insulation Mechanic Name Role Phone Micah Willoughby MD Primary Care Provider [phone] Allergies Active Allergy Reactions Criticality Noted Date [...] III SHORT PEN) 31G X 8 mm [facility] Use to inject [...] Date Type Department Care Team Description 09/28/2024 [facility] Nephrology, Bone & Mineral Metabolism [address] [facility], [address] [place] [address] Susanne Urbina, PharmD 09/26/2024 [facility] Nephrology, Bone & Mineral Metabolism [address], [address] [place] [address] Marley Moreira, STRATEGY MANAGER 09/26/2024 Travel 09/15/2024 Refill [facility] Endocrinology [address] [place] [address] Zohra Valenzuela APRN 09/12/2024 [facility] Nephrology, Bone & Mineral Metabolism [address], [address] [place] [address] Susanne Urbina, PharmD 08/06/2024 [facility] Nephrology, Bone & Mineral Metabolism [address] [facility], [address] [place] [address] Evelyne Medel MD from Last [...] Visit [facility] [address] [place] [address] Zohra Valenzuela, ASSEMBLY ASSOCIATE [address] [place] [address] 11/14/2024 10:00 AM EDT Office Visit [facility] Nephrology, Bone & Mineral Metabolism [address] [facility], [address] [place] [address] Evelyne Medel MD [address] [facility] [address] [place] [address] 11/15/2024 10:15 AM EDT Office Visit [facility] Eye Care [address] [facility] [place] [address] Ammy Siegel MD [address] [facility] [address] [place] [address] Health Maintenance Due Date Last [...] A1C 09/21/2024, 09/16/2023, 06/08/2023, Additional history exists [id number] Vaccine ( - 2024- season) 2024 12/04/2021, [...] tic % HEALTHCARE [facility] Kit Lot Number [id number] [facility] Kit Expiration Date 01/08/2026 [facility] Blood Venous blood specimen / Unknown 03/24/2024 11:23 AM EST Zohra Valenzuela ASSEMBLY ASSOCIATE POINT OF CARE TEST ENTER/ED IT ORDERABLES Final Result [facility] [address] [place] [address] from Last 3 Months or Most Recently Relevant to Health Maintenance Insurance [employer] [place] Care Teams Insulation Mechanic Relationship Specialty Start Date End Date Micah Willoughby MD PCP - General 02/14/21
--- OUTSIDE RECORDS SUMMARY | 2024-10-25 09:54 | XMS_ITS | Encounter Summary ---
Author Organization [facility] Address [address] [place] [address] Care Team Providers Care Biodiesel Engine Specialist Name Role Phone Micah Willoughby MD Primary Care Provider [phone] Unavailable [phone] Reason for Visit * Reason Comments Med Refill Encounter Details Date Type Department Care Team ([facility] Contact Info) Description 10/09/2022 Refill [facility] Nephrology, Bone & Mineral Metabolism [address], [address] [place] [address] Evelyne Medel MD [address] [place] [address] Primary hypertension Social History Tobacco [...] Description 11/01/2024 12:20 PM EDT [facility] [address] [place] [address] Zohra Valenzuela, CITY DRIVER [address] [facility] [address] [place] [address] 11/14/2024 10:00 AM EDT Office Visit [facility] Nephrology, Bone & Mineral Metabolism [address] [facility], [address] [place] [address] Evelyne Medel MD [address] [place] [address] 11/15/2024 10:15 AM EDT Office Visit [facility] Eye Care [address] [facility] [place] [address] Ammy Siegel MD [address] [facility] [address] [place] [address] documented as of this encounter Visit Diagnoses Diagnosis Primary hypertension Unspecified essential hypertension documented in this encounter Additional Health Concerns Assessment Noted Time A fall risk assessment has been complete d for the patient 06/02/2022 8:59 AM EDT A Body Mass Index follow-up plan has been documented for the patient 07/31/2022 9:32 AM EDT documented as of this encounter Care Teams Biodiesel Engine Specialist Relationship Specialty Start Date End Date Micah Willoughby MD PCP - General 02/14/[address] [facility] [address] [place] [address] Public Relations Account Supervisor Diabetes Services 12/04/23 03/03/24 documented as of this encounter
--- OUTSIDE RECORDS SUMMARY | 2024-10-25 09:54 | XMS_ITS | Encounter Summary ---
Author Organization [facility] Address [address] [place] [address] Care Team Providers Care Terminal Block Assembler Name Role Phone Micah Willoughby MD Primary Care Provider [phone] Encounter Details Date Type Department Care Team ([facility] st Contact Info) Description 09/28/2024 Telephone [facility] Nephrology, Bone & Mineral Metabolism [address] [facility], [address] [place] [address] Susanne Urbina, PharmD [address] [place] [address] Social History Tobacco Use Types [...] [facility] Endocrinology [address] [place] [address] Zohra Valenzuela, DIRECTOR OF TRAINING [address] [facility] [address] [place] [address] 11/14/2024 10:00 AM EDT Office Visit [facility] Nephrology, Bone & Mineral Metabolism [address] [facility], [address] [place] [address] Evelyne Medel MD [address] [facility] [address] [place] [address] 11/15/2024 10:15 AM EDT Office Visit [facility] Advanced Eye Care [address] [place] [address] Ammy Siegel MD 110 [facility] [address] [place] [address] Scheduled Orders Name Type Priority Associated Diagnoses Orde r Schedule PTH Intact Total Lab Routine Stage 3a chronic kidney disease ([facility]) Expected: 11/07/2024 (Approximate), Expires: 04/01/2026 Vitamin D 25 Hydroxy Lab Routine Stage 3a chronic kidney disease ([facility]) Expected: 11/07/2024 (Approximate), Expires: 04/01/2026 Creatinine, Random, Urine Lab Routine Stage 3a chronic kidney disease ([facility]) Expected: 11/07/2024 (Approximate), Expires: 04/01/2026 Protein, Random, Urine with Creatinine Lab Routine Stage 3a chronic kidney disease ([facility]) Expected: 11/07/2024 (Approximate), Expires: 04/01/2026 Urinalysis with reflex microscopic (Culture NOT Included) Lab Routine Stage 3a chronic kidney disease ([facility]) Expected: 11/07/2024 (Approximate), Expires: 04/01/2026 CBC W/O Differential Lab Routine Stage 3a chronic kidney disease ([facility]) Expected: 11/07/2024 (Approximate), Expires: 04/01/2026 Renal Function Panel, Plasma Lab Routine Stage 3a chronic kidney disease ([facility]) Expected: 11/07/2024 (Approximate), Expires: 04/01/2026 documented as of this encounter Visit Diagnoses Diagnosis Stage 3a chronic kidney disease ([facility])- Primary documented in this encounter Additional Health Concerns Assessment Noted Time A fall risk assessment has been complete d for the patient 09/26/2024 8:53 AM EDT A Body Mass Index follow-up plan has been documented for the patient 06/02/2024 6:09 PM EDT documented as of this encounter Care Teams Terminal Block Assembler Relationship Specialty Start Date End Date Micah Willoughby MD PCP - General 02/14/21 documented as of this encounter
--- OUTSIDE RECORDS SUMMARY | 2024-10-25 09:54 | XMS_ITS | Encounter Summary ---
Author Organization [facility] Address [address] [place] [address] Care Team Providers Care Novelty Dipper Name Role Phone Micah Willoughby MD Primary Care Provider [phone] Encounter Details Date Type Department Care Team ([facility] st Contact Info) Description 09/12/2024 Telephone [facility] Nephrology, Bone & Mineral Metabolism [address] [facility], [address] [place] [address] Susanne Urbina, PharmD [address] [place] [address] Social History Tobacco Use Types [...] for visit, requests orders be faxed to [facility] [phone]. documented in this encounter Plan of Treatment Upcoming Encounters Date Type Department Care Team (Late st Contact Info) Description 11/01/2024 12:20 PM EDT [facility] End[facility] [address] [place] [address] Zohra Valenzuela, WAREHOUSE ADMINISTRATOR [address] [facility] [address] [place] [address] 11/14/2024 10:00 AM EDT Office Visit [facility] Nephrology, Bone & Mineral Metabolism [address] [facility], [address] [place] [address] Evelyne Medel MD [address] [place] [address] 11/15/2024 10:15 AM EDT Office Visit [facility] Eye Care [address] [place] [address] Ammy Siegel MD [address] [facility] [address] [place] [address] documented as of this encounter Visit Diagnoses Not on filedocumented in this encounter Additional Health Concerns Assessment Noted Time A fall risk assessment has been complete d for the patient 05/23/2024 7:57 AM EDT A Body Mass Index follow-up plan has been documented for the patient 06/02/2024 6:09 PM EDT documented as of this encounter Care Teams Novelty Dipper Relationship Specialty Start Date End Date Micah Willoughby MD PCP - General 02/14/21 documented as of this encounter
== END 2024-10-25 09:35 | disposition home or self-care (01) ==
LOC: INF 09:18
PROVIDERS: PCP Family Medicine; Visit Provider Surgery
DX: D64.9 Anemia, unspecified (principal); D61.818 Other pancytopenia
CPT/HCPCS: 99211; G0463

== ENCOUNTER 2024-10-26 09:02 | Outpatient (CLI) | payer MEDICAID, SELFPAY ==
--- OUTSIDE RECORDS SUMMARY | 2024-10-26 09:16 | XMS_ITS | Encounter Summary ---
Author Organization [facility] Address [address] [place] [address] Care Team Providers Care Apns Name Role Phone Micah Willoughby MD Primary Care Provider [phone] Unavailable [phone] Reason for Visit * Reason Comments Med Refill Encounter Details Date Type Department Care Team ([facility] Contact Info) Description 10/09/2022 Refill [facility] Nephrology, Bone & Mineral Metabolism [address], [address] [place] [address] Evelyne Medel MD [address] [place] [address] Primary hypertension Social History Tobacco [...] Description 11/01/2024 12:20 PM EDT [facility] [address] [place] [address] Zohra Valenzuela, CABLE TV INSTALLER [address] [facility] [address] [place] [address] 11/14/2024 10:00 AM EDT Office Visit [facility] Nephrology, Bone & Mineral Metabolism [address] [facility], [address] [place] [address] Evelyne Medel MD [address] [place] [address] 11/15/2024 10:15 AM EDT Office Visit [facility] Eye Care [address] [facility] [place] [address] Ammy Siegel MD [address] [facility] [address] [place] [address] documented as of this encounter Visit Diagnoses Diagnosis Primary hypertension Unspecified essential hypertension documented in this encounter Additional Health Concerns Assessment Noted Time A fall risk assessment has been complete d for the patient 06/02/2022 8:59 AM EDT A Body Mass Index follow-up plan has been documented for the patient 07/31/2022 9:32 AM EDT documented as of this encounter Care Teams Apns Relationship Specialty Start Date End Date Micah Willoughby MD PCP - General 02/14/[address] [facility] [address] [place] [address] Donor Processor Diabetes Services 12/04/23 03/03/24 documented as of this encounter
--- OUTSIDE RECORDS SUMMARY | 2024-10-26 09:16 | XMS_ITS | Encounter Summary ---
Author Organization [facility] Address [address] [place] [address] Care Team Providers Care Explosive Ordnance Disposal Specialist Name Role Phone Micah Willoughby MD Primary Care Provider [phone] Encounter Details Date Type Department Care Team (Late Contact Info) Description 09/26/2024 Telephone [facility] Nephrology, Bone & Mineral Metabolism [address] [facility], [address] [place] [address] Marley Moreira, COMMODITIES BROKER GS - 7 MAIN MEDICAL-SURGICAL Social History [...] too keep trying to log in.gave him [phone] technical support number documented in this encounter Plan of Treatment Upcoming Encounters Date Type Department Care Team (Late Contact Info) Description 11/01/2024 12:20 PM EDT [facility] [address] [place] [address] Zohra Valenzuela, LACTATION COORDINATOR [address] [place] [address] 11/14/2024 10:00 AM EDT Office Visit [email or web address] Nephrology, Bone & Mineral Metabolism [address] [facility], [address] [place] [address] Evelyne Medel MD [address] [facility] [address] [place] [address] 11/15/2024 10:15 AM EDT Office Visit [facility] Eye Care [address] [place] [address] mAmy Siegel MD [address] [facility] [address] [place] [address] documented as of this encounter Visit Diagnoses Not on filedocumented in this encounter Additional Health Concerns Assessment Noted Time A fall risk assessment has been complete d for the patient 09/26/2024 8:53 AM EDT A Body Mass Index follow-up plan has been documented for the patient 06/02/2024 6:09 PM EDT documented as of this encounter Care Teams Explosive Ordnance Disposal Specialist Relationship Specialty Start Date End Date Micah Willoughby MD PCP - General 02/14/21 documented as of this encounter
--- OUTSIDE RECORDS SUMMARY | 2024-10-26 09:16 | XMS_ITS | Clinical Summary ---
Author Organization [facility] Address [address] [place] [address] Phone Care Team Providers Care Printer Operator Name Role Phone Unavailable Primary Care [...] (ASTELIN) 137 mcg (0.1 %) Nasl Aerosol, [place] 274 mcg in each nostril 4 times [...]
--- OUTSIDE RECORDS SUMMARY | 2024-10-26 09:16 | XMS_ITS | Encounter Summary ---
Author Organization [facility] Address [address] [place] [address] Care Team Providers Care Back Tender Insulation Board Name Role Phone Micah Willoughby MD Primary Care Provider [phone] Encounter Details Date Type Department Care Team ([facility] st Contact Info) Description 09/28/2024 Telephone [facility] Nephrology, Bone & Mineral Metabolism [address] [facility], [address] [place] [address] Susanne Urbina, PharmD [address] [place] [address] Social History Tobacco Use Types [...] EDT Dr. Langley reviewed lab results with Julio Donald Ramez yesterday, Cr stable at 1.13, [...] Description 11/01/2024 12:20 PM EDT Office Visit [facility] Endocrinology [address] [place] [address] Zohra Valenzuela, OCULARIST [address] [facility] [address] [place] [address] 11/14/2024 10:00 AM EDT Office Visit [facility] Nephrology, Bone & Mineral Metabolism [address] [facility], [address] [place] [address] Evelyne Medel MD [address] [facility] [address] [place] [address] 11/15/2024 10:15 AM EDT Office Visit [facility] Advanced Eye Care [address] [place] [address] Ammy Siegel MD 110 [facility] [address] [place] [address] Scheduled Orders Name Type Priority Associated Diagnoses Orde r Schedule PTH Intact Total Lab Routine Stage 3a chronic kidney disease ([facility]) Expected: 11/07/2024 (Approximate), Expires: 04/01/2026 Vitamin D 25 Hydroxy Lab Routine Stage 3a chronic kidney disease ([facility]) Expected: 11/07/2024 (Approximate), Expires: 04/01/2026 Creatinine, Random, Urine Lab Routine Stage 3a chronic kidney disease ([facility]) Expected: 11/07/2024 (Approximate), Expires: 04/01/2026 Protein, Random, Urine with Creatinine Lab Routine Stage 3a chronic kidney disease ([facility]) Expected: 11/07/2024 (Approximate), Expires: 04/01/2026 Urinalysis with reflex microscopic (Culture NOT Included) Lab Routine Stage 3a chronic kidney disease ([facility]) Expected: 11/07/2024 (Approximate), Expires: 04/01/2026 CBC W/O Differential Lab Routine Stage 3a chronic kidney disease ([facility]) Expected: 11/07/2024 (Approximate), Expires: 04/01/2026 Renal Function Panel, Plasma Lab Routine Stage 3a chronic kidney disease ([facility]) Expected: 11/07/2024 (Approximate), Expires: 04/01/2026 documented as of this encounter Visit Diagnoses Diagnosis Stage 3a chronic kidney disease ([facility])- Primary documented in this encounter Additional Health Concerns Assessment Noted Time A fall risk assessment has been complete d for the patient 09/26/2024 8:53 AM EDT A Body Mass Index follow-up plan has been documented for the patient 06/02/2024 6:09 PM EDT documented as of this encounter Care Teams Back Tender Insulation Board Relationship Specialty Start Date End Date Micah Willoughby MD PCP - General 02/14/21 documented as of this encounter
--- OUTSIDE RECORDS SUMMARY | 2024-10-26 09:16 | XMS_ITS | Encounter Summary ---
Author Organization [facility] Address [address] [place] [address] Care Team Providers Care Fifth Grade Teacher Name Role Phone Micah Willoughby MD Primary Care Provider Encounter Details Date Type Department Care Team ([facility] st Contact Info) Description 09/12/2024 Telephone [facility] Nephrology, Bone & Mineral Metabolism [address] [facility], [address] [place] [address] Susanne Urbina, PharmD [address] [place] [address] Social History Tobacco Use Types [...] for visit, requests orders be faxed to [facility] [phone]. documented in this encounter Plan of Treatment Upcoming Encounters Date Type Department Care Team (Late st Contact Info) Description 11/01/2024 12:20 PM EDT Office Visit [facility] Endocrinology [address] [place] [address] Zohra Valenzuela, AIR EXPORT COORDINATOR [address] [facility] [address] [place] [address] 11/14/2024 10:00 AM EDT Office [facility] Nephrology, Bone & Mineral Metabolism [address] [facility], [address] [place] [address] Evelyne Medel MD [address] [place] [address] 11/15/2024 10:15 AM EDT Office Visit [facility] Eye Care [address] [place] [address] Ammy Siegel MD [address] [facility] [address] [place] [address] documented as of this encounter Visit Diagnoses Not on filedocumented in this encounter Additional Health Concerns Assessment Noted Time A fall risk assessment has been complete d for the patient 05/23/2024 7:57 AM EDT A Body Mass Index follow-up plan has been documented for the patient 06/02/2024 6:09 PM EDT documented as of this encounter Care Teams Fifth Grade Teacher Relationship Specialty Start Date End Date Micah Willoughby MD PCP - General 02/14/21 documented as of this encounter
--- OUTSIDE RECORDS SUMMARY | 2024-10-26 09:16 | XMS_ITS | Encounter Summary ---
Author Organization [facility] Address [address] [place] [address] Care Team Providers Care Perinatal Educator Name Role Phone Micah Willoughby MD Primary Care Provider [phone] Encounter Details Date Type Department Care Team [...] Office Visit [facility] Endocrinology [address] [place] [address] Zohra Valenzuela, CUSTOMS COMPLIANCE MANAGER [address] [facility] [address] [place] [address] 11/14/2024 10:00 AM EDT Office Visit [facility] Nephrology, Bone & Mineral Metabolism [address] [facility], [address] [place] [address] Evelyne Medel MD [address] [place] [address] 11/15/2024 10:15 AM EDT Office Visit [facility] Eye Care [address] [place] [address] Ammy Siegel MD [address] [place] [address] documented as of this encounter Visit Diagnoses Not on filedocumented in this encounter Additional Health Concerns Assessment Noted Time A fall risk assessment has been complete d for the patient 09/26/2024 8:53 AM EDT A Body Mass Index follow-up plan has been documented for the patient 06/02/2024 6:09 PM EDT documented as of this encounter Care Teams Perinatal Educator Relationship Specialty Start Date End Date Micah Willoughby MD PCP - General 02/14/21 documented as of this encounter
--- OUTSIDE RECORDS SUMMARY | 2024-10-26 09:16 | XMS_ITS | Clinical Summary ---
Author Organization [facility] Address [address] [place] [address] Care Team Providers Care Aircraft Pneudraulics Repairer Name Role Phone Micah Willoughby MD Primary Care Provider [phone] Allergies Active Allergy Reactions Criticality Noted Date [...] III SHORT PEN) 31G X 8 mm [facility] Use to inject 1-4 times daily as [...] Date Type Department Care Team Description 09/28/2024 [facility] Nephrology, Bone & Mineral Metabolism [address] [facility], [address] [place] [address] Susanne Urbina, PharmD 09/26/2024 [facility] Nephrology, Bone & Mineral Metabolism [address], [address] [place] [address] Marley Moreira, FLOOR COVERINGS INSTALLER 09/26/2024 Travel 09/15/2024 Refill [facility] Endocrinology [address] [place] [address] Zohra Valenzuela APRN 09/12/2024 [facility] Nephrology, Bone & Mineral Metabolism [address], [address] [place] [address] Susanne Urbina, PharmD 08/06/2024 [facility] Nephrology, Bone & Mineral Metabolism [address] [facility], [address] [place] [address] Evelyne Medel MD from Last [...] Visit [facility] [address] [place] [address] Zohra Valenzuela, COLOR DEPOSITING MACHINE TENDER [address] [place] [address] 11/14/2024 10:00 AM EDT Office Visit [facility] Nephrology, Bone & Mineral Metabolism [address] [facility] [address] [facility], [address] [place] [address] Evelyne Medel MD [address] [facility] [address] [place] [address] 11/15/2024 10:15 AM EDT Office Visit [facility] [address] [facility] [place] [address] Ammy Siegel MD [address] [facility] [address] [place] [address] Health Maintenance Due Date Last [...] A1C 09/21/2024, 09/16/2023, 06/08/2023, Additional history exists [id number] Vaccine ( - 2024- season) 2024 12/04/2021, [...] tic % [facility] Kit Lot Number [id number] [facility] Kit Expiration Date 01/08/2026 [facility] Blood Venous blood specimen / Unknown 03/24/2024 11:23 AM EST Zohra Valenzuela COLOR DEPOSITING MACHINE TENDER POINT OF CARE TEST ENTER/ED IT ORDERABLES Final Result [facility] [address] [place] [address] from Last 3 Months or Most Recently Relevant to Health Maintenance Insurance [employer] MED[employer] [place] Care Teams Aircraft Pneudraulics Repairer Relationship Specialty Start Date End Date Micah Willoughby MD PCP - General 02/14/21
--- OUTSIDE RECORDS SUMMARY | 2024-10-26 09:16 | XMS_ITS | Encounter Summary ---
Author Organization [facility] Address [address] [place] [address] Care Team Providers Care Oyster Picker Name Role Phone Micah Willoughby MD Primary Care Provider [phone] Reason for Visit * Reason Comments Med Refill Encounter Details Date Type Department Care Team (Late Contact Info) Description 09/15/2024 Refill [facility] Endocrinology [address] [place] [address] Zohra Valenzuela LINE REPAIRER TOWER [address] [address] Social History Tobacco Use Types [...] Description 11/01/2024 12:20 PM EDT Office Visit [facility] Endocrinology [address] [place] [address] Zohra Valenzuela, LINE REPAIRER TOWER [address] [address] 11/14/2024 10:00 AM EDT Office Visit [facility] Nephrology, Bone & Mineral Metabolism [address] [facility], [address] [place] [address] Evelyne Medel MD [address] [facility] [address] [place] [address] 11/15/2024 10:15 AM EDT Office Visit [facility] Eye Care [address] [place] [address] Ammy Siegel MD [address] [facility] [address] [place] [address] documented as of this encounter Visit Diagnoses Not on filedocumented in this encounter Additional Health Concerns Assessment Noted Time A fall risk assessment has been complete d for the patient 05/23/2024 7:57 AM EDT A Body Mass Index follow-up plan has been documented for the patient 06/02/2024 6:09 PM EDT documented as of this encounter Care Teams Oyster Picker Relationship Specialty Start Date End Date Micah Willoughby MD PCP - General 02/14/21 documented as of this encounter
== END 2024-10-26 09:39 | disposition home or self-care (01) ==
LOC: INF 09:03
PROVIDERS: PCP Family Medicine; Visit Provider Surgery
DX: Z48.00 Encounter for change or removal of nonsurgical wound dressing (principal); L02.91 Cutaneous abscess, unspecified
CPT/HCPCS: 99211; G0463

== ENCOUNTER 2024-10-28 09:10 | Outpatient (CLI) | payer MEDICAID, SELFPAY ==
--- OUTSIDE RECORDS SUMMARY | 2024-10-28 09:12 | XMS_ITS | Encounter Summary ---
Author Organization [facility] Address [address] [place] [address] Care Team Providers Care Zinc Etcher Name Role Phone Micah Willoughby MD Primary Care Provider [phone] Encounter Details Date Type Department Care Team (Late Contact Info) Description 09/26/2024 Telephone [facility] Nephrology, Bone & Mineral Metabolism [address] [facility], [address] [place] [address] Marley Moreira, PRODUCT APPLICATIONS SCIENTIST GS - 7 MAIN MEDICAL-SURGICAL Social History [...] too keep trying to log in.gave him [phone] technical support number documented in this encounter Plan of Treatment Upcoming Encounters Date Type Department Care Team (Late Contact Info) Description 11/01/2024 12:20 PM EDT [facility] [address] [place] [address] Zohra Valenzuela, PIE FILLING MIXER [address] [place] [address] 11/14/2024 10:00 AM EDT Office Visit [facility] Nephrology, Bone & Mineral Metabolism [address] [facility], [address] [place] [address] Evelyne Medel MD [address] [facility] [address] [place] [address] 11/15/2024 10:15 AM EDT Office Visit [facility] Eye Care [address] [facility] [place] [place] [address] Ammy Siegel MD [address] [facility] [address] [place] [address] documented as of this encounter Visit Diagnoses Not on filedocumented in this encounter Additional Health Concerns Assessment Noted Time A fall risk assessment has been complete d for the patient 09/26/2024 8:53 AM EDT A Body Mass Index follow-up plan has been documented for the patient 06/02/2024 6:09 PM EDT documented as of this encounter Care Teams Zinc Etcher Relationship Specialty Start Date End Date Micah Willoughby MD PCP - General 02/14/21 documented as of this encounter
--- OUTSIDE RECORDS SUMMARY | 2024-10-28 09:12 | XMS_ITS | Encounter Summary ---
Author Organization [facility] Address [address] [place] [address] Care Team Providers Care Middle School Reading Teacher Name Role Phone Micah Willoughby MD Primary Care Provider [phone] Reason for Visit * Reason Comments Med Refill Encounter Details Date Type Department Care Team (Late Contact Info) Description 09/15/2024 Refill [facility] Endocrinology [address] [place] [address] Zohra Valenzuela PRESS OFFICER [address] [address] Social History Tobacco Use Types [...] Visit [facility] Endocrinology [address] [place] [address] Zohra Valenzuela, PRESS OFFICER [address] [address] 11/14/2024 10:00 AM EDT Office Visit [facility] Nephrology, Bone & Mineral Metabolism [address] [facility], [address] [place] [address] Evelyne Medel MD [address] [facility] [address] [place] [address] 11/15/2024 10:15 AM EDT Office Visit [facility] Eye Care [address] [place] [address] Ammy Siegel MD 110 [facility] [address] [place] [address] documented as of this encounter Visit Diagnoses Not on filedocumented in this encounter Additional Health Concerns Assessment Noted Time A fall risk assessment has been complete d for the patient 05/23/2024 7:57 AM EDT A Body Mass Index follow-up plan has been documented for the patient 06/02/2024 6:09 PM EDT documented as of this encounter Care Teams Middle School Reading Teacher Relationship Specialty Start Date End Date Micah Willoughby MD PCP - General 02/14/21 documented as of this encounter
--- OUTSIDE RECORDS SUMMARY | 2024-10-28 09:12 | XMS_ITS | Clinical Summary ---
Author Organization [facility] Address [address] [place] [address] Phone Care Team Providers Care Picker Packer Name Role Phone Unavailable Primary Care Provider [...] (ASTELIN) 137 mcg (0.1 %) Nasl Aerosol, [place] 274 mcg in each nostril 4 times [...]
--- OUTSIDE RECORDS SUMMARY | 2024-10-28 09:12 | XMS_ITS | Encounter Summary ---
Author Organization [facility] Address [address] [place] [address] Care Team Providers Care Drywall Application Supervisor Name Role Phone Micah Willoughby MD Primary Care Provider [phone] Encounter Details Date Type Department Care Team [...] Description 11/01/2024 12:20 PM EDT Office Visit [facility] Endocrinology [address] [place] [address] Zohra Valenzuela, DROP WIRE HANGER [address] [facility] [address] [place] [address] 11/14/2024 10:00 AM EDT Office [facility] Nephrology, Bone & Mineral Metabolism [address] [facility], [address] [place] [address] Evelyne Medel MD [address] [place] [address] 11/15/2024 10:15 AM EDT Office Visit [facility] Eye Care [address] [place] [address] Ammy Siegel MD [address] [place] [address] documented as of this encounter Visit Diagnoses Not on filedocumented in this encounter Additional Health Concerns Assessment Noted Time A fall risk assessment has been complete d for the patient 09/26/2024 8:53 AM EDT A Body Mass Index follow-up plan has been documented for the patient 06/02/2024 6:09 PM EDT documented as of this encounter Care Teams Drywall Application Supervisor Relationship Specialty Start Date End Date Micah Willoughby MD PCP - General 02/14/21 documented as of this encounter
--- OUTSIDE RECORDS SUMMARY | 2024-10-28 09:12 | XMS_ITS | Clinical Summary ---
Author Organization [facility] Address [address] [place] [address] Care Team Providers Care Logistics Administrator Name Role Phone Micah Willoughby MD Primary Care Provider [phone] Allergies Active Allergy Reactions Criticality Noted Date [...] III SHORT PEN) 31G X 8 mm [facility] Use to inject 1-4 times daily as [...] gabapentin (Neurontin) 400 MG capsule 5 Active Active Problems Problem Noted Date Diagnosed [...] Date Type Department Care Team Description 09/28/2024 Telephone [facility] Nephrology, Bone & Mineral Metabolism [address] [facility], [address] [place] [address] Susanne Urbina, PharmD 09/26/2024 Telephone [facility] Nephrology, Bone & Mineral Metabolism [address] [facility], [address] [place] [address] Marley Moreira, CRISTI 09/26/2024 Travel 09/15/2024 Refill [facility] Endocrinology [address] [place] [address] Zohra Valenzuela, CORPORATE INTERN 09/12/2024 Telephone [facility] Nephrology, Bone & Mineral Metabolism [address], [address] [place] [address] Susanne Urbina, PharmD 08/06/2024 Refill [facility] Nephrology, Bone & Mineral Metabolism [address] [facility], [address] [place] [address] Evelyne Medel MD from Last 3 Months [...] Visit [facility] [address] [place] [address] Zohra Valenzuela, CORPORATE INTERN [address] [place] [address] 11/14/2024 10:00 AM EDT Office Visit [facility] Nephrology, Bone & Mineral Metabolism [address] [facility], [address] [place] [address] Evelyne Medel MD [address] [place] [address] 11/15/2024 10:15 AM EDT Office Visit [facility] Eye Care [address] [facility] [place] [address] Ammy Siegel MD [address] [place] [address] Health Maintenance Due Date Last [...] A1C 09/21/2024, 09/16/2023, 06/08/2023, Additional history exists [id number] Vaccine ( - 2024- season) 2024 12/04/2021, [...] Hemoglobin A1C 6.8 <5.7% Non-Diabe tic % [facility] Kit Lot Number [id number] [facility] Kit Expiration Date 01/08/2026 [facility] Blood Venous blood specimen / Unknown 03/24/2024 11:23 AM EST Zohra Valenzuela APRN POINT OF CARE TEST ENTER/ED IT ORDERABLES Final Result [facility] [address] [place] [address] from Last 3 Months or Most Recently Relevant to Health Maintenance Insurance [employer] MED[employer] [place] Care Teams Logistics Administrator Relationship Specialty Start Date End Date Micah Willoughby MD PCP - General 02/14/21
--- OUTSIDE RECORDS SUMMARY | 2024-10-28 09:12 | XMS_ITS | Encounter Summary ---
Author Organization [facility] Address [address] [place] [address] Care Team Providers Care Reconditioner Name Role Phone Micah Willoughby MD Primary Care Provider [phone] Unavailable [phone] Reason for Visit * Reason Comments Med Refill Encounter Details Date Type Department Care Team ([facility] Contact Info) Description 10/09/2022 Refill [facility] Nephrology, Bone & Mineral Metabolism [address], [address] [place] [address] Evelyne Medel MD [address] [place] [address] Primary hypertension Social History Tobacco [...] Description 11/01/2024 12:20 PM EDT [facility] [address] [place] [address] Zohra Valenzuela, MARINE MAMMAL TRAINER [address] [facility] [address] [place] [address] 11/14/2024 10:00 AM EDT Office Visit [facility] Nephrology, Bone & Mineral Metabolism [address] [facility], [address] [place] [address] Evelyne Medel MD [address] [place] [address] 11/15/2024 10:15 AM EDT Office Visit [facility] Care [address] [facility] [place] [address] mAmy Siegel MD [address] [facility] [address] [place] [address] documented as of this encounter Visit Diagnoses Diagnosis Primary hypertension Unspecified essential hypertension documented in this encounter Additional Health Concerns Assessment Noted Time A fall risk assessment has been complete d for the patient 06/02/2022 8:59 AM EDT A Body Mass Index follow-up plan has been documented for the patient 07/31/2022 9:32 AM EDT documented as of this encounter Care Teams Reconditioner Relationship Specialty Start Date End Date Micah Willoughby MD PCP - General 02/14/[address] [facility] [address] [place] [address] [facility] 12/04/23 03/03/24 documented as of this encounter
--- OUTSIDE RECORDS SUMMARY | 2024-10-28 09:12 | XMS_ITS | Encounter Summary ---
Author Organization [facility] Address [address] [place] [address] Care Team Providers Care Hand Molder Meat Name Role Phone Micah Willoughby MD Primary Care Provider [phone] Encounter Details Date Type Department Care Team ([facility] st Contact Info) Description 09/12/2024 Telephone [facility] Nephrology, Bone & Mineral Metabolism [address] [facility] [facility], [address] [place] [address] Susanne Urbina, PharmD [address] [place] [address] Social History Tobacco Use Types [...] for visit, requests orders be faxed to [facility] [phone]. documented in this encounter Plan of Treatment Upcoming Encounters Date Type Department Care Team (Late st Contact Info) Description 11/01/2024 12:20 PM EDT [facility] [address] [place] [address] Zohra Valenzuela, LABORATORY DIRECTOR [address] [facility] [address] [place] [address] 11/14/2024 10:00 AM EDT Office Visit [facility] Nephrology, Bone & Mineral Metabolism [address] [facility], [address] [place] [address] Evelyne Medel MD [address] [place] [address] 11/15/2024 10:15 AM EDT Office Visit [facility] Eye Care [address] [facility] [place] [address] Ammy Siegel MD [address] [facility] [address] [place] [address] documented as of this encounter Visit Diagnoses Not on filedocumented in this encounter Additional Health Concerns Assessment Noted Time A fall risk assessment has been complete d for the patient 05/23/2024 7:57 AM EDT A Body Mass Index follow-up plan has been documented for the patient 06/02/2024 6:09 PM EDT documented as of this encounter Care Teams Hand Molder Meat Relationship Specialty Start Date End Date Micah Willoughby MD PCP - General 02/14/21 documented as of this encounter
--- OUTSIDE RECORDS SUMMARY | 2024-10-28 09:12 | XMS_ITS | Encounter Summary ---
Author Organization [facility] Address [address] [place] [address] Care Team Providers Care Machine Operator Helper Name Role Phone Micah Willoughby MD Primary Care Provider [phone] Encounter Details Date Type Department Care Team ([facility] st Contact Info) Description 09/28/2024 Telephone [facility] Nephrology, Bone & Mineral Metabolism [address] [facility], [address] [place] [address] Susanne Urbina, PharmD [address] [place] [address] Social History Tobacco Use Types [...] Description 11/01/2024 12:20 PM EDT Office Visit [facility] Endocrinology [address] [place] [address] Zohra Valenzuela, MARINE FIRE FIGHTER [address] [facility] [address] [place] [address] 11/14/2024 10:00 AM EDT Office Visit [facility] Nephrology, Bone & Mineral Metabolism [address] [facility], [address] [place] [address] Evelyne Medel MD [address] [facility] [address] [place] [address] 11/15/2024 10:15 AM EDT Office Visit [facility] Care [address] [place] [address] Ammy Siegel MD [address] [facility] [address] [place] [address] Scheduled Orders Name Type Priority Associated Diagnoses Orde r Schedule PTH Intact Total Lab Routine Stage 3a chronic kidney disease ([facility]) Expected: 11/07/2024 (Approximate), Expires: 04/01/2026 Vitamin D 25 Hydroxy Lab Routine Stage 3a chronic kidney disease ([facility]) Expected: 11/07/2024 (Approximate), Expires: 04/01/2026 Creatinine, Random, Urine Lab Routine Stage 3a chronic kidney disease ([facility]) Expected: 11/07/2024 (Approximate), Expires: 04/01/2026 Protein, Random, Urine with Creatinine Lab Routine Stage 3a chronic kidney disease ([facility]) Expected: 11/07/2024 (Approximate), Expires: 04/01/2026 Urinalysis with reflex microscopic (Culture NOT Included) Lab Routine Stage 3a chronic kidney disease ([facility]) Expected: 11/07/2024 (Approximate), Expires: 04/01/2026 CBC W/O Differential Lab Routine Stage 3a chronic kidney disease ([facility]) Expected: 11/07/2024 (Approximate), Expires: 04/01/2026 Renal Function Panel, Plasma Lab Routine Stage 3a chronic kidney disease ([facility]) Expected: 11/07/2024 (Approximate), Expires: 04/01/2026 documented as of this encounter Visit Diagnoses Diagnosis Stage 3a chronic kidney disease ([facility])- Primary documented in this encounter Additional Health Concerns Assessment Noted Time A fall risk assessment has been complete d for the patient 09/26/2024 8:53 AM EDT A Body Mass Index follow-up plan has been documented for the patient 06/02/2024 6:09 PM EDT documented as of this encounter Care Teams Machine Operator Helper Relationship Specialty Start Date End Date Micah Willoughby MD PCP - General 02/14/21 documented as of this encounter
== END 2024-10-28 23:59 | disposition home or self-care (01) ==
LOC: INF 09:11
PROVIDERS: PCP Family Medicine; Visit Provider Surgery
DX: Z48.00 Encounter for change or removal of nonsurgical wound dressing (principal); L02.91 Cutaneous abscess, unspecified
CPT/HCPCS: 99211; G0463

== ENCOUNTER 2024-11-08 10:00 | Outpatient (RCR) | payer MEDICAID, SELFPAY ==
--- NOTE | 2024-10-31 13:55 | HMH.PTOPWND ---
Rehab Wound Evaluation Rehab OP Wound Evaluation Start: 10/31/24 13:41 Freq: Status: Active Protocol: Document 10/31/24 13:42 SORAYA (Rec: 10/31/24 13:55 PHODEANDRA [id number]) E-signed By Niles Phillips, PT Subjective/History History History This is the initial PT eval for Julio Myrick, 48 yowm who presents with c/o R buttock wound after an injection site reaction that began ~ 3 mos ago and is no 2 wks S/ P I&D. Pt reports mild to moderate discomfort in the area and difficulty maintaining dressing in place due to I move a lot in my sleep. He reports PMH of DM and HTN. Subjective Subjective Wound dressing removed with considerable serosanguineous drainage noted. Dressing removed and wound bed appears healthy with full granulation tissue. No priya-wound skin irritation noted. Pain at worst 4/ 10. Wound Eval Wound Right Buttock Wound Type Incision Is This a Chronic Yes Wound Wound Length (cm) 3.4 Wound Width (cm) 4.9 Wound Depth (cm) 4.1 Wound Bed Appearance Beefy Red Wound Margins Well Defined Description Surrounding Tissue [place] Appearance Drainage Description Serosanguineous Drainage Amount Moderate Packing Type Woundvac Sponge Primary Dressing Transparent Drape Wound Debridement Mechanical Method Wound Debridement None Amount of Tissue Removed Dressing Change Tolerated Well Patient Tolerance Ross-Wetzel Wound Assessment Tool Assessment Wound size 3= Length x Width 16.1--<36 sq cm Wound depth 3=Full thickness skin loss involving damage or necrosis of Wound edges 3=Well-defined, not attached to wound base Wound undermining 1=None present Necrotic tissue type 1=Non visible Necrotic tissue 1=None visible amount Exudate type 3=Serosanguineous: thin, watery, pale red/pink Exudate amount 4=Moderate Skin color 1=[place] or normal for ethnic group surrounding wound Peripheral tissue 1=No swelling or edema edema Peripheral tissue 1=None present induration Granulation tissue 2=Bright, beefy red;75% to 100% of wound filled &/or tissue overgrowth Epithelialization 5= < 25% wound covered Wound assessment 29 total score Wound Problems/Impairments Impairments Problems/ Impaired Shower/Bathing,Wound Care Needs,Subjective C/O Impairmments Pain,Impaired Self Care/Self Management Prognosis Rehab Potential Good Comment Skilled therapy is indicated in order to reduce overall wound surface area and debride necrotic tissue in order to improve pt QOL and aid wound healing time. Clinical Impression Consistent with Yes Diagnosis Wound Patient Goals Wound Patient Goals Wound Short Term In 4 wks pt will: Patient Goals 1) Decrease total wound surface area by 25% 2) Decrease R buttock pain to 2/10 at worst Wound Testing Machine Operator In 8 wks pt will: Patient Goals 1) Decrease total wound surface area by 75% 2) Decrease R buttock pain to 0/10 3) Be independent with home dressing changes by pt or caregiver. Outpatient Therapy Plan of Care Treatment Plan May Include ADL/Self Care Yes Education Wound Care Yes Eval/Re-Eval Yes Frequency Times per week 2 Duration Number of Weeks 8 Addendums This patient is a No candidate for social or vocational rehab ? Patient/Guardian Yes verbally acknowledges understanding of treatment program and consents to further treatment? Patient/Guardian Yes verbally acknowledges understanding of diagnosis, prognosis and goals for treatment? Eval Complexity PT Charges 08605 - High Complexity PHYSICIAN CERTIFICATION: I certify the specified therapy services for Julio Myrick are required, authorized, and reviewed every 30 days.
== END 2024-11-08 23:59 | disposition home or self-care (01) ==
LOC: PT 10:00
PROVIDERS: Visit Provider Surgery
DX: L03.90 Cellulitis, unspecified (principal); T80.90XA Unspecified complication following infusion and therapeutic injection, initial encounter
CPT/HCPCS: 97163; 97605

== ENCOUNTER 2024-11-10 11:41 | Emergency (ER) | payer MEDICAID, SELFPAY ==
--- OUTSIDE RECORDS SUMMARY | 2024-11-01 12:20 | XMS_ITS | Encounter Summary ---
Author Organization [facility] Address [address] [place] [address] Care Team Providers Care Sales Communications Manager Name Role Phone Micah Willoughby MD Primary Care Provider [phone] Reason for Referral * Consultation (Routine) - Authorized Specialty Diagnoses / Procedures Referred By Contac t Referred To Contact Diagnoses Type 1 diabetes mellitus with diabetic neuropathy Zohra Valenzuela APRN [address] [address] Phone: tel: fax: Referral ID Status Reason Start Date Expiration Date V isits Requested Visits Authorized [id number] Authorized 11/01/2024 05/03/2026 1 1 * Medications - Closed Specialty Diagnoses / Procedures Referred By Contkatya t Referred To Contact Diagnoses Type 1 diabetes mellitus with diabetic neuropathy Zohra Valenzuela APRN [address] [address] Phone: tel: fax: Referral ID Status Reason Start Date Expiration Date Visits Re quested Visits Authorized [id number] Closed 1 1 * Medications - Closed Specialty Diagnoses / Procedures Referred By Contac t Referred To Contact Diagnoses Type 1 diabetes mellitus with diabetic neuropathy Zohra Valenzuela APRN [address] [address] Phone: tel: fax: Referral ID Status Reason Start Date Expiration Date Visits Re quested Visits Authorized [id number] Closed 1 1 * Medications - Authorized Specialty Diagnoses / Procedures Referred By Daniela bernstein Referred To Contact Diagnoses Type 1 diabetes mellitus with diabetic neuropathy Zohra Valenzuela APRN [address] [address] Phone: tel: fax: Referral ID Status Reason Start Date Expiration Date V isits Requested Visits Authorized [id number] Authorized 06/09/2025 1 1 * Medications - Closed Specialty Diagnoses / Procedures Referred By Daniela bernstein Referred To Contact Diagnoses Type 1 diabetes mellitus with diabetic neuropathy Zohra Valenzuela APRN [address] [address] Phone: tel: fax: Referral ID Status Reason Start Date Expiration Date Visits Re quested Visits Authorized [id number] Closed 1 1 Reason for Visit * Reason Comments Diabetes Encounter Details Date Type Department Care Team (Late st Contact Info) Description 11/01/2024 12:20 PM EDT Office Visit [facility] Endocrinology [address] [place] [address] Zohra Valenzuela APRN [address] [address] Type 1 diabetes mellitus with [...] is currently on Farxiga, 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 - [...] CHO, 1:50>150 correction - Farxiga prescribed by hydraulic elevator constructor, ketone strips at home (cautioned with use [...] to drink fluids - Follow up with hydraulic elevator constructor regarding continued use of Farxiga despite type [...] care. Electronically signed by: Zohra Valenzuela APRN [facility] ENDOCRINOLOG[facility] [address] [place]. [address] PHONE [phone] FAX: [phone] [1] Past Medical History: Diagnosis Date Anemia Diabetes insipidus ([facility]/HCC) Diabetes mellitus ([facility]/HCC) Diabetes mellitus type I ([facility]) Hyperlipidemia Hypertension Hypoparathyroidism Kidney stone N/a Personal history of other endocrine, nutritional and metabolic disease History of diabetes mellitus documented in this encounter Plan of Treatment Upcoming Encounters Date Type Department Care Team (Late st Contact Info) Description 11/14/2024 10:00 AM EDT Office Visit [facility] Nephrology, Bone & Mineral Metabolism [address] [facility], [address] [place] [address] Evelyne Medel MD [address] [facility] [address] [place] [address] 11/15/2024 10:15 AM EDT Office Visit [facility] Eye Care [address] [place] [address] Ammy Siegel MD 110 [facility] [address] [place] [address] 02/21/2025 12:20 PM EST Office Visit [facility] Endocrinology [address] [place] [address] Zohra Valenzuela APRN [address] [place] [address] Scheduled Orders Name Type Priority [...] Associated Diagnoses Orde r Schedule Follow Up [facility] Outpatient Referral Routine Type 1 diabetes [...] Hemoglobin A1C 5.4 <5.7% Non-Diabe tic % [facility] Kit Lot Number [id number] [facility] [employer] [facility] Kit Expiration Date 09/08/2026 [facility] Blood Venous blood specimen / Unknown 11/01/2024 12:28 PM EDT Zohra Valenzuela PATIENT CARE SECRETARY POINT OF CARE TEST ENTER/ED IT ORDERABLES Final Result [facility] [address] [place] [address] documented in this encounter Visit Diagnoses Diagnosis [...] documented as of this encounter Care Teams Sales Communications Manager Relationship Specialty Start Date End Date Micah Willoughby MD PCP - General 02/14/21 documented as of this encounter
[2024-11-10 11:47] VITALS: BP 131/61; PULSE 91; RESP 20; TEMP 36.7; O2SAT 100; BMI 35.1
--- OUTSIDE RECORDS SUMMARY | 2024-11-10 12:02 | XMS_ITS | Encounter Summary ---
Author Organization [facility] Address [address] [place] [address] Care Team Providers Care Building Carpenter Helper Name Role Phone Micah Willoughby MD Primary Care Provider [phone] Encounter Details Date Type Department Care Team (Late Contact Info) Description 09/26/2024 Telephone [facility] Nephrology, Bone & Mineral Metabolism [address] [facility], [address] [place] [address] Marley Moreira, COMMERCIAL GLAZIER GS - 7 MAIN MEDICAL-SURGICAL Social History [...] too keep trying to log in.gave him [phone] technical support number documented in this encounter Plan of Treatment Upcoming Encounters Date Type Department Care Team (Late Contact Info) Description 11/14/2024 10:00 AM EDT Office Visit [facility] Nephrology, Bone & Mineral Metabolism [address] [facility], [address] [place] [address] Evelyne Medel MD [address] [facility] [address] [place] [address] 11/15/2024 10:15 AM EDT Office Visit [facility] Advanced Eye Care [address] [facility] [place] [address] Ammy Siegel MD [address] [facility] [address] [place] [address] 02/21/2025 12:20 PM EST Office Visit [facility] Endocrinology [address] [place] [address] Zohra Valenzuela, LABORER [employer] [address] [facility] [address] [place] [address] documented as of this encounter Visit Diagnoses Not on filedocumented in this encounter Additional Health Concerns Assessment Noted Time A fall risk assessment has been complete d for the patient 09/26/2024 8:53 AM EDT A Body Mass Index follow-up plan has been documented for the patient 06/02/2024 6:09 PM EDT documented as of this encounter Care Teams Building Carpenter Helper Relationship Specialty Start Date End Date Micah Willoughby MD PCP - General 02/14/21 documented as of this encounter
--- OUTSIDE RECORDS SUMMARY | 2024-11-10 12:02 | XMS_ITS | Encounter Summary ---
Author Organization [facility] Address [address] [place] [address] Care Team Providers Care Resort Manager Name Role Phone Micah Willoughby MD Primary Care Provider [phone] Encounter Details Date Type Department Care Team ([facility] st Contact Info) Description 11/08/2024 Telephone [facility] Nephrology, Bone & Mineral Metabolism [address] [facility], [address] [place] [address] Susanne Urbina, PharmD [address] [place] [address] Social History Tobacco Use Types [...] Telephone Encounter - Susanne Urbina, PharmD - 11/08/2024 8:40 AM EDT Received call from Julio Myrick requesting follow-up visit with Dr. Medel on 11/14 be changed from tele-health to an in-person visit as he had difficulty connecting with for previous visit. Changed. Pt also plans to have labs drawn locally at [facility], messaged medical support specialist requesting they fax lab orders. Susanne Urbina PharmD, BCACP Clinical Pharmacist Nephrology Clinic documented in this encounter Plan of Treatment Upcoming Encounters Date Type Department Care Team (Late st Contact Info) Description 11/14/2024 10:00 AM EDT Office Visit [facility] Nephrology, Bone & Mineral Metabolism [address] [facility], [address] [place] [address] Evelyne Medel MD [address] [place] [address] 11/15/2024 10:15 AM EDT Office Visit [facility] Advanced Eye Care [address] [facility] [place] [address] Ammy Siegel MD [address] [place] [address] 02/21/2025 12:20 PM EST Office Visit [facility] Endocrinology [address] [place] [address] Zohra Valenzuela, DIRECTOR OF STRATEGIC PARTNERSHIPS 2[address] [facility] [address] [place] [address] documented as of this encounter Visit Diagnoses Not on filedocumented in this encounter Additional Health Concerns Assessment Noted Time A fall risk assessment has been complete d for the patient 09/26/2024 8:53 AM EDT A Body Mass Index follow-up plan has been documented for the patient 11/01/2024 1:27 PM EDT documented as of this encounter Care Teams Resort Manager Relationship Specialty Start Date End Date Micah Willoughby MD PCP - General 02/14/21 documented as of this encounter
--- OUTSIDE RECORDS SUMMARY | 2024-11-10 12:02 | XMS_ITS | Clinical Summary ---
Author Organization [facility] Address [address] [place] [address] Care Team Providers Care Acrobatic Dancer Name Role Phone Micah Willoughby MD Primary Care Provider [phone] Allergies Active Allergy Reactions Criticality Noted Date [...] 23 Active glucose blood (FREESTYLE LITE) test stripIndications: Type 1 diabetes mellitus with diabetic neuropathy USE FOR BLOOD GLUCOSE TESTING TWO TIMES DAILY OR TO CALIBRATE CGM 50 strip 5 05/18/19 24 Active zolpidem (Ambien) 10 MG tablet TAKE 1 TABLET BY MOUTH EVERY NIGHT AT BEDTIME NEEDED FOR INSOMNIA 05/20/19 24 Active cholecalciferol (Vitamin D-3) 25 MCG (1000 UT) tabletIndications :Vitamin D deficiency Take 1 tablet (1,000 Units) by mouth 1 (one) time each day. 90 tablet 2 04/28/19 25 Active nitroglycerin (Nitrostat) 0.4 MG SL tablet 03/16/19 25 Active naltrexone (Vivitrol) 380 MG reconstituted suspension injection 4.2 mL (380 mg). 03/03/19 25 Active carvedilol (Coreg) 3.125 MG tablet TAKE 1 TABLET BY MOUTH TWICE A DAY WITH A MEAL 180 tablet 3 08/09/19 25 Active valsartan (Diovan) 80 MG tablet Take 1 tablet by mouth daily. 06/22/19 25 Active torsemide (Demadex) 20 MG tablet Take 1 tablet by mouth daily. 06/22/19 25 Active folic acid (Folvite) 1 MG tablet 07/26/19 25 Active Vowst capsule 09/16/19 25 Active Farxiga 10 MG tablet 09/02/19 25 Active cyanocobalamin (Vitamin B-12) 1000 MCG/ML injection 09/02/19 25 Active gabapentin (Neurontin) 400 MG capsule 04/14/19 25 Active insulin aspart (NovoLOG) 100 UNIT/ML injection penIndications:Ty pe 1 diabetes mellitus with diabetic neuropathy Inject 1 unit/8 gms and 1 unit/50 points >150, Max Daily 50 units 15 mL 5 11/02/19 25 Active glucagon (Baqsimi Two Pack) 3 MG/DOSE powder Nasal PowderIndications :Type 1 diabetes mellitus with diabetic neuropathy Administer 3 mg into a single nostril for hypoglycemia; if no response, may repeat in 15 minutes using a new intranasal device 1 each 1 11/02/19 25 Active insulin glargine (Lantus SoloStar, Basaglar) 100 UNIT/ML injection penIndications:Ty pe 1 diabetes mellitus with diabetic neuropathy Inject 17 Units under the skin every morning. 15 mL 4 11/02/19 25 026 Active insulin pen needle (B-D ULTRAFINE III SHORT PEN) 31G X 8 mm misc Use to inject 1-4 times daily as directed 120 each 11 11/02/19 25 Active Continuous Glucose Sensor (Dexcom G6 Sensor) miscIndications:T ype 1 diabetes mellitus with diabetic neuropathy CHANGE EVERY 10 DAYS 9 each 3 11/02/19 25 Active Continuous Glucose Transmitter (Dexcom G6 transmitter) miscIndications:T ype 1 diabetes mellitus with diabetic neuropathy USE DIRECTED TO MONITOR BLOOD GLUCOSE. CHANGE EVERY 90 DAYS 1 each 3 11/02/19 25 Active Continuous Glucose Sensor (Dexcom G6 Sensor) miscIndications:T ype 1 diabetes mellitus with diabetic neuropathy CHANGE EVERY 10 DAYS 9 each 3 09/16/19 24 025 Discontin ued(Reord er) glucagon (Baqsimi Two Pack) 3 MG/DOSE powder Nasal Powder Administer 3 mg into a single nostril for hypoglycemia; if no response, may repeat in 15 minutes using a new intranasal device 1 each 1 12/04/19 24 025 Discontin ued(Reord er) insulin aspart (NovoLOG) 100 UNIT/ML injection penIndications:Ty pe 1 diabetes mellitus with diabetic neuropathy Inject 1 unit/8 gms and 1 unit/50 points >150, Max Daily 50 units 15 mL 5 03/24/19 25 025 Discontin ued(Reord er) insulin glargine (Lantus SoloStar, Basaglar) 100 UNIT/ML injection penIndications:Ty pe 1 diabetes mellitus with diabetic neuropathy Inject 17 Units under the skin 1 (one) time each day in the morning. 15 mL 4 03/24/19 25 025 Discontin ued(Reord er) insulin pen needle (B-D ULTRAFINE III SHORT PEN) 31G X 8 mm misc Use to inject 1-4 times daily as directed 120 each 11 03/24/19 25 025 Discontin ued(Reord er) Continuous Glucose Transmitter (Dexcom G6 transmitter) misc USE DIRECTED TO MONITOR BLOOD GLUCOSE. CHANGE EVERY 90 DAYS 1 each 09/16/19 25 025 Discontin ued(Reord er) Active Problems Problem Noted Date Diagnosed Date [...] Encounters Date Type Department Care Team Description 11/09/2024 Telephone [facility] [place] Nephrology, Bone & Mineral Metabolism [address], [address] [place] [address] Jannet Jacobson 11/08/2024 [facility] Nephrology, Bone & Mineral Metabolism [address], [address] [place] [address] Susnane Urbina, PharmD 11/01/2024 12:20 PM EDT Office Visit [facility] Endocrinology [address] [place] [address] Zohra Valenzuela APRN Type 1 diabetes mellitus with diabetic neuropathy (Primary Dx); Stage 3 chronic kidney disease, unspecified whether stage 3a or 3b CKD ([facility]); Obesity (BMI 30-39.9); Neuropathy; Hyperlipidemia, unspecified hyperlipidemia type; Hypoglycemia; Primary hypertension 11/01/2024 Travel 09/28/2024 [facility] Nephrology, Bone & Mineral Metabolism [address], [address] [place] [address] Susanne Urbina, PharmD 09/26/2024 [facility] Nephrology, Bone & Mineral Metabolism [address], [address] [place] [address] Marley Moreira CNA 09/26/2024 Travel 09/15/2024 Refill [facility] Endocrinology [address] [place] [address] Zohra Valenzuela APRN 09/12/2024 Telephone [facility] [place] Nephrology, Bone & Mineral Metabolism [address] [facility], [address] [place] [address] Susanne Urbina, PharmD from Last [...] Pulse 121 11/01/2024 12:15 PM EDT Temperature 36.7 C (98.1 F) 05/25/2023 8:35 AM EDT Respiratory Rate 18 05/25/2023 8:35 AM EDT Oxygen Saturation 99% 05/25/2023 8:35 AM EDT Inhaled Oxygen Concentration - - Weight 106 kg (234 lb 9.1 oz) 11/01/2024 12:15 P M EDT Height 175.3 cm (5' 9 ) 11/01/2024 12:15 PM EDT Body Mass Index 34.64 11/01/2024 12:15 PM EDT Plan of Treatment Upcoming Encounters Date Type Department Care Team ([facility] st Contact Info) Description 11/14/2024 10:00 AM EDT Office Visit [facility] [place] Nephrology, Bone & Mineral Metabolism [address] [facility], [address] [place] [address] Evelyne Medel MD [address] [place] [address] 11/15/2024 10:15 AM EDT Office Visit [facility] [address] [place] [address] Ammy Siegel MD [address] [place] [address] 02/21/2025 12:20 PM EST [facility] [address] [place] [address] Zohra Valenzuela, SECTION CREWS ACTIVITIES CLERK [address] [place] [address] Health Maintenance Due Date Last [...] 01/05/2019 [facility]-Zoster Vaccines (1 of 2) 12/24/2023 [id number] Vaccine ( - 2024- season) 2024 12/04/2021, 06/05/2021, 12/12/2020, Additional history exists [facility]-Influenza Vaccine (#1) 2024 11/28/2020, [facility]-Depression Screening 01/31/2025 02/01/2024 [facility]-Diabetes: Hemoglobin A1C 05/01/2025, 03/24/2024, 09/16/2023, Additional history exists [facility]-DTaP,Tdap,and Td Vaccines (2 - Td or Tdap) 05/23/2032 05/23/2022 [facility]-Obesity Intervention Completed 025, 05/23/2024, 03/24/2024, Additional history exists HPV Vaccines Aged [...] Type 1 diabetes mellitus with diabetic neuropathy from Last 3 Months Results * POCT glycosylated hemoglobin (Hb A1C) (11/01/2024 12:28 PM EDT) POCT Hemoglobin A1C 5.4 <5.7% Non-Diabe tic % [facility] Kit Lot Number [id number] [facility] Kit Expiration Date 09/08/2026 [facility] Blood Venous blood specimen / Unknown 11/01/2024 12:28 PM EDT Zohra Valenzuela SECTION CREWS ACTIVITIES CLERK POINT OF CARE TEST ENTER/ED IT ORDERABLES Final Result [facility] [address] [place] [address] from Last 3 Months Insurance [employer] [place] Care Teams Acrobatic Dancer Relationship Specialty Start Date End Date Micah Willoughby MD PCP - General 02/14/21
--- OUTSIDE RECORDS SUMMARY | 2024-11-10 12:02 | XMS_ITS | Encounter Summary ---
Author Organization [facility] Address [address] [place] [address] Care Team Providers Care Family Intervention Specialist Name Role Phone Micah Willoughby MD Primary Care Provider [phone] Encounter Details Date Type Department Care Team [...] Description 11/14/2024 10:00 AM EDT Office Visit [facility] [place] Nephrology, Bone & Mineral Metabolism [address] [facility], [address] [place] [address] Evelyne Medel MD [address] [facility] [address] [place] [address] 11/15/2024 10:15 AM EDT Office Visit [facility] Eye Care [address] [place] [address] Ammy Siegel MD [address] [address] 02/21/2025 12:20 PM EST [facility] [address] [place] [address] Zohra Valenzuela, ASPHALT ROLLER PERSON [address] [place] [address] documented as of this encounter Visit Diagnoses Not on filedocumented in this encounter Additional Health Concerns Assessment Noted Time A fall risk assessment has been complete d for the patient 09/26/2024 8:53 AM EDT A Body Mass Index follow-up plan has been documented for the patient 06/02/2024 6:09 PM EDT documented as of this encounter Care Teams Family Intervention Specialist Relationship Specialty Start Date End Date Micah Willoughby MD PCP - General 02/14/21 documented as of this encounter
--- OUTSIDE RECORDS SUMMARY | 2024-11-10 12:02 | XMS_ITS | Encounter Summary ---
Author Organization [facility] Address [address] [place] [address] Care Team Providers Care Print Controller Name Role Phone Micah Willoughby MD Primary Care Provider [phone] Encounter Details Date Type Department Care Team (Latest Contact Info) Description 11/01/2024 Travel Social History Tobacco Use Types Packs/Day [...] Description 11/14/2024 10:00 AM EDT Office Visit [facility] Nephrology, Bone & Mineral Metabolism [address] [facility], [address] [place] [address] Evelyne Medel MD [address] [facility] [address] [place] [address] 11/15/2024 10:15 AM EDT Office Visit [facility] Care [address] [place] [address] Ammy Siegel MD [address] [address] 02/21/2025 12:20 PM EST [facility] [address] [place] [address] Zohra Valenzuela, JUNIOR HIGH SCHOOL PRINCIPAL [address] [place] [address] documented as of this encounter Visit Diagnoses Not on filedocumented in this encounter Additional Health Concerns Assessment Noted Time A fall risk assessment has been complete d for the patient 09/26/2024 8:53 AM EDT A Body Mass Index follow-up plan has been documented for the patient 11/01/2024 1:27 PM EDT documented as of this encounter Care Teams Print Controller Relationship Specialty Start Date End Date Micah Willoughby MD PCP - General 02/14/21 documented as of this encounter
--- OUTSIDE RECORDS SUMMARY | 2024-11-10 12:02 | XMS_ITS | Encounter Summary ---
Author Organization [facility] Address [address] [place] [address] Care Team Providers Care Skin Specialist Name Role Phone Micah Willoughby MD Primary Care Provider [phone] Encounter Details Date Type Department Care Team ([facility] st Contact Info) Description 09/12/2024 Telephone [facility] Nephrology, Bone & Mineral Metabolism [address] [facility], [address] [place] [address] Susanne Urbina, PharmD [address] [place] [address] Social History Tobacco Use Types [...] for visit, requests orders be faxed to [facility] [phone]. documented in this encounter Plan of Treatment Upcoming Encounters Date Type Department Care Team (Late st Contact Info) Description 11/14/2024 10:00 AM EDT Office Visit [facility] [place] Nephrology, Bone & Mineral Metabolism [address], [address] [place] [address] Evelyne Medel MD [address] [place] [address] 11/15/2024 10:15 AM EDT Office Visit [facility] [address] [facility] [place] [address] Ammy Siegel MD [address] [facility] [address] [place] [address] 02/21/2025 12:20 PM EST Office Visit [facility] Endocrinology [address] [place] [address] Zohra Valenzuela, CONTACT CENTER MANAGER [address] [facility] [address] [place] [address] documented as of this encounter Visit Diagnoses Not on filedocumented in this encounter Additional Health Concerns Assessment Noted Time A fall risk assessment has been complete d for the patient 05/23/2024 7:57 AM EDT A Body Mass Index follow-up plan has been documented for the patient 06/02/2024 6:09 PM EDT documented as of this encounter Care Teams Skin Specialist Relationship Specialty Start Date End Date Micah Willoughby MD PCP - General 02/14/21 documented as of this encounter
--- OUTSIDE RECORDS SUMMARY | 2024-11-10 12:02 | XMS_ITS | Encounter Summary ---
Author Organization [facility] Address [address] [place] [address] Care Team Providers Care Chemical Laboratory Assistant Name Role Phone Micah Willoughby MD Primary Care Provider [phone] Encounter Details Date Type Department Care Team ([facility] st Contact Info) Description 09/28/2024 Telephone [facility] Nephrology, Bone & Mineral Metabolism [address] [facility], [address] [place] [address] Susanne Urbina, PharmD [address] [place] [address] Social History Tobacco Use Types [...] [address] [facility], [address] [place] [address] Evelyne Medel MD [address] [place] [address] 11/15/2024 10:15 AM EDT Office Visit [facility] [address] [facility] [place] [address] Ammy Siegel MD 110 [facility] [address] [place] [address] 02/21/2025 12:20 PM EST Office [facility] Endocrinology [address] [place] [address] Zohra Valenzuela, SAMPLE DRILLER [address] [facility] [address] [place] [address] Scheduled Orders Name Type Priority Associated Diagnoses Orde r Schedule PTH Intact Total Lab Routine Stage 3a chronic kidney disease ([facility]) Expected: 11/07/2024 (Approximate), Expires: 04/01/2026 Vitamin D 25 Hydroxy Lab Routine Stage 3a chronic kidney disease ([facility]) Expected: 11/07/2024 (Approximate), Expires: 04/01/2026 Creatinine, Random, Urine Lab Routine Stage 3a chronic kidney disease ([facility]) Expected: 11/07/2024 (Approximate), Expires: 04/01/2026 Protein, Random, Urine with Creatinine Lab Routine Stage 3a chronic kidney disease ([facility]) Expected: 11/07/2024 (Approximate), Expires: 04/01/2026 Urinalysis with reflex microscopic (Culture NOT Included) Lab Routine Stage 3a chronic kidney disease ([facility]) Expected: 11/07/2024 (Approximate), Expires: 04/01/2026 CBC W/O Differential Lab Routine Stage 3a chronic kidney disease ([facility]) Expected: 11/07/2024 (Approximate), Expires: 04/01/2026 Renal Function Panel, Plasma Lab Routine Stage 3a chronic kidney disease ([facility]) Expected: 11/07/2024 (Approximate), Expires: 04/01/2026 [...] documented as of this encounter Care Teams Chemical Laboratory Assistant Relationship Specialty Start Date End Date Micah Willoughby MD PCP - General 02/14/21 documented as of this encounter
--- OUTSIDE RECORDS SUMMARY | 2024-11-10 12:02 | XMS_ITS | Clinical Summary ---
Author Organization [facility] Address [address] [place] [address] Phone Care Team Providers Care Instrument Specialist Name Role Phone Unavailable Primary Care Provider [...] (ASTELIN) 137 mcg (0.1 %) Nasl Aerosol, Dowell 274 mcg in each nostril 4 times [...]
--- OUTSIDE RECORDS SUMMARY | 2024-11-10 12:02 | XMS_ITS | Encounter Summary ---
Author Organization [facility] Address [address] [place] [address] Care Team Providers Care Advertising Campaign Manager Name Role Phone Micah Willoughby MD Primary Care Provider [phone] Encounter Details Date Type Department Care Team ([facility] Contact Info) Description 11/09/2024 Telephone [facility] Nephrology, Bone & Mineral Metabolism [address], [address] [place] [address] Jannet Jacobson Social History Tobacco Use Types Packs/Day Years [...] Nephrology, Bone & Mineral Metabolism [address] [facility], [address] [place] [address] Evelyne Medel MD [address] [place] [address] 11/15/2024 10:15 AM EDT Office Visit [facility] Eye Care [address] [place] [address] Ammy Siegel MD [address] [place] [address] 02/21/2025 12:20 PM EST [facility] [address] [place] [address] Zohra Valenzuela, TYPE INSPECTOR [address] [facility] [address] [place] [address] documented as of this encounter Visit Diagnoses Not on filedocumented in this encounter Additional Health Concerns Assessment Noted Time A fall risk assessment has been complete d for the patient 09/26/2024 8:53 AM EDT A Body Mass Index follow-up plan has been documented for the patient 11/01/2024 1:27 PM EDT documented as of this encounter Care Teams Advertising Campaign Manager Relationship Specialty Start Date End Date Micah Willoughby MD PCP - General 02/14/21 documented as of this encounter
--- OUTSIDE RECORDS SUMMARY | 2024-11-10 12:02 | XMS_ITS | Encounter Summary ---
Author Organization [facility] Address [address] [place] [address] Care Team Providers Care Mail Caller Name Role Phone Micah Willoughby MD Primary Care Provider [phone] Reason for Visit * Reason Comments Med Refill Encounter Details Date Type Department Care Team (Late Contact Info) Description 09/15/2024 Refill [facility] Endocrinology [address] [place] [address] Zohra Valenzuela S, SCRAP DEALER [address] [facility] [address] [place] [address] Social History Tobacco Use Types Packs/Day [...] Description 11/14/2024 10:00 AM EDT [facility] Nephrology, Bone & Mineral Metabolism [address] [place] [address] Evelyne Medel MD [address] [place] [address] 11/15/2024 10:15 AM EDT Office Visit [facility] Eye Care [address] [place] [address] Ammy Siegel MD [address] [place] [address] 02/21/2025 12:20 PM EST [facility] [address] [place] [address] Zohra Valenzuela, SCRAP DEALER [address] [facility] [address] [place] [address] documented as of this encounter Visit Diagnoses Not on filedocumented in this encounter Additional Health Concerns Assessment Noted Time A fall risk assessment has been complete d for the patient 05/23/2024 7:57 AM EDT A Body Mass Index follow-up plan has been documented for the patient 06/02/2024 6:09 PM EDT documented as of this encounter Care Teams Mail Caller Relationship Specialty Start Date End Date Micah Willoughby MD PCP - General 02/14/21 documented as of this encounter
--- OUTSIDE RECORDS SUMMARY | 2024-11-10 12:02 | XMS_ITS | Encounter Summary ---
Author Organization [facility] Address [address] [place] [address] Care Team Providers Care Caponizer Name Role Phone Micah Willoughby MD Primary Care Provider [phone] Unavailable [phone] Reason for Visit * Reason Comments Med Refill Encounter Details Date Type Department Care Team ([facility] Contact Info) Description 10/09/2022 Refill [facility] Nephrology, Bone & Mineral Metabolism [address], [address] [place] [address] Evelyne Medel MD [address] [place] [address] Primary hypertension Social History Tobacco [...] Description 11/14/2024 10:00 AM EDT Office Visit [facility] Nephrology, Bone & Mineral Metabolism [address] [facility], [address] [place] [address] Evelyne Medel MD [address] [place] [address] 11/15/2024 10:15 AM EDT Office Visit [facility] [address] [facility] [place] [address] Ammy Siegel MD [address] [facility] [address] [place] [address] 02/21/2025 12:20 PM EST Office Visit [facility] Endocrinology [address] [place] [address] Zohra Valenzuela, INSTALLER HELPER 2[address] [facility] [address] [place] [address] documented as of this encounter Visit Diagnoses Diagnosis Primary hypertension Unspecified essential hypertension documented in this encounter Additional Health Concerns Assessment Noted Time A fall risk assessment has been complete d for the patient 06/02/2022 8:59 AM EDT A Body Mass Index follow-up plan has been documented for the patient 07/31/2022 9:32 AM EDT documented as of this encounter Care Teams Caponizer Relationship Specialty Start Date End Date Micah Willoughby MD PCP - General 02/14/[address] 219 [facility] [address] [place] [address] Account Auditor Diabetes Services 12/04/23 03/03/24 documented as of this encounter
[2024-11-10 12:04] LABS: POC Glucose,Bedside 92 gm/dL (70-110)
[2024-11-10 12:05] VITALS: O2SAT 100
--- NOTE | 2024-11-10 12:15 | ECG_ITS ---
APPROVED REPORT Exam: Resting ECG HR:82 bpm ECG Measurements Heart Rate 82 AXES VT 129 P 16 QRSd 80 QRS -11 QT 334 T -3 QTc 373 Conclusion SINUS RHYTHM LOW QRS VOLTAGE IN PRECORDIAL LEADS [QRS DEFLECTION < 1.0 mV IN CHEST LEADS] MODERATE T-WAVE ABNORMALITY, CONSIDER LATERAL ISCHEMIA [-0.1+ mV T-WAVE IN I/aVL/V5/V6] ABNORMAL ECG UNCONFIRMED REPORT Electronically signed by : YESENIA PEACE, 11/10/2024 23:05:22
--- NOTE | 2024-11-10 12:28 | XR_ITS ---
FINAL REPORT CLINICAL HISTORY: short of breath, fall COMPARISON: None FINDINGS: The heart size is normal. The mediastinum is normal. There is no focal infiltrate or edema. There are no pleural effusions. There is no pneumothorax. There is no osseous abnormality. No evidence of rib fracture. IMPRESSION: No acute cardiopulmonary process Reviewed, Interpreted and Dictated by Jose Chaney MD Transcribed by Irma Chong Authenticated and [facility]
--- NOTE | 2024-11-10 12:33 | XR_ITS ---
FINAL REPORT CLINICAL HISTORY: pain, fall FINDINGS: RIGHT KNEE Three views were obtained. There is no fracture or dislocation. The joint spaces appear normal. No soft tissue abnormality is identified. There is a 1.5 cm well-corticated ossific density medial to the medial malleolus, probably due to old avulsion injury. IMPRESSION: No acute process. Reviewed, Interpreted and Dictated by Jose Chaney MD Transcribed by Chelsi Le Authenticated and [facility]
--- NOTE | 2024-11-10 12:33 | XR_ITS ---
FINAL REPORT CLINICAL HISTORY: pain, fall FINDINGS: LEFT KNEE Three views were obtained. There is no fracture or dislocation. The joint spaces appear normal. There is mild vascular calcification. IMPRESSION: No acute process. Reviewed, Interpreted and Dictated by Jose Chaney MD Transcribed by Chelsi Le Authenticated and [facility]
--- NOTE | 2024-11-10 12:35 | CT_ITS ---
FINAL REPORT TECHNIQUE: thin section axial CT with and without IV contrast supplemented with multiplanar 3-D reconstruction of the head. This study was performed with techniques to keep radiation doses as low as reasonably achievable, (ALARA)individualized dose reduction techniques using automated exposure control or adjustment of mA and/or kV according to the patient's size were employed. CLINICAL HISTORY: Eval for stenosis, fall FINDINGS: The cranial circulation is unremarkable. There is no significant stenosis, aneurysm or occlusion. IMPRESSION: No evidence of aneurysm or major branch occlusion. Reviewed, Interpreted and Dictated by Jose Chaney MD Transcribed by Chelsi Le Authenticated and [facility]
--- NOTE | 2024-11-10 12:35 | CT_ITS ---
FINAL REPORT TECHNIQUE: Axial CT images were performed through the head. Coronal reformatted images were submitted. This study was performed with techniques to keep radiation doses as low as reasonably achievable (ALARA). Individualized dose reduction techniques using automated exposure control or adjustment of mA and/or kV according to the patient's size were employed. CLINICAL HISTORY: Syncopal fall FINDINGS: There is mild atrophy which is slightly greater than expected for patient's age. The ventricles are normal in size. There is no evidence of hemorrhage. There is no mass or edema identified. There is no abnormal extra-axial fluid seen. There is mild mucoperiosteal thickening in both maxillary sinuses. No air-fluid levels identified. IMPRESSION: Mild atrophy, slightly greater than expected for patient's age. Reviewed, Interpreted and Dictated by Jose Chaney MD Transcribed by Chelsi Le Authenticated and [facility]
--- NOTE | 2024-11-10 12:35 | CT_ITS ---
FINAL REPORT TECHNIQUE: NASCET technique utilized for stenosis evaluation. This study was performed with techniques to keep radiation doses as low as reasonably achievable, (ALARA). Individualized dose reduction techniques using automated exposure control or adjustment of mA and/or kV according to the patient's size were employed. CLINICAL HISTORY: Eval for stenosis, fall FINDINGS: RIGHT CAROTID: No significant stenosis is seen of the cervical common or internal carotid artery. LEFT CAROTID: No significant stenosis seen of the cervical common or internal carotid artery. VERTEBRALS: The vertebrals are patent. No significant stenosis is present. IMPRESSION: No significant arterial abnormality. Reviewed, Interpreted and Dictated by Jose Chaney MD Transcribed by Chelsi Le Authenticated and [facility]
[2024-11-10 12:36] LABS: Hematocrit 32.4 % (42.0-52.0); Hemoglobin 11.2 g/dL (14.1-18.0); Immature Granulocytes % 0.5 %; Mean Corpuscular HGB Conc 34.6 g/dL (31.8-35.4); Mean Corpuscular Hemoglobin 37.2 pg (27.0-31.2); Mean Corpuscular Volume 107.6 fl (80-94); Nucleated Red Blood Cells % 0 %; Platelet Count 184 K/mm3 (142-424); Red Blood Count 3.01 M/mm3 (4.60-6.20); Red Cell Distribution Width-SD 54.4 fL; White Blood Count 5.7 K/mm3 (4.8-10.8)
[2024-11-10] MEDS: ACETAMINOPHEN 1,000MG/100ML VIAL 1000 MG IV (12:39)
[2024-11-10] MEDS: OXYCODONE 5MG IMMEDIATE RELEASE TABLET 5 MG PO (12:39)
--- NOTE | 2024-11-10 12:39 | ED_ITS ---
<Statement entered by Tyler Rodrigues DO - 11/11/24 07:19> I was consulted by the KENJI, and we discussed the complexity of problems being addressed. I approved the treatment and management plan for this patient's care in the emergency department, thus performing a substantive portion of the medical decision making. I independently evaluated this patient and would like to clarify history. Patient tells me that he has had recurrent episodes for the last several months where he will have blurring of his vision, lightheadedness/dizziness which is not described as vertigo in nature, followed by collapse of his lower extremities causing him to fall to the ground. Some of these episodes he completely loses consciousness, and the episode today he did not lose consciousness. He states that the vision changes he was experiencing as well as the lightheadedness improved once his body was on the ground. He describes today falling onto his knees and then backwards onto his buttocks. He did not experience palpitations during this episode. He did not bite his tongue, lose control of his urinary bladder, or have a postictal episode. Regarding traumatic survey he had no tenderness along the sacrum, lumbar spine, thoracic spine, or cervical spine. He had no obvious signs of head trauma. He had abrasions on the knees with mild tenderness to palpation. We proceeded with hematologic labs as well as arterial imaging of the head and the neck to rule out stenosis that could be flow limiting and contributing to recurrent syncopal spells. We also proceeded with an EKG and extensive laboratory workup. Labs were personally reviewed by me and demonstrate no leukocytosis or actionable anemia. He has no electrolyte derangements or evidence of acute kidney injury. He does have a transaminitis which is significantly improved from prior. We did perform a right upper quadrant ultrasound which shows stones in his gallbladder, however he is not experiencing an elevated bilirubin, his transaminitis is improving, and he has no right upper quadrant tenderness on exam so I do not feel that this is truly symptomatic cholelithiasis. We have advised follow-up with general surgery for further evaluation of this. Additionally, the patient's troponin is less than 0.01 and delta troponin is less than 0.01. EKG appears nonischemic and there is no evidence of arrhythmia. By Baxter syncope rules the patient is not low risk given that he has a history of heart failure with preserved ejection fraction. I had an interactive discussion with Dr. Whittington who stated that he did not feel that the patient necessitated inpatient admission at this time and requested that the patient follow-up in the clinic on Thursday morning at 9 AM for further workup of his syncopal spells. He states that he is aware of the patient having syncopal spells in the past and that these were generally during periods where he was over diuresed with torsemide and experiencing intense diarrhea from a C. difficile infection. The patient tells me that he currently is not experiencing intense diarrhea and he has stopped taking his torsemide at the direction of cardiology at his last appointment. I have relayed the plan for follow-up in the cardiology clinic at the beginning of the week to the patient. He acknowledges understanding. Return precautions have been given. At this time all questions have been answered and all parties are agreeable with the decision to discharge home. Tyler Rodrigues DO Discharge Plan Disposition Patient Disposition: Home, Self-Care Condition: Fair Prescriptions Prescriptions: No Action cholecalciferol (vitamin D3) 1,250 mcg (50,000 unit) capsule 1,250 mcg PO WEEKLY Patient Comments: TAKE 1 CAPSULE BY MOUTH 1 TIME EVERY WEEK (DME) Dexcom G6 Sensor Device See Rx Instructions .ROUTE .MEDSUPPLY Qty: 1 Rx Instructions: As directed nitroglycerin 0.4 mg tablet, sublingual 0.4 mg sublingual Q5-15M PRN (Reason: chest pain) Qty: 30 0RF Rx Instructions: do not exceed 3 doses per episode (DME) pen needle, diabetic 31 gauge x 5/16 needle See Rx Instructions .ROUTE .MEDSUPPLY Qty: 1200 Rx Instructions: As directed pantoprazole 40 mg tablet,delayed release (DR/EC) 40 mg PO DAILY cyanocobalamin (vitamin B-12) 1,000 mcg/mL solution 1,000 mcg IM QMONTH insulin lispro [Admelog SoloStar U-100 Insulin] 100 unit/mL insulin pen 2 sliding scale dose SQ USEASDIRECTD Patient Comments: 1 unit every 5 grams of carbs Basaglar KwikPen U-100 Insulin 100 unit/mL (3 mL) insulin pen 20 unit SQ DAILY Patient Comments: BASAGALAR Glucagon Emergency Kit (human) 1 mg recon soln 1 mg IM ONCE PRN (Reason: Hypoglycemia) Patient Comments: INJECT 1 MG INTO THE MUSCLE ONCE IF NEEDED FOR LOW BLOOD SUGAR (DME) Dexcom G6 Transmitter Device See Rx Instructions .ROUTE .MEDSUPPLY Qty: 1 Rx Instructions: As directed valsartan 80 mg tablet 80 mg PO DAILY Qty: 90 3RF dapagliflozin propanediol [Farxiga] 10 mg tablet 10 mg PO DAILY Qty: 30 2RF Vivitrol 380 mg suspension,extended rel recon 380 mg IM QMONTH Qty: 1 10RF omeprazole 20 mg capsule,delayed release(DR/EC) 20 mg PO DAILY Qty: 30 2RF folic acid 1 mg tablet 1 mg PO DAILY Qty: 30 12RF Rx Instructions: Please take 1 tablet p.o. daily zolpidem [Ambien] 10 mg tablet 10 mg PO HS PRN (Reason: insomnia) Qty: 30 3RF gabapentin 600 mg tablet 600 mg PO TID Qty: 90 1RF carvedilol 3.125 mg tablet 3.125 mg PO DAILY Rx Instructions: must administer with a meal/food amoxicillin-pot clavulanate 500-125 mg tablet 1 tab PO BID Qty: 20 0RF Referrals Follow up/Referrals: Micah Willoughby MD [Primary Care Provider, Family Practice] - See instructions Natanael Etienne MD [Staff Physician, Cardiology] - See instructions Referral Note: Thursday at 9 Activity Restrictions/Add. Instructions Additional Instructions/Restrictions: Take meds as directed. Please call Dr. Espinoza as we talked about. Please return to the ED if any other problems or concerns Clinical Impressions Clinical Impression: Pre-syncope Instructions Patient Instructions: DI for Syncope in Adults (Fainting) Print Language Print Language: Kinyarwanda Discharge ED Provider: Tyler Rodrigues Adult [facility] General Chief complaint: Fall Stated complaint: AO [id number] passed out Time Seen by Provider: 11/10/24 11:59 Mode of Arrival: Ambulatory Source of Information: Patient and Parent(s) Description of Symptoms (Recalled from ER Triage Doc. by RN): patient presents to the ED for a blackout episode that happened at work this morning. patient stated his visioin went black and he went down. no other prior symptoms. patient stated he has never had this happen before. patient is visibly shaky in triage. patietn stated he was shaky and had a few issues speaking prior to blacking out. History of Present Illness HPI narrative: 48-year-old male presents to the ED today for an episode that happened at work this morning. Patient states that his vision went dark but not completely black he got shaky and collapsed onto his buttocks. He says he was shaky at this time and unable to get his words out. Patient says this has happened to him in the past. Triage note states that it had never happened before however I specifically asked patient and he says it has happened in the past where he has had the same feelings where he almost passed out in the past as well. 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 This is when he had his difficulty. He does have history of heart failure, pulmonary hypertension and diabetes. Related Data Home Medications ?Medication ?Instructions ?Recorded ?Confirmed insulin lispro 100 unit/mL 2 sliding scale dose SQ 10/27/24 [facility] Diabet es U-100 Insulin lispro) glucagon 1 mg solution for 1 mg IM ONCE PRN Hypoglycem ia 02/17/22 10/27/24 injection (Glucagon Emergency Kit) insulin glargine 100 unit/mL (3 20 unit SQ DAILY Diabe lyndsey 03/11/22 10/27/24 mL) subcutaneous pen (Basaglar KwikPen U-100 Insulin) blood-glucose sensor (Dexcom G6 #1 ea 05/19/22 5 Sensor device) cholecalciferol (vitamin D3) 1,250 1,250 mcg PO WEEKLY 05/19/22 10/27/24 mcg (50,000 unit) capsule pen needle, diabetic 31 gauge x #1,200 ea 04/26/2416 blood-glucose transmitter (Dexcom #1 ea 06/21/2410/27 G6 Transmitter device) carvedilol 3.125 mg tablet 3.125 mg PO DAILY 07/19/24 10/27/24 cyanocobalamin (vitamin B-12) 1,000 mcg IM QMONTH 05/0310/27/24 1,000 mcg/mL injection solution pantoprazole 40 mg tablet,delayed 40 mg PO DAILY 10/1210/27/24 release Previous Rx's ?Medication ?Instructions ?Recorded naltrexone microspheres 380 mg 380 mg IM QMONTH #1 ea 03/03/24 intramuscular suspension,extended release (Vivitrol) nitroglycerin 0.4 mg sublingual 0.4 mg sublingual Q5-1 5M PRN chest 03/16/24 tablet pain #30 tabs valsartan 80 mg tablet 80 mg PO DAILY #90 tabs 06/09 05/03 omeprazole 20 mg capsule,delayed 20 mg PO DAILY #30 ca ps 07/12/24 release folic acid 1 mg tablet 1 mg PO DAILY #30 tabs 07/25 Farxiga 10 mg tablet 10 mg PO DAILY #30 tabs 08/10 05/03 (dapagliflozin propanediol) zolpidem 10 mg tablet (Ambien) 10 mg PO HS PRN insomni a #30 tabs 09/07/24 gabapentin 600 mg tablet 600 mg PO TID #90 tabs 10/11 amoxicillin 500 mg-potassium 1 tab PO BID #20 tabs 12/03 clavulanate 125 mg tablet Allergies Allergy/AdvReac Type Severity Reaction Status Date / Time No Known Allergies Allergy Verified 10/27/24 12:00 [facility] Disclaimer: The information contained in this section may have been updated after the patient was seen, as this information can be updated by other users. 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 difficile diarrhea Abnormal liver enzymes Anemia with low platelet count Hyponatremia Weakness Hypotension Daytime somnolence Restless sleeper Elevated left ventricular end-diastolic pressure (LVEDP) Pulmonary hypertension Family history of early CAD Dyspnea Atypical angina Bilateral lower extremity edema BMI 35.0-35.9,adult Diabetic neuropathy Type 1 diabetes mellitus Hypertension Hyperlipidemia associated with type 2 diabetes mellitus Surgical History History of incision and drainage History of colonoscopy History of cardiac cath History of ankle surgery H/O gastric bypass Family History Mother Osteoarthritis Father Heart attack Other Family history of diabetes mellitus type II Social History Smoking Status: Never smoker alcohol intake: never counseling given: Yes substance use type: denies use current occupational status: employed Travel in the last 8 weeks?: None housing: house marital status: single number of children: 0 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 caffeine: No brenda/jewish: Catholic Other Medical History Have you received the Flu Vaccine for this season: No Have you received the Pneumonia Vaccine: No ROS Obtained: Yes Systems reviewed as appropriate & no additional complaints except as documented Constitutional Constitutional: Reports as per HPI Physical Exam General General appearance: alert Head Head exam: normocephalic Eye Eye exam: Present PERRL and EOMI ENT ENT exam: Present normal oropharynx and mucous membranes moist Neck Neck exam: Present full ROM and trachea midline Respiratory Respiratory exam: Present normal lung sounds bilaterally Cardiovascular Cardiovascular exam: Present regular rate, normal rhythm, normal heart sounds, +S1 and +S2 Extremities Exam Extremities exam: Present full ROM, tenderness (Abrasions to bilateral knees) and normal capillary refill Back Exam Back exam: Present normal inspection Comment: No back tenderness or buttock pain Neurological Exam Neurological exam: Present alert and oriented X3 Skin Skin exam: Present warm, dry and erythema (Abrasions to bilateral knees) Medical Decision Making Medical Records Screening: Per USPSTF and CDC recommendations, given the prevalence of disease in our region, it is our hospital?s policy to screen for HIV and viral Hepatitis for all patients aged 18 and over and those with ongoing risk factors. Eladio Inquiry Pt receiving controlled substance: No Eladio was queried for this patient: No Vital Signs: 11/10/24 11:47 11/10/24 12:05 11/10/24 13:20 Temperature 98.0 F Temperature Source Temporal Artery Scan Pulse Rate 77 Pulse Rate [Right Radial] 91 H Respiratory Rate 20 Blood Pressure 129/105 H Blood Pressure [Right Arm] 131/61 Blood Pressure Mean [Right Arm] 84 Blood Pressure Source [Right Arm] Automatic Cuff Blood Pressure Position [Right Arm] Sitting 02 Sat by Pulse Oximetry 100 100 100 Oxygen Delivery Method Room Air Room Air 11/10/24 13:31 11/10/24 14:55 11/10/24 16:40 Temperature 98.0 F Temperature Source Pulse Rate 70 69 69 Pulse Rate [Right Radial] Respiratory Rate 16 Blood Pressure 124/73 124/77 124/77 Blood Pressure [Right Arm] Blood Pressure Mean [Right Arm] Blood Pressure Source [Right Arm] Blood Pressure Position [Right Arm] 02 Sat by Pulse Oximetry 99 99 Oxygen Delivery Method Lab Data Lab Results 11/10/24 11:51: POC Glucose 92 11/10/24 12:20: WBC 5.7, RBC 3.01 L, Hgb 11.2 L, Hct 32.4 L, MCV 107.6 H, MCH 37.2 H, MCHC 34.6, RDW 13.8, Plt Count 184, MPV 10.9 H, Neut % (Auto) 61.5, Lymph % (Auto) 23.3, [place] % (Auto) 8.9, Eos % (Auto) 4.6, Baso % (Auto) 1.2, Neut # (Auto) 3.5, Lymph # (Auto) 1.3, [place] # (Auto) 0.5, Eos # (Auto) 0.3, Baso # (Auto) 0.1, Sodium 136, Potassium 4.0, Chloride 102, Carbon Dioxide 26, Anion Gap 12.0, BUN 15, Creatinine 1.00, Estimated Creat Clear 135, Estimated GFR 79, Est GFR ( Amer) 96, Glucose 80, Calcium 9.0, Magnesium 1.4 L, Total Bilirubin 0.9, AST 252 H, ALT 92 H, Alkaline Phosphatase 285 H, Troponin I < 0.01, Total Protein 6.6, Albumin 3.5, Globulin 3.1, Albumin/Globulin Ratio 1.1, Lipase 75, Acetaminophen < 10 L, Plasma/Serum Alcohol < 10 11/10/24 15:37: Troponin I < 0.01 11/10/24 12:20 11/10/24 12:20 Orders (Tests/Meds): ED MEDICATIONS Discontinued Medications Generic Name Dose Route Start Last Admin Trade Name Freq PRN Reason Stop Dose Admin Acetaminophen 1,000 mg 11/10/24 12:28 11/10/24 12:39 Acetaminophen 1,000mg/100ml Vial IV 11/10/24 12:29 1,000 mg ONCE ONE Administration Magnesium Sulfate 2 gm in 50 mls @ 50 mls/hr 11/10/24 13:01 11/10/24 14:20 Magnesium Sulfate 2gm/50ml Premix IV 11/10/24 14:00 Infused ONCE ONE Infusion Iopamidol 80 ml 11/10/24 13:08 11/10/24 13:09 Iopamidol-370 (76%);100ml Bottle IV 11/10/24 13:09 80 ml ONCE ONE Administration Oxycodone HCl 5 mg 11/10/24 12:30 11/10/24 12:39 Oxycodone 5mg Immediate Release Tablet PO 11/10/24 12:31 5 mg ONCE ONE Administration Sodium Chloride 50 ml 11/10/24 13:08 11/10/24 13:09 0.9 % Sodium Chloride 50 Ml Vial IV 11/10/24 13:09 50 ml ONCE ONE Administration Sodium Chloride 10 ml 11/10/24 13:08 11/10/24 13:09 Sodium Chloride 0.9% 10ml Syr (Rad Only) IV 12/10/24 13:07 10 ml NEEDED PRN Administration Maintain IV Site ORDERS Category Date Time Status CT angio head Stat Cat Scan 11/10/24 12:[address] angio neck Stat Cat Scan 11/10/24 12:[address] head/brain wo con Stat Cat Scan 11/10/24 12:35 Completed Chest XR -- portable [XR chest portable] Stat Exams 11/10/24 12:28 Completed Knee XR left 3 views [XR knee LT 3V] Stat Exams 11/10/24 12:33 Completed Knee XR right 3 views [XR knee RT 3V] Stat Exams 11/10/24 12:33 Completed US Right Upper Quad [US abdomen limited] Stat Exams 11/10/24 13:23 Completed Acetaminophen Stat Lab 11/10/24 12:20 Completed CBC [Complete Blood Count Auto Diff] Stat Lab 11/10/24 12:20 Completed Comprehensive Metabolic Panel Stat Lab 11/10/24 12:20 Completed Ethyl Alcohol Stat Lab 11/10/24 12:20 Completed Lipase Stat Lab 11/10/24 12:20 Completed Magnesium Stat Lab 11/10/24 12:20 Completed POC Glucose,Bedside Routine Lab 11/10/24 11:51 Completed Trop I [Troponin I] Stat Lab 11/10/24 12:20 Completed Troponin I Q3H Lab 11/10/24 15:37 Completed Medical Decision Narrative: patient is a 48-year-old male presenting to the emergency department for evaluation of presyncopal episode. Patient is hemodynamically stable and nontoxic-appearing upon arrival, afebrile. Differential diagnosis includes presyncope, dizziness due to stenosis, blood sugar drop, among others. Workup will be conducted with hematologic labs, specific imaging, provocative tests. Initial inventions include crystalloid bolus, analgesics. Initial workup reviewed by me hematologic labs are remarkable for AST 252, ALT 92, alk phos 285. Patient is aware of elevated liver enzymes we discussed this with him. He is an alcoholic and is on Vivitrol injections. Dr. Rodrigues talked to Dr. Rogers about this patient. He is aware of his syncope and presyncopal episodes. He recommended stopping the fluid pill and seeing him on Thursday morning at 9. Abdominal ultrasound showed some gallstones. Otherwise patient is safe for discharge home with follow-up. Critical Care Critical Care Time Critical Care Time: No
[2024-11-10 12:45] LABS: Alanine Aminotransferase 92 U/L (12-78); Albumin Level 3.5 g/dl (3.5-5.0); Albumin/Globulin Ratio 1.1 (1.1-1.8); Alkaline Phosphatase 285 U/L (38-126); Anion Gap 12.0 mEq/L (5-15); Aspartate Amino Transferase 252 U/L (17-59); Bilirubin,Total 0.9 mg/dl (0.2-1.3); Blood Urea Nitrogen 15 mg/dl (9-20); Calcium 9.0 mg/dl (8.4-10.2); Carbon Dioxide 26 mmol/L (22.0-30.0); Chloride 102 mmol/L (98-107); Creatinine Clearance Estimated 135 mL/min (50-200); Creatinine,Serum 1.00 mg/dl (0.66-1.25); Estimated Glomerular Filt Rate 79 ml/min (>60); GFR (African American) 96 ML/MIN (>60); Globulin 3.1 g/dL (1.3-3.2); Glucose 80 mg/dl (74-100); Lipase 75 U/L (23-300); Magnesium 1.4 mg/dl (1.6-2.3); Potassium 4.0 mmoL/L (3.5-5.1); Sodium 136 mmol/L (136-145); Total Protein,Serum 6.6 g/dl (6.3-8.2)
[2024-11-10 13:06] LABS: Troponin I < 0.01 ng/ml (0.00-0.034)
[2024-11-10] MEDS: IOPAMIDOL-370 (76%);100ML BOTTLE 80 ML IV (13:09)
[2024-11-10] MEDS: SODIUM CHLORIDE 0.9% 10ML SYR (RAD ONLY) 10 ML IV (13:09)
[2024-11-10] MEDS: 0.9 % SODIUM CHLORIDE 50 ML VIAL IV (13:09)
[2024-11-10] MEDS: MAGNESIUM SULFATE IN WATER 2 GM/50 ML PIGGYBACK IV (13:17)
[2024-11-10 13:20] VITALS: BP 129/105; PULSE 77; O2SAT 100
--- NOTE | 2024-11-10 13:23 | US_ITS ---
FINAL REPORT CLINICAL HISTORY: elevated liver enzymes COMPARISON: None FINDINGS: Sonographic images of the right upper quadrant were obtained. The pancreas is obscured. The liver is fatty infiltrated. Gallstones are present in the gallbladder. No evidence of pericholecystic fluid or wall thickening. There is no evidence of biliary ductal dilatation.The common duct measures 4mm. Limited images of the right kidney are unremarkable. IMPRESSION: Fatty liver. Gallstones in the gallbladder. Reviewed, Interpreted and Dictated by Jose Chaney MD Transcribed by Irma Chong Authenticated and [facility]
[2024-11-10 13:31] VITALS: BP 124/73; PULSE 70; O2SAT 99
--- NOTE | 2024-11-10 13:42 | PC.NURSE ---
pt transported to radiology for his US
[2024-11-10 13:48] LABS: Acetaminophen < 10 ug/ml (10-30)
--- NOTE | 2024-11-10 14:53 | PC.NURSE ---
is speaking with at this time.
[2024-11-10 14:55] VITALS: BP 124/77; PULSE 69; O2SAT 99
[2024-11-10 16:05] LABS: Troponin I < 0.01 ng/ml (0.00-0.034)
[2024-11-10 16:40] VITALS: BP 124/77; PULSE 69; RESP 16; TEMP 36.7; O2SAT 99
== END 2024-11-10 16:41 | disposition home or self-care (01) ==
PROVIDERS: Nurse Practitioner; Emergency Provider Student in an Organized Health Care Education/Training Program; PCP Family Medicine
DX: R55 Syncope and collapse (principal); I11.0 Hypertensive heart disease with heart failure; I50.30 Unspecified diastolic (congestive) heart failure
CPT/HCPCS: 70450; 70496; 70498; 71045; 73562; 76705; 80053; 80320; 80329; 82962; 83690; 83735; 84484; 85025; 93005; 96365; 96375; 99285; J0131; J3475; Q9967

== ENCOUNTER 2024-11-15 15:10 | Outpatient (CLI) | payer MEDICAID, SELFPAY ==
--- OUTSIDE RECORDS SUMMARY | 2024-11-01 12:20 | XMS_ITS | Encounter Summary ---
Author Organization [facility] Address [address] [place] [address] Care Team Providers Care Orthoptist Name Role Phone Micah Willoughby MD Primary Care Provider [phone] Reason for Referral * Consultation (Routine) - Authorized Specialty Diagnoses / Procedures Referred By Contac t Referred To Contact Diagnoses Type 1 diabetes mellitus with diabetic neuropathy Zohra Valenzuela APRN [address] [address] Phone: tel: fax: Referral ID Status Reason Start Date Expiration Date V isits Requested Visits Authorized [id number] Authorized 11/01/2024 05/03/2026 1 1 * Medications - Closed Specialty Diagnoses / Procedures Referred By Contkatya t Referred To Contact Diagnoses Type 1 diabetes mellitus with diabetic neuropathy Zohra Valenzuela APRN [address] [address] Phone: tel: fax: Referral ID Status Reason Start Date Expiration Date Visits Re quested Visits Authorized [id number] Closed 1 1 * Medications - Closed Specialty Diagnoses / Procedures Referred By Contac t Referred To Contact Diagnoses Type 1 diabetes mellitus with diabetic neuropathy Zohra Valenzuela APRN [address] [address] Phone: tel: fax: Referral ID Status Reason Start Date Expiration Date Visits Re quested Visits Authorized [id number] Closed 1 1 * Medications - Authorized Specialty Diagnoses / Procedures Referred By Daniela bernstein Referred To Contact Diagnoses Type 1 diabetes mellitus with diabetic neuropathy Zohra Valenzuela APRN [address] [address] Phone: tel: fax: Referral ID Status Reason Start Date Expiration Date V isits Requested Visits Authorized [id number] Authorized 06/09/2025 1 1 * Medications - Closed Specialty Diagnoses / Procedures Referred By Daniela bernstein Referred To Contact Diagnoses Type 1 diabetes mellitus with diabetic neuropathy Zohra Valenzuela APRN [address] [address] Phone: tel: fax: Referral ID Status Reason Start Date Expiration Date Visits Re quested Visits Authorized [id number] Closed 1 1 Reason for Visit * Reason Comments Diabetes Encounter Details Date Type Department Care Team (Late st Contact Info) Description 11/01/2024 12:20 PM EDT Office Visit [facility] Endocrinology [address] [place] [address] Zohra Valenzuela APRN [address] [address] Type 1 diabetes mellitus with [...] is currently on Farxiga, prescribed by his director of exhibits, and has ketone strips at home. - [...] CHO, 1:50>150 correction - Farxiga prescribed by director of exhibits, ketone strips at home (cautioned with use [...] to drink fluids - Follow up with director of exhibits regarding continued use of Farxiga despite type [...] care. Electronically signed by: Zohra Valenzuela APRN [facility] ENDOCRINOLOGY [address] [facility]. [address] [place]. [address] PHONE [phone] FAX: [phone] [1] Past Medical History: Diagnosis Date Anemia Diabetes insipidus (CMS/HCC) Diabetes mellitus ([facility]) Diabetes mellitus type I (CMS/HCC) Hyperlipidemia Hypertension Hypoparathyroidism Kidney stone N/a Personal history of other endocrine, nutritional and metabolic disease History of diabetes mellitus documented in this encounter Plan of Treatment Upcoming Encounters Date Type Department Care Team (Late st Contact Info) Description 02/17/2025 2:15 PM EST Office Visit [facility] Eye Care [address] [place] [address] Ammy Siegel MD 110 [facility] [address] [place] [address] 02/21/2025 12:20 PM EST Office Visit [facility] Endocrinology [address] [place] [address] Zohra Valenzuela APRN [address] [facility] [address] [place] [address] 03/20/2025 11:40 AM EST Office Visit [facility] Nephrology, Bone & Mineral Metabolism [address] [facility], [address] [place] [address] Evelyne Medel MD [address] [facility] [address] [place] [address] Scheduled Orders Name Type Priority [...] Associated Diagnoses Orde r Schedule Follow Up [facility] Outpatient Referral Routine Type 1 diabetes mellitus [...] Hemoglobin A1C 5.4 <5.7% Non-Diabe tic % [facility] Kit Lot Number [id number] [facility] [employer] [facility] Kit Expiration Date 09/08/2026 [email or web address] Blood Venous blood specimen / Unknown 11/01/2024 12:28 PM EDT Zohra Valenzuela YARN WORKER POINT OF CARE TEST ENTER/ED IT ORDERABLES Final Result [email or web address] [address] [place] [address] documented in this encounter Visit Diagnoses Diagnosis [...] documented as of this encounter Care Teams Orthoptist Relationship Specialty Start Date End Date Micah Willoughby MD PCP - General 02/14/21 documented as of this encounter
--- OUTSIDE RECORDS SUMMARY | 2024-11-14 10:00 | XMS_ITS | Encounter Summary ---
Author Organization [facility] Address [address] [place] [address] Care Team Providers Care Seconds Handler Name Role Phone Micah Willoughby MD Primary Care Provider [phone] Reason for Referral * Consultation (Routine) - Authorized Specialty Diagnoses / Procedures Referred By Contac t Referred To Contact Diagnoses Stage 3a chronic kidney disease (CMS/HCC) Essential hypertension, benign Type 1 diabetes mellitus with diabetic neuropathy Evelyne Medel MD [address] [place] [phone] Phone: tel: fax: Referral ID Status Reason Start Date Expiration Date V isits Requested Visits Authorized [id number] Authorized 11/14/2024 05/16/2026 1 1 Reason for Visit * Reason Comments Follow-up Encounter Details Date Type Department Care Team ([facility] st Contact Info) Description 11/14/2024 10:00 AM EDT Office Visit Professional [facility] [place] Nephrology, Bone & Mineral Metabolism [address] [place] [address] Evelyne Medel MD [address] [place] [address] Stage 3a chronic kidney disease [...] Brenda amos documented as of this encounter Plan of Treatment Upcoming Encounters Date Type Department Care Team (Late st Contact Info) Description 02/17/2025 2:15 PM EST Office Visit [facility] Care [address] [place] [address] Ammy Siegel MD [address] [address] 02/21/2025 12:20 PM EST Office Visit [facility] Endocrinology [address] [place] [address] Zohra Valenzuela, CUSTOMER RELATIONSHIP SPECIALIST [address] [place] [address] 03/20/2025 11:40 AM EST Office Visit [facility] Nephrology, Bone & Mineral Metabolism [address] [facility], [address] [place] [address] Evelyne Medel MD [address] [place] [address] Scheduled Orders Name Type Priority Associated Diagnoses Orde r Schedule Renal Function Panel, Plasma Lab Routine Stage 3a chronic kidney disease ([facility]) Essential hypertension, benign Type 1 diabetes mellitus with diabetic neuropathy Expected: 03/17/2025, Expires: 05/18/2026 Vitamin D 25 Hydroxy Lab Routine Stage 3a chronic kidney disease ([facility]) Essential hypertension, benign Type 1 diabetes mellitus with diabetic neuropathy Expected: 11/14/2024 (Approximate), Expires: 05/15/2026 Urinalysis with reflex microscopic (Culture NOT Included) Lab Routine Stage 3a chronic kidney disease ([facility]) Essential hypertension, benign Type 1 diabetes mellitus with diabetic neuropathy Expected: 03/17/2025 (Approximate), Expires: 05/18/2026 Protein, Random, Urine with Creatinine Lab Routine Stage 3a chronic kidney disease ([facility]) Essential hypertension, benign Type 1 diabetes mellitus with diabetic neuropathy Expected: 03/17/2025, Expires: 05/18/2026 Albumin-creatinine ratio, urine, random Lab Routine Stage 3a chronic kidney disease ([facility]) Essential hypertension, benign Type 1 diabetes mellitus [...] documented as of this encounter Care Teams Seconds Handler Relationship Specialty Start Date End Date Micah Willoughby MD PCP - General 02/14/21 documented as of this encounter
--- OUTSIDE RECORDS SUMMARY | 2024-11-15 15:13 | XMS_ITS | Encounter Summary ---
Author Organization [facility] Address [address] [place] [address] Care Team Providers Care Duplication Specialist Name Role Phone Micah Willoughby MD Primary Care Provider [phone] Encounter Details Date Type Department Care Team [...] Description 02/17/2025 2:15 PM EST Office Visit [facility] [address] [facility] [place] [address] Ammy Siegel MD [address] [place] [address] 02/21/2025 12:20 PM EST Office Visit [facility] [address] [place] [address] Zohra Valenzuela, TOWEL ROLLING MACHINE OPERATOR [address] [place] [address] 03/20/2025 11:40 AM EST Office Visit Professional [facility] Nephrology, Bone & Mineral Metabolism [address] [facility], [address] [place] [address] Evelyne Medel MD [address] [facility] [address] [place] [address] documented as of this encounter Visit Diagnoses Not on filedocumented in this encounter Additional Health Concerns Assessment Noted Time A fall risk assessment has been complete d for the patient 09/26/2024 8:53 AM EDT A Body Mass Index follow-up plan has been documented for the patient 06/02/2024 6:09 PM EDT documented as of this encounter Care Teams Duplication Specialist Relationship Specialty Start Date End Date Micah Willoughby MD PCP - General 02/14/21 documented as of this encounter
--- OUTSIDE RECORDS SUMMARY | 2024-11-15 15:13 | XMS_ITS | Encounter Summary ---
Author Organization [facility] Address [address] [place] [address] Care Team Providers Care Grommet Man Name Role Phone Micah Willoughby MD Primary Care Provider [phone] Unavailable [phone] Reason for Visit * Reason Comments Med Refill Encounter Details Date Type Department Care Team ([facility] Contact Info) Description 10/09/2022 Refill Professional [facility] Nephrology, Bone & Mineral Metabolism [address], [address] [place] [address] Evelyne Medel MD [address] [place] [address] Primary hypertension Social History Tobacco [...] Description 02/17/2025 2:15 PM EST Office Visit [facility] [address] [place] [address] Ammy Siegel MD [address] [place] [address] 02/21/2025 12:20 PM EST Office Visit [facility] [address] [place] [address] Zohra Valenzuela, HOT WORKER 2[address] [facility] [address] [place] [address] 03/20/2025 11:40 AM EST Office Visit [facility] Nephrology, Bone & Mineral Metabolism [address], [address] [place] [address] Evelyne Medel MD [address] [place] [address] documented as of this encounter Visit Diagnoses Diagnosis Primary hypertension Unspecified essential hypertension documented in this encounter Additional Health Concerns Assessment Noted Time A fall risk assessment has been complete d for the patient 06/02/2022 8:59 AM EDT A Body Mass Index follow-up plan has been documented for the patient 07/31/2022 9:32 AM EDT documented as of this encounter Care Teams Grommet Man Relationship Specialty Start Date End Date Micah Willoughby MD PCP - General 02/14/[address] 2[address] [facility] [address] [place] [address] Oil Pump Station Operator Chief Diabetes Services 12/04/23 03/03/24 documented as of this encounter
--- OUTSIDE RECORDS SUMMARY | 2024-11-15 15:13 | XMS_ITS | Clinical Summary ---
Author Organization [facility] Address [address] [facility] [address] [place] [address] Phone Care Team Providers Care Senior Branch Manager Name Role Phone Unavailable Primary Care [...] (ASTELIN) 137 mcg (0.1 %) Nasl Aerosol, [place] 274 mcg in each nostril 4 times [...]
--- OUTSIDE RECORDS SUMMARY | 2024-11-15 15:13 | XMS_ITS | Encounter Summary ---
Author Organization Healthcare Address [address] [place] [address] Care Team Providers Care Accounting Machine Operator Name Role Phone Micah Willoughby MD Primary Care Provider [phone] Encounter Details Date Type Department Care Team [...] Description 02/17/2025 2:15 PM EST Office Visit [facility] Care [address] [place] [address] Ammy Siegel MD [address] [place] [address] 02/21/2025 12:20 PM EST Office Visit [facility] [address] [place] [address] Zohra Valenzuela, SANDWICH WRAPPER [address] [place] [address] 03/20/2025 11:40 AM EST Office Visit Professional [facility] Nephrology, Bone & Mineral Metabolism [address] [facility], [address] [place] [address] Evelyne Medel MD [address] [facility] [address] [place] [address] documented as of this encounter Visit Diagnoses Not on filedocumented in this encounter Additional Health Concerns Assessment Noted Time A fall risk assessment has been complete d for the patient 09/26/2024 8:53 AM EDT A Body Mass Index follow-up plan has been documented for the patient 11/01/2024 1:27 PM EDT documented as of this encounter Care Teams Accounting Machine Operator Relationship Specialty Start Date End Date Micah Willoughby MD PCP - General 02/14/21 documented as of this encounter
--- OUTSIDE RECORDS SUMMARY | 2024-11-15 15:13 | XMS_ITS | Encounter Summary ---
Author Organization [facility] Address [address] [place] [address] Care Team Providers Care Computer Field Technician Name Role Phone Micah Willoughby MD Primary Care Provider [phone] Encounter Details Date Type Department Care Team (Latest Contact Info) Description 11/14/2024 Travel Social History Tobacco Use Types Packs/Day [...] on file documented as of this encounter Functional Status * Over the [...] difficult at all 11/14/2024 9:48 AM EDT Brenda Bains documented as of this encounter Plan of Treatment Upcoming Encounters Date Type Department Care Team (Late st Contact Info) Description 02/17/2025 2:15 PM EST Office Visit [facility] Care [address] [place] [address] Ammy Siegel MD [address] [place] [address] 02/21/2025 12:20 PM EST Office Visit [facility] Endocrinology [address] [place] [address] Zohra Valenzuela, DRESS FINISHER [address] [facility] [address] [place] [address] 03/20/2025 11:40 AM EST Office Visit [facility] [place] Nephrology, Bone & Mineral Metabolism [address] [facility], [address] [place] [address] Evelyne Medel MD [address] [facility] [address] [place] [address] documented as of this encounter Visit Diagnoses Not on filedocumented in this encounter Additional Health Concerns Assessment Noted Time A fall risk assessment has been complete d for the patient 11/14/2024 9:49 AM EDT A Body Mass Index follow-up plan has been documented for the patient 11/01/2024 1:27 PM EDT documented as of this encounter Care Teams Computer Field Technician Relationship Specialty Start Date End Date Micah Willoughby MD PCP - General 02/14/21 documented as of this encounter
--- OUTSIDE RECORDS SUMMARY | 2024-11-15 15:13 | XMS_ITS | Clinical Summary ---
Author Organization [facility] Address [address] [place] [address] Care Team Providers Care Signal Repairer Name Role Phone Micah Willoughby MD Primary Care Provider [phone] Allergies Active Allergy Reactions Criticality Noted Date [...] Encounters Date Type Department Care Team Description 11/14/2024 10:00 AM EDT Office Visit [facility] Nephrology, Bone & Mineral Metabolism [address] [place] [address] Evelyne Medel MD Stage 3a chronic kidney disease (CMS/HCC) (Primary Dx); Essential hypertension, benign; Type 1 diabetes mellitus with diabetic neuropathy; Hyperkalemia 11/14/2024 Travel 11/09/2024 Telephone [facility] Nephrology, Bone & Mineral Metabolism [address], [address] [place] [address] Jannet Jacobson 11/08/2024 Telephone [facility] Nephrology, Bone & Mineral Metabolism [address], [address] [place] [address] Susanne Urbina, PharmD 11/01/2024 12:20 PM EDT Office Visit [facility] Endocrinology [facility] [place] [address] Zohra Valenzuela APRN Type 1 diabetes mellitus with diabetic neuropathy (Primary Dx); Stage 3 chronic kidney disease, unspecified whether stage 3a or 3b CKD (CMS/HCC); Obesity (BMI 30-39.9); Neuropathy; Hyperlipidemia, unspecified hyperlipidemia type; Hypoglycemia; Primary hypertension 11/01/2024 Travel 09/28/2024 Telephone [facility] Nephrology, Bone & Mineral Metabolism [address], [address] [place] [address] Susanne Urbina, PharmD 09/26/2024 Telephone [facility] Nephrology, Bone & Mineral Metabolism [address], [address] [place] [address] Marley Moreira, CRISTI 09/26/2024 Travel 09/15/2024 Refill [facility] Endocrinology [address] [place] [address] Zohra Valenzuela, MARLENE 09/12/2024 Telephone [facility] Nephrology, Bone & Mineral Metabolism [address], [address] [place] [address] Susanne Urbina, PharmD from Last [...] F) 11/14/2024 9:44 AM EDT Respiratory Rate 18 05/25/2023 8:35 AM EDT Oxygen Saturation 98% 11/14/2024 9:44 AM EDT Inhaled Oxygen Concentration - - Weight 107 kg (236 lb 8.9 oz) 11/14/2024 9:44 AM EDT Height 175.3 cm (5' 9 ) 11/14/2024 9:44 AM EDT Body Mass Index 34.93 11/14/2024 9:44 AM EDT Plan of Treatment Upcoming Encounters Date Type Department Care Team (Late st Contact Info) Description 02/17/2025 2:15 PM EST [facility] [address] [place] [address] Ammy Siegel MD [address] [place] [address] 02/21/2025 12:20 PM EST Office Visit [facility] Endocrinology [address] [place] [address] Zohra Valenzuela, TUCKING MACHINE OPERATOR [address] [facility] [address] [place] [address] 03/20/2025 11:40 AM EST Office Visit [facility] Nephrology, Bone & Mineral Metabolism [address], [address] [place] [address] Evelyne Medel MD [address] [place] [address] Health Maintenance Due Date Last Done Comments [...] 01/05/2019 [facility]-Zoster Vaccines (1 of 2) 12/24/2023 [id number] Vaccine ( season) 2024 12/04/2021, 06/05/2021, 12/12/2020, Additional history exists [facility]-Influenza Vaccine (#1) 2024 11/28/2020, [facility]-Diabetes: Hemoglobin A1C 05/01/2025, 03/24/2024, 09/16/2023, Additional history exists [facility]-Depression Screening 11/14/2025 11/14/2024 [facility]-DTaP,Tdap,and Td Vaccines (2 - Td or [...] Hemoglobin A1C 5.4 <5.7% Non-Diabe tic % [facility] Kit Lot Number [id number] [facility] Kit Expiration Date 09/08/2026 [facility] Blood Venous blood specimen / Unknown 11/01/2024 12:28 PM EDT us Zohra Valenzuela TUCKING MACHINE OPERATOR POINT OF CARE TEST ENTER/ED IT ORDERABLES Final Result [facility] [address] [place] [address] [place] [address] from Last 3 Months Insurance [employer] [place] Care Teams Signal Repairer Relationship Specialty Start Date End Date Micah Willoughby MD PCP - General 02/14/21
--- OUTSIDE RECORDS SUMMARY | 2024-11-15 15:13 | XMS_ITS | Encounter Summary ---
Author Organization Healthcare Address [address] [place] [address] Care Team Providers Care Block Greaser Name Role Phone Micah Willoughby MD Primary Care Provider [phone] Encounter Details Date Type Department Care Team (Late Contact Info) Description 11/09/2024 Telephone [facility] Nephrology, Bone & Mineral Metabolism [address] [facility], [address] [place] [address] Jannet Jacobson Social History Tobacco Use [...] Miscellaneous Notes * Telephone Encounter - Susanne Urbina PharmD - 11/14/2024 8:21 AM EDT Faxed medical records request for lab results to [phone]. Susanne Urbina PharmD, BCACP Clinical Pharmacist Nephrology Clinic a documented in this encounter Plan of Treatment Upcoming Encounters Date Type Department Care Team (Late Contact Info) Description 02/17/2025 2:15 PM EST Office Visit [facility] Advanced Eye Care [address] [place] [address] Ammy Siegel MD [address] [place] [address] 02/21/2025 12:20 PM EST [facility] [address] [place] [address] Zohra Valenzuela, ON SITE SERVICES SPECIALIST [address] [facility] [address] [place] [address] 03/20/2025 11:40 AM EST Office Visit [facility] Nephrology, Bone & Mineral Metabolism [address] [facility], [address] [place] [address] Evelyne Medel MD [address] [place] [address] documented as of this encounter Visit Diagnoses Not on filedocumented in this encounter Additional Health Concerns Assessment Noted Time A fall risk assessment has been complete d for the patient 09/26/2024 8:53 AM EDT A Body Mass Index follow-up plan has been documented for the patient 11/01/2024 1:27 PM EDT documented as of this encounter Care Teams Block Greaser Relationship Specialty Start Date End Date Micah Willoughby MD PCP - General 02/14/21 documented as of this encounter
--- OUTSIDE RECORDS SUMMARY | 2024-11-15 15:13 | XMS_ITS | Encounter Summary ---
Author Organization [facility] Address [address] [place] [address] Care Team Providers Care Regional Engagement Consultant Name Role Phone Micah Willoughby MD Primary Care Provider [phone] Encounter Details Date Type Department Care Team ([facility] st Contact Info) Description 09/28/2024 Telephone [facility] Nephrology, Bone & Mineral Metabolism [address] [facility], [address] [place] [address] Susanne Urbina, PharmD [address] [place] [address] Social History Tobacco Use Types [...] Description 02/17/2025 2:15 PM EST Office Visit [facility] [address] [place] [address] Ammy Siegel MD [address] [facility] [address] [place] [address] 02/21/2025 12:20 PM EST Office Visit [facility] Endocrinology [address] [place] [address] Zohra Valenzuela, SURGICAL INSTRUMENT MECHANIC 2[address] [facility] 125 [place] [address] 03/20/2025 11:40 AM EST Office Visit [facility] Nephrology, Bone & Mineral Metabolism [address] [facility], [address] [place] [address] Evelyne Medel MD [address] [facility] [address] [place] [address] Scheduled Orders Name Type Priority Associated Diagnoses Orde r Schedule PTH Intact Total Lab Routine Stage 3a chronic kidney disease ([facility]) Expected: 11/07/2024 (Approximate), Expires: 04/01/2026 Vitamin D 25 Hydroxy Lab Routine Stage 3a chronic kidney disease ([facility]) Expected: 11/07/2024 (Approximate), Expires: 04/01/2026 Creatinine, Random, Urine Lab Routine Stage 3a chronic kidney disease ([facility]) Expected: 11/07/2024 (Approximate), Expires: 04/01/2026 Protein, Random, Urine with Creatinine Lab Routine Stage 3a chronic kidney disease (CMS/HCC) Expected: 11/07/2024 (Approximate), Expires: 04/01/2026 Urinalysis with reflex microscopic (Culture NOT Included) Lab Routine Stage 3a chronic kidney disease (CMS/HCC) Expected: 11/07/2024 (Approximate), Expires: 04/01/2026 CBC W/O Differential Lab Routine Stage 3a chronic kidney disease (CMS/HCC) Expected: 11/07/2024 (Approximate), Expires: 04/01/2026 Renal Function Panel, Plasma Lab Routine Stage 3a chronic kidney disease (CMS/HCC) Expected: 11/07/2024 (Approximate), Expires: 04/01/2026 documented as [...] documented as of this encounter Care Teams Regional Engagement Consultant Relationship Specialty Start Date End Date Micah Willoughby MD PCP - General 02/14/21 documented as of this encounter
--- OUTSIDE RECORDS SUMMARY | 2024-11-15 15:13 | XMS_ITS | Encounter Summary ---
Author Organization [facility] Address [address] [place] [address] Care Team Providers Care Potato Peeling Machine Operator Name Role Phone Micah Willoughby MD Primary Care Provider [phone] Encounter Details Date Type Department Care Team ([facility] st Contact Info) Description 11/08/2024 Telephone [facility] Nephrology, Bone & Mineral Metabolism [address] [facility], [address] [place] [address] Susanne Urbina, PharmD [address] [place] [address] Social History Tobacco Use Types [...] plans to have labs drawn locally at [facility], messaged community support specialist requesting they fax lab orders. Susanne Urbina PharmD, BCACP Clinical Pharmacist Nephrology Clinic documented in this encounter Plan of Treatment Upcoming Encounters Date Type Department Care Team (Late st Contact Info) Description 02/17/2025 2:15 PM EST Office Visit [facility] Advanced Eye Care [address] [facility] [place] [address] Ammy Siegel MD [address] [facility] [address] [place] [address] 02/21/2025 12:20 PM EST Office Visit [facility] Endocrinology [address] [place] [address] Zohra Valenzuela, PHYSICIAN IN PRIVATE PRACTICE [address] [facility] [address] [place] [address] 03/20/2025 11:40 AM EST Office Visit [facility] Nephrology, Bone & Mineral Metabolism [address] [facility], [address] [place] [address] Evelyne Medel MD [address] [facility] [address] [place] [address] documented as of this encounter Visit Diagnoses Not on filedocumented in this encounter Additional Health Concerns Assessment Noted Time A fall risk assessment has been complete d for the patient 09/26/2024 8:53 AM EDT A Body Mass Index follow-up plan has been documented for the patient 11/01/2024 1:27 PM EDT documented as of this encounter Care Teams Potato Peeling Machine Operator Relationship Specialty Start Date End Date Micah Willoughby MD PCP - General 02/14/21 documented as of this encounter
--- OUTSIDE RECORDS SUMMARY | 2024-11-15 15:13 | XMS_ITS | Encounter Summary ---
Author Organization [facility] Address [address] [place] [address] Care Team Providers Care Multimedia Manager Name Role Phone Micah Willoughby MD Primary Care Provider [phone] Encounter Details Date Type Department Care Team (Late Contact Info) Description 09/26/2024 Telephone [facility] Nephrology, Bone & Mineral Metabolism [address] [facility], [address] [place] [address] Marley Moreira, VERMIN EXTERMINATOR GS - 7 MAIN MEDICAL-SURGICAL Social History [...] too keep trying to log in.gave him [phone] technical support number documented in this encounter Plan of Treatment Upcoming Encounters Date Type Department Care Team (Late Contact Info) Description 02/17/2025 2:15 PM EST Office Visit [facility] Advanced Eye Care [address] [place] [address] Ammy Siegel MD [address] [place] [address] 02/21/2025 12:20 PM EST Office Visit [facility] Endocrinology [address] [place] [address] Zohra Valenzuela, FLOAT NURSE [address] [facility] [address] [place] [address] 03/20/2025 11:40 AM EST Office Visit [facility] Nephrology, Bone & Mineral Metabolism [address] [facility], [address] [place] [address] Evelyne Medel MD [address] [facility] [address] [place] [address] documented as of this encounter Visit Diagnoses Not on filedocumented in this encounter Additional Health Concerns Assessment Noted Time A fall risk assessment has been complete d for the patient 09/26/2024 8:53 AM EDT A Body Mass Index follow-up plan has been documented for the patient 06/02/2024 6:09 PM EDT documented as of this encounter Care Teams Multimedia Manager Relationship Specialty Start Date End Date Micah Willoughby MD PCP - General 02/14/21 documented as of this encounter
[2024-11-15 16:33] LABS: Hematocrit 34.7 % (42.0-52.0); Hemoglobin 11.2 g/dL (14.1-18.0); Immature Granulocytes % 0.5 %; Mean Corpuscular HGB Conc 32.3 g/dL (31.8-35.4); Mean Corpuscular Hemoglobin 35.9 pg (27.0-31.2); Mean Corpuscular Volume 111.2 fl (80-94); Nucleated Red Blood Cells % 0 %; Platelet Count 240 K/mm3 (142-424); Red Blood Count 3.12 M/mm3 (4.60-6.20); Red Cell Distribution Width-SD 56.5 fL; White Blood Count 4.4 K/mm3 (4.8-10.8)
[2024-11-15 17:26] LABS: Alanine Aminotransferase 62 U/L (12-78); Albumin Level 3.5 g/dl (3.5-5.0); Alkaline Phosphatase 240 U/L (38-126); Anion Gap 13.9 mEq/L (5-15); Aspartate Amino Transferase 97 U/L (17-59); Bilirubin,Direct 0.5 mg/dl (0.0-0.4); Bilirubin,Indirect 0.0 mg/dL (0.0-0.9); Bilirubin,Total 0.5 mg/dl (0.2-1.3); Bilirubin,Unconjugated 0.0 mg/dL (0.0-1.1); Blood Urea Nitrogen 11 mg/dl (9-20); Calcium 9.3 mg/dl (8.4-10.2); Carbon Dioxide 27 mmol/L (22.0-30.0); Chloride 104 mmol/L (98-107); Cholesterol 184 mg/dl (140-200); Creatinine,Serum 0.90 mg/dl (0.66-1.25); Estimated Glomerular Filt Rate 89 ml/min (>60); GFR (African American) 108 ML/MIN (>60); HDL Cholesterol 84 mg/dl (40-60); Magnesium 2.0 mg/dl (1.6-2.3); Potassium 4.9 mmoL/L (3.5-5.1); Sodium 140 mmol/L (136-145); Total Protein,Serum 6.6 g/dl (6.3-8.2); Triglycerides 93 mg/dl (30-150)
[2024-11-15 17:42] LABS: Free T4 (Free Thyroxine) 0.80 ng/dl (0.78-2.19)
[2024-11-15 17:57] LABS: Thyroid Stimulating Hormone 11.80 uIU/mL (0.465-4.68)
[2024-11-15 18:37] LABS: Glucose 48 mg/dl (74-100)
== END 2024-11-15 23:59 | disposition home or self-care (01) ==
LOC: LAB 15:11
PROVIDERS: PCP Family Medicine; Visit Provider Internal Medicine
DX: I11.0 Hypertensive heart disease with heart failure (principal); I50.30 Unspecified diastolic (congestive) heart failure; R55 Syncope and collapse
CPT/HCPCS: 36415; 80048; 80061; 80076; 83735; 84439; 84443; 85025

== ENCOUNTER 2024-11-25 13:34 | Outpatient (CLI) | payer MEDICAID, SELFPAY ==
--- OUTSIDE RECORDS SUMMARY | 2024-11-01 12:20 | XMS_ITS | Encounter Summary ---
Author Organization [facility] Address [address] [place] [address] Care Team Providers Care Fbi Field Agent Name Role Phone Micah Willoughby MD Primary Care Provider [phone] Reason for Referral * Consultation (Routine) - Authorized Specialty Diagnoses / Procedures Referred By Contac t Referred To Contact Diagnoses Type 1 diabetes mellitus with diabetic neuropathy Zohra Valenzuela APRN [address] [address] Phone: tel: fax: Referral ID Status Reason Start Date Expiration Date V isits Requested Visits Authorized [id number] Authorized 11/01/2024 05/03/2026 1 1 * Medications - Closed Specialty Diagnoses / Procedures Referred By Contac t Referred To Contact Diagnoses Type 1 diabetes mellitus with diabetic neuropathy Zohra Valenzuela APRN [address] [address] Phone: tel: fax: Referral ID Status Reason Start Date Expiration Date Visits Re quested Visits Authorized [id number] Closed 1 1 * Medications - Closed Specialty Diagnoses / Procedures Referred By Contac t Referred To Contact Diagnoses Type 1 diabetes mellitus with diabetic neuropathy Zohra Valenzuela APRN [address] [address] Phone: tel: fax: Referral ID Status Reason Start Date Expiration Date Visits Re quested Visits Authorized [id number] Closed 1 1 * Medications - Authorized Specialty Diagnoses / Procedures Referred By Daniela bernstein Referred To Contact Diagnoses Type 1 diabetes mellitus with diabetic neuropathy Zohra Valenzuela APRN [address] [address] Phone: tel: fax: Referral ID Status Reason Start Date Expiration Date V isits Requested Visits Authorized [id number] Authorized 06/09/2025 1 1 * Medications - Closed Specialty Diagnoses / Procedures Referred By Daniela bernstein Referred To Contact Diagnoses Type 1 diabetes mellitus with diabetic neuropathy Zohra Valenzuela APRN [address] [address] Phone: tel: fax: Referral ID Status Reason Start Date Expiration Date Visits Re quested Visits Authorized [id number] Closed 1 1 Reason for Visit * Reason Comments Diabetes Encounter Details Date Type Department Care Team (Late st Contact Info) Description 11/01/2024 12:20 PM EDT [facility] [address] [place] [address] Zohra Valenzuela APRN [address] [address] Type 1 diabetes mellitus with [...] is currently on Farxiga, 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 - [...] CHO, 1:50>150 correction - Farxiga prescribed by military source operations specialist, ketone strips at home (cautioned with use [...] to drink fluids - Follow up with military source operations specialist regarding continued use of Farxiga despite type [...] care. Electronically signed by: Zohra Valenzuela APRN [facility]OCR[facility] [address] [facility] [address] [place]. [address] PHONE [phone] FAX: [phone] [1] Past Medical History: Diagnosis Date Anemia Diabetes insipidus (CMS/HCC) Diabetes mellitus ([facility]) Diabetes mellitus type I (CMS/HCC) Hyperlipidemia Hypertension Hypoparathyroidism Kidney stone N/a Personal history of other endocrine, nutritional and metabolic disease History of diabetes mellitus documented in this encounter Plan of Treatment Upcoming Encounters Date Type Department Care Team (Late st Contact Info) Description 02/17/2025 2:15 PM EST Office Visit [facility] Eye Care [address] [place] [address] Ammy Siegel MD 110 [facility] [address] [place] [address] 02/21/2025 12:20 PM EST [facility]ology [address] [place] [address] Zohra Valenzuela APRN 2[address] [facility] [address] [place] [address] 03/20/2025 11:40 AM EST Office Visit [facility] Nephrology, Bone & Mineral Metabolism [address] [facility], [address] [place] [address] Evelyne Medel MD [address] [facility] [address] [place] [address] Scheduled Orders Name Type Priority [...] Associated Diagnoses Orde r Schedule Follow Up [facility] Outpatient Referral Routine Type 1 diabetes mellitus [...] Hemoglobin A1C 5.4 <5.7% Non-Diabe tic % [facility] Kit Lot Number [id number] [facility] [employer] Kit Expiration Date 09/08/2026 [facility] Blood Venous blood specimen / Unknown 11/01/2024 12:28 PM EDT Zohra Valenzuela SHEET METAL DUCT INSTALLER POINT OF CARE TEST ENTER/ED IT ORDERABLES Final Result [facility] [address] [place] [address] documented in this encounter Visit Diagnoses Diagnosis [...] documented as of this encounter Care Teams Fbi Field Agent Relationship Specialty Start Date End Date Micah Willoughby MD PCP - General 02/14/21 documented as of this encounter
--- OUTSIDE RECORDS SUMMARY | 2024-11-14 10:00 | XMS_ITS | Encounter Summary ---
Author Organization [facility] Address [address] [place] [address] Care Team Providers Care Risk And Compliance Analytics Director Name Role Phone Micah Willoughby MD Primary Care Provider [phone] Reason for Referral * Consultation (Routine) - Authorized Specialty Diagnoses / Procedures Referred By Contac t Referred To Contact Diagnoses Stage 3a chronic kidney disease (CMS/HCC) Essential hypertension, benign Type 1 diabetes mellitus with diabetic neuropathy Evelyne Medel MD [address] [place] [phone] Phone: tel: fax: Referral ID Status Reason Start Date Expiration Date V isits Requested Visits Authorized [id number] Authorized 11/14/2024 05/16/2026 1 1 Reason for Visit * Reason Comments Follow-up Encounter Details Date Type Department Care Team ([facility] st Contact Info) Description 11/14/2024 10:00 AM EDT Office Visit Professional [facility] Nephrology, Bone & Mineral Metabolism [address] [place] [address] Evelyne Medel MD [address] [place] [address] Stage 3a chronic kidney disease [...] she was told was all normal. His spot billing clerk was contacted for sooner appointment, he will [...] Almaguer MD Department of Nephrology PGY-4 Pager: [phone]; Epic Chat Preferred Cosigned by Evelyne Medel [...] Description 02/17/2025 2:15 PM EST Office Visit [facility] Care [address] [place] [address] Ammy Siegel MD [address] [facility] [address] [place] [address] 02/21/2025 12:20 PM EST Office Visit [facility] Endocrinology [address] [place] [phone] Zohra Valenzuela, EVENT SERVICES MANAGER [address] [facility] [address] [place] [address] 03/20/2025 11:40 AM EST Office Visit [facility] Nephrology, Bone & Mineral Metabolism [address] [facility], [address] [place] [address] Evelyne Medel MD [address] [facility] [address] [place] [address] Scheduled Orders Name Type Priority Associated Diagnoses Orde r Schedule Renal Function Panel, Plasma Lab Routine Stage 3a chronic kidney disease ([facility]) Essential hypertension, benign Type 1 diabetes mellitus with diabetic neuropathy Expected: 03/17/2025, Expires: 05/18/2026 Vitamin D 25 Hydroxy Lab Routine Stage 3a chronic kidney disease (CMS/HCC) Essential hypertension, benign Type 1 diabetes mellitus with diabetic neuropathy Expected: 11/14/2024 (Approximate), Expires: 05/15/2026 Urinalysis with reflex microscopic (Culture NOT Included) Lab Routine Stage 3a chronic kidney disease ([facility]) Essential hypertension, benign Type 1 diabetes mellitus with diabetic neuropathy Expected: 03/17/2025 (Approximate), Expires: 05/18/2026 Protein, Random, Urine with Creatinine Lab Routine Stage 3a chronic kidney disease ([facility]/HCC) Essential hypertension, benign Type 1 diabetes mellitus with diabetic neuropathy Expected: 03/17/2025, Expires: 05/18/2026 Albumin-creatinine ratio, urine, random Lab Routine Stage 3a chronic kidney disease ([facility]) Essential hypertension, benign Type 1 diabetes mellitus with diabetic neuropathy Expected: 03/17/2025, Expires: 05/18/2026 Renal function panel Lab Routine Hyperkalemia Expected: 11/21/2024 (Approximate), Expires: 05/18/2026 Scheduled Referrals Name Type Priority Associated Diagnoses Order Schedule Follow Up Nephrology Outpatient Referral Routine Stage 3a chronic kidney disease ([facility]) Essential hypertension, benign Type 1 diabetes mellitus with diabetic neuropathy Expected: 03/27/2025 (Approximate), Expires: 12/15/2025 documented as of this encounter Visit Diagnoses Diagnosis Stage 3a chronic kidney disease ([facility])- Primary Essential hypertension, benign Type 1 diabetes mellitus with diabetic neuropathy Hyperkalemia Hyperpotassemia documented in this encounter Additional Health Concerns Assessment Noted Time A fall risk assessment has been complete d for the patient 11/14/2024 9:49 AM EDT A Body Mass Index follow-up plan has been documented for the patient 11/18/2024 9:50 AM EDT documented as of this encounter Care Teams Risk And Compliance Analytics Director Relationship Specialty Start Date End Date Micah Willoughby MD PCP - General 02/14/21 documented as of this encounter
--- OUTSIDE RECORDS SUMMARY | 2024-11-25 13:36 | XMS_ITS | Encounter Summary ---
Author Organization [facility] Address [address] [place] [address] Care Team Providers Care Communications Coordinator Name Role Phone Micah Willoughby MD Primary Care Provider [phone] Encounter Details Date Type Department Care Team [...] Description 02/17/2025 2:15 PM EST Office Visit [facility] [address] [place] [address] Ammy Siegel MD [address] [place] [address] 02/21/2025 12:20 PM EST Office Visit [facility] Endocrinology [address] [place] [address] Zohra Valenzuela, TIE FASTENER [address] [facility] [address] [place] [address] 03/20/2025 11:40 AM EST Office Visit [facility] [place] Nephrology, Bone & Mineral Metabolism [address] [facility], [address] [place] [address] Evelyne Medel MD [address] [facility] [address] [place] [address] documented as of this encounter Visit Diagnoses Not on filedocumented in this encounter Additional Health Concerns Assessment Noted Time A fall risk assessment has been complete d for the patient 11/14/2024 9:49 AM EDT A Body Mass Index follow-up plan has been documented for the patient 11/18/2024 9:50 AM EDT documented as of this encounter Care Teams Communications Coordinator Relationship Specialty Start Date End Date Micah Willoughby MD PCP - General 02/14/21 documented as of this encounter
--- OUTSIDE RECORDS SUMMARY | 2024-11-25 13:37 | XMS_ITS | Encounter Summary ---
Author Organization [facility] Address [address] [place] [address] Care Team Providers Care Fur Comber Name Role Phone Micah Willoughby MD Primary Care Provider [phone] Unavailable Reason for Visit * Reason Comments Med Refill Encounter Details Date Type Department Care Team ([facility] Contact Info) Description 10/09/2022 Refill [facility] Nephrology, Bone & Mineral Metabolism [address], [address] [place] [address] Evelyne Medel MD [address] [place] [address] Primary hypertension Social History Tobacco [...] Description 02/17/2025 2:15 PM EST Office Visit [facility] Advanced Eye Care [address] [place] [address] Ammy Siegel MD [address] [place] [address] 02/21/2025 12:20 PM EST Office Visit [facility] Endocrinology [address] [place] [address] Zohra Valenzuela, TARIFF PUBLISHING AGENT 2[address] [facility] [address] [place] [address] 03/20/2025 11:40 AM EST Office Visit [facility] Nephrology, Bone & Mineral Metabolism [address], [address] [place] [address] Evelyne Medel MD [address] [place] [address] documented as of this encounter Visit Diagnoses Diagnosis Primary hypertension Unspecified essential hypertension documented in this encounter Additional Health Concerns Assessment Noted Time A fall risk assessment has been complete d for the patient 06/02/2022 8:59 AM EDT A Body Mass Index follow-up plan has been documented for the patient 07/31/2022 9:32 AM EDT documented as of this encounter Care Teams Fur Comber Relationship Specialty Start Date End Date Micah Willoughby MD PCP - General 02/14/[address] [facility] [address] [place] [address] Post Acute Care Registered Nurse Diabetes Services 12/04/23 03/03/24 documented as of this encounter
--- OUTSIDE RECORDS SUMMARY | 2024-11-25 13:37 | XMS_ITS | Clinical Summary ---
Author Organization [facility] Address [address] [facility] [address] [place] [address] Phone Care Team Providers Care Devulcanizer Charger Name Role Phone Unavailable Primary Care Provider [...] (ASTELIN) 137 mcg (0.1 %) Nasl Aerosol, [place] 274 mcg in each nostril 4 times [...]
--- OUTSIDE RECORDS SUMMARY | 2024-11-25 13:37 | XMS_ITS | Encounter Summary ---
Author Organization Healthcare Address [address] [place] [address] Care Team Providers Care Pharmacy Intake Coordinator Name Role Phone Micah Willoughby MD Primary Care Provider [phone] Encounter Details Date Type Department Care Team (Late Contact Info) Description 09/26/2024 Telephone [facility] Nephrology, Bone & Mineral Metabolism [address] [facility], [address] [place] [address] Marley Moreira, LAYOUT ARTIST GS - 7 MAIN MEDICAL-SURGICAL Social History [...] too keep trying to log in.gave him [phone] technical support number documented in this encounter Plan of Treatment Upcoming Encounters Date Type Department Care Team (Late Contact Info) Description 02/17/2025 2:15 PM EST Office Visit [facility] [address] [place] [address] Ammy Siegel MD [address] [place] [address] 02/21/2025 12:20 PM EST Office Visit [facility] Endocrinology [address] [place] [address] Zohra Valenzuela, TRANSIT BUS DRIVER [address] [facility] [address] [place] [address] 03/20/2025 11:40 AM EST Office Visit [facility] Nephrology, Bone & Mineral Metabolism [address] [facility], [address] [place] [address] Evelyne Medel MD [address] [facility] [address] [place] [address] documented as of this encounter Visit Diagnoses Not on filedocumented in this encounter Additional Health Concerns Assessment Noted Time A fall risk assessment has been complete d for the patient 09/26/2024 8:53 AM EDT A Body Mass Index follow-up plan has been documented for the patient 06/02/2024 6:09 PM EDT documented as of this encounter Care Teams Pharmacy Intake Coordinator Relationship Specialty Start Date End Date Micah Willoughby MD PCP - General 02/14/21 documented as of this encounter
--- OUTSIDE RECORDS SUMMARY | 2024-11-25 13:37 | XMS_ITS | Encounter Summary ---
Author Organization [facility] Address [address] [place] [address] Care Team Providers Care Game Programmer Name Role Phone Micah Willoughby MD Primary Care Provider [phone] Encounter Details Date Type Department Care Team ([facility] st Contact Info) Description 09/28/2024 Telephone [facility] Nephrology, Bone & Mineral Metabolism [address] [facility], [address] [place] [address] Susanne Urbina, PharmD [address] [place] [address] Social History Tobacco Use Types [...] Description 02/17/2025 2:15 PM EST Office Visit [facility] Care [address] [facility] [place] [address] Ammy Siegel MD [address] [facility] [address] [place] [address] 02/21/2025 12:20 PM EST Office Visit [facility] Endocrinology [address] [place] [address] Zohra Valenzuela, TINT LAYER [address] [facility] [address] [place] [address] 03/20/2025 11:40 AM EST Office Visit [facility] Nephrology, Bone & Mineral Metabolism [address] [facility], [address] [place] [address] Evelyne Medel MD [address] [facility] [address] [place] [address] Scheduled Orders Name Type Priority Associated Diagnoses Orde r Schedule PTH Intact Total Lab Routine Stage 3a chronic kidney disease ([facility]) Expected: 11/07/2024 (Approximate), Expires: 04/01/2026 Vitamin D 25 Hydroxy Lab Routine Stage 3a chronic kidney disease ([facility]) Expected: 11/07/2024 (Approximate), Expires: 04/01/2026 Creatinine, Random, Urine Lab Routine Stage 3a chronic kidney disease ([facility]) Expected: 11/07/2024 (Approximate), Expires: 04/01/2026 [...] documented as of this encounter Care Teams Game Programmer Relationship Specialty Start Date End Date Micah Willoughby MD PCP - General 02/14/21 documented as of this encounter
--- OUTSIDE RECORDS SUMMARY | 2024-11-25 13:37 | XMS_ITS | Encounter Summary ---
Author Organization Healthcare Address [address] [place] [address] Care Team Providers Care Candle Making Supervisor Name Role Phone Micah Willoughby MD Primary Care Provider [phone] Encounter Details Date Type Department Care Team (Late Contact Info) Description 11/09/2024 Telephone [facility] Nephrology, Bone & Mineral Metabolism [address] [facility], [address] [place] [address] Jannet Jacobson Social History Tobacco [...] medical records request for lab results to [phone]. Susanne Urbnia PharmD, BCACP Clinical Pharmacist Nephrology Clinic a documented in this encounter Plan of Treatment Upcoming Encounters Date Type Department Care Team (Late Contact Info) Description 02/17/2025 2:15 PM EST Office Visit [facility] Advanced Eye Care [address] [place] [address] Ammy Siegel MD [address] [place] [address] 02/21/2025 12:20 PM EST [facility] [address] [place] [address] Zohra Valenzuela, SILICA DRY PRESS HELPER [address] [facility] [address] [place] [address] 03/20/2025 11:40 AM EST Office Visit [facility] Nephrology, Bone & Mineral Metabolism [address] [facility], [address] [place] [address] Evelyne Medel MD [address] [place] [address] documented as of this encounter Visit Diagnoses Not on filedocumented in this encounter Additional Health Concerns Assessment Noted Time A fall risk assessment has been complete d for the patient 09/26/2024 8:53 AM EDT A Body Mass Index follow-up plan has been documented for the patient 11/01/2024 1:27 PM EDT documented as of this encounter Care Teams Candle Making Supervisor Relationship Specialty Start Date End Date Micah Willoughby MD PCP - General 02/14/21 documented as of this encounter
--- OUTSIDE RECORDS SUMMARY | 2024-11-25 13:37 | XMS_ITS | Data Portability ---
Author Organization [facility] Address [address] [place] [address] Assessment No assessment recorded. Plan of Treatment [...] By Organization Details Last Modified Time 07/08/2023 [id number] All questions answered and pt/guardian satisfied with [...] Details Recorded Time Laceration of left forearm [id number] 9104 Active 2023 Reji Ann PA-C [address], [place], [address], [facility] 09:19:35 Problem Notes None recorded. Procedures Surgical History Date Name Laterality Status Provider Name and Address Organization Details Recorded Time Laceration Repair with Sutures/Fanny completed Reji Ann PA-C [address], [place], [address], [facility] 07/13/2023 09:20:54 Imaging Results None [...] Diagnosis SNOMED-CT Code Diagnosis ICD10 Code Diagnosis IMO Codes Diagnosis Note [id number] Reji Ann PA-C [facility] [address] [place] [address] 07/08/2023 11:47:28 07/08/2023 12:41:57 Laceration of left forearm [id number] S51.812A 4 suture; Patient s wound was [...] ID Sotomayor Member ID Guarantor Name 07/15/[address] WRAP BILLING (MEDICAID) Julio Myrick [id number] Julio Myrick 07/18/2023 1 [facility] (MEDICAID REPLACEMENT - HMO) Julio Myrick [id number] Julio Myrick 07/08/2023 1 *SELF PAY* Se felpia Myrick Notes Date Note Type Note Provider [...] concerns. Reji Ann PA-C [address], [place], [address], [place] - [facility] 07/13/2023 09:21:07
--- OUTSIDE RECORDS SUMMARY | 2024-11-25 13:37 | XMS_ITS | Encounter Summary ---
Author Organization Healthcare Address [address] [place] [address] Care Team Providers Care Investor Relations Specialist Name Role Phone Micah Willoughby MD Primary Care Provider [phone] Encounter Details Date Type Department Care Team [...] [facility] [address] [facility] [place] [address] Ammy Siegel MD [address] [place] [address] 02/21/2025 12:20 PM EST Office Visit [facility] [address] [place] [address] Zohra Valenzuela, IT SOFTWARE ENGINEER [address] [place] [address] 03/20/2025 11:40 AM EST Office Visit [facility] Nephrology, Bone & Mineral Metabolism [address] [facility], [address] [place] [address] Evelyne Medel MD [address] [facility] [address] [place] [address] documented as of this encounter Visit Diagnoses Not on filedocumented in this encounter Additional Health Concerns Assessment Noted Time A fall risk assessment has been complete d for the patient 09/26/2024 8:53 AM EDT A Body Mass Index follow-up plan has been documented for the patient 06/02/2024 6:09 PM EDT documented as of this encounter Care Teams Investor Relations Specialist Relationship Specialty Start Date End Date Micah Willoughby MD PCP - General 02/14/21 documented as of this encounter
--- OUTSIDE RECORDS SUMMARY | 2024-11-25 13:37 | XMS_ITS | Encounter Summary ---
Author Organization Healthcare Address [address] [place] [address] Care Team Providers Care Case Hardener Name Role Phone Micah Willoughby MD Primary Care Provider [phone] Encounter Details Date Type Department Care Team [...] Description 02/17/2025 2:15 PM EST Office Visit [facility] Care [address] [facility] [place] [address] Ammy Siegel MD [address] [place] [address] 02/21/2025 12:20 PM EST Office Visit [facility] [address] [place] [address] Zohra Valenzuela, MAGAZINE KEEPER [address] [place] [address] 03/20/2025 11:40 AM EST Office Visit [facility] Nephrology, Bone & Mineral Metabolism [address] [facility], [address] [place] [address] Evelyne Medel MD [address] [facility] [address] [place] [address] documented as of this encounter Visit Diagnoses Not on filedocumented in this encounter Additional Health Concerns Assessment Noted Time A fall risk assessment has been complete d for the patient 09/26/2024 8:53 AM EDT A Body Mass Index follow-up plan has been documented for the patient 11/01/2024 1:27 PM EDT documented as of this encounter Care Teams Case Hardener Relationship Specialty Start Date End Date Micah Willoughby MD PCP - General 02/14/21 documented as of this encounter
--- OUTSIDE RECORDS SUMMARY | 2024-11-25 13:37 | XMS_ITS | Encounter Summary ---
Author Organization [facility] Address [address] [place] [address] Care Team Providers Care School Fundraising Director Name Role Phone Micah Willoughby MD Primary Care Provider Encounter Details Date Type Department Care Team ([facility] st Contact Info) Description 11/08/2024 Telephone [facility] Nephrology, Bone & Mineral Metabolism [address] [facility], [address] [place] [address] Susanne Urbina, PharmD [address] [place] [address] Social History Tobacco Use Types [...] plans to have labs drawn locally at [facility], messaged intranet support requesting they fax lab orders. Susanne Urbina PharmD, BCACP Clinical Pharmacist Nephrology Clinic documented in this encounter Plan of Treatment Upcoming Encounters Date Type Department Care Team (Late st Contact Info) Description 02/17/2025 2:15 PM EST Office [facility] Advanced Eye Care [address] [facility] [place] [address] Ammy Siegel MD [address] [facility] [address] [place] [address] 02/21/2025 12:20 PM EST Office Visit [facility] Endocrinology [address] [place] [address] Zohra Valenzuela, COMPUTER INFORMATION SCIENCE PROFESSOR [address] [facility] [address] [place] [address] 03/20/2025 11:40 AM EST Office Visit [facility] Nephrology, Bone & Mineral Metabolism [address] [facility], [address] [place] [address] Evelyne Medel MD [address] [facility] [address] [place] [address] documented as of this encounter Visit Diagnoses Not on filedocumented in this encounter Additional Health Concerns Assessment Noted Time A fall risk assessment has been complete d for the patient 09/26/2024 8:53 AM EDT A Body Mass Index follow-up plan has been documented for the patient 11/01/2024 1:27 PM EDT documented as of this encounter Care Teams School Fundraising Director Relationship Specialty Start Date End Date Micah Willoughby MD PCP - General 02/14/21 documented as of this encounter
--- OUTSIDE RECORDS SUMMARY | 2024-11-25 13:37 | XMS_ITS | Clinical Summary ---
Author Organization [facility] Address [address] [place] [address] Care Team Providers Care Care Transitions Manager Name Role Phone Micah Willoughby MD Primary Care Provider [phone] Allergies Active Allergy Reactions Criticality Noted Date [...] Description 11/14/2024 10:00 AM EDT Office Visit [facility] Nephrology, Bone & Mineral Metabolism [address], [address] [place] [address] Evelyne Medel MD Stage 3a chronic kidney disease (CMS/HCC) (Primary Dx); Essential hypertension, benign; Type 1 diabetes mellitus with diabetic neuropathy; Hyperkalemia 11/14/2024 Travel 11/09/2024 Telephone [facility] Nephrology, Bone & Mineral Metabolism [address], [address] [place] [address] Jannet Jacobson 11/08/2024 Telephone [facility] Nephrology, Bone & Mineral Metabolism [address], [address] [place] [address] Susanne Urbina, PharmD 11/01/2024 12:20 PM EDT Office Visit [facility] Endocrinology [facility] [place] [address] Zohra Valenzuela APRN Type 1 diabetes mellitus with diabetic neuropathy (Primary Dx); Stage 3 chronic kidney disease, unspecified whether stage 3a or 3b CKD (CMS/HCC); Obesity (BMI 30-39.9); Neuropathy; Hyperlipidemia, unspecified hyperlipidemia type; Hypoglycemia; Primary hypertension 11/01/2024 Travel 09/28/2024 Telephone [facility] Nephrology, Bone & Mineral Metabolism [address], [address] [place] [address] Susanne Urbina, PharmD 09/26/2024 Telephone [facility] Nephrology, Bone & Mineral Metabolism [address], [address] [place] [address] Mraley Moreira, CRISTI 09/26/2024 Travel 09/15/2024 Refill [facility] Endocrinology [address] [place] [address] Zohra Valenzuela, MARLENE 09/12/2024 Telephone [facility] Nephrology, Bone & Mineral Metabolism [address], [address] [place] [address] Susanne Urbina, PharmD from Last [...] Description 02/17/2025 2:15 PM EST [facility] [address] [place] [address] Ammy Siegel MD [address] [place] [address] 02/21/2025 12:20 PM EST Office Visit [facility] Endocrinology [address] [place] [address] Zohra Valenzuela, DISTANCE EDUCATION FACULTY LIAISON [address] [facility] [address] [place] [address] 03/20/2025 11:40 AM EST Office Visit [facility] Nephrology, Bone & Mineral Metabolism [address], [address] [place] [address] Evelyne Medel MD [address] [place] [address] Health Maintenance Due Date Last [...] 01/05/2019 [facility]-Zoster Vaccines (1 of 2) 12/24/2023 [facility]-SMYCV-66 Vaccine ( season) 2024 12/04/2021, 06/05/2021, 12/12/2020, Additional history exists [facility]-Influenza Vaccine (#1) 2024 11/28/2020, [facility]-Diabetes: Hemoglobin A1C 05/01/2025, 03/24/2024, 09/16/2023, Additional history exists [facility]-Depression Screening 11/14/2025 11/14/2024 [facility]-DTaP,Tdap,and Td Vaccines (2 - Td or Tdap) 05/23/2032 05/23/2022 [facility]-Obesity Intervention Completed 025, 11/01/2024, 05/23/2024, Additional history exists HPV Vaccines Aged [...] A1C 5.4 <5.7% Non-Diabe tic % [facility] Kit Lot Number [id number] [facility] Kit Expiration Date 09/08/2026 [facility] Blood Venous blood specimen / Unknown 11/01/2024 12:28 PM EDT us Zohra Valenzuela DISTANCE EDUCATION FACULTY LIAISON POINT OF CARE TEST ENTER/ED IT ORDERABLES Final Result [facility] [address] [place] [address] [place] [address] from Last 3 Months Insurance [employer] MEDICAID [place] Care Teams Care Transitions Manager Relationship Specialty Start Date End Date Micah Willoughby MD PCP - General 02/14/21
--- NOTE | 2024-11-25 14:00 | CA_ITS ---
APPROVED REPORT EXAM: Comprehensive 2D, Doppler, and color-flow [facility] Tutor: Mikki Kong RDCS Ht: 5 ft 9 in Wt: 236lbs BSA: 2.22 BP: 122/77 mmHg Indications: SYNCOPE, HFrEF M-Mode Dimensions RVDd 2.43 cm (0.9-2.6) LVDd 5.54 cm (3.5-5.7) LVDs 4.14 cm (3.5-5.7) IVSd 0.80 cm (0.6-1.1) PWd 0.76 cm (0.6-1.1) EF (Teich) 49.40% FS 25.30% EDV (Teich) 149.90 mL ESV (Teich) 75.90 mL LV Diastology E Decel Time 217 (160-240 msec) E/A Ratio 0.9 Aortic Valve AI PHT 459.00 ms Mitral Valve MV E Max Floyd. 52.0 (40-130 cm/s) MV A Velocity 57.0 (40-130 cm/s) E/A Ratio 0.92 MV PHT 63.0 ms Left Ventricle The left ventricle is normal size. Left ventricular systolic function is low normal. There is normal left ventricular wall thickness. There is normal LV segmental wall motion. The left ventricular diastolic function is normal. LVEF is 50% Right Ventricle The right ventricle is mildly dilated. The right ventricular systolic function is normal. Atria The left atrium size is normal. The right atrium size is normal. There is no color Doppler evidence of interatrial shunt. Aortic Valve The aortic valve opens well. There is no hemodynamically significant aortic valvular stenosis. Mild aortic regurgitation is present. Mitral Valve The mitral valve is normal in structure. No evidence of mitral valve stenosis. Trace mitral regurgitation is present. Tricuspid Valve The tricuspid valve leaflets are thin and pliable. Trace tricuspid regurgitation. There is insufficient TR jet to estimate RVSP. Pulmonic Valve The pulmonary valve is grossly normal in structure. Trace pulmonic valve regurgitation is present. Great Vessels The aortic root is normal in size. IVC is normal in size and collapses >50% with inspiration. Pericardium There is no pericardial effusion. Other Information Study Quality: Fair Conclusion Normal LV systolic function (LVEF 50%). Mild RV dilation with normal RV function. Mild AI. Compared to prior study from 03/30/2024, the biventricular size and systolic function are unchanged. Electronically signed by : Nelsy Etienne MD 12/01/2024 12:37:17
== END 2024-11-25 23:59 | disposition home or self-care (01) ==
LOC: RT 13:34
PROVIDERS: PCP Family Medicine; Visit Provider Internal Medicine
DX: I35.1 Nonrheumatic aortic (valve) insufficiency (principal); I11.0 Hypertensive heart disease with heart failure; I50.30 Unspecified diastolic (congestive) heart failure; R55 Syncope and collapse
CPT/HCPCS: 93306

== ENCOUNTER 2024-12-05 13:30 | Outpatient (RCR) | payer MEDICAID, SELFPAY ==
--- NOTE | 2024-12-05 13:57 | HMH.RHREAS ---
Rehab Reassessment Rehab OP Re-assessment Start: 11/11/24 14:39 Freq: Status: Active Protocol: Document 12/05/24 13:50 PHORBALBIR (Rec: 12/05/24 13:57 PHORNE [id number]) E-signed By Niles Phillips, PT Alexi Wound Assessment Tool Assessment Wound size 1=Length x Width <4 sq cm Wound depth 2=Partial thickness skin loss involving epidermis &/or dermis Wound edges 2=Distinct, outline clearly visible, attached, even with wound base Wound undermining 1=None present Necrotic tissue type 1=Non visible Necrotic tissue 1=None visible amount Exudate type 3=Serosanguineous: thin, watery, pale red/pink Exudate amount 3=Small Skin color 2=Bright red &/or blanches to touch surrounding wound Peripheral tissue 1=No swelling or edema edema Peripheral tissue 1=None present induration Granulation tissue 1=Skin intact or partial thickness wound Epithelialization 2=75% to < 100% wound covered &/or epithelial tissue extends > 0.5cm Wound assessment 21 total score Rehab Re-assessment Subjective Subjective Pt presents with c/o increased tenderness in the priya- wound skin this date. He states, It just feel sore around there. I think I scratched it in the night when I was sleeping and made it worse. Objective Objective Notes R buttock wound: L= 0.3 cm, W= 0.5 cm, D= 0.1 cm Wound is 99% healed vs IE. Assessment Progress Assessment Progressing as Expected Assessment Notes Pt has shown significant overall wound improvement with almost complete epithelialization noted. He no longer requires skilled wound care services at this time unless he were to suffer new complications with this wound at a later date. Wound Patient Goals Wound Short Term All goals have been met. Patient Goals Wound [facility] All goals have been met Patient Goals Plan Plan Pt no longer requires skilled wound care therapy services. Instructions given for continued home wound care and to alert his provider or therapist should he have new concerns arise. Frequency of Therapy 0 Duration of Therapy 0 Eval/Re-Eval Yes Time and Billing Re-Eval Time 14 Re-Eval Billing 0 Units Charge for PT No reassessment? PHYSICIAN CERTIFICATION: I certify the specified therapy services for Julio Odilon Myrick are required, authorized, and reviewed every 30 days.
== END 2024-12-05 23:59 | disposition home or self-care (01) ==
LOC: PT 13:30
PROVIDERS: Visit Provider Surgery
DX: L03.90 Cellulitis, unspecified (principal); T80.90XA Unspecified complication following infusion and therapeutic injection, initial encounter
CPT/HCPCS: 97597; 97605

== ENCOUNTER 2024-12-15 14:27 | Outpatient (CLI) | payer MEDICAID, SELFPAY ==
--- OUTSIDE RECORDS SUMMARY | 2024-11-01 11:20 | XMS_ITS | Encounter Summary ---
Author Organization [facility] Address [address] [place] [address] Care Team Providers Care Learning Support Aide Name Role Phone Micah Willoughby MD Primary Care Provider [phone] Reason for Referral * Consultation (Routine) - Authorized Specialty Diagnoses / Procedures Referred By Contac t Referred To Contact Diagnoses Type 1 diabetes mellitus with diabetic neuropathy Zohra Valenzuela APRN [address] [address] Phone: tel: fax: Referral ID Status Reason Start Date Expiration Date V isits Requested Visits Authorized [id number] Authorized 11/01/2024 05/03/2026 1 1 * Medications - Closed Specialty Diagnoses / Procedures Referred By Contac t Referred To Contact Diagnoses Type 1 diabetes mellitus with diabetic neuropathy Zohra Valenzuela APRN [address] [address] Phone: tel: fax: Referral ID Status Reason Start Date Expiration Date Visits Re quested Visits Authorized [id number] Closed 1 1 * Medications - Closed Specialty Diagnoses / Procedures Referred By Contac t Referred To Contact Diagnoses Type 1 diabetes mellitus with diabetic neuropathy Zohra Valenzuela APRN [address] [address] Phone: tel: fax: Referral ID Status Reason Start Date Expiration Date Visits Re quested Visits Authorized [id number] Closed 1 1 * Medications - Authorized Specialty Diagnoses / Procedures Referred By Daniela bernstein Referred To Contact Diagnoses Type 1 diabetes mellitus with diabetic neuropathy Zohra Valenzuela APRN [address] [address] Phone: tel: fax: Referral ID Status Reason Start Date Expiration Date V isits Requested Visits Authorized [id number] Authorized 06/09/2025 1 1 * Medications - Closed Specialty Diagnoses / Procedures Referred By Daniela bernstein Referred To Contact Diagnoses Type 1 diabetes mellitus with diabetic neuropathy Zohra Valenzuela APRN [address] [address] Phone: tel: fax: Referral ID Status Reason Start Date Expiration Date Visits Re quested Visits Authorized [id number] Closed 1 1 Reason for Visit * Reason Comments Diabetes Encounter Details Date Type Department Care Team (Late st Contact Info) Description 11/01/2024 12:20 PM EDT Office Visit [facility] Endocrinology [address] [place] [phone] Zohra Valenzuela APRN [address] [address] Type 1 diabetes mellitus with diabetic neuropathy (Primary Dx); Stage 3 chronic kidney disease, unspecified whether stage 3a or 3b CKD (CMS/HCC); Obesity (BMI 30-39.9); Neuropathy; Hyperlipidemia, unspecified hyperlipidemia type; Hypoglycemia; Primary hypertension Social History Tobacco Use Types [...] on file documented as of this encounter Last Filed Vital Signs Vital Sign Reading Time Taken Comments Blood Pressure 110/78 11/01/2024 12:15 PM EDT Pulse 121 11/01/2024 12:15 PM EDT Temperature - - Respiratory Rate - - Oxygen Saturation - - Inhaled Oxygen Concentration - - Weight 106 kg (234 lb 9.1 oz) 11/01/2024 12:15 P M EDT Height 175.3 cm (5' 9 ) 11/01/2024 12:15 PM EDT Body Mass Index 34.64 11/01/2024 12:15 PM EDT documented in this encounter Miscellaneous Notes * Progress Notes - Zohra Valenzuela, MARLENE - 11/01/2024 12:20 PM EDT Subjective Julio Myrick is a 48 y.o. male who presents for a follow up evaluation of Diabetes Mellitis Type1(elevated IA2 autoantibody in 2019 with low c-peptide). Patient was diagnosed age 23. Past Medical History[1]CKD3, hypertension, hyperlipidemia, Obesity, Gastric Bypass 2004, neuropathy, anemia Verbal consent was obtained to use ambient listening technology to assist in the documentation of the encounter: yes HPI -Last visit on 03/24/24. POCT Hemoglobin A1C (%) Date Value 11/01/2024 5.4 03/24/2024 6.8 02/14/2021 6.3 11/15/2020 5.5 Current treatment includes intensive insulin injection program -Basaglar 17 units in AM -Admelog 1:8 CHO, 1:50>150 correction, averages 7-12 units per day of admelog -Farxiga 10 mg daily (started per cardiology) -he is considering trying an insulin pump, attended pump assessment Nov 2023. He is currently waiting on this decision. Known diabetic complications: nephropathy, retinopathy, and peripheral neuropathy Compliance at present is estimated to be good. Cardiovascular risk factors: diabetes mellitus, dyslipidemia, hypertension, male gender, and microalbuminuria Is he on LATOYA inhibitor or angiotensin II receptor kristin? Yes on BB Is he on a StatinYes Current diet:eating less, decreased appetite Current exercise: less activity in the winter months -Home blood sugar records: reports avg <150, no results for review, occasional high bc- no pattern -Date of Last Eye Exam: 2024, past retinopathy- denies recent -Date of Last Foot Exam: monofilament exam 03/24/24, history neuropathy- stable, history dry skin/callus formation -Labs: due, pending orders per Nephrology -had drain placed for abscess to right lower buttocks region (location was at site of antibiotic injection) Julio Myrick has ketone strips: yes/no: Yes Julio Myrick has glucagon kit: yes/no: Yes What current meter are you using?: Freestyle Lite When was your last flu shot?: Fall 2023 History of Present Illness The patient is a 48-year-old male who presents for follow-up for type 1 diabetes. Diabetes Management - He reports no significant changes in his medical history since the last visit. - He has been experiencing difficulties logging into his continuous glucose monitoring (CGM) sensor, which he believes may be due to pressure on the sensor during sleep as he sleeps on his side. - He has considered using an insulin pump but currently does not prioritize it. - He has been rotating his injection sites more frequently. - He reports no lightheadedness or dizziness. - He has been eating less due to a lack of appetite and reports no excessive thirst or urination. - He reports no vision changes and has had an eye exam this year with no retinopathy noted. - He has some difficulty reading small print on his phone. Recent Hospitalization and Surgical History - He has not been hospitalized recently but had a cyst or abscess in the buttocks region, which he currently has a drain for - He received an antibiotic shot on 08/09/2024, and about 3 days after that shot, he started noticing soreness and hardness at the injection site. - The initial assessment suggested a site reaction, but it did not resolve, leading to surgical removal by another doctor. Current Medications and Blood Sugar Management - He is currently on Farxiga, prescribed by his electrical project engineer, and has ketone strips at home. - He is unsure when his next cardiology appointment is scheduled. - He believes his blood sugars average under 150, although he has had some high readings without a clear pattern. - He has experienced low blood sugar levels, particularly around 10:00 PM, but manages them effectively. - His current regimen includes 17 units of Basaglar in the morning and Admelog 1 unit for every 8 grams of carbohydrates consumed, with an additional unit for every 50 points above 150. - His average daily Admelog intake is between 7 and 12 units. - He is on valsartan and carvedilol for blood pressure management and gabapentin for neuropathy. Diet Recall - Dinner: Usually around 6:00 PM The following portions of the chart were reviewed this encounter and updated as appropriate: Tobacco Allergies Meds Problems Med Hx Surg Hx Fam Hx Review of Systems Constitutional: Positive for appetite change and unexpected weight change. HENT: Negative. Eyes: Negative. Respiratory: Negative. Cardiovascular: Negative. Gastrointestinal: Negative. Endocrine: Negative for polydipsia and polyuria. See HPI Genitourinary: Negative. Musculoskeletal: Negative. Skin: Negative. Neurological: Neuropathy Psychiatric/Behavioral: Negative. Objective Physical Exam Vitals reviewed. Constitutional: General: He is not in acute distress. Appearance: Normal appearance. He is obese. He is not ill-appearing. HENT: Head: Normocephalic. Nose: Nose normal. Cardiovascular: Rate and Rhythm: Regular rhythm. Tachycardia present. Heart sounds: Normal heart sounds. Pulmonary: Effort: Pulmonary effort is normal. Breath sounds: Normal breath sounds. Musculoskeletal: General: Normal range of motion. Cervical back: Normal range of motion. Skin: General: Skin is warm and dry. Neurological: Mental Status: He is alert and oriented to person, place, and time. Psychiatric: Mood and Affect: Mood normal. Behavior: Behavior normal. Thought Content: Thought content normal. Judgment: Judgment normal. Physical Exam Vital Signs: Heart rate is 121 bpm. Blood pressure is 110/78 mmHg. Cardiovascular: Heart sounds normal. Respiratory: Lungs sound normal. Extremities: No swelling. Lab Review Creatinine, Plasma (mg/dL) Date Value 06/08/2023 1.25 05/25/2023 1.24 eGFRcr (mL/min/1.73m*2) Date Value 06/08/2023 70.6 05/25/2023 71.3 Thyroid Stimulating Hormone, Plasma (uIU/mL) Date Value 06/08/2023 2.19 09/25/2021 3.92 LDL Calculated (mg/dL) Date Value 03/11/2018 65 LDL, Calculated (mg/dL) Date Value 06/08/2023 34 09/25/2021 53.8 Triglycerides, Plasma (mg/dL) Date Value 06/08/2023 26 09/25/2021 46 HDL (mg/dL) Date Value 06/08/2023 144 09/25/2021 147 Albumin/Creatinine Ratio Date Value 09/25/2021 Comment: Unable to calculate, at least one value is above or below the detection limit.... 03/11/2018 NOT CALCULATED mg/g AST, Plasma (U/L) Date Value 06/08/2023 35 09/25/2021 87 (H) ALT, Plasma (U/L) Date Value 06/08/2023 28 09/25/2021 45 (H) Alkaline Phosphatase, Plasma (U/L) Date Value 06/08/2023 84 09/25/2021 104 C Peptide (ng/mL) Date Value 03/11/2018 0.10 (L) Results - Labs: - A1c: 5.4% (down from 6.8% in March) Assessment/Plan Julio was seen today for diabetes. Diagnoses and all orders for this visit: Type 1 diabetes mellitus with diabetic neuropathy - POCT glycosylated hemoglobin (Hb A1C) Diabetes Mellitis Type 1, is controlled. Assessment & Plan 1. Type 1 diabetes mellitus - A1c level improved from 6.8% in 03/2024 to 5.4% currently - continue 17 units of Basaglar in the morning and Admelog 1:8 CHO, 1:50>150 correction - Farxiga prescribed by electrical project engineer, ketone strips at home (cautioned with use given history type 1 diabetes and risk of euglycemic DKA, he confirms understanding) - Occasional low blood sugars attributed to potential compression lows due to sleeping on the sensor - Blood sugars average under 150 with some high readings without a clear pattern - Baqsimi refill needed - Recommendations: - Double-check low readings with a glucometer - Rotate injection sites to avoid scar tissue buildup - Monitor feet regularly and avoid walking barefoot - Continue using ketone strips regularly and assess for symptoms of DKA - Seek emergency care if moderate to large ketones are detected with symptoms like vomiting or inability to drink fluids - Follow up with electrical project engineer regarding continued use of Farxiga despite type 1 diabetes and high heart rate - Cholesterol panel, thyroid function test, urine protein test, comprehensive metabolic panel, C-peptide level, and zinc transporter antibody test ordered 2. Hypertension - Blood pressure well-controlled at 110/78 mmHg - Continue current medications, including valsartan and carvedilol per primary care provider /cardiology 3. Neuropathy - Currently on gabapentin for neuropathy per outside provider - Continue gabapentin and monitor for any changes in symptoms 4. CKD 3 -stable -on ARB - encouraged good BP and glucose control to prevent disease progression -follow up with nephrology as scheduled 5. Hyperlipidemia -lipid panel pendingpending -stable -continue statin per primary care provider -encouraged healthy diet, activity as tolerated 6. Obesity -BMI: 36.64 -The patient received dietary education because they have an above normal BMI. and The patient received exercise education because they have an above normal BMI. 7. Hypoglycemia -discussed possibility of compression lows with cgm use -baqsimi prescription utd -reviewed importance of FSBG monitoring to prevent hypoglycemia, he is using cgm and considering automated insulin delivery through pump Follow-up - A follow-up visit is scheduled in 3 months The following Diabetes education was reviewed: []SBGM to evaluate dose needs []Insulin coverage with carbohydrate intake []Site rotation [] Exercise impact on glucose levels []Driving safety related to diabetes []Sick day management [x]Ketone testing []Over treatment of hypoglycemia [x] Hypoglycemia management [x]Call-in line use []Insulin pump pros and cons [x]Sensor home use []Pump class offerings []Caitlin phenomena []Somogyi effect [] Alcohol related to diabetes []Benefits of written records []Pre-meal Bolusing []Daily foot care [] Healthy diet and regular exercise []Long-term complications related to poor diabetes management [] Injection timing related to changes in activity/exercise I personally spent a total of minutes on this encounter. This time includes face to face with patient, counseling and discussion and/or coordination of care. Electronically signed by: Zohra Valenzuela APRN [facility] ENDOCRINOLOG[facility] [address] [place] [address]. [address] [place]. [address] PHONE [phone] FAX: [phone] [1] Past Medical History: Diagnosis Date Anemia Diabetes insipidus (CMS/HCC) Diabetes mellitus ([facility]/HCC) Diabetes mellitus type I ([facility]/HCC) Hyperlipidemia Hypertension Hypoparathyroidism Kidney stone N/a Personal history of other endocrine, nutritional and metabolic disease History of diabetes mellitus documented in this encounter Plan of Treatment Upcoming Encounters Date Type Department Care Team (Late st Contact Info) Description 02/21/2025 12:20 PM EST Office Visit [facility] Endocrinology [address] [place] [phone] Zohra Valenzuela APRN [address] [phone] 03/20/2025 11:40 AM EST Office Visit [facility] Nephrology, Bone & Mineral Metabolism [address] [facility], [address] [place] [address] Evelyne Medel MD [address] [facility] [address] [place] [address] Scheduled Orders Name Type Priority Associated Diagnoses Orde r Schedule Lipid Profile, Plasma Lab Routine Type 1 diabetes mellitus with diabetic neuropathy 1 Occurrences starting 11/01/2024 until 05/05/2026 TSH Reflex FT4 Lab Routine Type 1 diabetes mellitus with diabetic neuropathy 1 Occurrences starting 11/01/2024 until 05/05/2026 Comprehensive Metabolic Panel, Plasma Lab Routine Type 1 diabetes mellitus with diabetic neuropathy 1 Occurrences starting 11/01/2024 until 05/05/2026 C Peptide Lab Routine Type 1 diabetes mellitus with diabetic neuropathy 1 Occurrences starting 11/01/2024 until 05/05/2026 Zinc Transporter 8 Antibody Lab Routine Type 1 diabetes mellitus with diabetic neuropathy 1 Occurrences starting 11/01/2024 until 05/05/2026 Scheduled Referrals Name Type Priority Associated Diagnoses Orde r Schedule Follow Up [facility] Outpatient Referral Routine Type 1 diabetes mellitus with diabetic neuropathy Expected: 01/31/2025, Expires: 05/05/2026 documented as of this encounter Procedures Procedure Name Priority Date/Time Associated Diagnosis Comments POCT GLYCOSYLATED HEMOGLOBIN (HGB A1C) Routine 11/01/2024 12:28 PM EDT Type 1 diabetes mellitus with diabetic neuropathy documented in this encounter Results * POCT glycosylated hemoglobin (Hb A1C) (11/01/2024 12:28 PM EDT) POCT Hemoglobin A1C 5.4 <5.7% Non-Diabe tic % [facility] Kit Lot Number [id number] [facility] Kit Expiration Date 09/08/2026 [facility] Blood Venous blood specimen / Unknown 11/01/2024 12:28 PM EDT us Zohra Valenzuela PILING SETTER POINT OF CARE TEST ENTER/ED IT ORDERABLES Final Result Performing Organization Address City/State/[facility] Co de Phone Number [facility] [address] [place] [address] documented in this encounter Visit Diagnoses Diagnosis Type 1 diabetes mellitus with diabetic neuropathy- Primary Stage 3 chronic kidney disease, unspecified whether stage 3a or 3b CKD (CMS/HCC) Obesity (BMI 30-39.9) Neuropathy Mononeuritis of unspecified site Hyperlipidemia, unspecified hyperlipidemia type Hypoglycemia Hypoglycemia, unspecified Primary hypertension Unspecified essential hypertension documented in this encounter Additional Health Concerns Assessment Noted Time A fall risk assessment has been complete d for the patient 09/26/2024 8:53 AM EDT A Body Mass Index follow-up plan has been documented for the patient 11/01/2024 1:27 PM EDT documented as of this encounter Care Teams Learning Support Aide Relationship Specialty Start Date End Date Micah Willoughby MD PCP - General 02/14/21 documented as of this encounter
--- OUTSIDE RECORDS SUMMARY | 2024-11-14 09:00 | XMS_ITS | Encounter Summary ---
Author Organization [facility] Address [address] [place] [address] Care Team Providers Care Heat Treat Inspector Name Role Phone Micah Willoughby MD Primary Care Provider [phone] Reason for Referral * Consultation (Routine) - Authorized Specialty Diagnoses / Procedures Referred By Contac t Referred To Contact Diagnoses Stage 3a chronic kidney disease (CMS/HCC) Essential hypertension, benign Type 1 diabetes mellitus with diabetic neuropathy Evelyne Medel MD [address] [place] [phone] Phone: tel: fax: Referral ID Status Reason Start Date Expiration Date V isits Requested Visits Authorized [id number] Authorized 11/14/2024 05/16/2026 1 1 Reason for Visit * Reason Comments Follow-up Encounter Details Date Type Department Care Team ([facility] st Contact Info) Description 11/14/2024 10:00 AM EDT Office Visit [facility] Nephrology, Bone & Mineral Metabolism [address] , [address] [place] [address] Evelyne Medel MD [address] [place] [address] Stage 3a chronic kidney disease (CMS/HCC) (Primary Dx); Essential hypertension, benign; Type 1 diabetes mellitus with diabetic neuropathy; Hyperkalemia Social History Tobacco Use Types Packs/Day Years Used Date Smoking Tobacco: Never Smokeless Tobacco: Current Chew Alcohol Use Standard Drinks/Week Comments Yes 10 (1 standard drink = 0.6 oz pu re alcohol) occassionally PHQ-2 Answer Date Recorded Patient Health Questionnaire-2 Score 0 11/14/2024 PHQ-2A Answer Date Recorded Patient Health Questionnaire-2 Score 0 10/27/2022 Sex and Gender Information Value Date Recorded Sex Assigned at Not on file Legal Sex Male 7:30 PM EDT Gender Identity Not on file Sexual Orientation Not on file documented as of this encounter Last Filed Vital Signs Vital Sign Reading Time Taken Comments Blood Pressure 119/86 11/14/2024 9:44 AM EDT Pulse 73 11/14/2024 9:44 AM EDT Temperature 36.8 C (98.2 F) 11/14/2024 9:44 AM EDT Respiratory Rate - - Oxygen Saturation 98% 11/14/2024 9:44 AM EDT Inhaled Oxygen Concentration - - Weight 107 kg (236 lb 8.9 oz) 11/14/2024 9:44 AM EDT Height 175.3 cm (5' 9 ) 11/14/2024 9:44 AM EDT Body Mass Index 34.93 11/14/2024 9:44 AM EDT documented in this encounter Functional Status * Over the past 2 weeks, how often have you been bothered by any of the following problems? Question Answer Date of Assessment Author Little interest or pleasure in doing things Not at all 11/14/2024 9:48 AM EDT Brenda Grant Feeling down, depressed, or hopeless Not at all 11/14/2024 9:48 AM EDT Brenda Grant Patient Health Questionnaire -2 Score 0 11/14/2024 9:48 AM EDT Brenda Grant * How difficult have these problems made it for you to do your work, take care of things at home, or get along with other people? Answer Date of Assessment Author Not difficult at all 11/14/2024 9:48 AM EDT Will Brenda amos documented as of this encounter Miscellaneous Notes * Progress Notes - You Almaguer MD - 11/14/2024 10:00 AM EDT Nephrology Clinic Follow up Note HPI Mr. Myrick is a very pleasant 48 yoM with PMH of T1DM diagnosed age 23, CKD 3, HTN, gastric bypass 2004, depression/anxiety, and anemia returning to clinic for follow-up on HTN and CKD 3a. Last seen 05/23/2024, at that time had been adjusting BP regimen due to side effects (orthostasis, swelling) in conjunction with Cardiology. Had variable BP range and has also since last visit spoke with Susanne Urbina PHarmD over the phone 08/11/2024 for med management. More recent changes appeared to have improved patient overall clinical status. BP was better controlled and at goal, LE swelling responsive to Torsemide which patient has been taking PRN for symptoms. Today patient reports overall that he is doing well. Blood pressure at home has been under much better control, tends to run between 1 teens to 120s systolic over less than 80 diastolic. Has been compliant with his home medications. Has not needed to take torsemide in over 6 weeks as his lower extremity swelling has resolved and has not returned. Denies any chest pain shortness of air, appetite has been good and has been trying to eat healthier. Does report an episode last of ?syncope: Was at work and had sudden onset weakness of his bilateral upper and lower extremities complicated by inability to speak and a collapse, he did not lose consciousness. EMS came and evaluated him and brought him to the ER. His blood sugar and blood pressure on scene were within normal limits. He had workup in the ER with EKG, CT of the head with contrast, as well as blood work which she was told was all normal. His senior sales associate was contacted for sooner appointment, he will see them as well today. Past Medical History: Diagnosis Date Anemia Diabetes insipidus Diabetes mellitus Diabetes mellitus type I Hyperlipidemia Hypertension Hypoparathyroidism Kidney stone N/a Personal history of other endocrine, nutritional and metabolic disease History of diabetes mellitus Current Outpatient Medications Medication Instructions Blood Glucose Monitoring Suppl (FreeStyle Lite) w/Device kit USE TO CHECK BLOOD SUGAR THREE TIMES DAILY DIRECTED carvedilol (Coreg) 3.125 MG tablet TAKE 1 TABLET BY MOUTH TWICE A DAY WITH A MEAL cholecalciferol (VITAMIN D-3) 1,000 Units, Oral, Daily Continuous Glucose Sensor (Dexcom G6 Sensor) misc CHANGE EVERY 10 DAYS Continuous Glucose Transmitter (Dexcom G6 transmitter) misc USE DIRECTED TO MONITOR BLOOD GLUCOSE. CHANGE EVERY 90 DAYS cyanocobalamin (Vitamin B-12) 1000 MCG/ML injection doxycycline (VIBRAMYCIN) 100 mg, Daily Farxiga 10 MG tablet folic acid (Folvite) 1 MG tablet FreeStyle Lancets USE THREE TIMES DAILY gabapentin (Neurontin) 400 MG capsule gabapentin (Neurontin) 600 MG tablet Take 1 tablet (600 mg) by mouth 3 (three) times a day. One tablet twice a day glucagon (Baqsimi Two Pack) 3 MG/DOSE powder Nasal Powder Administer 3 mg into a single nostril forhypoglycemia; if no response, may repeat in 15 minutes using a new intranasal device glucose blood (FREESTYLE LITE) test strip USE FOR BLOOD GLUCOSE TESTING TWO TIMES DAILY OR TO CALIBRATE CGM insulin aspart (NovoLOG) 100 UNIT/ML injection pen Inject 1 unit/8 gms and 1 unit/50 points >150, Max Daily 50 units insulin glargine (LANTUS SOLOSTAR, BASAGLAR) 17 Units, Subcutaneous, Every morning insulin pen needle (B-D ULTRAFINE III SHORT PEN) 31G X 8 mm misc Use to inject 1-4 times daily as directed naltrexone (VIVITROL) 380 mg nitroglycerin (Nitrostat) 0.4 MG SL tablet pravastatin (Pravachol) 20 MG tablet Take 1 tablet (20 mg) by mouth 1 (one) time each day. sildenafil (Viagra) 100 MG tablet TAKE 1 TABLET BY MOUTH DAILY NEEDED FOR SEXUAL ACTIVITY torsemide (DEMADEX) 20 mg, Daily valsartan (DIOVAN) 80 mg, Daily Vowst capsule zolpidem (Ambien) 10 MG tablet TAKE 1 TABLET BY MOUTH EVERY NIGHT AT BEDTIME NEEDED FOR INSOMNIA Physical Exam Visit Vitals BP 119/86 (BP Location: Left arm, Patient Position: Sitting, BP Cuff Size: Large adult) Pulse 73 Temp 36.8 ??C (98.2 ??F) (Oral) Ht 1.753 m (5' 9 ) Wt 107 kg (236 lb 8.9 oz) SpO2 98% BMI 34.93 kg/m?? Physical Exam Vitals reviewed. Constitutional: General: He is not in acute distress. Appearance: Normal appearance. HENT: Head: Normocephalic and atraumatic. Mouth/Throat: Mouth: Mucous membranes are moist. Pharynx: Oropharynx is clear. Eyes: Extraocular Movements: Extraocular movements intact. Conjunctiva/sclera: Conjunctivae normal. Cardiovascular: Rate and Rhythm: Normal rate and regular rhythm. Pulses: Normal pulses. Pulmonary: Effort: Pulmonary effort is normal. No respiratory distress. Breath sounds: No wheezing. Abdominal: General: There is no distension. Palpations: Abdomen is soft. Musculoskeletal: Right lower leg: No edema. Left lower leg: No edema. Skin: General: Skin is warm and dry. Capillary Refill: Capillary refill takes less than 2 seconds. Neurological: Mental Status: He is alert and oriented to person, place, and time. Labs: 11/12/2024: Na 137 K 5.4 Cl 101 CO2 27 Cr 1.28 BUN 20 Glucose 139 UPCr 160mg/mg Assessment/Plan: #CKD 3 without proteinuria - Etiology: DM1 and NSAIDs as primary drivers though HTN likely involved - Baseline Cr 1.3 to 1.6 - Most recent labs Cr 1.28 / eGFR 68 - Stable on current ARB dose, but will reduce same secondary to orthostasis and symptomatic hypotension - Advised adequate hydration, advoid NSAIDs, nephrotoxins as able #Hypervolemic Hyponatremia - Within normal limits, Na 137 #Hyperkalemia - Elevated on labs, K+ 5.4 - Gave handout for low K+ diet - Encouraged to keep up with low K diet #DM1 - Follows with Endo - Saw recently, no changes to regimen #HTN - Doing better now, reading in clinic 119/86 - Side effects from prior medications appear to be grossly resolved - Compliant with therapy, currently on: Valsartan 80mg daily, Coreg 3.125mg BID - Continue current therapy #Possible Syncope - Did have episode of ?syncope vs weakness vs TIA last , no LoC, workup all normal when brought to ED - Given improvement in BP unlikely to be medication AE - BG was reportedly normal at scene per his CGM - Has follow-up Cards today, may need stress echo - If negative consider Neurology referral for ?TIA #Vit D deficiency - Ca and Phos WNL - Repeat Vit D, PTH pending - keep vit D 30-80 - vitamin d 1000 units daily RTC: 4 months with labs You Almaguer MD Department of Nephrology PGY-4 Pager: [phone]; Epic Chat Preferred Cosigned by Evelyne Medel MD at 11/18/2024 9:50 AM EDT Associated attestation - Evelyne Medel MD - 11/18/2024 9:50 AM EDT I saw and evaluated the patient with the resident/fellow. I discussed the case with the resident/fellow and agree with the findings and plan as documented. Patient will also get interim labs to repeat K level. documented in this encounter Plan of Treatment Upcoming Encounters Date Type Department Care Team (Late st Contact Info) Description 02/21/2025 12:20 PM EST Office Visit [facility] Endocrinology [address] [place] [address] Zohra Valenzuela APRN [address] [facility] [address] [place] [phone] 03/20/2025 11:40 AM EST Office Visit [facility] Nephrology, Bone & Mineral Metabolism [address] [facility], [address] [place] [address] Evelyne Medel MD [address] [facility] [address] [place] [address] Scheduled Orders Name Type Priority Associated Diagnoses Orde r Schedule Renal Function Panel, Plasma Lab Routine Stage 3a chronic kidney disease ([facility]) Essential hypertension, benign Type 1 diabetes mellitus with diabetic neuropathy Expected: 03/17/2025, Expires: 05/18/2026 Vitamin D 25 Hydroxy Lab Routine Stage 3a chronic kidney disease ([facility]) Essential hypertension, benign Type 1 diabetes mellitus with diabetic neuropathy Expected: 11/14/2024 (Approximate), Expires: 05/15/2026 Urinalysis with reflex microscopic (Culture NOT Included) Lab Routine Stage 3a chronic kidney disease ([facility]) Essential hypertension, benign Type 1 diabetes mellitus with diabetic neuropathy Expected: 03/17/2025 (Approximate), Expires: 05/18/2026 Protein, Random, Urine with Creatinine Lab Routine Stage 3a chronic kidney disease ([facility]) Essential hypertension, benign Type 1 diabetes mellitus with diabetic neuropathy Expected: 03/17/2025, Expires: 05/18/2026 Albumin-creatinine ratio, urine, random Lab Routine Stage 3a chronic kidney disease (CMS/HCC) Essential hypertension, benign Type 1 diabetes mellitus with diabetic neuropathy Expected: 03/17/2025, Expires: 05/18/2026 Renal function panel Lab Routine Hyperkalemia Expected: 11/21/2024 (Approximate), Expires: 05/18/2026 Scheduled Referrals Name Type Priority Associated Diagnoses Order Schedule Follow Up Nephrology Outpatient Referral Routine Stage 3a chronic kidney disease (CMS/HCC) Essential hypertension, benign Type 1 diabetes mellitus with diabetic neuropathy Expected: 03/27/2025 (Approximate), Expires: 12/15/2025 documented as of this encounter Visit Diagnoses Diagnosis Stage 3a chronic kidney disease (CMS/HCC)- Primary Essential hypertension, benign Type 1 diabetes mellitus with diabetic neuropathy Hyperkalemia Hyperpotassemia documented in this encounter Additional Health Concerns Assessment Noted Time A fall risk assessment has been complete d for the patient 11/14/2024 9:49 AM EDT A Body Mass Index follow-up plan has been documented for the patient 11/18/2024 9:50 AM EDT documented as of this encounter Care Teams Heat Treat Inspector Relationship Specialty Start Date End Date Micah Willoughby MD PCP - General 02/14/21 documented as of this encounter
--- OUTSIDE RECORDS SUMMARY | 2024-12-15 14:32 | XMS_ITS | Encounter Summary ---
Author Organization Healthcare Address [address] [place] [address] Care Team Providers Care Communications Planner Name Role Phone Micah Willoughby MD Primary Care Provider [phone] Encounter Details Date Type Department Care Team (Late st Contact Info) Description 12/12[facility]2024 [facility] [address] [place] [address] Nahomi Dick MD [address] [address] Social History Tobacco Use Types Packs/Day Years [...] encounter Miscellaneous Notes * Telephone Encounter - Katherine Tariq - 12/12/2024 1:33 PM EST Clinical Concern/Question Reason for Call: Due to a in family, patient needs to RS the 12/13 appointment. Best contact number: [phone] (home) Optimal time of day to reach caller: ANYTIME Additional comments/information from caller: None Note: Please do not reply to this message. Follow-up communication and further actions as a result of this message need to be communicated with the patient directly, if the patient is not active onMyChart. If the patient is active on MyChart, they will receive notification of the communication/outcome via MyChart. documented in this encounter Plan of Treatment Upcoming Encounters Date Type Department Care Team (Late st Contact Info) Description 02/21/2025 12:20 PM EST Office Visit [facility] Endocrinology [address] [place] [address] Zohra Valenzuela, BELT CONVEYOR DRIER [address] [facility] [address] [place] [address] 03/20/2025 11:40 AM EST Office Visit [facility] Nephrology, Bone & Mineral Metabolism [address] [facility], [address] [place] [address] Evelyne Medel MD [address] [facility] [address] [place] [address] documented as of this encounter Visit Diagnoses Not on filedocumented in this encounter Additional Health Concerns Assessment Noted Time A fall risk assessment has been complete d for the patient 11/14/2024 9:49 AM EDT A Body Mass Index follow-up plan has been documented for the patient 11/18/2024 9:50 AM EDT documented as of this encounter Care Teams Communications Planner Relationship Specialty Start Date End Date Micah Willoughby MD PCP - General 02/14/21 documented as of this encounter
--- OUTSIDE RECORDS SUMMARY | 2024-12-15 14:32 | XMS_ITS | Encounter Summary ---
Author Organization Healthcare Address [address] [place] [address] Care Team Providers Care Prompt Care Rn Name Role Phone Micah Willoughby MD Primary Care Provider [phone] Encounter Details Date Type Department Care Team [...] Description 02/21/2025 12:20 PM EST Office Visit [facility] Endocrinology [address] [place] [address] Zohra Valenzuela, RN PROGRESSIVE CARE [address] [facility] [address] [place] [address] 03/20/2025 11:40 AM EST Office Visit [facility] [place] Nephrology, Bone & Mineral Metabolism [address], [address] [place] [address] Evelyne Medel MD [address] [place] [address] documented as of this encounter Visit Diagnoses Not on filedocumented in this encounter Additional Health Concerns Assessment Noted Time A fall risk assessment has been complete d for the patient 09/26/2024 8:53 AM EDT A Body Mass Index follow-up plan has been documented for the patient 11/01/2024 1:27 PM EDT documented as of this encounter Care Teams Prompt Care Rn Relationship Specialty Start Date End Date Micah Willoughby MD PCP - General 02/14/21 documented as of this encounter
--- OUTSIDE RECORDS SUMMARY | 2024-12-15 14:32 | XMS_ITS | Encounter Summary ---
Author Organization Healthcare Address [address] [place] [address] Care Team Providers Care Chairperson Anesthesiology Name Role Phone Micah Willoughby MD Primary Care Provider [phone] Encounter Details Date Type Department Care Team (Late Contact Info) Description 11/09/2024 Telephone [facility] Nephrology, Bone & Mineral Metabolism [address] [facility], [address] [place] [address] Jannet Jacobson Social History Tobacco [...] medical records request for lab results to [phone]. Susanne Urbina PharmD, BCACP Clinical Pharmacist Nephrology Clinic a documented in this encounter Plan of Treatment Upcoming Encounters Date Type Department Care Team (Late Contact Info) Description 02/21/2025 12:20 PM EST Office Visit [facility] Endocrinology [address] [place] [address] Zohra Valenzuela APRN [address] [place] [address] 03/20/2025 11:40 AM EST Office Visit [facility] Neph[facility], Bone & Mineral Metabolism [address], [address] [place] [address] Evelyne Medel MD [address] [place] [address] documented as of this encounter Visit Diagnoses Not on filedocumented in this encounter Additional Health Concerns Assessment Noted Time A fall risk assessment has been complete d for the patient 09/26/2024 8:53 AM EDT A Body Mass Index follow-up plan has been documented for the patient 11/01/2024 1:27 PM EDT documented as of this encounter Care Teams Chairperson Anesthesiology Relationship Specialty Start Date End Date Micah Willoughby MD PCP - General 02/14/21 documented as of this encounter
--- OUTSIDE RECORDS SUMMARY | 2024-12-15 14:32 | XMS_ITS | Encounter Summary ---
Author Organization [facility] Address [address] [place] [address] Care Team Providers Care Load Out Person Name Role Phone Micah Willoughby MD Primary [...] 12:20 PM EST Office Visit [facility] Endocrinology [address] [place] [address] Zohra Valenzuela, ROOF PAINTER [address] [facility] [address] [place] [address] 03/20/2025 11:40 AM EST Office Visit [facility] Nephrology, Bone & Mineral Metabolism [address] [facility], [address] [place] [address] Evelyne Medel MD [address] [place] [address] documented as of this encounter Visit Diagnoses Not on filedocumented in this encounter Additional Health Concerns Assessment Noted Time A fall risk assessment has been complete d for the patient 11/14/2024 9:49 AM EDT A Body Mass Index follow-up plan has been documented for the patient 11/18/2024 9:50 AM EDT documented as of this encounter Care Teams Load Out Person Relationship Specialty Start Date End Date Micah Willoughby MD PCP - General 02/14/21 documented as of this encounter
--- OUTSIDE RECORDS SUMMARY | 2024-12-15 14:32 | XMS_ITS | Clinical Summary ---
Author Organization [facility] Address [address] [place] [address] Care Team Providers Care Candy Depositing Machine Operator Name Role Phone Micah Willoughby MD Primary Care Provider [phone] Allergies Active Allergy Reactions Criticality Noted Date [...] AT BEDTIME NEEDED FOR INSOMNIA 4 Active cholecalciferol (Vitamin D-3) 25 MCG (1000 UT) tabletIndications :Vitamin D deficiency Take 1 tablet (1,000 Units) by mouth 1 (one) time each day. 90 tablet 2 5 Active nitroglycerin (Nitrostat) 0.4 MG SL tablet 5 Active naltrexone (Vivitrol) 380 MG reconstituted suspension injection 4.2 mL (380 mg). 5 Active carvedilol (Coreg) 3.125 MG tablet TAKE 1 TABLET BY MOUTH TWICE A DAY WITH A MEAL 180 tablet 3 5 Active valsartan (Diovan) 80 MG tablet Take 1 tablet by mouth daily. 5 Active torsemide (Demadex) 20 MG tablet Take 1 tablet by mouth daily. 5 Active folic acid (Folvite) 1 MG tablet 5 Active Vowst capsule 5 Active Farxiga 10 MG tablet 5 Active cyanocobalamin (Vitamin B-12) 1000 MCG/ML injection 5 Active gabapentin (Neurontin) 400 MG capsule 5 Active insulin aspart (NovoLOG) 100 UNIT/ML injection penIndications:Ty pe 1 diabetes mellitus with diabetic neuropathy Inject 1 unit/8 gms and 1 unit/50 points >150, Max Daily 50 units 15 mL 5 5 Active glucagon (Baqsimi Two Pack) 3 MG/DOSE powder Nasal PowderIndications :Type 1 diabetes mellitus with diabetic neuropathy Administer 3 mg into a single nostril for hypoglycemia; if no response, may repeat in 15 minutes using a new intranasal device 1 each 1 5 Active insulin glargine (Lantus SoloStar, Basaglar) 100 UNIT/ML injection penIndications:Ty pe 1 diabetes mellitus with diabetic neuropathy Inject 17 Units under the skin every morning. 15 mL 4 5 11/02/19 26 Active insulin pen needle (B-D ULTRAFINE III SHORT PEN) 31G X 8 mm misc Use to inject 1-4 times daily as directed 120 each 5 Active Continuous Glucose Sensor (Dexcom G6 Sensor) miscIndications:T ype 1 diabetes mellitus with diabetic neuropathy CHANGE EVERY 10 DAYS 9 each 3 5 Active Continuous Glucose Transmitter (Dexcom G6 transmitter) miscIndications:T ype 1 diabetes mellitus with diabetic neuropathy USE DIRECTED TO MONITOR BLOOD GLUCOSE. CHANGE EVERY 90 DAYS 1 each 3 5 Active Active Problems Problem Noted Date [...] Encounters Date Type Department Care Team Description 12/12/2024 [facility] [address] [place] [address] Nahomi Dick MD 11/14/2024 10:00 AM EDT Office Visit [facility] Nephrology, Bone & Mineral Metabolism [address] , [address] [place] [address] Evelyne Medel MD Stage 3a chronic kidney disease (CMS/HCC) (Primary Dx); Essential hypertension, benign; Type 1 diabetes mellitus with diabetic neuropathy; Hyperkalemia 11/14/2024 Travel 11/09/2024 Telephone [facility] Nephrology, Bone & Mineral Metabolism [address] , [address] [place] [address] Jannet Jacobson 11/08/2024 Telephone [facility] Nephrology, Bone & Mineral Metabolism [address], [address] [place] [address] Susanne Urbina, PharmD 11/01/2024 12:20 PM EDT Office Visit [facility] Endocrinology [address] [place] [address] Zohra Valenzuela, SAP BASIS CONSULTANT Type 1 diabetes mellitus with diabetic neuropathy (Primary Dx); Stage 3 chronic kidney disease, unspecified whether stage 3a or 3b CKD ([facility]); Obesity (BMI 30-39.9); Neuropathy; Hyperlipidemia, unspecified hyperlipidemia type; Hypoglycemia; Primary hypertension 11/01/2024 Travel 09/28/2024 [facility] Nephrology, Bone & Mineral Metabolism [address], [address] [place] [address] Susanne Urbina, PharmD 09/26/2024 [facility] Nephrology, Bone & Mineral Metabolism [address], [address] [place] [address] Marley Moreira CNA 09/26/2024 Travel 09/15/2024 Refill [facility] Endocrinology [address] [place] [address] Zohra Valenzuela, MARLENE from Last 3 Months Family History Medical [...] Description 02/21/2025 12:20 PM EST Office Visit [facility] [address] [place] [address] Zohra Valenzuela, SAP BASIS CONSULTANT [address] [facility] [address] [place] [address] 03/20/2025 11:40 AM EST Office Visit [facility] Nephrology, Bone & Mineral Metabolism [address] [facility], [address] [place] [address] Evelyne Medel MD [address] [facility] [address] [place] [address] Health Maintenance Due Date Last [...] 01/05/2019 UKY-Zoster Vaccines (1 of 2) 12/24/2023 [id number]-10 Vaccine (6 - season) 2024 12/04/2021, 06/05/2021, 12/12/2020, Additional history [...] Hemoglobin A1C 5.4 <5.7% Non-Diabe tic % [facility] Kit Lot Number [id number] [facility] Kit Expiration Date 09/08/2026 [facility] Blood Venous blood specimen / Unknown 11/01/2024 12:28 PM EDT us Zohra Valenzuela SAP BASIS CONSULTANT POINT OF CARE TEST ENTER/ED IT ORDERABLES Final Result [facility] [address] [place] [address] from Last 3 Months Insurance [facility] MEDICAID [place] Care Teams Candy Depositing Machine Operator Relationship Specialty Start Date End Date Micah Willoughby MD PCP - General 02/14/21
--- OUTSIDE RECORDS SUMMARY | 2024-12-15 14:32 | XMS_ITS | Encounter Summary ---
Author Organization [facility] Address [address] [place] [address] Care Team Providers Care Classroom Paraprofessional Name Role Phone Micah Willoughby MD Primary Care Provider [phone] Unavailable [phone] Reason for Visit * Reason Comments Med Refill Encounter Details Date Type Department Care Team ([facility] Contact Info) Description 10/09/2022 Refill [facility] Nephrology, Bone & Mineral Metabolism [address], [address] [place] [address] Evelyne Medel MD [address] [place] [address] Primary hypertension Social History Tobacco [...] 12:20 PM EST Office Visit [facility] Endocrinology [address] [place] [address] Zohra Valenzuela, TIMBER SELECTOR [address] [place] [address] 03/20/2025 11:40 AM EST Office Visit [facility] Nephrology, Bone & Mineral Metabolism [address] [facility], [address] [place] [address] Evelyne Medel MD [address] [place] [address] documented as of this encounter Visit Diagnoses Diagnosis Primary hypertension Unspecified essential hypertension documented in this encounter Additional Health Concerns Assessment Noted Time A fall risk assessment has been complete d for the patient 06/02/2022 8:59 AM EDT A Body Mass Index follow-up plan has been documented for the patient 07/31/2022 9:32 AM EDT documented as of this encounter Care Teams Classroom Paraprofessional Relationship Specialty Start Date End Date Micah Willoughby MD PCP - General 02/14/[address] [place] [id number] Residential Real Estate Agent Diabetes Services 12/04/23 03/03/24 documented as of this encounter
--- OUTSIDE RECORDS SUMMARY | 2024-12-15 14:32 | XMS_ITS | Clinical Summary ---
Author Organization [facility] Address [address] [place] [address] Phone Care Team Providers Care Aircraft Time Clerk Name Role Phone Unavailable Primary Care Provider [...] (ASTELIN) 137 mcg (0.1 %) Nasl Aerosol, [place] 274 mcg in each nostril 4 times [...]
--- OUTSIDE RECORDS SUMMARY | 2024-12-15 14:32 | XMS_ITS | Encounter Summary ---
Author Organization [facility] Address [address] [place] [address] Care Team Providers Care Nutritional Services Host Name Role Phone Micah Willoughby MD Primary Care Provider [phone] Encounter Details Date Type Department Care Team ([facility] st Contact Info) Description 11/08/2024 Telephone [facility] Nephrology, Bone & Mineral Metabolism [address] [facility], [address] [place] [address] Susanne Urbina, PharmD [address] [place] [address] Social History Tobacco Use Types [...] plans to have labs drawn locally at [facility], messaged student support counselor requesting they fax lab orders. Susanne Urbina PharmD, BCACP Clinical Pharmacist Nephrology Clinic documented in this encounter Plan of Treatment Upcoming Encounters Date Type Department Care Team (Late st Contact Info) Description 02/21/2025 12:20 PM EST Office Visit [facility] Endocrinology [address] [place] [address] Zohra Valenzuela, SPORT INTERN [address] [facility] [address] [place] [address] 03/20/2025 11:40 AM EST Office Visit [facility] Nephrology, Bone & Mineral Metabolism [address] [facility], [address] [place] [address] Evelyne Medel MD [address] [place] [address] documented as of this encounter Visit Diagnoses Not on filedocumented in this encounter Additional Health Concerns Assessment Noted Time A fall risk assessment has been complete d for the patient 09/26/2024 8:53 AM EDT A Body Mass Index follow-up plan has been documented for the patient 11/01/2024 1:27 PM EDT documented as of this encounter Care Teams Nutritional Services Host Relationship Specialty Start Date End Date Micah Willoughby MD PCP - General 02/14/21 documented as of this encounter
== END 2024-12-15 23:59 | disposition home or self-care (01) ==
LOC: RT 14:29
PROVIDERS: PCP Family Medicine; Visit Provider Internal Medicine
DX: I49.1 Atrial premature depolarization (principal); I47.19 Other supraventricular tachycardia; I49.3 Ventricular premature depolarization; I47.29 Other ventricular tachycardia
CPT/HCPCS: 93270